=== PATIENT | female | born 1965 | race American Indian/Alaskan Native ===

== ENCOUNTER 2017-05-25 23:22 | Inpatient (IN) | payer MEDICARE ==
[2017-05-26 00:08] LABS: Basophils % (Auto) 0.6 % (0.0-1.8); Eosinophils % (Auto) 1.2 % (0.0-4.3); Hematocrit 42.8 % (30.3-42.9); Hemoglobin 14.3 gm/dl (10.1-14.3); Mean Corpuscular HGB Conc 33 % (30-34); Mean Corpuscular Hemoglobin 30 pg (28-32); Mean Corpuscular Volume 89 fl (79-97); Platelet Count 185 K/mm3 (140-440); Red Blood Count 4.78 M/mm3 (3.65-5.03); Red Cell Distribution Width 14.8 % (13.2-15.2); White Blood Count 7.7 K/mm3 (4.5-11.0)
[2017-05-26 00:20] LABS: Anion Gap 17 mmol/L; BUN/Creatinine Ratio 14; Blood Urea Nitrogen 10 mg/dL (7-17); Calcium 9.4 mg/dL (8.4-10.2); Carbon Dioxide 25 mmol/L (22-30); Chloride 103.8 mmol/L (98-107); Glucose 214 mg/dL (65-100); Potassium 3.1 mmol/L (3.6-5.0); Sodium 143 mmol/L (137-145)
[2017-05-26] MEDS ORDERED: MORPHINE IV ONE ×2 (02:24→13:30)
[2017-05-26] MEDS ORDERED: PHENERGAN PO ONE (02:25)
--- NOTE | 2017-05-26 02:30 | Emergency Department Report ---
ED Chest Pain HPI - General Chief Complaint: Chest Pain Stated Complaint: CHEST PAIN Time Seen by Provider: 05/26/17 01:58 Source: patient, EMS Mode of arrival: Stretcher Limitations: No Limitations - History of Present Illness Initial Comments: 51 yo female with a past medical history of asthma, CHF, COPD, CVA, DVT, diabetes, DE, hypertension, fibromyalgia, and AICD placement presents to the hospital complaints of chest pain that started tonight. Pain is substernal radiates to the back and jaw, constant, and feels like "an elephant sitting on her chest". Patient received 3 nitroglycerin sublingual and aspirin via EMS reports a decrease in her pain 5/10 in intensity. Patient states she has similar pain when she had a heart attack in 2016. She was seen at a hospital in [place] which I assume is [facility]. Patient states she had a cardiac cath at that time and was told that she has some minor blockages and did not require stenting or bypass. Her record here patient had a cardiac cath here on 10/03/2014 showing normal coronary arteries with an EF of 50% Her slabber is Dr. Herr PMD: Dr. Shelton [facility] affiliated Severity scale (0 -10): 5 - Related Data Home Medications Medication Instructions Recorded Confirmed Last Taken Albuterol Sulfate [Ventolin HFA] 2 puff IH Q4H PRN 10/03/14 05/26/17 10/01/14 2 puffs DULoxetine [Cymbalta] 60 mg PO BID 12/12/14 05/26/17 12/12/14 tiZANidine [Zanaflex] 4 mg PO TID 12/12/14 05/26/17 12/12/14 traZODone [Desyrel] 100 mg PO QHS 12/12/14 05/26/17 12/12/14 Furosemide [Lasix TAB] 40 mg PO QDAY 01/05/15 05/26/17 Unknown ISOSORBIDE MONOnitrate [Imdur ER] 60 mg PO QDAY 01/05/15 05/26/17 Unknown clonazePAM [KlonoPIN] 1 mg PO TID 01/05/15 05/26/17 Unknown Diclofenac Sodium [Voltaren] 100 gm TP QID PRN 05/26/17 05/26/17 Unknown Gabapentin [Neurontin] 600 mg PO Q8H 05/26/17 05/26/17 Unknown Insulin Aspart [NovoLOG Flexpen] 7 - 12 units SQ AC 05/26/17 05/26/17 Unknown Insulin Detemir [Levemir VIAL] 7 unit SQ QHS 05/26/17 05/26/17 Unknown Mometasone Furoate [Elocon] 15 gm TP DAILY 05/26/17 05/26/17 Unknown Morphine [Morphine TAB] 15 mg PO Q12H 05/26/17 05/26/17 Unknown Oxycodone HCl/Acetaminophen 1 each PO Q8HR PRN 05/26/17 05/26/17 Unknown [Percocet 7.5/325 mg] Pentosan Polysulfate Sodium 100 mg PO DAILY 05/26/17 05/26/17 Unknown [Elmiron] Previous Rx's Medication Instructions Recorded Last Taken Type Carvedilol [Coreg] 12.5 mg PO BID #60 tablet 09/08/14 12/12/14 Rx Spironolactone [Aldactone] 50 mg PO DAILY #30 tablet 09/08/14 12/12/14 Rx Allergies Allergy/AdvReac Type Severity Reaction Status Date / Time divalproex sodium Allergy Anaphylaxis Verified 01/05/15 16:07 [From Depakote] heparin Allergy Swelling Verified 01/05/15 16:07 Iodinated Contrast- Oral and Allergy Anaphylaxis Verified 01/05/15 16:07 IV Dye [Iodinated Contrast Media - IV Dye] ketorolac tromethamine Allergy Angioedema Verified 01/05/15 16:07 [From Toradol] ondansetron HCl Allergy Itching Verified 01/05/15 16:07 [From Zofran (as hydrochloride)] Penicillins Allergy Anaphylaxis Verified 01/05/15 16:07 Heart Score - HEART Score History: Moderately suspicious EKG: Non-specific Age: 45-65 Risk factors: > 3 risk factors or hx of atherosclerotic disease Troponin: < normal limit HEART Score: 5 ED Review of Systems ROS: Stated complaint: CHEST PAIN Other details as noted in HPI Comment: All other systems reviewed and negative Other: Constitutional: No fevers chills Eyes: No eye pain visual changes ENT: No ear pain or throat pain Neck: Denies pain Respiratory: Denies cough wheezing Cardiovascular: as per hpi GI: Denies abdominal pain, nausea, vomiting, diarrhea : Denies dysuria Musculoskeletal: Denies back pain Skin: Denies rash, lesions, erythema Neurologic: Denies headache, numbness, weakness Psychiatric: Denies suicidal ideation, hallucinations ED Past Medical Hx - Past Medical History Previous Medical History?: Yes Hx Hypertension: Yes Hx CVA: Yes (x3) Hx Heart Attack/AMI: Yes (x2) Hx Congestive Heart Failure: Yes Hx Diabetes: Yes Hx Deep Vein Thrombosis: Yes (at site of port in the remote past off Coumadin now) Hx Arthritis: Yes Hx Kidney Stones: Yes Hx Asthma: Yes Hx COPD: Yes Hx HIV: No Additional medical history: "kidney stone disease", fibromyalgia, crohns - Surgical History Past Surgical History?: Yes Hx Pacemaker: Yes (AICD) Hx Internal Defibrillator: Yes Hx Cholecystectomy: Yes Additional Surgical History: ureter transplant, - Social History Smoking Status: Current Every Day Smoker Substance Use Type: None - Medications Home Medications: Home Medications Medication Instructions Recorded Confirmed Last Taken Type Carvedilol [Coreg] 12.5 mg PO BID #60 tablet 09/08/14 05/26/17 12/12/14 Rx Spironolactone [Aldactone] 50 mg PO DAILY #30 tablet 09/08/14 05/26/17 12/12/14 Rx Albuterol Sulfate [Ventolin HFA] 2 puff IH Q4H PRN 10/03/14 05/26/17 10/01/14 History 2 puffs DULoxetine [Cymbalta] 60 mg PO BID 12/12/14 05/26/17 12/12/14 History tiZANidine [Zanaflex] 4 mg PO TID 12/12/14 05/26/17 12/12/14 History traZODone [Desyrel] 100 mg PO QHS 12/12/14 05/26/17 12/12/14 History Furosemide [Lasix TAB] 40 mg PO QDAY 01/05/15 05/26/17 Unknown History ISOSORBIDE MONOnitrate [Imdur ER] 60 mg PO QDAY 01/05/15 05/26/17 Unknown History clonazePAM [KlonoPIN] 1 mg PO TID 01/05/15 05/26/17 Unknown History Diclofenac Sodium [Voltaren] 100 gm TP QID PRN 05/26/17 05/26/17 Unknown History Gabapentin [Neurontin] 600 mg PO Q8H 05/26/17 05/26/17 Unknown History Insulin Aspart [NovoLOG Flexpen] 7 - 12 units SQ AC 05/26/17 05/26/17 Unknown History Insulin Detemir [Levemir VIAL] 7 unit SQ QHS 05/26/17 05/26/17 Unknown History Mometasone Furoate [Elocon] 15 gm TP DAILY 05/26/17 05/26/17 Unknown History Morphine [Morphine TAB] 15 mg PO Q12H 05/26/17 05/26/17 Unknown History Oxycodone HCl/Acetaminophen 1 each PO Q8HR PRN 05/26/17 05/26/17 Unknown History [Percocet 7.5/325 mg] Pentosan Polysulfate Sodium 100 mg PO DAILY 05/26/17 05/26/17 Unknown History [Elmiron] ED Physical Exam - General Limitations: No Limitations - Other Other exam information: General: No limitations, patient is alert in no acute distress Head exam: Atraumatic, normocephalic Eyes exam: Normal appearance ENT: Moist mucous membrane, normal oropharynx Neck exam: Normal inspection, full range of motion, no meningismus nontender Respiratory exam: Clear to auscultation bilateral, no wheezes, rales, crackles Cardiovascular: Normal rate and rhythm, normal heart sounds, chest wall nontender Abdomen: Soft, nondistended, and nontender, with normal bowel sounds, no rebound, or guarding Extremity: Full range of motion normal inspection no deformity, no calf tenderness or edema Back: Normal Inspection, full range of motion, no tenderness Neurologic: Alert, oriented x3, cranial nerves intact, no motor or sensory deficit Psychiatric: normal affect, normal mood Skin: Warm, dry, intact ED Course Vital Signs 05/25/17 05/25/17 05/25/17 23:30 23:31 23:33 Pulse Rate 84 77 Respiratory 14 Rate Blood Pressure O2 Sat by Pulse 94 94 98 Oximetry 05/25/17 05/25/17 05/25/17 23:35 23:37 23:39 Pulse Rate 72 73 74 Respiratory 16 15 21 Rate Blood Pressure O2 Sat by Pulse 99 98 97 Oximetry 05/25/17 05/25/17 05/25/17 23:41 23:43 23:45 Pulse Rate 84 83 80 Respiratory 17 10 L 12 Rate Blood Pressure 143/77 O2 Sat by Pulse 98 99 98 Oximetry 05/25/17 05/25/17 05/25/17 23:47 23:49 23:51 Pulse Rate 73 73 64 Respiratory 13 20 20 Rate Blood Pressure 143/77 143/77 143/77 O2 Sat by Pulse 99 99 98 Oximetry 05/25/17 05/25/17 05/25/17 23:53 23:55 23:57 Pulse Rate 70 66 69 Respiratory 21 19 20 Rate Blood Pressure 143/77 143/77 143/77 O2 Sat by Pulse 98 98 98 Oximetry 05/25/17 05/26/17 05/26/17 23:59 00:01 00:05 Pulse Rate 67 71 Respiratory 19 22 22 Rate Blood Pressure 143/77 131/83 O2 Sat by Pulse 98 98 99 Oximetry 05/26/17 05/26/17 05/26/17 01:07 01:09 01:11 Pulse Rate 72 68 69 Respiratory 18 22 19 Rate Blood Pressure 144/88 144/88 136/85 O2 Sat by Pulse 98 98 99 Oximetry 05/26/17 05/26/17 05/26/17 01:13 01:15 01:17 Pulse Rate 72 81 72 Respiratory 16 7 L 16 Rate Blood Pressure 136/85 136/85 136/85 O2 Sat by Pulse 98 99 99 Oximetry 05/26/17 05/26/17 05/26/17 01:19 01:21 01:23 Pulse Rate 76 61 63 Respiratory 20 18 17 Rate Blood Pressure 136/85 136/85 136/85 O2 Sat by Pulse 99 99 100 Oximetry 05/26/17 05/26/17 05/26/17 01:25 01:27 01:29 Pulse Rate 69 69 68 Respiratory 19 18 17 Rate Blood Pressure 136/85 136/85 136/85 O2 Sat by Pulse 99 99 99 Oximetry 05/26/17 05/26/17 05/26/17 01:30 01:31 01:33 Pulse Rate 67 70 60 Respiratory 17 18 17 Rate Blood Pressure 147/96 147/96 147/96 O2 Sat by Pulse 99 99 99 Oximetry 05/26/17 05/26/17 05/26/17 01:35 01:37 01:39 Pulse Rate 65 61 68 Respiratory 16 17 17 Rate Blood Pressure 147/96 147/96 147/96 O2 Sat by Pulse 99 99 100 Oximetry 05/26/17 05/26/1705/26/17 01:41 01:43 01:45 Pulse Rate 72 67 59 L Respiratory 12 18 18 Rate Blood Pressure 144/88 144/88 144/88 O2 Sat by Pulse 98 100 99 Oximetry 05/26/17 05/26/17 05/26/17 01:47 01:49 01:51 Pulse Rate 68 59 L 71 Respiratory 21 17 19 Rate Blood Pressure 144/88 144/88 144/88 O2 Sat by Pulse 98 98 99 Oximetry 05/26/17 05/26/17 05/26/17 01:53 01:55 01:57 Pulse Rate 70 76 54 L Respiratory 20 10 L 19 Rate Blood Pressure 144/88 144/88 144/88 O2 Sat by Pulse 98 100 99 Oximetry 05/26/17 05/26/17 05/26/17 01:59 02:00 02:01 Pulse Rate 53 L 54 L 60 Respiratory 17 17 20 Rate Blood Pressure 144/88 137/83 137/83 O2 Sat by Pulse 99 98 98 Oximetry 05/26/17 05/26/17 05/26/17 02:03 02:05 02:07 Pulse Rate 57 L 64 57 L Respiratory 17 15 18 Rate Blood Pressure 137/83 137/83 137/83 O2 Sat by Pulse 99 99 99 Oximetry 05/26/17 05/26/17 05/26/17 02:09 02:11 02:13 Pulse Rate 68 63 65 Respiratory 21 18 19 Rate Blood Pressure 137/83 137/83 137/83 O2 Sat by Pulse 99 99 100 Oximetry 05/26/17 05/26/17 05/26/17 02:15 02:17 02:19 Pulse Rate 66 63 76 Respiratory 18 19 11 L Rate Blood Pressure 137/83 137/83 137/83 O2 Sat by Pulse 99 100 100 Oximetry 05/26/17 05/26/17 05/26/17 02:21 02:23 02:25 Pulse Rate 74 71 74 Respiratory 14 13 17 Rate Blood Pressure 137/83 137/83 137/83 O2 Sat by Pulse 100 99 98 Oximetry 05/26/17 05/26/17 05/26/17 02:27 02:29 02:31 Pulse Rate 68 68 70 Respiratory 11 L 12 10 L Rate Blood Pressure 137/83 137/83 140/96 O2 Sat by Pulse 99 99 100 Oximetry 05/26/17 05/26/17 05/26/17 02:33 02:35 02:37 Pulse Rate 62 58 L 76 Respiratory 22 19 14 Rate Blood Pressure 140/96 140/96 140/96 O2 Sat by Pulse 98 98 99 Oximetry 05/26/17 05/26/17 05/26/17 02:39 02:41 02:43 Pulse Rate 67 57 L Respiratory 14 13 20 Rate Blood Pressure 140/96 140/96 O2 Sat by Pulse 100 99 Oximetry - Reevaluation(s) Reevaluation #1: 05/26/17 04:14 Patient treated with morphine and Phenergan. By mouth potassium order for mild hypokalemia RICKI score - Ricki Score Age > 65: (0) No Aspirin use within the Past 7 Days: (0) No 3 or more CAD Risk Factors: (0) No 2 or more Angina events in past 24 hrs: (0) No Known CAD with more than 50% Stenosis: (0) No Elevated Cardiac Markers: (0) No ST Deviation Greater than 0.5mm: (0) No RICKI Score: 0 ED Medical Decision Making - Lab Data Result diagrams: 05/25/17 23:44 05/25/17 23:44 Lab Results 05/25/17 05/25/17 05/26/17 Range/Units 23:44 23:44 02:24 WBC 7.7 (4.5-11.0) K/mm3 RBC 4.78 (3.65-5.03) M/mm3 Hgb 14.3 (10.1-14.3) gm/dl Hct 42.8 (30.3-42.9) % MCV 89 (79-97) fl MCH 30 (28-32) pg MCHC 33 (30-34) % RDW 14.8 (13.2-15.2) % Plt Count 185 (140-440) K/mm3 Lymph % (Auto) 32.4 (13.4-35.0) % Blair % (Auto) 8.6 H (0.0-7.3) % Eos % (Auto) 1.2 (0.0-4.3) % Baso % (Auto) 0.6 (0.0-1.8) % Lymph # 2.5 (1.2-5.4) K/mm3 Blair # 0.7 (0.0-0.8) K/mm3 Eos # 0.1 (0.0-0.4) K/mm3 Baso # 0.0 (0.0-0.1) K/mm3 Seg Neutrophils % 57.2 (40.0-70.0) % Seg Neutrophils # 4.4 (1.8-7.7) K/mm3 PT (12.2-14.9) Sec. INR (0.87-1.13) Sodium 143 (137-145) mmol/L Potassium 3.1 L (3.6-5.0) mmol/L Chloride 103.8 (98-107) mmol/L Carbon Dioxide 25 (22-30) mmol/L Anion Gap 17 mmol/L BUN 10 (7-17) mg/dL Creatinine 0.7 (0.7-1.2) mg/dL Estimated GFR > 60 ml/min BUN/Creatinine Ratio 14 % Glucose 214 H (65-100) mg/dL Calcium 9.4 (8.4-10.2) mg/dL Troponin T < 0.010 < 0.010 (0.00-0.029) ng/mL 05/26/17 Range/Units 02:30 WBC (4.5-11.0) K/mm3 RBC (3.65-5.03) M/mm3 Hgb (10.1-14.3) gm/dl Hct (30.3-42.9) % MCV (79-97) fl MCH (28-32) pg MCHC (30-34) % RDW (13.2-15.2) % Plt Count (140-440) K/mm3 Lymph % (Auto) (13.4-35.0) % Blair % (Auto) (0.0-7.3) % Eos % (Auto) (0.0-4.3) % Baso % (Auto) (0.0-1.8) % Lymph # (1.2-5.4) K/mm3 Blair # (0.0-0.8) K/mm3 Eos # (0.0-0.4) K/mm3 Baso # (0.0-0.1) K/mm3 Seg Neutrophils % (40.0-70.0) % Seg Neutrophils # (1.8-7.7) K/mm3 PT 13.0 (12.2-14.9) Sec. INR 0.94 (0.87-1.13) Sodium (137-145) mmol/L Potassium (3.6-5.0) mmol/L Chloride (98-107) mmol/L Carbon Dioxide (22-30) mmol/L Anion Gap mmol/L BUN (7-17) mg/dL Creatinine (0.7-1.2) mg/dL Estimated GFR ml/min BUN/Creatinine Ratio % Glucose (65-100) mg/dL Calcium (8.4-10.2) mg/dL Troponin T (0.00-0.029) ng/mL - EKG Data -: EKG Interpreted by Me (ventricular paced rhythm. ) - EKG Data When compared to previous EKG there are: no significant change (compared to ) - Radiology Data Radiology results: report reviewed Read by radiology Chest xray: Mild cardiomegaly - Medical Decision Making Plan to admit patient to hospital for further cardiac evaluation. Initial EKG cardiac enzymes unremarkable - Differential Diagnosis mi, pe, unstable angina, fibromyalgia, costochondritis, atypical chest Critical Care Time: No Critical care attestation.: If time is entered above; I have spent that time in minutes in the direct care of this critically ill patient, excluding procedure time. ED Disposition Clinical Impression: Diabetes, Chest pain, AICD (automatic cardioverter/defibrillator) present Disposition: DC-09 OP ADMIT IP TO THIS HOSP Is pt being admited?: Yes Condition: Stable Time of Disposition: 04:16 (Dr clement/hosp)
[2017-05-26 02:53] LABS: INR 0.94 (0.87-1.13)
--- NOTE | 2017-05-26 03:00 | XRay Report ---
FINAL REPORT EXAM: XR CHEST 1V AP HISTORY: cp COMPARISON: None available. FINDINGS: Frontal view(s) of the chest obtained. Mild cardiac enlargement. Right-sided cardiac defibrillator is in place. Left-sided Port-A-Cath is in place. Lungs are clear. No pneumothorax. IMPRESSION: Mild cardiac enlargement. Lungs are clear.
[2017-05-26] MEDS ORDERED: K-DUR PO ONE ×2 (04:13→18:00)
[2017-05-26] MEDS ORDERED: D50W (25GM) Syringe IV PRN (11:00)
--- NOTE | 2017-05-26 11:00 | History and Physical Report ---
<LEON CHAVEZ - Last Filed: 05/26/17 16:00> History of Present Illness Date of examination: 05/26/17 Date of admission: 05/26/17 04:31 Chief complaint: Chest Pain History of present illness: 51 yo female with a past medical history of asthma, CHF, COPD, CVA, DVT, diabetes, NM, hypertension, fibromyalgia, and AICD placement presents to the hospital complaints of chest pain that started tonight. Pain is substernal radiates to the back and jaw, constant, and feels like "an elephant sitting on her chest". Patient received 3 nitroglycerin sublingual and aspirin via EMS reports a decrease in her pain 5/10 in intensity. Patient states she has similar pain when she had a heart attack in 2016. She was seen at a hospital in [place] which I assume is [facility]. Patient states she had a cardiac cath at that time and was told that she has some minor blockages and did not require stenting or bypass. Her record here patient had a cardiac cath here on 10/03/2014 showing normal coronary arteries with an EF of 50% Past History Past Medical History: acute [place] (X2), arthritis, COPD, diabetes, DVT (at site of port in the remote past off Coumadin now), heart failure, hypertension, stroke ( X3), other (kidney stones, asthma, fibromyalgia, Crohn's) Past Surgical History: cholecystectomy, Other (AICD, internal defibrillator, ureter transplant) Social history: smoking (everyday smoker) Medications and Allergies Allergies Allergy/AdvReac Type Severity Reaction Status Date / Time divalproex sodium Allergy Anaphylaxis Verified 01/05/15 16:07 [From Depakote] heparin Allergy Swelling Verified 01/05/15 16:07 Iodinated Contrast- Oral and Allergy Anaphylaxis Verified 01/05/15 16:07 IV Dye [Iodinated Contrast Media - IV Dye] ketorolac tromethamine Allergy Angioedema Verified 01/05/15 16:07 [From Toradol] ondansetron HCl Allergy Itching Verified 01/05/15 16:07 [From Zofran (as hydrochloride)] Penicillins Allergy Anaphylaxis Verified 01/05/15 16:07 Home Medications Medication Instructions Recorded Confirmed Last Taken Type Carvedilol [Coreg] 12.5 mg PO BID #60 tablet 09/08/14 05/26/17 12/12/14 Rx Spironolactone [Aldactone] 50 mg PO DAILY #30 tablet 09/08/14 05/26/17 12/12/14 Rx Albuterol Sulfate [Ventolin HFA] 2 puff IH Q4H PRN 10/03/14 05/26/17 10/01/14 History 2 puffs DULoxetine [Cymbalta] 60 mg PO BID 12/12/14 05/26/17 12/12/14 History tiZANidine [Zanaflex] 4 mg PO TID 12/12/14 05/26/17 12/12/14 History traZODone [Desyrel] 100 mg PO QHS 12/12/14 05/26/17 12/12/14 History Furosemide [Lasix TAB] 40 mg PO QDAY 01/05/15 05/26/17 Unknown History ISOSORBIDE MONOnitrate [Imdur ER] 60 mg PO QDAY 01/05/15 05/26/17 Unknown History clonazePAM [KlonoPIN] 1 mg PO TID 01/05/15 05/26/17 Unknown History Diclofenac Sodium [Voltaren] 100 gm TP QID PRN 05/26/17 05/26/17 Unknown History Gabapentin [Neurontin] 600 mg PO Q8H 05/26/17 05/26/17 Unknown History Insulin Aspart [NovoLOG Flexpen] 7 - 12 units SQ AC 05/26/17 05/26/17 Unknown History Insulin Detemir [Levemir VIAL] 7 unit SQ QHS 05/26/17 05/26/17 Unknown History Mometasone Furoate [Elocon] 15 gm TP DAILY 05/26/17 05/26/17 Unknown History Morphine [Morphine TAB] 15 mg PO Q12H 05/26/17 05/26/17 Unknown History Oxycodone HCl/Acetaminophen 1 each PO Q8HR PRN 05/26/17 05/26/17 Unknown History [Percocet 7.5/325 mg] Pentosan Polysulfate Sodium 100 mg PO DAILY 05/26/17 05/26/17 Unknown History [Elmiron] Active Meds: Active Medications Acetaminophen (Tylenol) 500 mg PO Q4H PRN PRN Reason: Pain, Mild (1-3) Aspirin (Ecotrin) 325 mg PO QDAY ASHKAN Dextrose (D50w (25gm) Syringe) 50 ml IV PRN PRN PRN Reason: Hypoglycemia Enoxaparin Sodium (Lovenox) 40 mg SUB-Q QDAY ASHKAN Insulin Aspart (Novolog) 0 units SUB-Q ACHS ASHKAN PRN Reason: Protocol Nitroglycerin (Nitrostat) 0.4 mg SL .Q5MIN PRN PRN Reason: Chest Pain Review of Systems Constitutional: sweats, no weight loss, no anorexia Ears, nose, mouth and throat: no ear pain, no sore throat Breasts: deferred Cardiovascular: chest pain, no palpitations, no edema Respiratory: no cough, no shortness of breath Gastrointestinal: nausea, no abdominal pain, no vomiting Genitourinary Female: no pelvic pain, no dysuria Rectal: no pain Musculoskeletal: no neck pain, no low back pain Integumentary: no rash, no sores, no boils Neurological: no transient paralysis, no paralysis Psychiatric: no anxiety, no depression Endocrine: no cold intolerance, no heat intolerance Hematologic/Lymphatic: no easy bruising, no easy bleeding Allergic/Immunologic: no urticaria, no allergic rhinitis Exam - Constitutional Vitals: Temp Pulse Resp BP Pulse Ox 66 19 130/79 96 05/26/17 08:53 05/26/17 06:05 05/26/17 08:53 05/26/17 08:53 General appearance: Present: no acute distress, well-nourished - EENT Eyes: Present: PERRL ENT: hearing intact, clear oral mucosa - Neck Neck: Present: supple, normal ROM - Respiratory Respiratory effort: normal Respiratory: bilateral: CTA - Cardiovascular Heart Sounds: Present: S1 & S2. Absent: rub, click - Extremities Extremities: pulses symmetrical, No edema Peripheral Pulses: within normal limits - Abdominal General gastrointestinal: Present: soft, non-tender, non-distended, normal bowel sounds Female genitourinary: Present: deferred - Rectal Rectal Exam: deferred - Integumentary Integumentary: Present: clear, warm, dry - Musculoskeletal Musculoskeletal: gait normal, strength equal bilaterally - Psychiatric Psychiatric: appropriate mood/affect, intact judgment & insight - Neurologic Neurologic: CNII-XII intact, moves all extremities - Allied Health Allied health notes reviewed: nursing Results - Labs CBC & Chem 7: 05/25/17 23:44 05/25/17 23:44 Labs: Laboratory Last Values WBC 7.7 K/mm3 (4.5-11.0) 05/25/17 23:44 RBC 4.78 M/mm3 (3.65-5.03) 05/25/17 23:44 Hgb 14.3 gm/dl (10.1-14.3) 05/25/17 23:44 Hct 42.8 % (30.3-42.9) 05/25/17 23:44 MCV 89 fl (79-97) 05/25/17 23:44 MCH 30 pg (28-32) 05/25/17 23:44 MCHC 33 % (30-34) 05/25/17 23:44 RDW 14.8 % (13.2-15.2) 05/25/17 23:44 Plt Count 185 K/mm3 (140-440) 05/25/17 23:44 Lymph % (Auto) 32.4 % (13.4-35.0) 05/25/17 23:44 Mccone % (Auto) 8.6 % (0.0-7.3) H 05/25/17 23:44 Eos % (Auto) 1.2 % (0.0-4.3) 05/25/17 23:44 Baso % (Auto) 0.6 % (0.0-1.8) 05/25/17 23:44 Lymph # 2.5 K/mm3 (1.2-5.4) 05/25/17 23:44 Mccone # 0.7 K/mm3 (0.0-0.8) 05/25/17 23:44 Eos # 0.1 K/mm3 (0.0-0.4) 05/25/17 23:44 Baso # 0.0 K/mm3 (0.0-0.1) 05/25/17 23:44 Seg Neutrophils % 57.2 % (40.0-70.0) 05/25/17 23:44 Seg Neutrophils # 4.4 K/mm3 (1.8-7.7) 05/25/17 23:44 PT 13.0 Sec. (12.2-14.9) 05/26/17 02:30 INR 0.94 (0.87-1.13) 05/26/17 02:30 Sodium 143 mmol/L (137-145) 05/25/17 23:44 Potassium 3.1 mmol/L (3.6-5.0) L 05/25/17 23:44 Chloride 103.8 mmol/L (98-107) 05/25/17 23:44 Carbon Dioxide 25 mmol/L (22-30) 05/25/17 23:44 Anion Gap 17 mmol/L 05/25/17 23:44 BUN 10 mg/dL (7-17) 05/25/17 23:44 Creatinine 0.7 mg/dL (0.7-1.2) 05/25/17 23:44 Estimated GFR > 60 ml/min 05/25/17 23:44 BUN/Creatinine Ratio 14 % 05/25/17 23:44 Glucose 214 mg/dL (65-100) H 05/25/17 23:44 POC Glucose 160 (70-105) H 05/26/17 09:02 Calcium 9.4 mg/dL (8.4-10.2) 05/25/17 23:44 Troponin T < 0.010 ng/mL (0.00-0.029) 05/26/17 07:00 - Imaging and Cardiology Chest x-ray: report reviewed Assessment and Plan Advance Directives: Yes VTE prophylaxis?: Chemical - Patient Problems (1) Hypokalemia Current Visit: Yes Status: Acute (2) Systolic heart failure Current Visit: Yes Status: Chronic Plan to address problem: Echo completed 11/21 EF 40-45% trace TR, mod LVH, impaired relaxation Continue Lasix, Coreg Cardiology following (3) Tobacco dependence Current Visit: Yes Status: Acute Plan to address problem: Patient counselled on tobacco cessation (4) AICD (automatic cardioverter/defibrillator) present Current Visit: Yes Status: Acute (5) Chest pain Current Visit: Yes Status: Acute Plan to address problem: Nitroglycerin PRN, Plan for Stress test in am NPO after midnight (6) Diabetes Current Visit: Yes Status: Chronic Plan to address problem: Resume home regimen, SSI, ADA diet, Accu cheks (7) COPD (chronic obstructive pulmonary disease) Current Visit: No Status: Chronic Plan to address problem: Not an exacerbation, Albuterol Neb PRN (8) Hypertension Current Visit: No Status: Chronic Plan to address problem: Continue coreg, hydralazine PRN <LORI ZIMMERMAN - Last Filed: 05/26/17 17:57> History of Present Illness Date of admission: 05/26/17 04:31 Medications and Allergies Active Meds: Active Medications Acetaminophen (Tylenol) 500 mg PO Q4H PRN PRN Reason: Pain, Mild (1-3) Albuterol (Proventil) 2.5 mg IH Q4HRT PRN PRN Reason: Shortness Of Breath Aspirin (Ecotrin) 325 mg PO QDAY COUNT INCLUDES THE [facility] Last Admin: 05/26/17 17:24 Dose: 325 mg Carvedilol (Coreg) 12.5 mg PO BID ASHKAN Clonazepam (Klonopin) 1 mg PO TID COUNT INCLUDES THE [facility] Last Admin: 05/26/17 14:00 Dose: Not Given Dextrose (D50w (25gm) Syringe) 50 ml IV PRN PRN PRN Reason: Hypoglycemia Duloxetine HCl (Cymbalta) 60 mg PO BID COUNT INCLUDES THE [facility] Enoxaparin Sodium (Lovenox) 60 mg SUB-Q Q12HR COUNT INCLUDES THE [facility] Furosemide (Lasix) 40 mg PO QDAY@0600 COUNT INCLUDES THE [facility] Gabapentin (Neurontin) 600 mg PO Q8HR COUNT INCLUDES THE [facility] Last Admin: 05/26/17 17:24 Dose: 600 mg Insulin Aspart (Novolog) 0 units SUB-Q ACHS ASHKAN PRN Reason: Protocol Last Admin: 05/26/17 17:32 Dose: Not Given Insulin Aspart (Novolog) 8 units SUB-Q AC COUNT INCLUDES THE [facility] Last Admin: 05/26/17 17:32 Dose: Not Given Insulin Detemir (Levemir) 7 units SUB-Q QHS COUNT INCLUDES THE [facility] Isosorbide Mononitrate (Imdur) 60 mg PO QDAY COUNT INCLUDES THE [facility] Miscellaneous Medication (Diclofenac Sodium [Voltaren]) 100 gm TP QID PRN PRN Reason: Pain Miscellaneous Medication (Pentosan Polysulfate Sodium [Elmiron]) 100 mg PO DAILY COUNT INCLUDES THE [facility] Nitroglycerin (Nitrostat) 0.4 mg SL .Q5MIN PRN PRN Reason: Chest Pain Oxycodone HCl (Roxicodone) 2.5 mg PO Q8H PRN PRN Reason: Pain, Moderate (4-6) Last Admin: 05/26/17 17:42 Dose: 2.5 mg Oxycodone/Acetaminophen (Percocet 5/325) 1 tab PO Q8H PRN PRN Reason: Pain, Moderate (4-6) Last Admin: 05/26/17 17:43 Dose: 1 tab Potassium Chloride (K-Dur) 40 meq PO ONCE ONE Stop: 05/26/17 18:01 Last Admin: 05/26/17 17:25 Dose: 40 meq Spironolactone (Aldactone) 50 mg PO DAILY COUNT INCLUDES THE [facility] Trazodone HCl (Desyrel) 100 mg PO QHS COUNT INCLUDES THE [facility] Exam - Constitutional Vitals: Temp Pulse Resp BP Pulse Ox 66 18 130/79 96 05/26/17 10:00 05/26/17 10:00 05/26/17 08:53 05/26/17 08:53 Results - Labs CBC & Chem 7: 05/25/17 23:44 05/25/17 23:44 Labs: Laboratory Last Values WBC 7.7 K/mm3 (4.5-11.0) 05/25/17 23:44 RBC 4.78 M/mm3 (3.65-5.03) 05/25/17 23:44 Hgb 14.3 gm/dl (10.1-14.3) 05/25/17 23:44 Hct 42.8 % (30.3-42.9) 05/25/17 23:44 MCV 89 fl (79-97) 05/25/17 23:44 MCH 30 pg (28-32) 05/25/17 23:44 MCHC 33 % (30-34) 05/25/17 23:44 RDW 14.8 % (13.2-15.2) 05/25/17 23:44 Plt Count 185 K/mm3 (140-440) 05/25/17 23:44 Lymph % (Auto) 32.4 % (13.4-35.0) 05/25/17 23:44 Mccone % (Auto) 8.6 % (0.0-7.3) H 05/25/17 23:44 Eos % (Auto) 1.2 % (0.0-4.3) 05/25/17 23:44 Baso % (Auto) 0.6 % (0.0-1.8) 05/25/17 23:44 Lymph # 2.5 K/mm3 (1.2-5.4) 05/25/17 23:44 Mccone # 0.7 K/mm3 (0.0-0.8) 05/25/17 23:44 Eos # 0.1 K/mm3 (0.0-0.4) 05/25/17 23:44 Baso # 0.0 K/mm3 (0.0-0.1) 05/25/17 23:44 Seg Neutrophils % 57.2 % (40.0-70.0) 05/25/17 23:44 Seg Neutrophils # 4.4 K/mm3 (1.8-7.7) 05/25/17 23:44 PT 13.0 Sec. (12.2-14.9) 05/26/17 02:30 INR 0.94 (0.87-1.13) 05/26/17 02:30 Sodium 143 mmol/L (137-145) 05/25/17 23:44 Potassium 3.1 mmol/L (3.6-5.0) L 05/25/17 23:44 Chloride 103.8 mmol/L (98-107) 05/25/17 23:44 Carbon Dioxide 25 mmol/L (22-30) 05/25/17 23:44 Anion Gap 17 mmol/L 05/25/17 23:44 BUN 10 mg/dL (7-17) 05/25/17 23:44 Creatinine 0.7 mg/dL (0.7-1.2) 05/25/17 23:44 Estimated GFR > 60 ml/min 05/25/17 23:44 BUN/Creatinine Ratio 14 % 05/25/17 23:44 Glucose 214 mg/dL (65-100) H 05/25/17 23:44 POC Glucose 157 (70-105) H 05/26/17 12:12 Hemoglobin A1c 9.4 % (4-6) H 05/25/17 23:44 Calcium 9.4 mg/dL (8.4-10.2) 05/25/17 23:44 Troponin T < 0.010 ng/mL (0.00-0.029) 05/26/17 07:00 Assessment and Plan Assessment and plan: I saw and evaluated the patient. I agree with the findings and the plan of care as documented in the Nurse Practitioner's note.
[2017-05-26] MEDS ORDERED: PROAIR IH PRN (11:16)
[2017-05-26] MEDS ORDERED: NON-FORMULARY (Diclofenac Sodium [Voltaren] 100 GM) TP PRN (11:16)
[2017-05-26] MEDS ORDERED: NON-FORMULARY (Oxycodone Hcl/Acetaminophen [Percocet 7.5/325 Mg] 1 EACH) PO PRN (11:16)
[2017-05-26] MEDS ORDERED: NON-FORMULARY (Insulin Aspart [Novolog Flexpen] 8 UNITS) SQ SCH (11:30)
[2017-05-26] MEDS ORDERED: NITROSTAT SL PRN (11:30)
[2017-05-26] MEDS ORDERED: NON-FORMULARY (Gabapentin [Neurontin] 600 MG) PO SCH (11:30)
[2017-05-26] MEDS ORDERED: PERCOCET 5/325 PO PRN (11:51)
[2017-05-26] MEDS ORDERED: ROXICODONE PO PRN (11:52)
[2017-05-26] MEDS ORDERED: TYLENOL PO PRN (12:00)
[2017-05-26] MEDS ORDERED: PROVENTIL IH PRN (12:31)
[2017-05-26] MEDS: NOVOLOG SUB-Q SCH ×4 (12:55→21:23)
--- NOTE | 2017-05-26 14:33 | Consultation ---
History of Present Illness Consult date: 05/26/17 Requesting physician: LEON CHAVEZ Consult reason: chest pain History of present illness: The pt is a 51 YO female with a past medical history significant for NICMP, Bi- V AICD in situ (implanted in [place]), ? [place] x 2 per pt report, chronic systolic heart failure, COPD, tobacco use, CVA, TIA, HTN, DM, chronic back pain. She is followed in our office by Dr. Somers. She presented with c/o chest pain which began yesterday evening. She describes the chest pain as a midsternal pressure and "elephant sitting on the chest" sensation which is nonradiating, nonexertional and constant in nature. Patient received 3 nitroglycerin sublingual and aspirin via EMS reports a decrease in her pain 5/10 in intensity. Patient states she has similar pain when she had a heart attack in 2016. She denies any SOB, palpitations, n/v, diaphoresis, dizziness or syncope. Pt underwent LHC 09/[address] Hastings which showed normal coronaries, EF 50%. Echo done 11/2016 showed EF 40-45%, trace TR, mod LVH, impaired relaxation. Past History Past Medical History: acute [place] (X2), arthritis, COPD, diabetes, DVT (at site of port in the remote past off Coumadin now), heart failure, hypertension, stroke ( X3), other (kidney stones, asthma, fibromyalgia, Crohn's) Past Surgical History: cholecystectomy, Other (AICD, internal defibrillator, ureter transplant) Social history: smoking (everyday smoker) Medications and Allergies Allergies Allergy/AdvReac Type Severity Reaction Status Date / Time divalproex sodium Allergy Anaphylaxis Verified 01/05/15 16:07 [From Depakote] heparin Allergy Swelling Verified 01/05/15 16:07 Iodinated Contrast- Oral and Allergy Anaphylaxis Verified 01/05/15 16:07 IV Dye [Iodinated Contrast Media - IV Dye] ketorolac tromethamine Allergy Angioedema Verified 01/05/15 16:07 [From Toradol] ondansetron HCl Allergy Itching Verified 01/05/15 16:07 [From Zofran (as hydrochloride)] Penicillins Allergy Anaphylaxis Verified 01/05/15 16:07 Home Medications Medication Instructions Recorded Confirmed Last Taken Type Carvedilol [Coreg] 12.5 mg PO BID #60 tablet 09/08/14 05/26/17 12/12/14 Rx Spironolactone [Aldactone] 50 mg PO DAILY #30 tablet 09/08/14 05/26/17 12/12/14 Rx Albuterol Sulfate [Ventolin HFA] 2 puff IH Q4H PRN 10/03/14 05/26/17 10/01/14 History 2 puffs DULoxetine [Cymbalta] 60 mg PO BID 12/12/14 05/26/17 12/12/14 History tiZANidine [Zanaflex] 4 mg PO TID 12/12/14 05/26/17 12/12/14 History traZODone [Desyrel] 100 mg PO QHS 12/12/14 05/26/17 12/12/14 History Furosemide [Lasix TAB] 40 mg PO QDAY 01/05/15 05/26/17 Unknown History ISOSORBIDE MONOnitrate [Imdur ER] 60 mg PO QDAY 01/05/15 05/26/17 Unknown History clonazePAM [KlonoPIN] 1 mg PO TID 01/05/15 05/26/17 Unknown History Diclofenac Sodium [Voltaren] 100 gm TP QID PRN 05/26/17 05/26/17 Unknown History Gabapentin [Neurontin] 600 mg PO Q8H 05/26/17 05/26/17 Unknown History Insulin Aspart [NovoLOG Flexpen] 7 - 12 units SQ AC 05/26/17 05/26/17 Unknown History Insulin Detemir [Levemir VIAL] 7 unit SQ QHS 05/26/17 05/26/17 Unknown History Mometasone Furoate [Elocon] 15 gm TP DAILY 05/26/17 05/26/17 Unknown History Morphine [Morphine TAB] 15 mg PO Q12H 05/26/17 05/26/17 Unknown History Oxycodone HCl/Acetaminophen 1 each PO Q8HR PRN 05/26/17 05/26/17 Unknown History [Percocet 7.5/325 mg] Pentosan Polysulfate Sodium 100 mg PO DAILY 05/26/17 05/26/17 Unknown History [Elmiron] Active Meds: Active Medications Acetaminophen (Tylenol) 500 mg PO Q4H PRN PRN Reason: Pain, Mild (1-3) Albuterol (Proventil) 2.5 mg IH Q4HRT PRN PRN Reason: Shortness Of Breath Aspirin (Ecotrin) 325 mg PO QDAY ASHKAN Carvedilol (Coreg) 12.5 mg PO BID ASHKAN Clonazepam (Klonopin) 1 mg PO TID [facility] Dextrose (D50w (25gm) Syringe) 50 ml IV PRN PRN PRN Reason: Hypoglycemia Duloxetine HCl (Cymbalta) 60 mg PO BID ASHKAN Enoxaparin Sodium (Lovenox) 40 mg SUB-Q QDAY ASHKAN Furosemide (Lasix) 40 mg PO QDAY@0600 ASH[facility]AN Gabapentin (Neurontin) 600 mg PO Q8HR ASHKAN Insulin Aspart (Novolog) 0 units SUB-Q ACHS ASHKAN PRN Reason: Protocol Last Admin: 05/26/17 12:55 Dose: Not Given Insulin Aspart (Novolog) 8 units SUB-Q AC ASHKAN Insulin Detemir (Levemir) 7 units SUB-Q QHS [facility] Isosorbide Mononitrate (Imdur) 60 mg PO QDAY [facility] Miscellaneous Medication (Diclofenac Sodium [Voltaren]) 100 gm TP QID PRN PRN Reason: Pain Miscellaneous Medication (Pentosan Polysulfate Sodium [Elmiron]) 100 mg PO DAILY [facility] Nitroglycerin (Nitrostat) 0.4 mg SL .Q5MIN PRN PRN Reason: Chest Pain Oxycodone HCl (Roxicodone) 2.5 mg PO Q8H PRN PRN Reason: Pain, Moderate (4-6) Oxycodone/Acetaminophen (Percocet 5/325) 1 tab PO Q8H PRN PRN Reason: Pain, Moderate (4-6) Spironolactone (Aldactone) 50 mg PO DAILY [facility] Trazodone HCl (Desyrel) 100 mg PO QHS [facility] Physical Examination Vital Signs Pulse Ox 94 05/25/17 23:30 General appearance: other (anxious) HEENT: Positive: PERRL Neck: Positive: neck supple, trachea midline Cardiac: Positive: Reg Rate and Rhythm, S1/S2 Lungs: Positive: clear to auscultation Neuro: Positive: Grossly Intact Abdomen: Positive: Soft. Negative: Tender Skin: Positive: Clear. Negative: Rash Musculoskeletal: No Fluid Collection, No Pain, Normal Range of Motion Extremities: Absent: edema Results 05/25/17 23:44 05/25/17 23:44 Coagulation 05/26/17 Range/Units 02:30 PT 13.0 (12.2-14.9) Sec. INR 0.94 (0.87-1.13) CBC 05/25/17 Range/Units 23:44 WBC 7.7 (4.5-11.0) K/mm3 RBC 4.78 (3.65-5.03) M/mm3 Hgb 14.3 (10.1-14.3) gm/dl Hct 42.8 (30.3-42.9) % Plt Count 185 (140-440) K/mm3 Lymph # 2.5 (1.2-5.4) K/mm3 Granite # 0.7 (0.0-0.8) K/mm3 Eos # 0.1 (0.0-0.4) K/mm3 Baso # 0.0 (0.0-0.1) K/mm3 Comprehensive Metabolic Panel 05/25/17 Range/Units 23:44 Sodium 143 (137-145) mmol/L Potassium 3.1 L (3.6-5.0) mmol/L Chloride 103.8 (98-107) mmol/L Carbon Dioxide 25 (22-30) mmol/L BUN 10 (7-17) mg/dL Creatinine 0.7 (0.7-1.2) mg/dL Glucose 214 H (65-100) mg/dL Calcium 9.4 (8.4-10.2) mg/dL - Imaging and Cardiology Echo: report reviewed (11/2016 showed EF 40-45%, trace TR, mod LVH, impaired relaxation. ) Cardiac cath: report reviewed ( [facility] 09/[address] Hastings which showed normal coronaries, EF 50%. ) EKG: report reviewed, image reviewed EKG interpretations - Telemetry EKG Rhythm: Sinus Rhythm - EKG Sinus rhythms and dysrhythmias: sinus rhythm Assessment and Plan Assessment: Chest pain - with both typical and atypical features; EKG with NAF; Stella negative for AMI; CXR with NAF NICMP Bi-V AICD in situ (implanted in [place]) ? [place] x 2 per pt report Chronic systolic heart failure COPD Tobacco use H/o CVA, TIA HTN DM Hypokalemia H/o chronic back pain Plan: Initiate full dose lovenox BID. Agree with all other current medical management. Plan for lexiscan MPI stress test in AM pending pt remains clinically and hemodynamically stable overnight. NPO after MN. No indication for repeat echo given echo in our office 11/2016. Assessment and plan reviewed with pt at bedside. The patient has been seen in conjunction with Dr. Madan Nesbitt who agrees with the assessment and plan of care.
[2017-05-26] MEDS: NEURONTIN PO SCH ×2 (17:24→21:25)
[2017-05-26] MEDS: ECOTRIN PO SCH (17:24)
[2017-05-26] MEDS: LEVEMIR SUB-Q SCH (21:22)
[2017-05-26] MEDS: LOVENOX SUB-Q SCH (21:24)
[2017-05-26] MEDS: CYMBALTA PO SCH (21:24)
[2017-05-26] MEDS: MS CONTIN ER PO SCH (21:25)
[2017-05-26] MEDS: DESYREL PO SCH (21:25)
[2017-05-26] MEDS: COREG PO SCH (21:26)
[2017-05-26] MEDS ORDERED: LOVENOX SUB-Q SCH (22:00)
[2017-05-26] MEDS: PULMICORT IH SCH (22:27)
[2017-05-27] MEDS: NEURONTIN PO SCH ×3 (05:07→22:15)
[2017-05-27] MEDS: MS CONTIN ER PO SCH ×3 (05:08→22:16)
[2017-05-27] MEDS: LASIX PO SCH (05:12)
[2017-05-27 06:11] LABS: Basophils % (Auto) 0.7 % (0.0-1.8); Hematocrit 42.9 % (30.3-42.9); Hemoglobin 14.2 gm/dl (10.1-14.3); Mean Corpuscular HGB Conc 33 % (30-34); Mean Corpuscular Hemoglobin 30 pg (28-32); Mean Corpuscular Volume 90 fl (79-97); Platelet Count 173 K/mm3 (140-440); Red Blood Count 4.76 M/mm3 (3.65-5.03); Red Cell Distribution Width 14.9 % (13.2-15.2); White Blood Count 6.1 K/mm3 (4.5-11.0)
[2017-05-27 06:15] LABS: Anion Gap 19 mmol/L; BUN/Creatinine Ratio 20; Blood Urea Nitrogen 12 mg/dL (7-17); Carbon Dioxide 23 mmol/L (22-30); Chloride 104.6 mmol/L (98-107); Glucose 319 mg/dL (65-100); Potassium 4.1 mmol/L (3.6-5.0); Sodium 142 mmol/L (137-145)
[2017-05-27] MEDS: NOVOLOG SUB-Q SCH ×8 (07:50→22:19)
[2017-05-27] MEDS ORDERED: LEXISCAN IV ONE ×2 (08:32→08:34)
[2017-05-27] MEDS ORDERED: LOVENOX SUB-Q SCH (10:00)
[2017-05-27] MEDS ORDERED: PENTOSAN POLYSULFATE SODIUM 100 MG PO SCH (10:00)
[2017-05-27] MEDS: PULMICORT IH SCH ×3 (10:40→21:23)
[2017-05-27] MEDS: CYMBALTA PO SCH ×2 (11:05→22:15)
[2017-05-27] MEDS: ALDACTONE PO SCH (11:06)
[2017-05-27] MEDS: IMDUR PO SCH (11:06)
[2017-05-27] MEDS: ZANAFLEX PO SCH ×3 (11:06→22:16)
[2017-05-27] MEDS: LOVENOX SUB-Q SCH (11:07)
[2017-05-27] MEDS: ECOTRIN PO SCH (11:07)
[2017-05-27] MEDS: COREG PO SCH ×2 (11:10→22:18)
--- NOTE | 2017-05-27 11:52 | Progress Note ---
Assessment and Plan Assessment: Chest pain - currently resolved; with both typical and atypical features; EKG with NAF; Stella negative for AMI; CXR with NAF NICMP Bi-V AICD in situ (implanted in [place]) ? [place] x 2 per pt report Chronic systolic heart failure COPD Tobacco use H/o CVA, TIA HTN DM Hypokalemia - repleted H/o chronic back pain Plan: s/p lexiscan MPI stress test this AM which showed fixed defects, no active ischemia, EF 37%. No indication for repeat echo given echo in our office 11/2016. Currently stable cardiac status. Pt may discharge home from cardiology standpoint. Recommend follow up in our office with Dr. Somers within 1-2 weeks of hospital discharge ([phone]). Assessment and plan reviewed with pt at bedside. The patient has been seen in conjunction with Dr. Walton who agrees with the assessment and plan of care. Subjective Date of service: 05/27/17 Principal diagnosis: chest pain Interval history: pt for stress test this AM, c/o "heart fluttering" Objective Last Vital Signs Temp 97.8 F 05/27/17 04:27 Pulse 77 05/27/17 04:45 Resp 18 05/27/17 04:27 BP 149/96 05/27/17 04:27 Pulse Ox 93 05/27/17 04:27 - Physical Examination General: No Apparent Distress HEENT: Positive: PERRL Neck: Positive: neck supple, trachea midline Cardiac: Positive: Reg Rate and Rhythm, S1/S2 Lungs: Positive: clear to auscultation Neuro: Positive: Grossly Intact Abdomen: Positive: Soft. Negative: Tender Skin: Positive: Clear. Negative: Rash Musculoskeletal: No Fluid Collection, No Pain, Normal Range of Motion Extremities: Absent: edema - Labs and Meds CBC 05/27/17 Range/Units 05:03 WBC 6.1 (4.5-11.0) K/mm3 RBC 4.76 (3.65-5.03) M/mm3 Hgb 14.2 (10.1-14.3) gm/dl Hct 42.9 (30.3-42.9) % Plt Count 173 (140-440) K/mm3 Lymph # 0.7 L (1.2-5.4) K/mm3 Ward # 0.1 (0.0-0.8) K/mm3 Eos # 0.0 (0.0-0.4) K/mm3 Baso # 0.0 (0.0-0.1) K/mm3 Comprehensive Metabolic Panel 05/27/17 Range/Units 05:00 Sodium 142 (137-145) mmol/L Potassium 4.1 D (3.6-5.0) mmol/L Chloride 104.6 (98-107) mmol/L Carbon Dioxide 23 (22-30) mmol/L BUN 12 (7-17) mg/dL Creatinine 0.6 L (0.7-1.2) mg/dL Glucose 319 H (65-100) mg/dL Calcium 9.0 (8.4-10.2) mg/dL - Imaging and Cardiology EKG: report reviewed, image reviewed Echo: report reviewed (11/2016 showed EF 40-45%, trace TR, mod LVH, impaired relaxation. ) Cardiac cath: report reviewed ( [facility] 09/[address] Hastings which showed normal coronaries, EF 50%. ) - EKG Sinus rhythms and dysrhythmias: sinus rhythm
--- NOTE | 2017-05-27 14:53 | Progress Note ---
Assessment and Plan (1) Chest pain Current Visit: Yes Status: Acute Plan to address problem: Had lexiscan test. Today. to f/u wiht the result F/u with (2) Systolic heart failure Current Visit: Yes Status: Chronic Plan to address problem: Echo completed 11/21 EF 40-45% trace TR, mod LVH, impaired relaxation Continue Lasix, Coreg Cardiology following (3) Tobacco dependence Current Visit: Yes Status: Acute Plan to address problem: Patient counselled on tobacco cessation (5hypokalemia corrected (5) AICD (automatic cardioverter/defibrillator) present Current Visit: Yes Status: Acute (6) Diabetes Current Visit: Yes Status: Chronic Plan to address problem: optimize contrtoll control SSI, ADA diet, Accu cheks (7) COPD (chronic obstructive pulmonary disease) Current Visit: No Status: Chronic Plan to address problem: Not an exacerbation, Albuterol Neb PRN (8) Hypertension Current Visit: No Status: Chronic Plan to address problem: Continue coreg, hydralazine PRN Subjective Date of service: 05/27/17 Principal diagnosis: chest pain Interval history: still having shortness of breath Objective - Constitutional Vitals: Vital Signs - 12hr 05/27/17 05/27/17 05/27/17 04:27 04:45 08:39 Temperature 97.8 F Pulse Rate 77 77 73 Respiratory 18 Rate Blood Pressure 149/96 160/96 O2 Sat by Pulse 93 Oximetry 05/27/17 05/27/17 05/27/17 09:10 09:11 09:12 Temperature Pulse Rate 96 H 97 H 96 H Respiratory Rate Blood Pressure 158/98 133/81 135/88 O2 Sat by Pulse Oximetry 05/27/17 05/27/17 05/27/17 09:13 09:14 09:15 Temperature Pulse Rate 95 H 95 H 94 H Respiratory Rate Blood Pressure 149/88 136/85 138/81 O2 Sat by Pulse Oximetry 05/27/17 05/27/17 05/27/17 10:04 10:12 11:23 Temperature 98.3 F 98.3 F Pulse Rate 84 86 Respiratory 18 20 Rate Blood Pressure 137/93 137/93 167/105 O2 Sat by Pulse 89 96 Oximetry General appearance: Present: no acute distress, well-nourished - EENT Eyes: PERRL, EOM intact ENT: hearing intact, clear oral mucosa - Neck Neck: supple, normal ROM - Respiratory Respiratory effort: normal Respiratory: bilateral: CTA - Cardiovascular Rhythm: regular Heart Sounds: Present: S1 & S2. Absent: gallop, rub Extremities: pulses intact, No edema, normal color, Full ROM - Gastrointestinal General gastrointestinal: Present: soft, non-tender - Integumentary Integumentary: clear, warm, dry - Musculoskeletal Musculoskeletal: 1, strength equal bilaterally - Neurologic Neurologic: moves all extremities - Psychiatric Psychiatric: memory intact, appropriate mood/affect, intact judgment & insight - Labs CBC & Chem 7: 05/27/17 05:03 05/27/17 05:00 Labs: Abnormal lab results 05/26/17 05/26/17 05/27/17 Range/Units 16:33 20:40 05:00 Lymph % (Auto) (13.4-35.0) % Lymph # (1.2-5.4) K/mm3 Seg Neutrophils % (40.0-70.0) % Creatinine 0.6 L (0.7-1.2) mg/dL Glucose 319 H (65-100) mg/dL POC Glucose 144 H 251 H (70-105) 05/27/17 05/27/17 05/27/17 Range/Units 05:03 10:04 11:31 Lymph % (Auto) 12.1 L (13.4-35.0) % Lymph # 0.7 L (1.2-5.4) K/mm3 Seg Neutrophils % 85.9 H (40.0-70.0) % Creatinine (0.7-1.2) mg/dL Glucose (65-100) mg/dL POC Glucose 338 H 413 H (70-105)
[2017-05-27] MEDS: PERCOCET 5/325 PO PRN (18:41)
[2017-05-27] MEDS: DESYREL PO SCH (22:15)
[2017-05-27] MEDS: LEVEMIR SUB-Q SCH (22:19)
[2017-05-28] MEDS: MS CONTIN ER PO SCH (06:18)
[2017-05-28] MEDS: LASIX PO SCH (06:19)
[2017-05-28] MEDS: NEURONTIN PO SCH (06:19)
[2017-05-28] MEDS: ZANAFLEX PO SCH (08:26)
[2017-05-28] MEDS: PULMICORT IH SCH (08:44)
--- NOTE | 2017-05-28 08:56 | Discharge Summary ---
Providers - Providers Date of Admission: 05/26/17 04:31 Date of discharge: 05/28/17 Attending physician: TIM MONSALVE 05/26/17 Consult to Cardiac Rehabilitation [CONS] Routine Reason For Exam: Phase 1 05/26/17 10:29 Consult to Cardiology [CONS] Routine Consulting Provider: TREY DOMINGUEZ Reason For Exam: Chest Pain/ hx of [place], AICD Primary care physician: [employer]INE[employer] Hospitalization Condition: Fair Disposition: DC-01 TO HOME OR SELFCARE Core Measure Documentation - Palliative Care Palliative Care/ Comfort Measures: Not Applicable Exam - Constitutional Vitals: Temp Pulse Resp BP Pulse Ox 97.8 F 59 L 20 99/54 91 05/28/17 04:46 05/28/17 05:00 05/28/17 06:18 05/28/17 04:46 05/28/17 00:02 Plan Activity: advance as tolerated Diet: low fat, low cholesterol, low salt, diabetic Additional Instructions: 1.Follow up with PCP in 1 week. 2.Follow up with Dr. Somers in 1 week Follow up with: PRIMARY CARE, [Primary Care Provider] - 7 Days Prescriptions: Famotidine [Pepcid] 20 mg PO BID #30 tablet
[2017-05-28] MEDS: NOVOLOG SUB-Q SCH ×2 (09:18→09:19)
[2017-05-28] MEDS: IMDUR PO SCH (09:19)
[2017-05-28] MEDS: COREG PO SCH (09:19)
[2017-05-28 09:20] VITALS: BP 110/69
[2017-05-28] MEDS: ALDACTONE PO SCH (09:20)
[2017-05-28] MEDS ORDERED: BABY ASPIRIN PO SCH (10:00)
[2017-05-28] MEDS: PERCOCET 5/325 PO PRN (12:09)
--- NOTE | 2017-05-28 13:48 | Query- Chest Pain ---
Nicolas Mcgraw____Sheldon Date: 05/28/17 Auto Motor Mechanic/CDS: Rohit Phone#:[phone] Exercise your independent professional judgment when responding to query. Questions asked do not imply a particular answer is desired or expected. We greatly appreciate your clarification on this issue. Clinical Documentation States: 51 year old female was admitted on 05/26/17 The progress note (Dr. Cormier 05/27/17) states " Assessment and Plan: (1) Chest pain Had lexiscan test. Today. to f/u wiht the result F/u with " The Cardiology progress note ( Dr. Walton 05/27/17) states " Assessment: Chest pain - currently resolved; with both typical and atypical features; EKG with NAF; Stella negative for AMI; CXR with NAF " Please document the etiology of Chest Pain: [ ] Myocardial Infarction [ ] Pneumonia [ ] Mediastinitis [ ] Costochondritis [ ] Pulmonary Embolism [ ] Coronary Artery Disease [x ] GERD [ ] Other: [ ] Comment/Explanation: Present on Admission: [x ] Yes (Y) [ ] Clinically undeterminable (W) [ ] No(N) Please document response in your Progress Notes and/or Discharge Summary and indicate if the condition was present on admission. KEMAR
== END 2017-05-28 15:07 | disposition home or self-care (01) | DRG 392 ==
LOC: ED 23:22 → 4A 05-26 04:31
PROVIDERS: ADMIT Internal Medicine; ATTEND Internal Medicine
DX: K21.9 Gastro-esophageal reflux disease without esophagitis (principal); I50.22 Chronic systolic (congestive) heart failure; I42.9 Cardiomyopathy, unspecified; E11.9 Type 2 diabetes mellitus without complications; Z95.810 Presence of automatic (implantable) cardiac defibrillator; J44.9 Chronic obstructive pulmonary disease, unspecified; Z86.73 Personal history of transient ischemic attack (TIA), and cerebral infarction without residual deficits; Z86.718 Personal history of other venous thrombosis and embolism; M79.7 Fibromyalgia; I25.2 Old myocardial infarction; Z88.8 Allergy status to other drugs, medicaments and biological substances; Z88.0 Allergy status to penicillin; Z79.4 Long term (current) use of insulin; Z79.899 Other long term (current) drug therapy; M19.90 Unspecified osteoarthritis, unspecified site; Z90.49 Acquired absence of other specified parts of digestive tract; F17.210 Nicotine dependence, cigarettes, uncomplicated; E87.6 Hypokalemia; Z71.6 Tobacco abuse counseling; I48.91 Unspecified atrial fibrillation; I11.0 Hypertensive heart disease with heart failure; G89.29 Other chronic pain
CPT/HCPCS: 36415; 71010; 78452; 80048; 82962; 83036; 84484; 85025; 85610; 93005; 93010; 93017; 94640; 96374; 99406; A9502; J1650; J1815; J1818; J2270; J2785; J2920; Q0169

== ENCOUNTER 2020-02-13 21:23 | Observation (INO) | payer MEDICARE ==
[2020-02-13] MEDS ORDERED: ASPIRIN 325 MG TAB PO ONE (21:47)
[2020-02-13] MEDS ORDERED: HYDROmorphone 1 MG/1 ML INJ IV ONE (22:52)
[2020-02-13] MEDS ORDERED: PROMETHAZINE 25 MG TAB PO ONE (22:52)
[2020-02-13] MEDS ORDERED: NITROGLYCERIN 2% OINT 1 GM TP ONE (22:53)
--- NOTE | 2020-02-13 23:04 | Emergency Department Report ---
ED Chest Pain HPI - General Chief Complaint: Chest Pain Stated Complaint: CHEST PAIN X 2DAYS Time Seen by Provider: 02/13/20 22:43 Source: EMS, old records reviewed Mode of arrival: Wheelchair Limitations: No Limitations - History of Present Illness Initial Comments: 54-year-old female the past medical history of arthritis, CHF, COPD, CAD CVA, DVT, hypertension, mitral nephrectomy, AICD/pacemaker presents to the hospital complains of chest pain, shortness of breath, leg edema, flank pain, nausea and vomiting. Patient complains of a constant chest pressure for the past 2 days without aggravating or alleviating factors. She complains of 4 pillow orthopnea for the last 2 days and worsening lower extremity edema. Patient also thinks that she might have a kidney stone because she saw a tissue like substance in her urine and is experiencing intermittent left-sided flank pain with nausea and vomiting. No reports of fever. Patient compliant with her medications. Patient takes aspirin 81 mg daily. She denies history of stent placement. 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 Somers with [facility]. As per medical record review May 2017 patient had a stress test with fixed defects without reversible ischemia, EF 37%. Patient had a cardiac cath September 2014 showing normal coronary arteries - Related Data Home Medications Medication Instructions Recorded Confirmed Last Taken Albuterol Sulfate [Ventolin HFA] 2 puff IH Q4H PRN 10/03/14 05/26/17 10/01/14 2 puffs DULoxetine [Cymbalta] 60 mg PO BID 12/12/14 05/26/17 12/12/14 tiZANidine [Zanaflex 4mg TAB] 4 mg PO TID 12/12/14 05/26/17 12/12/14 traZODone [Desyrel] 100 mg PO QHS 12/12/14 05/26/17 12/12/14 Furosemide [Lasix TAB] 40 mg PO QDAY 01/05/15 05/26/17 Unknown ISOSORBIDE MONOnitrate [Imdur ER] 60 mg PO QDAY 01/05/15 05/26/17 Unknown clonazePAM [KlonoPIN] 1 mg PO TID 01/05/15 05/26/17 Unknown Diclofenac Sodium [Voltaren] 100 gm TP QID PRN 05/26/17 05/26/17 Unknown Gabapentin [Neurontin] 600 mg PO Q8H 05/26/17 05/26/17 Unknown Insulin Aspart (Nf) [NovoLOG 7 - 12 units SQ AC 05/26/17 05/26/17 Unknown Flexpen] Insulin Detemir [Levemir VIAL] 7 unit SQ QHS 05/26/17 05/26/17 Unknown Mometasone Furoate [Elocon] 15 gm TP DAILY 05/26/17 05/26/17 Unknown Morphine [Morphine TAB] 15 mg PO Q12H 05/26/17 05/26/17 Unknown Oxycodone HCl/Acetaminophen 1 each PO Q8HR PRN 05/26/17 05/26/17 Unknown [Percocet 7.5/325 mg] Pentosan Polysulfate Sodium 100 mg PO DAILY 05/26/17 05/26/17 Unknown [Elmiron] Pentosan Polysulfate Sodium 100 mg PO TID 05/26/17 05/26/17 05/25/17 16:00 [Elmiron] Previous Rx's Medication Instructions Recorded Last Taken Type Spironolactone [Aldactone] 50 mg PO DAILY #30 tablet 09/08/14 12/12/14 Rx 50 mg carvediloL [Coreg] 12.5 mg PO BID #60 tablet 09/08/14 12/12/14 Rx Famotidine [Pepcid] 20 mg PO BID #30 tablet 05/28/17 Unknown Rx Allergies Allergy/AdvReac Type Severity Reaction Status Date / Time divalproex sodium Allergy Anaphylaxis Verified 01/05/15 16:07 [From Depakote] heparin Allergy Swelling Verified 01/05/15 16:07 Iodinated Contrast Media Allergy Anaphylaxis Verified 01/05/15 16:07 [Iodinated Contrast Media - IV Dye] ketorolac tromethamine Allergy Angioedema Verified 01/05/15 16:07 [From Toradol] ondansetron HCl Allergy Itching Verified 01/05/15 16:07 [From Zofran (as hydrochloride)] Penicillins Allergy Anaphylaxis Verified 01/05/15 16:07 Heart Score - HEART Score History: Slightly suspicious EKG: Non-specific Age: 45-65 Risk factors: > 3 risk factors or hx of atherosclerotic disease Troponin: < normal limit HEART Score: 4 ED Review of Systems ROS: Stated complaint: CHEST PAIN X 2DAYS Other details as noted in HPI Comment: All other systems reviewed and negative ED Past Medical Hx - Past Medical History Hx Hypertension: Yes Hx CVA: Yes (x3) Hx Heart Attack/AMI: Yes (x2) Hx Congestive Heart Failure: Yes Hx Diabetes: Yes Hx Deep Vein Thrombosis: Yes (at site of port in the remote past off Coumadin now) Hx Arthritis: Yes Hx Kidney Stones: Yes Hx Asthma: Yes Hx COPD: Yes Hx HIV: No Additional medical history: "kidney stone disease", fibromyalgia, crohns - Surgical History Hx Pacemaker: Yes (AICD) Hx Internal Defibrillator: Yes Hx Cholecystectomy: Yes Additional Surgical History: ureter transplant,. Right nephrectomy - Social History Smoking Status: Current Every Day Smoker Substance Use Type: None - Medications Home Medications: Home Medications Medication Instructions Recorded Confirmed Last Taken Type Spironolactone [Aldactone] 50 mg PO DAILY #30 tablet 09/08/14 05/26/17 12/12/14 Rx 50 mg carvediloL [Coreg] 12.5 mg PO BID #60 tablet 09/08/14 05/26/17 12/12/14 Rx Albuterol Sulfate [Ventolin HFA] 2 puff IH Q4H PRN 10/03/14 05/26/17 10/01/14 History 2 puffs DULoxetine [Cymbalta] 60 mg PO BID 12/12/14 05/26/17 12/12/14 History tiZANidine [Zanaflex 4mg TAB] 4 mg PO TID 12/12/14 05/26/17 12/12/14 History traZODone [Desyrel] 100 mg PO QHS 12/12/14 05/26/17 12/12/14 History Furosemide [Lasix TAB] 40 mg PO QDAY 01/05/15 05/26/17 Unknown History ISOSORBIDE MONOnitrate [Imdur ER] 60 mg PO QDAY 01/05/15 05/26/17 Unknown History clonazePAM [KlonoPIN] 1 mg PO TID 01/05/15 05/26/17 Unknown History Diclofenac Sodium [Voltaren] 100 gm TP QID PRN 05/26/17 05/26/17 Unknown History Gabapentin [Neurontin] 600 mg PO Q8H 05/26/17 05/26/17 Unknown History Insulin Aspart (Nf) [NovoLOG 7 - 12 units SQ AC 12/20/17 12/20/17 Unknown History Flexpen] Insulin Detemir [Levemir VIAL] 7 unit SQ QHS 05/26/17 05/26/17 Unknown History Mometasone Furoate [Elocon] 15 gm TP DAILY 05/26/17 05/26/17 Unknown History Morphine [Morphine TAB] 15 mg PO Q12H 05/26/17 05/26/17 Unknown History Oxycodone HCl/Acetaminophen 1 each PO Q8HR PRN 05/26/17 05/26/17 Unknown History [Percocet 7.5/325 mg] Pentosan Polysulfate Sodium 100 mg PO DAILY 05/26/17 05/26/17 Unknown History [Elmiron] Pentosan Polysulfate Sodium 100 mg PO TID 05/26/17 05/26/17 05/25/17 16:00 History [Elmiron] Famotidine [Pepcid] 20 mg PO BID #30 tablet 05/28/17 Unknown Rx ED Physical Exam - General Limitations: No Limitations - Other Other exam information: General: Patient in mild distress secondary to pain Head: Atraumatic Eyes: normal appearance ENT: Moist mucous membranes Neck: Normal appearance, no midline tenderness Chest: Mild crackles at the base, chest wall nontender, port to chest wall, AICD CV: Regular rate and rhythm Abdomen: Soft, normal bowel sounds, nontender, nondistended, no rebound or guard ing Back: Left flank pain Extremity: Bilateral lower extremity edema without unilateral leg swelling or calf Neuro: Alert O x 3, no facial asymmetry, speech clear, no gross motor sensory deficit Psych: Appropriate behavior Skin: No rash ED Course Vital Signs 02/13/20 02/14/20 21:47 00:02 Temperature 98.1 F Pulse Rate 73 75 Respiratory 15 Rate Blood Pressure 143/87 146/89 O2 Sat by Pulse 94 Oximetry RICKI score - Ricki Score Age > 65: (0) No Aspirin use within the Past 7 Days: (1) Yes 3 or more CAD Risk Factors: (1) Yes 2 or more Angina events in past 24 hrs: (1) Yes Known CAD with more than 50% Stenosis: (0) No Elevated Cardiac Markers: (0) No ST Deviation Greater than 0.5mm: (0) No RICKI Score: 3 ED Medical Decision Making - Lab Data Result diagrams: 02/13/20 23:38 02/13/20 23:38 Lab Results 02/13/20 02/13/20 02/13/20 Range/Units 23:38 23:38 23:38 WBC 6.8 (4.5-11.0) K/mm3 RBC 3.61 L (3.65-5.03) M/mm3 Hgb 10.9 (10.1-14.3) gm/dl Hct 32.1 (30.3-42.9) % MCV 89 (79-97) fl MCH 30 (28-32) pg MCHC 34 (30-34) % RDW 15.1 (13.2-15.2) % Plt Count 162 (140-440) K/mm3 Lymph % (Auto) 34.2 (13.4-35.0) % Centre % (Auto) 7.6 H (0.0-7.3) % Eos % (Auto) 4.4 H (0.0-4.3) % Baso % (Auto) 0.6 (0.0-1.8) % Lymph # 2.3 (1.2-5.4) K/mm3 Centre # 0.5 (0.0-0.8) K/mm3 Eos # 0.3 (0.0-0.4) K/mm3 Baso # 0.0 (0.0-0.1) K/mm3 Seg Neutrophils % 53.2 (40.0-70.0) % Seg Neutrophils # 3.6 (1.8-7.7) K/mm3 PT 12.0 L (12.2-14.9) Sec. INR 0.87 (0.87-1.13) Sodium 138 (137-145) mmol/L Potassium 4.7 (3.6-5.0) mmol/L Chloride 103.9 (98-107) mmol/L Carbon Dioxide 23 (22-30) mmol/L Anion Gap 16 mmol/L BUN 21 H (7-17) mg/dL Creatinine 2.3 H (0.6-1.2) mg/dL Estimated GFR 27 ml/min BUN/Creatinine Ratio 9 % Glucose 268 H (65-100) mg/dL Calcium 8.6 (8.4-10.2) mg/dL Troponin T < 0.010 (0.00-0.029) ng/mL NT-Pro-B Natriuret Pep (0-900) pg/mL 02/13/20 Range/Units 23:38 WBC (4.5-11.0) K/mm3 RBC (3.65-5.03) M/mm3 Hgb (10.1-14.3) gm/dl Hct (30.3-42.9) % MCV (79-97) fl MCH (28-32) pg MCHC (30-34) % RDW (13.2-15.2) % Plt Count (140-440) K/mm3 Lymph % (Auto) (13.4-35.0) % Centre % (Auto) (0.0-7.3) % Eos % (Auto) (0.0-4.3) % Baso % (Auto) (0.0-1.8) % Lymph # (1.2-5.4) K/mm3 Centre # (0.0-0.8) K/mm3 Eos # (0.0-0.4) K/mm3 Baso # (0.0-0.1) K/mm3 Seg Neutrophils % (40.0-70.0) % Seg Neutrophils # (1.8-7.7) K/mm3 PT (12.2-14.9) Sec. INR (0.87-1.13) Sodium (137-145) mmol/L Potassium (3.6-5.0) mmol/L Chloride (98-107) mmol/L Carbon Dioxide (22-30) mmol/L Anion Gap mmol/L BUN (7-17) mg/dL Creatinine (0.6-1.2) mg/dL Estimated GFR ml/min BUN/Creatinine Ratio % Glucose (65-100) mg/dL Calcium (8.4-10.2) mg/dL Troponin T (0.00-0.029) ng/mL NT-Pro-B Natriuret Pep 2929 H (0-900) pg/mL - EKG Data -: EKG Interpreted by Me (Atrial sensed ventricular paced EKG without signs of ST elevation NE) - EKG Data When compared to previous EKG there are: no significant change - Radiology Data Radiology results: report reviewed CHEST 1 VIEW INDICATION: Chest Pain COMPARISON: 05/26/2017 FINDINGS: SUPPORT DEVICES: Pacing device located right hemithorax electrode tips right atrium and right ventricle. Bbanju-b-Uhlj catheter has its tip in the superior vena cava. HEART / MEDIASTINUM: No significant abnormality. LUNGS / PLEURA: No significant pulmonary or pleural abnormality. No pne umothorax. ADDITIONAL FINDINGS: IMPRESSION: 1. No acute cardiopulmonary disease CT ABDOMEN PELVIS WITHOUT CONTRAST INDICATION / CLINICAL INFORMATION: Patient complains of LEFT flank pain, hx of previous kidney stone. TECHNIQUE: Axial CT images were obtained through the abdomen and pelvis without IV contrast. All CT scans at this location are performed using CT dose reduction for ALARA by means of automated exposure control. COMPARISON: None available. FINDINGS: LOWER CHEST: No significant abnormality. LIVER: No significant abnormality. GALLBLADDER: Previous cholecystectomy BILE DUCTS: No significant abnormality. PANCREAS: No significant abnormality. SPLEEN: No significant abnormality. ADRENALS: No significant abnormality. RIGHT KIDNEY and URETER: Previous right nephrectomy LEFT KIDNEY and URETER: Several punctate calcifications left kidney. Mild prominence of the left collecting system without convincing evidence of obstructing calculus STOMACH and SMALL BOWEL: Gastric distention is present COLON: No significant abnormality. APPENDIX: Not identified PERITONEUM: No free fluid. No free air. No fluid collection. LYMPH NODES: No significant adenopathy. AORTA and ARTERIES: Atherosclerotic plaque abdominal aorta and its major branches IVC and VEINS: No significant abnormality. URINARY BLADDER: No significant abnormality. REPRODUCTIVE ORGANS: No significant abnormality. Evidence of previous hysterectomy ADDITIONAL FINDINGS: None. SKELETAL SYSTEM: No significant abnormality. IMPRESSION: 1. Left nephrolithiasis 2. Mild dilatation left collecting system without a definite obstructing calculus recommend clinical correlation. Repeat examination with intravenous contrast and delayed imaging may be of benefit for further evaluation 3. Gastric distention 4. Previous cholecystectomy, right nephrectomy and hysterectomy - Medical Decision Making Patient presents with chest pain with history of CAD and complains of CHF symptoms. No pulmonary edema noted on chest x-ray. Patient also had dialysis kidney stone symptoms of left flank pain. CT findings noted without obstructing stone. Renal insufficiency noted which is new since 2017. patient treated in the ED with Dilaudid, Phenergan, and nitroglycerin paste. She also received aspirin. Patient will be admitted to the hospitalist service for further treatment. urine collection pending at dispo Critical Care Time: No Critical care attestation.: If time is entered above; I have spent that time in minutes in the direct care of this critically ill patient, excluding procedure time. ED Disposition Clinical Impression: Biventricular automatic implantable cardioverter defibrillator in situ, CHF (congestive heart failure), Renal insufficiency, Chest pain, Left nephrolithiasis, History of right nephrectomy Disposition: OP ADMIT IP TO THIS HOSP Is pt being admited?: Yes Condition: Stable Time of Disposition: 00:23 (Dr Luis/hospitalist)
--- NOTE | 2020-02-13 23:27 | XRay Report ---
CHEST 1 VIEW INDICATION: Chest Pain COMPARISON: 05/26/2017 FINDINGS: SUPPORT DEVICES: Pacing device located right hemithorax electrode tips right atrium and right ventric le. [id number] catheter has its tip in the superior vena cava. HEART / MEDIASTINUM: No significant abnormality. LUNGS / PLEURA: No significant pulmonary or pleural abnormality. No pneumothorax. ADDITIONAL FINDINGS: IMPRESSION: 1. No acute cardiopulmonary disease Signer Name: Hollis Weber MD Signed: 02/13/2020 11:23 PM Workstation Name: [id number]
--- NOTE | 2020-02-13 23:35 | Cat Scan Report ---
CT ABDOMEN PELVIS WITHOUT CONTRAST INDICATION / CLINICAL INFORMATION: Patient complains of LEFT flank pain, hx of previous kidney stone. TECHNIQUE: Axial CT images were obtained through the abdomen and pelvis without IV contrast. All CT [facility] are performed using CT dose reduction for ALARA by means of automated exposure control. COMPARISON: None available. FINDINGS: LOWER CHEST: No significant abnormality. LIVER: No significant abnormality. GALLBLADDER: Previous cholecystectomy BILE DUCTS: No significant abnormality. PANCREAS: No significant abnormality. SPLEEN: No significant abnormality. ADRENALS: No significant abnormality. RIGHT KIDNEY and URETER: Previous right nephrectomy LEFT KIDNEY and URETER: Several punctate calcifications left kidney. Mild prominence of the left vin ecting system without convincing evidence of obstructing calculus STOMACH and SMALL BOWEL: Gastric distention is present COLON: No significant abnormality. APPENDIX: Not identified PERITONEUM: No free fluid. No free air. No fluid collection. LYMPH NODES: No significant adenopathy. AORTA and ARTERIES: Atherosclerotic plaque abdominal aorta and its major branches IVC and VEINS: No significant abnormality. URINARY BLADDER: No significant abnormality. REPRODUCTIVE ORGANS: No significant abnormality. Evidence of previous hysterectomy ADDITIONAL FINDINGS: None. SKELETAL SYSTEM: No significant abnormality. IMPRESSION: 1. Left nephrolithiasis 2. Mild dilatation left collecting system without a definite obstructing calculus recommend clinical correlation. Repeat examination with intravenous contrast and delayed imaging may be of benefit for f urther evaluation 3. Gastric distention 4. Previous cholecystectomy, right nephrectomy and hysterectomy Signer Name: Hollis Weber MD Signed: 02/13/2020 11:31 PM Workstation Name: [id number]
[2020-02-13 23:50] LABS: Basophils % (Auto) 0.6 % (0.0-1.8); Eosinophils # (Auto) 0.3 K/mm3 (0.0-0.4); Eosinophils % (Auto) 4.4 % (0.0-4.3); Hematocrit 32.1 % (30.3-42.9); Hemoglobin 10.9 gm/dl (10.1-14.3); Lymphocytes # (Auto) 2.3 K/mm3 (1.2-5.4); Lymphocytes % (Auto) 34.2 % (13.4-35.0); Mean Corpuscular HGB Conc 34 % (30-34); Mean Corpuscular Volume 89 fl (79-97); Monocytes # (Auto) 0.5 K/mm3 (0.0-0.8); Monocytes % (Auto) 7.6 % (0.0-7.3); Platelet Count 162 K/mm3 (140-440); Red Blood Count 3.61 M/mm3 (3.65-5.03); Red Cell Distribution Width 15.1 % (13.2-15.2)
[2020-02-14 00:02] LABS: INR 0.87 (0.87-1.13)
[2020-02-14 00:14] LABS: BUN/Creatinine Ratio 9; Blood Urea Nitrogen 21 mg/dL (7-17); Calcium 8.6 mg/dL (8.4-10.2); Hemolysis Index 22
[2020-02-14 00:50] LABS: Bilirubin,Urine NEG (Negative); Blood,Urine SM (Negative); Color,Urine Yellow (Yellow); Mucus,Urine FEW /HPF; Urobilinogen,Urine < 2.0 mg/dL (<2.0)
[2020-02-14] MEDS ORDERED: MORPHINE 2 MG/1 ML INJ IV PRN (01:08)
[2020-02-14] MEDS ORDERED: PROMETHAZINE 25 MG TAB PO PRN (01:16)
[2020-02-14] MEDS ORDERED: ACETAMINOPHEN 325 MG TAB PO PRN (01:17)
[2020-02-14] MEDS ORDERED: MORPHINE 2 MG/1 ML INJ ONE (01:21)
[2020-02-14] MEDS ORDERED: PROMETHAZINE 25 MG RECT SUPP PR PRN (01:22)
[2020-02-14] MEDS: HYDROmorphone 1 MG/1 ML INJ IV PRN ×3 (04:54→19:02)
--- NOTE | 2020-02-14 05:13 | History and Physical Report ---
History of Present Illness Date of examination: 02/14/20 Date of admission: 02/14/20 00:25 Chief complaint: Chest Pain History of present illness: 54 year old male presents with pressure like chest pain with numbness of left arm going on for 2 days . Pain is associated with shortness of breath ,nausea, and weakness. There is no associated diaphoresis , fever, cough, chills or vomiting, pain is relieved by pain medication. Past History Past Medical History: CAD, heart failure Past Surgical History: Other (defibrillator) Social history: no significant social history Family history: no significant family history Medications and Allergies Allergies Allergy/AdvReac Type Severity Reaction Status Date / Time divalproex sodium Allergy Anaphylaxis Verified 01/05/15 16:07 [From Depakote] heparin Allergy Swelling Verified 01/05/15 16:07 Iodinated Contrast Media Allergy Anaphylaxis Verified 01/05/15 16:07 [Iodinated Contrast Media - IV Dye] ketorolac tromethamine Allergy Angioedema Verified 01/05/15 16:07 [From Toradol] ondansetron HCl Allergy Itching Verified 01/05/15 16:07 [From Zofran (as hydrochloride)] Penicillins Allergy Anaphylaxis Verified 01/05/15 16:07 Home Medications Medication Instructions Recorded Confirmed Last Taken Type Spironolactone [Aldactone] 50 mg PO DAILY #30 tablet 09/08/14 02/14/20 12/12/14 Rx 50 mg Albuterol Sulfate [Ventolin HFA] 2 puff IH Q4H PRN 10/03/14 02/14/20 10/01/14 History 2 puffs DULoxetine [Cymbalta] 60 mg PO BID 12/12/14 02/14/20 12/12/14 History traZODone [Desyrel] 100 mg PO QHS 12/12/14 05/26/17 12/12/14 History Furosemide [Lasix TAB] 40 mg PO BID 01/05/15 02/14/20 Unknown History clonazePAM [KlonoPIN] 1 mg PO TID 01/05/15 02/14/20 Unknown History Diclofenac Sodium [Voltaren] 100 gm TP QID PRN 05/26/17 02/14/20 Unknown History Gabapentin [Neurontin] 600 mg PO Q8H 05/26/17 02/14/20 Unknown History Insulin Aspart (Nf) [NovoLOG 7 - 12 units SQ AC 05/26/17 02/14/20 Unknown History Flexpen] Insulin Detemir [Levemir VIAL] 7 unit SQ QHS 05/26/17 02/14/20 Unknown History Morphine [Morphine TAB] 15 mg PO Q12H 05/26/17 02/14/20 Unknown History Oxycodone HCl/Acetaminophen 1 each PO Q8HR PRN 05/26/17 02/14/20 Unknown History [Percocet 7.5/325 mg] Pentosan Polysulfate Sodium 100 mg PO TID 05/26/17 02/14/20 05/25/17 16:00 History [Elmiron] carvediloL [Coreg] 25 mg PO BID 02/14/20 Unknown History Active Meds: Active Medications Acetaminophen (Tylenol) 650 mg PO Q4H PRN PRN Reason: Fever >101 Aspirin (Aspirin) 325 mg PO QDAY ASHKAN Hydromorphone HCl (Dilaudid) 0.5 mg IV Q3H PRN PRN Reason: Pain , Severe (7-10) Last Admin: 02/14/20 04:54 Dose: 0.5 mg Documented by: Nitroglycerin (Nitro-Bid 2%) 0.5 inch TP QIDNTG ASHKAN; Protocol Promethazine HCl (Phenergan) 25 mg [place] Q6H PRN PRN Reason: Nausea And Vomiting Review of Systems Constitutional: weakness, no weight loss, no weight gain, no fever, no chills, no sweats, no night sweats, no fatigue Eyes: bilateral: other (NO BILATERAL EYE SYMPTOMS) Ears, nose, mouth and throat: no ear pain, no ear discharge Breasts: deferred Cardiovascular: chest pain, shortness of breath, no orthopnea, no palpitations, no rapid/irregular heart beat, no edema, no syncope, no lightheadedness Respiratory: shortness of breath, no cough, no cough with sputum, no wheezing, no pleurisy Gastrointestinal: nausea, no abdominal pain, no vomiting, no diarrhea, no constipation, no change in bowel habits, no hematemesis, no coffee ground emesi s, no melena, no hematochezia, no loss of appetite Genitourinary Female: no flank pain, no dysuria Rectal: no pain Musculoskeletal: no neck stiffness, no neck pain, no shooting arm pain, no arm numbness/tingling, no low back pain, no shooting leg pain, no arthritis Integumentary: no rash, no pruritis, no redness, no sores, no wounds, no jaundice, no boils, no bullae, no lesions, no acne, no dryness, no brittle nails, no striae, no hirsutism Neurological: weakness, no paralysis, no parathesias, no numbness, no tingling, no seizures, no syncope, no tremors, no vertigo, no headaches, no convulsions, no aphasia, no change in speech, no change in mentation Psychiatric: no anxiety, no memory loss, no change in sleep habits, no sleep disturbances, no insomnia, no hypersomnia, no change in appetite, no change in libido, no suicidal ideation, no disorientation, no depression, no hopelessness, no anhedonia Endocrine: no cold intolerance, no heat intolerance, no polyphagia, no excessive thirst, no polydipsia, no polyuria, no nocturia, no excessive sweating, no thyroid mass, no palpatations Hematologic/Lymphatic: no easy bruising, no easy bleeding, no lymphadenopathy, no lymphedema, no thrombophilia Allergic/Immunologic: no urticaria, no allergic rhinitis, no persistent infections, no anaphylaxis Exam - Constitutional Vitals: Temp Pulse Resp BP Pulse Ox 98.8 F 76 16 122/82 92 02/14/20 04:00 02/14/20 04:00 02/14/20 04:00 02/14/20 04:00 02/14/20 04:00 General appearance: Present: mild distress - EENT Eyes: Present: PERRL, EOM intact ENT: hearing intact, clear oral mucosa - Neck Neck: Present: supple, normal ROM - Respiratory Respiratory effort: normal - Cardiovascular Rhythm: regular Heart Sounds: Present: S1 & S2. Absent: systolic murmur, diastolic murmur - Extremities Extremities: no ischemia Extremity abnormal: edema Peripheral Pulses: within normal limits - Abdominal General gastrointestinal: Present: soft, non-tender, non-distended. Absent: tender, distended Female genitourinary: Present: deferred - Rectal Rectal Exam: deferred - Integumentary Integumentary: Present: clear, warm, dry - Musculoskeletal Musculoskeletal: strength equal bilaterally - Psychiatric Psychiatric: appropriate mood/affect - Neurologic Neurologic: CNII-XII intact HEART Score - HEART Score EKG: Non-specific Age: 45-65 Risk factors: > 3 risk factors or hx of atherosclerotic disease Troponin: Troponin T < 0.010 ng/mL (0.00-0.029) 02/14/20 00:46 Troponin: < normal limit - Critical Actions Critical Actions: 4-6 pts:12-16.6% risk of adverse cardiac event. Should be admitted Results - Labs CBC & Chem 7: 02/13/20 23:38 02/13/20 23:38 Labs: Laboratory Last Values WBC 6.8 K/mm3 (4.5-11.0) 02/13/20 23:38 RBC 3.61 M/mm3 (3.65-5.03) L 02/13/20 23:38 Hgb 10.9 gm/dl (10.1-14.3) 02/13/20 23:38 Hct 32.1 % (30.3-42.9) 02/13/20 23:38 MCV 89 fl (79-97) 02/13/20 23:38 MCH 30 pg (28-32) 02/13/20 23:38 MCHC 34 % (30-34) 02/13/20 23:38 RDW 15.1 % (13.2-15.2) 02/13/20 23:38 Plt Count 162 K/mm3 (140-440) 02/13/20 23:38 Lymph % (Auto) 34.2 % (13.4-35.0) 02/13/20 23:38 Cottle % (Auto) 7.6 % (0.0-7.3) H 02/13/20 23:38 Eos % (Auto) 4.4 % (0.0-4.3) H 02/13/20 23:38 Baso % (Auto) 0.6 % (0.0-1.8) 02/13/20 23:38 Lymph # 2.3 K/mm3 (1.2-5.4) 02/13/20 23:38 Cottle # 0.5 K/mm3 (0.0-0.8) 02/13/20 23:38 Eos # 0.3 K/mm3 (0.0-0.4) 09/08/20 23:38 Baso # 0.0 K/mm3 (0.0-0.1) 02/13/20 23:38 Seg Neutrophils % 53.2 % (40.0-70.0) 02/13/20 23:38 Seg Neutrophils # 3.6 K/mm3 (1.8-7.7) 02/13/20 23:38 PT 12.0 Sec. (12.2-14.9) L 02/13/20 23:38 INR 0.87 (0.87-1.13) 02/13/20 23:38 Sodium 138 mmol/L (137-145) 02/13/20 23:38 Potassium 4.7 mmol/L (3.6-5.0) 02/13/20 23:38 Chloride 103.9 mmol/L (98-107) 02/13/20 23:38 Carbon Dioxide 23 mmol/L (22-30) 02/13/20 23:38 Anion Gap 16 mmol/L 02/13/20 23:38 BUN 21 mg/dL (7-17) H 02/13/20 23:38 Creatinine 2.3 mg/dL (0.6-1.2) H 02/13/20 23:38 Estimated GFR 27 ml/min 02/13/20 23:38 BUN/Creatinine Ratio 9 % 02/13/20 23:38 Glucose 268 mg/dL (65-100) H 02/13/20 23:38 Calcium 8.6 mg/dL (8.4-10.2) 02/13/20 23:38 Troponin T < 0.010 ng/mL (0.00-0.029) 02/14/20 00:46 NT-Pro-B Natriuret Pep 2929 pg/mL (0-900) H 02/13/20 23:38 Urine Color Yellow (Yellow) 02/14/20 00:37 Urine Turbidity Slightly-cloudy (Clear) 02/14/20 00:37 Urine pH 6.0 (5.0-7.0) 02/14/20 00:37 Ur Specific [place] 1.011 (1.003-1.030) 02/14/20 00:37 Urine Protein 30 mg/dl mg/dL (Negative) 02/14/20 00:37 Urine Glucose (UA) >=500 mg/dL (Negative) 02/14/20 00:37 Urine Ketones Neg mg/dL (Negative) 02/14/20 00:37 Urine Blood Sm (Negative) 02/14/20 00:37 Urine Nitrite Neg (Negative) 02/14/20 00:37 Urine Bilirubin Neg (Negative) 02/14/20 00:37 Urine Urobilinogen < 2.0 mg/dL (<2.0) 02/14/20 00:37 Ur Leukocyte Esterase Mod (Negative) 02/14/20 00:37 Urine WBC (Auto) 79.0 /HPF (0.0-6.0) H 02/14/20 00:37 Urine RBC (Auto) 8.0 /HPF (0.0-6.0) 02/14/20 00:37 U Epithel Cells (Auto) 10.0 /HPF (0-13.0) 02/14/20 00:37 Urine Mucus Few /HPF 02/14/20 00:37 Torres/IV: Voiding Method Toilet IV Catheter Type [Left Medial IVAD / [place] Sub[place]] Assessment and Plan - Patient Problems (1) Chest pain Current Visit: Yes Status: Acute Plan to address problem: 1. NPO 2. LEXISCAN STRESS TEST 3. I.V MORPHINE FOR PAIN 4. I.V ZOFRAN FOR NAUSEA AND VOMITING 5. NITROPASTE 7. ASPIRIN PO 8.TYLENOL POFOR HEADACHE. 9.OXYGEN BY NASAL CANNULA (2) Renal insufficiency Current Visit: Yes Status: Acute Plan to address problem: 1. NEPHROLOGY CONSULT 2. BMP LEVEL (3) Left nephrolithiasis Current Visit: Yes Status: Acute Plan to address problem: 1 I.V MORPHINE FOR PAIN 2. I.V ZOFRAN FOR NAUSEA AND VOMITING
[2020-02-14] MEDS: NITROGLYCERIN 2% OINT 1 GM TP SCH ×4 (06:49→19:01)
[2020-02-14 06:55] LABS: Creatine Kinase MB 2.1 ng/mL (0.0-4.0)
[2020-02-14 07:55] LABS: Basophils % (Auto) 0.2 % (0.0-1.8); Eosinophils # (Auto) 0.3 K/mm3 (0.0-0.4); Eosinophils % (Auto) 4.8 % (0.0-4.3); Hematocrit 33.6 % (30.3-42.9); Lymphocytes # (Auto) 2.4 K/mm3 (1.2-5.4); Lymphocytes % (Auto) 36.1 % (13.4-35.0); Mean Corpuscular HGB Conc 33 % (30-34); Mean Corpuscular Volume 90 fl (79-97); Monocytes # (Auto) 0.5 K/mm3 (0.0-0.8); Monocytes % (Auto) 7.6 % (0.0-7.3); Platelet Count 181 K/mm3 (140-440); Red Blood Count 3.74 M/mm3 (3.65-5.03)
[2020-02-14 08:22] LABS: Alanine Aminotransferase 10 units/L (7-56); Albumin 3.2 g/dL (3.9-5); BUN/Creatinine Ratio 8; Blood Urea Nitrogen 20 mg/dL (7-17); Calcium 8.6 mg/dL (8.4-10.2); Hemolysis Index 5
[2020-02-14] MEDS ORDERED: REGADENOSON 0.4 MG/5 ML INJ IV ONE ×2 (08:42→08:45)
[2020-02-14] MEDS: ASPIRIN 325 MG TAB PO SCH (10:29)
--- NOTE | 2020-02-14 11:45 | Treadmill Report ---
CARDIAC NUCLEAR PERFUSION STUDY REASON FOR STUDY: Chest pain. READING PHYSICIAN: Nigel Hastings MD. IMAGING PROTOCOL: The patient received 10 mCi of Technetium 99m Tetrofosmin for resting image and 28 mCi of Technetium 99m Tetrofosmin for stress imaging. The imaging for the whole procedure was completed 30-90 minutes following the initial injection of Technetium 99m Tetrofosmin. The SPECT imaging in the 180 degree arc was performed in the right anterior oblique projection. Computerized reconstruction of the images was performed for analysis. IMAGING RESULTS: Normal distribution of radionuclide in the anterior, inferior, septal, lateral, but there is a moderate area of moderate decrease in the apical region seen at both stress and rest with apical septal region also seen on stress. Normal distribution of the apical lateral region, but fixed defect with gated SPECT, EF of 38% with moderate global hypokinesis. The patient infused Lexiscan. SUMMARY: 1. Negative Lexiscan EKG. 2. No significant stress-induced ischemia. 3. There is a moderate fixed apical, apical septal defect seen on stress and rest with normal distribution of anterior, inferior, septal, lateral regions with gated SPECT, EF 38%. JOB# [id number] ALEXSANDRA/CHRYSTAL
[2020-02-14 15:09] LABS: Creatine Kinase MB 2.4 ng/mL (0.0-4.0)
--- NOTE | 2020-02-14 15:46 | Consultation ---
History of Present Illness - Reason for Consult Consult date: 02/14/20 acute renal failure - History of Present Illness This is a 54 year old female who presents to the hospital with a chief complaint of shortness of breath, chest pain, swelling to legs, left- side flank pain and nausea and vomiting over the last 2 days. CXR showed no acute findings. Abdominal Ct/Pelvis showed Left nephrolithiasis without obstruction and mild dilatation of left collecting system and right neprectomy. Patient states she had her right kidney removed 2 years ago at [facility] due to mass and stones and has alot of lithotripsy done. She follows with Dr. Martin and Dr. Boyd of [facility] usually every 3 months prior to COVID pandemic. Serum creatinine noted to be elevated at 2.5. Serum creatinine on 2017 was 0.6. Patient has history of CHF, HTN and DM. We are being consulted for management of this patient's Acute Renal Failure. Past History Past Medical History: CAD, heart failure Past Surgical History: Other (defibrillator) Social history: no significant social history Family history: no significant family history Medications and Allergies Allergies Allergy/AdvReac Type Severity Reaction Status Date / Time divalproex sodium Allergy Anaphylaxis Verified 01/05/15 16:07 [From Depakote] heparin Allergy Swelling Verified 01/05/15 16:07 Iodinated Contrast Media Allergy Anaphylaxis Verified 01/05/15 16:07 [Iodinated Contrast Media - IV Dye] ketorolac tromethamine Allergy Angioedema Verified 01/05/15 16:07 [From Toradol] ondansetron HCl Allergy Itching Verified 01/05/15 16:07 [From Zofran (as hydrochloride)] Penicillins Allergy Anaphylaxis Verified 01/05/15 16:07 Home Medications Medication Instructions Recorded Confirmed Last Taken Type Spironolactone [Aldactone] 50 mg PO DAILY #30 tablet 09/08/14 02/14/20 12/12/14 Rx 50 mg Albuterol Sulfate [Ventolin HFA] 2 puff IH Q4H PRN 10/03/14 02/14/20 10/01/14 History 2 puffs DULoxetine [Cymbalta] 60 mg PO BID 12/12/14 02/14/20 12/12/14 History traZODone [Desyrel] 100 mg PO QHS 12/12/14 02/14/20 12/12/14 History Furosemide [Lasix TAB] 40 mg PO BID 01/05/15 02/14/20 Unknown History clonazePAM [KlonoPIN] 1 mg PO TID 01/05/15 02/14/20 Unknown History Diclofenac Sodium [Voltaren] 100 gm TP QID PRN 05/26/17 02/14/20 Unknown History Gabapentin [Neurontin] 600 mg PO Q8H 05/26/17 02/14/20 Unknown History Insulin Aspart (Nf) [NovoLOG 7 - 12 units SQ AC 05/26/17 02/14/20 Unknown History Flexpen] Insulin Detemir [Levemir VIAL] 7 unit SQ QHS 05/26/17 02/14/20 Unknown History Morphine [Morphine TAB] 15 mg PO Q12H 05/26/17 02/14/20 Unknown History Oxycodone HCl/Acetaminophen 1 each PO Q8HR PRN 05/26/17 02/14/20 Unknown History [Percocet 7.5/325 mg] Pentosan Polysulfate Sodium 100 mg PO TID 05/26/17 02/14/20 05/25/17 16:00 Hi story [Elmiron] carvediloL [Coreg] 12.5 mg PO BID 02/14/20 02/14/20 Unknown History Active Meds: Active Medications Acetaminophen (Tylenol) 650 mg PO Q4H PRN PRN Reason: Fever >101 Aspirin (Aspirin) 325 mg PO QDAY [facility] Last Admin: 02/14/20 10:29 Dose: 325 mg Documented by: Hydromorphone HCl (Dilaudid) 0.5 mg IV Q3H PRN PRN Reason: Pain , Severe (7-10) Last Admin: 02/14/20 10:25 Dose: 0.5 mg Documented by: Nitroglycerin (Nitro-Bid 2%) 0.5 inch TP QIDNTG [facility]; Protocol Last Admin: 02/14/20 15:05 Dose: 0.5 inch Documented by: Promethazine HCl (Phenergan) 25 mg [place] Q6H PRN PRN Reason: Nausea And Vomiting Last Admin: 02/14/20 10:26 Dose: 25 mg Documented by: Review of Systems Constitutional: fatigue, no weight loss, no weight gain, no fever, no chills Ears, nose, mouth and throat: no ear pain, no ear discharge, no tinnitis, no decreased hearing, no nose pain, no nasal congestion, no nasal discharge Breasts: deferred Cardiovascular: edema, shortness of breath, no chest pain, no rapid/irregular heart beat Respiratory: shortness of breath, no cough, no cough with sputum, no hemoptysis, no dyspnea on exertion Gastrointestinal: nausea, no abdominal pain, no vomiting, no diarrhea, no constipation Genitourinary Female: flank pain, no menorrhagia, no dysuria, no urinary frequency, no urgency Menstruation: no premenarcheal, no post hysterectomy Rectal: no pain, no incontinence, no bleeding, no itching Musculoskeletal: no neck stiffness, no neck pain, no shooting arm pain, no arm numbness/tingling, no low back pain, no shooting leg pain Integumentary: no rash, no pruritis, no redness, no sores, no wounds, no jaundice Neurological: no head injury, no transient paralysis, no paralysis, no parathesias, no numbness, no tingling, no seizures Psychiatric: no memory loss, no change in sleep habits, no sleep disturbances, no insomnia, no hypersomnia Endocrine: no cold intolerance, no heat intolerance, no polyphagia, no excessive thirst, no polydipsia Exam - Vital Signs Vital signs: Vital Signs Temp Pulse Resp BP Pulse Ox 98.1 F 73 15 143/87 94 02/13/20 21:47 02/13/20 21:47 02/13/20 21:47 02/13/20 21:47 02/13/20 21:47 - General Appearance General appearance: well-developed, appears stated age, fatigue EENT: ATNC, PERRL, hearing intact, vision intact Neck: Present: neck supple, trachea midline Respiratory: Decreased Breath Sounds Heart: regular, S1S2 Gastrointestinal: Present: normoactive bowel sounds Integumentary: warm and dry Neurologic: alert and oriented x3 Musculoskeletal: Present: joint swelling, other (right leg more swollen than right) Psychiatric: mood/affect appropriate Results - Lab Results 02/14/20 07:30 02/14/20 07:30 Most recent lab results Calcium 8.6 mg/dL (8.4-10.2) 02/14/20 07:30 Assessment and Plan Acute Renal Failure secondary to AIN vs ATN on CKD, has single left kidney, S/P right nephrectomy 2 years ago due to renal stones and mass: -Renal labs reviewed. Serum creatinine 2.5 today, yesterday was 2.3. Serum creatinine in 2017 was 0.6 -CT of Abdomen/Pelvis-Right nephrectomy. Left nephrolithiasis without obstruction, mild dilation of left collecting system. Patient will need to f/u with her [facility]- Dr. Martin and Dr. Silva when discharge -Diclofenac seen on patient's medication home list but patient denies this medication, advised to not take any NSAIDs -Will not place on IVF as LVEF is 38% and has swelling to lower extremities, may need Lasix as needed -Obtain urine protein/creatinine ratio, eosinophils and lytes -Avoid nephrotoxic agents -Obtain daily weights -Monitor I/O's daily -Monitor renal function closely -No acute indication for [employer]
[2020-02-15] MEDS: NITROGLYCERIN 2% OINT 1 GM TP SCH ×2 (05:12→12:55)
[2020-02-15] MEDS: HYDROmorphone 1 MG/1 ML INJ IV PRN ×3 (05:13→12:56)
[2020-02-15 06:33] LABS: Creatinine,Urine 61.4 mg/dL (0.1-20.0); Protein/Creatinine Ratio,Urine 0.31
[2020-02-15] MEDS ORDERED: HYDROcodone/ACETAMINOPHEN 5-325 MG TAB PO PRN (09:14)
[2020-02-15] MEDS ORDERED: DULoxetine 30 MG CAP PO SCH (10:00)
[2020-02-15] MEDS ORDERED: carvediloL 12.5 MG TAB PO SCH (10:00)
--- NOTE | 2020-02-15 10:52 | Progress Note ---
Assessment and Plan Acute Renal Failure secondary to AIN vs ATN on CKD, has single left kidney, S/P right nephrectomy 2 years ago due to renal stones and mass: Chest Pain left nephrolithiasis -BMP is pending thia AM Serum creatinine in 2017 was 0.6 -will start NS 75 cc/h, CXR is clear, will monitor volume status closely due to h/o CHF EF 38% -minimal proteinuria, but active UA, UTI vs. renal etiology, will check urine eos and order urine cultures -CT of Abdomen/Pelvis-Right nephrectomy. Left nephrolithiasis without obstruction, mild dilation of left collecting system. Patient will need to f/u with her [facility]ists- Dr. Martin and Dr. Silva when discharge -Diclofenac seen on patient's medication home list but patient denies this me dication, advised to not take any NSAIDs -Avoid nephrotoxic agents -Obtain daily weights -Monitor I/O's daily -Monitor renal function closely -No acute indication for [employer] Jamar douglas MD [phone] Subjective Date of service: 02/15/20 Principal diagnosis: DOUGLAS Interval history: c/o mild swelling in her legs Objective - Vital Signs Vital signs: Vital Signs - 12hr 02/14/20 02/15/20 02/15/20 22:53 00:13 01:00 Temperature Pulse Rate 94 H 81 Respiratory 20 Rate Blood Pressure O2 Sat by Pulse 98 95 Oximetry 02/15/20 02/15/20 02/15/20 05:07 05:08 05:12 Temperature 98.6 F Pulse Rate 97 H 101 H 91 H Respiratory 20 Rate Blood Pressure 135/89 135/89 O2 Sat by Pulse 92 92 Oximetry 02/15/20 02/15/20 08:19 09:15 Temperature 98.9 F Pulse Rate 83 Respiratory 17 Rate Blood Pressure 137/83 O2 Sat by Pulse 90 96 Oximetry - General Appearance General appearance: well-developed, well-nourished, appears stated age EENT: ATNC, PERRL, mucous membranes moist Neck: no JVD, no carotid bruit Respiratory: Present: Clear to Ascultation. Absent: Rales, Ronchi Cardiology: regular, S1S2 Gastrointestinal: normoactive bowel sounds, no tenderness, no distended Integumentary: no rash, warm and dry Neurologic: no focal deficit, no asterixis, alert and oriented x3 Musculoskeletal: other (trace pitting edema in BLE) Psychiatric: cooperative - Lab 02/14/20 07:30 02/14/20 07:30 Most recent lab results Calcium 8.6 mg/dL (8.4-10.2) 02/14/20 07:30 Urine Creatinine 61.4 mg/dL (0.1-20.0) H 02/15/20 Unknown Urine Sodium 112 mmol/L 02/15/20 Unknown Urine Total Protein 19 mg/dL (5-11.8) H 02/15/20 Unknown Medications & Allergies - Medications Allergies/Adverse Reactions: Allergies divalproex sodium [From Depakote] Allergy (Verified 01/05/15 16:07) Anaphylaxis heparin Allergy (Verified 01/05/15 16:07) Swelling lowers WBC's Iodinated Contrast Media [Iodinated Contrast Media - IV Dye] Allergy (Verified 01/05/15 16:07) Anaphylaxis ketorolac tromethamine [From Toradol] Allergy (Verified 01/05/15 16:07) Angioedema ondansetron HCl [From Zofran (as hydrochloride)] Allergy (Verified 01/05/15 16:07) Itching Penicillins Allergy (Verified 01/05/15 16:07) Anaphylaxis Home Medications: Home Medications Medication Instructions Recorded Confirmed Last Taken Type Spironolactone [Aldactone] 50 mg PO DAILY #30 tablet 09/08/14 02/14/20 12/12/14 Rx 50 mg Albuterol Sulfate [Ventolin HFA] 2 puff IH Q4H PRN 10/03/14 02/14/20 10/01/14 History 2 puffs DULoxetine [Cymbalta] 60 mg PO BID 12/12/14 02/14/20 12/12/14 History traZODone [Desyrel] 100 mg PO QHS 12/12/14 02/14/20 12/12/14 History Furosemide [Lasix TAB] 40 mg PO BID 01/05/15 02/14/20 Unknown History clonazePAM [KlonoPIN] 1 mg PO TID 01/05/15 02/14/20 Unknown History Diclofenac Sodium [Voltaren] 100 gm TP QID PRN 05/26/17 02/14/20 Unknown History Gabapentin [Neurontin] 600 mg PO Q8H 05/26/17 02/14/20 Unknown History Insulin Aspart (Nf) [NovoLOG 7 - 12 units SQ AC 05/26/17 02/14/20 Unknown History Flexpen] Insulin Detemir [Levemir VIAL] 7 unit SQ QHS 05/26/17 02/14/20 Unknown History Morphine [Morphine TAB] 15 mg PO Q12H 05/26/17 02/14/20 Unknown History Oxycodone HCl/Acetaminophen 1 each PO Q8HR PRN 05/26/17 02/14/20 Unknown History [Percocet 7.5/325 mg] Pentosan Polysulfate Sodium 100 mg PO TID 05/26/17 02/14/20 05/25/17 16:00 History [Elmiron] carvediloL [Coreg] 12.5 mg PO BID 02/14/20 02/14/20 Unknown History Active Medications: Generic Name Dose Route Start Last Admin Trade Name Freq PRN Reason Stop Dose Admin Acetaminophen 650 mg 02/14/20 01:17 Tylenol PO Q4H PRN Fever >101 Acetaminophen/Hydrocodone Bitart 1 each 02/15/20 09:14 [place] 5/325 PO Q8H PRN Pain, Moderate (4-6) Aspirin 325 mg 02/14/20 10:00 02/14/20 10:29 Aspirin PO 325 mg QDAY ASHKAN Administration Carvedilol 12.5 mg 02/15/20 10:00 Coreg PO BID ASHKAN Clonazepam 1 mg 02/15/20 14:00 Klonopin PO TID ASHKAN Duloxetine HCl 60 mg 02/15/20 10:00 Cymbalta PO BID ASHKAN Hydromorphone HCl 0.5 mg 02/14/20 01:20 02/15/20 09:00 Dilaudid IV 0.5 mg Q3H PRN Administration Pain , Severe (7-10) Sodium Chloride 1,000 mls @ 75 mls/hr 02/15/20 11:00 Nacl 0.9% 1000 Ml IV DIRECT ASHKAN Nitroglycerin 0.5 inch 02/14/20 06:00 02/15/20 05:12 Nitro-Bid 2% TP 0.5 inch QIDNTG ASHKAN Administration Protocol Promethazine HCl 25 mg 02/14/20 01:22 02/14/20 10:26 Phenergan [place] 25 mg Q6H PRN Administration Nausea And Vomiting Trazodone HCl 100 mg 02/15/20 22:00 Desyrel PO QHS ASKHAN
[2020-02-15] MEDS ORDERED: SODIUM CHLORIDE 0.9% 1000 ML 1,000 ML IV SCH (11:00)
--- NOTE | 2020-02-15 12:14 | Discharge Summary ---
Providers - Providers Date of Admission: 02/14/20 00:25 Date of discharge: 02/15/20 Attending physician: CECILY BISHOP 02/14/20 12:00 Consult to Physician [CONS] Routine Comment: Consulting Provider: ILDA HITCHCOCK Physician Instructions: Reason For Exam: DOUGLAS Primary care physician: SHANICE SHU Hospitalization Reason for admission: Chest pain Condition: Stable Hospital course: 54 year old female with a medical history of CKD, renal stone who presents with pressure like chest pain with numbness of left arm going on for 2 days . Pain is associated with shortness of breath ,nausea, and weakness. There is no associated diaphoresis , fever, cough, chills or vomiting, pain is relieved by pain medication. In the ER, patient was scheduled to have a stress test. Her stress test, showed no reversible ischemia. However labs on admission showed creatinine 2.3. CT abdomen and pelvis showed left renal stone with no clear obstruction. Nephrology was consulted. Creatinine bump up the next day to 2.5.renal function subsequently improved and at discharge patient's creatinine is 2.3. As per nephrology, patient will follow-up with him in the office. She was to follow-up with [facility] in the office. Patient agrees with plan Disposition: DC-01 TO HOME OR SELFCARE - Discharge Diagnoses (1) Chronic kidney disease Status: Acute (2) Chest pain Status: Acute (3) Left nephrolithiasis Status: Acute Core Measure Documentation - Palliative Care Palliative Care/ Comfort Measures: Not Applicable - Core Measures Any of the following diagnoses?: none Exam - Constitutional Vitals: Temp Pulse Resp BP Pulse Ox 98.9 F 83 17 137/83 96 02/15/20 08:19 02/15/20 08:19 02/15/20 08:19 02/15/20 08:19 02/15/20 09:15 General appearance: Present: no acute distress, well-nourished - EENT Eyes: Present: PERRL ENT: hearing intact, clear oral mucosa - Neck Neck: Present: supple, normal ROM - Respiratory Respiratory effort: normal Respiratory: bilateral: CTA - Cardiovascular Heart Sounds: Present: S1 & S2. Absent: rub, click - Extremities Extremities: pulses symmetrical Extremity abnormal: edema Peripheral Pulses: within normal limits - Abdominal General gastrointestinal: Present: soft, non-tender, non-distended, normal bowel sounds Female genitourinary: Present: normal - Integumentary Integumentary: Present: clear, warm, dry - Musculoskeletal Musculoskeletal: gait normal, strength equal bilaterally - Psychiatric Psychiatric: appropriate mood/affect, intact judgment & insight - Neurologic Neurologic: CNII-XII intact, moves all extremities Plan Diet: renal Additional Instructions: Avoid NSAIDs. Gabapentin dose has been reduced to 300mg twice daily for now due to renal function impairment. Follow-up with nephrology in the office in 1 to 2 weeks. Follow-up with [facility] -Josue Martin and Ricardo in 1-2 weeks Follow up with: SHANICE SUH MD [Primary Care Provider] - 3-5 Days ILDA HITCHCOCK MD [Staff Physician] - 7 Days Prescriptions: Gabapentin 300 mg PO BID #30 capsule
[2020-02-15] MEDS: ASPIRIN 325 MG TAB PO SCH (12:55)
[2020-02-15] MEDS ORDERED: clonazePAM 0.5 MG TAB PO SCH (14:00)
[2020-02-15 16:05] VITALS: BP 127/76
[2020-02-15] MEDS ORDERED: traZODone 50 MG TAB PO SCH (22:00)
== END 2020-02-15 18:06 | disposition home or self-care (01) ==
LOC: ED 21:23 → 4A 02-14 00:25
PROVIDERS: ADMIT Internal Medicine; ATTEND Internal Medicine
DX: I50.9 Heart failure, unspecified (principal); N28.9 Disorder of kidney and ureter, unspecified; N20.0 Calculus of kidney; R07.89 Other chest pain; I25.10 Atherosclerotic heart disease of native coronary artery without angina pectoris; E11.9 Type 2 diabetes mellitus without complications; F17.210 Nicotine dependence, cigarettes, uncomplicated; Z79.4 Long term (current) use of insulin; Z90.5 Acquired absence of kidney; Z95.820 Peripheral vascular angioplasty status with implants and grafts; Z79.82 Long term (current) use of aspirin; Z90.49 Acquired absence of other specified parts of digestive tract; Z90.710 Acquired absence of both cervix and uterus
CPT/HCPCS: 36415; 71045; 74176; 78452; 80048; 80053; 81001; 82550; 82553; 82570; 82962; 83880; 84100; 84156; 84300; 84484; 85025; 85610; 87086; 89050; 93005; 93017; 96374; 96375; 96376; 99285; 99406; A9502; G0378; J1170; J2270; J2785; Q0169

== ENCOUNTER 2021-01-21 23:04 | Inpatient (IN) | payer MEDICARE ==
--- NOTE | 2021-01-22 01:10 | Emergency Department Report ---
ED General Adult HPI - General Chief complaint: Dyspnea/Respdistress Stated complaint: AHSAN PUI?: No Time Seen by Provider: 01/22/21 00:44 Source: patient, EMS ( EMS documentation not available at time of chart dictation ), RN notes reviewed, old records reviewed Mode of arrival: Stretcher Limitations: No Limitations - History of Present Illness Initial comments: The patient was evaluated in the emergency department for symptoms described in the history of present illness. He/she was evaluated in the context of the global COVID-19 pandemic, which necessitated consideration that the patient might be at risk for infection with the virus that causes COVID-19. Institutional protocols and algorithms that pertain to the evaluation of patients at risk for COVID-19 are in a state of rapid change based on information released by regulatory bodies including the CDC and federal and state organizations. These policies and algorithms were followed during the patient's care in the emergency department. Please note that these policies, procedures and recommendations changed on a rapid basis. During the entire history and physical examination, I had a complete personal protective equipment. The patient is a 55-year-old female. Past medical history is complex, including history of nephrectomy, congestive heart failure, pacemaker in situ, renal insufficiency, COPD, not home oxygen dependent, ejection fraction approximately 35%, chronic pain, history of cholecystectomy, hernia repair, and abdominal hysterectomy. Cardiology: Dr. Lowe Primary care/pain specialist: Dr. Billings Pulmonary: Patient cannot recall Patient is up-to-date on COVID-19 vaccination status. The patient presents to the ER today with a complaint of malaise, weakness, shortness of breath. The patient states she had upper abdominal pain which is now resolved. She had nausea, which is now resolved. She had one episode of "diarrhea" earlier on today, which was brown in nature. The patient states she feels like she is having congestive heart failure. The patient states she is feeling very anxious. The patient denies dietary indiscretions. She reports compliance with medications. She reports that she also has chronic back pain. Her acute complaint at this time is shortness of breath which is reminiscent of prior episodes of congestive heart failure. Ambulates with a cane and walker at home. No urinary symptoms. -: Gradual, hour(s) Severity scale (0 -10): 0 Consistency: constant Improves with: rest Worsens with: movement - Related Data Home Medications Medication Instructions Recorded Confirmed Last Taken Albuterol Sulfate [Ventolin HFA] 2 puff IH Q4H PRN 10/03/14 02/14/20 10/01/14 2 puffs DULoxetine [Cymbalta] 60 mg PO BID 12/12/14 02/14/20 12/12/14 traZODone [Desyrel] 100 mg PO QHS 12/12/14 02/14/20 12/12/14 Furosemide [Lasix TAB] 40 mg PO BID 01/05/15 02/14/20 Unknown clonazePAM [KlonoPIN] 1 mg PO TID 01/05/15 02/14/20 Unknown Insulin Aspart (Nf) [NovoLOG 7 - 12 units SQ AC 05/26/17 02/14/20 Unknown Flexpen] Insulin Detemir [Levemir VIAL] 7 unit SQ QHS 05/26/17 02/14/20 Unknown Morphine [Morphine TAB] 15 mg PO Q12H 05/26/17 02/14/20 Unknown Oxycodone HCl/Acetaminophen 1 each PO Q8HR PRN 05/26/17 02/14/20 Unknown [Percocet 7.5/325 mg] Pentosan Polysulfate Sodium 100 mg PO TID 05/26/17 02/14/20 05/25/17 16:00 [Elmiron] carvediloL [Coreg] 12.5 mg PO BID 02/14/20 02/14/20 Unknown Previous Rx's Medication Instructions Recorded Last Taken Type Spironolactone [Aldactone] 50 mg PO DAILY #30 tablet 09/08/14 12/12/14 Rx 50 mg Gabapentin 300 mg PO BID #30 capsule 02/15/20 Unknown Rx Allergies Allergy/AdvReac Type Severity Reaction Status Date / Time divalproex sodium Allergy Anaphylaxis Verified 01/05/15 16:07 [From Depakote] heparin Allergy Swelling Verified 01/05/15 16:07 Iodinated Contrast Media Allergy Anaphylaxis Verified 01/05/15 16:07 [Iodinated Contrast Media - IV Dye] ketorolac tromethamine Allergy Angioedema Verified 01/05/15 16:07 [From Toradol] ondansetron HCl Allergy Itching Verified 01/05/15 16:07 [From Zofran (as hydrochloride)] Penicillins Allergy Anaphylaxis Verified 01/05/15 16:07 ED Review of Systems ROS: Stated complaint: AHSAN Other details as noted in HPI Constitutional: malaise, weakness. denies: fever Eyes: denies: eye discharge ENT: congestion Respiratory: orthopnea, shortness of breath, SOB with exertion, SOB at rest. denies: cough Cardiovascular: orthopnea. denies: chest pain Gastrointestinal: abdominal pain, nausea, diarrhea. 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 Right nephrectomy - Social History Smoking Status: Current Every Day Smoker - Medications Home Medications: Home Medications Medication Instructions Recorded Confirmed Last Taken Type Spironolactone [Aldactone] 50 mg PO DAILY #30 tablet 09/08/14 02/14/20 12/12/14 Rx 50 mg Albuterol Sulfate [Ventolin HFA] 2 puff IH Q4H PRN 10/03/14 02/14/20 10/01/14 History 2 puffs DULoxetine [Cymbalta] 60 mg PO BID 12/12/14 02/14/20 12/12/14 History traZODone [Desyrel] 100 mg PO QHS 12/12/14 02/14/20 12/12/14 History Furosemide [Lasix TAB] 40 mg PO BID 01/05/15 02/14/20 Unknown History clonazePAM [KlonoPIN] 1 mg PO TID 01/05/15 02/14/20 Unknown History Insulin Aspart (Nf) [NovoLOG 7 - 12 units SQ AC 05/26/17 02/14/20 Unknown History Flexpen] Insulin Detemir [Levemir VIAL] 7 unit SQ QHS 05/26/17 02/14/20 Unknown History Morphine [Morphine TAB] 15 mg PO Q12H 05/26/17 02/14/20 Unknown History Oxycodone HCl/Acetaminophen 1 each PO Q8HR PRN 05/26/17 02/14/20 Unknown History [Percocet 7.5/325 mg] Pentosan Polysulfate Sodium 100 mg PO TID 05/26/17 02/14/20 05/25/17 16:00 History [Elmiron] carvediloL [Coreg] 12.5 mg PO BID 02/14/20 02/14/20 Unknown History Gabapentin 300 mg PO BID #30 capsule 02/15/20 Unknown Rx ED Physical Exam - General Limitations: Physical Limitation General appearance: alert, anxious, in distress, obese - Head Head exam: Present: atraumatic, normocephalic - Eye Eye exam: Present: normal appearance, EOMI. Absent: nystagmus - ENT ENT exam: Present: normal exam, normal orophraynx, mucous membranes moist, normal external ear exam - Neck Neck exam: Present: normal inspection, full ROM. Absent: tenderness, meningismus - Respiratory Respiratory exam: Present: respiratory distress, rales. Absent: wheezes, rhonchi, stridor - Cardiovascular Cardiovascular Exam: Present: normal rhythm, tachycardia, normal heart sounds, JVD. Absent: bradycardia, irregular rhythm, systolic murmur, diastolic murmur, rubs, gallop - GI/Abdominal GI/Abdominal exam: Present: soft. Absent: distended, tenderness, guarding, rebound, rigid, pulsatile mass - Extremities Exam Extremities exam: Present: normal inspection, full ROM, pedal edema (1+ edema in the bilateral lower extremities), other (2+ pulses noted in the bilateral upper and lower extremities. There is no palpable cord. negative Homans sign. Muscular compartments are soft. The pelvis is stable.). Absent: calf tenderness - Back Exam Back exam: Present: normal inspection. Absent: tenderness, CVA tenderness (R), CVA tenderness (L), paraspinal tenderness, vertebral tenderness - Neurological Exam Neurological exam: Present: alert, oriented X3, other (No facial droop. Tongue midline. Extraocular movements intact bilaterally. Facial sensation intact to light touch in V1, V2, V3 distribution bilaterally. 5 and a 5 strength in 4 extremities. Sensation intact to light touch in 4 extremities.) - Psychiatric Psychiatric exam: Present: anxious - Skin Skin exam: Present: warm, dry, intact, normal color. 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 01/20/2021 1 01/20/2021 OXYCODONE HCL 10 MG TABLET 30.0 30 PA I [id number] [facility] (2302) 0 15.0 [place] 01/20/2021 1 01/20/2021 MORPHINE SULF ER 15 MG TABLET 90.0 30 PA I [id number] [facility] (2302) 0 45.0 [place] 01/08/2021 1 01/07/2021 ACETAMINOPHEN-COD #3 TABLET 15.0 3 [facility] [id number] [facility] (6360) 0 22.5 [place] 12/15/2020 1 12/10/2020 OXYCODONE HCL 10 MG TABLET 30.0 30 PA WHI [id number] [facility] (2302) 0 15.0 [place] 12/15/2020 1 12/10/2020 MORPHINE SULF ER 15 MG TABLET 90.0 30 PA I [id number] [facility] (2302) 0 45.0 [place] 11/15/2020 1 11/07/2020 OXYCODONE HCL 10 MG TABLET 30.0 30 DO SEY [id number] [facility] (2302) 0 15.0 [place] 11/15/2020 1 11/07/2020 MORPHINE SULF ER 15 MG TABLET 90.0 30 DO SEY [id number] [facility] (2302) 0 45.0 [place] 10/24/2020 1 10/21/2020 CLONAZEPAM 1 MG TABLET 90.0 30 AN [facility] [id number] [place] (6360) 0 [place] 10/17/2020 1 10/10/2020 OXYCODONE HCL 10 MG TABLET 30.0 30 DO SEY [id number] [facility] (6678) 0 15.0 [place] 10/14/2020 1 10/10/2020 MORPHINE SULF ER 15 MG TABLET 90.0 30 DO Y [id number] [facility] (2302) 0 45.0 [place] 09/02/2020 1 08/19/2020 CLONAZEPAM 1 MG TABLET 90.0 30 AN [facility] [id number] [facility] (6360) 0 [place] 08/13/2020 1 07/31/2020 OXYCODONE HCL 10 MG TABLET 30.0 30 PA [facility] [id number] [facility] (2302) 0 15.0 [place] 08/07/2020 1 07/31/2020 MORPHINE SULF ER 15 MG TABLET 90.0 30 PA I [id number] [facility] (2302) 0 45.0 [place] 07/09/2020 1 07/03/2020 MORPHINE SULF ER 15 MG TABLET 90.0 30 PA I [id number] [facility] (2302) 0 45.0 [place] 07/08/2020 1 07/08/2020 OXYCODONE HCL 10 MG TABLET 30.0 30 PA I [id number] [facility] (2302) 0 15.0 [place] 06/09/2020 1 05/22/2020 MORPHINE SULF ER 15 MG TABLET 90.0 30 PA I [id number] [facility] (2302) 0 45.0 [place]ME [place] Reevaluation #2: 01/22/21 01:14 Differential diagnosis, including but not limited to: Acute congestive heart failure, COPD, pneumonia, cardiorenal syndrome Assessment and plan: 55-year-old female with crackles, rales, JVD, known history of congestive heart failure, who subjectively feels like she is in acute congestive heart failure. She denies loss of taste and smell. She is up-to-date with Covid vaccination. She denies Covid exposure. 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 Obtain x-ray the chest, and appropriate laboratory studies. Treat patient's symptoms. Admit patient to the medical service once initial diagnostics have resulted. Patient denies travel, surgery, immobilization, DVT and pulmonary embolism risk factors. I find her to be low risk by Wells criteria for pulmonary embolism. This is most likely acute congestive heart failure, with a possible superimposed component of COPD. I discussed this plan of care with the patient. She is agreeable to this plan of care. 01/22/21 03:38 Lasix and aspirin ordered. Laboratory studies reviewed and appreciated. X-ray the chest to my interpretation suggest pulmonary vascular congestion, in conjunction with crackles, hypoxia, JVD, known cardiac history, CHF is the most likely diagnosis. Hospital physician, Dr. Shirley Ramirez to admit to [facility] ED Medical Decision Making - Lab Data Result diagrams: 01/22/21 01:53 01/22/21 01:53 Vital Signs 01/21/21 01/22/21 23:04 00:50 Temperature 98.6 F Pulse Rate 101 H Respiratory 24 24 Rate Blood Pressure 131/97 [Left] O2 Sat by Pulse 89 96 Oximetry - EKG Data -: EKG Interpreted by Vt - EKG Data 01/22/21 01:15 EKG #1 is interpreted at 01: 1 2 AM This is an atrial sensed ventricular paced rhythm. There is a left axis deviation, with good ventricular capture. The QT is 435 ms, the QTC is 545 ms. This is an abnormal EKG, the EKG is not a STEMI, his EKG today is unchanged from prior EKG from 02/13/2020 - Radiology Data Radiology results: pending, report reviewed, image reviewed [facility] [address] [place] [address] XRay Report Signed Patient: GISELLA HERRERA MR#: [id number] : 1965 Acct:[id number] Age/Sex: 55 / F ADM Date: 01/21/21 Loc: ED A ttending Dr: Ordering Physician: TIM LYNN MD Date of Service: 01/22/21 Procedure(s): XR chest 1V ap Accession Number(s): [id number] cc: TIM LYNN MD Fluoro Time In Minutes: CHEST 1 VIEW 01/22/2021 12:28 AM INDICATION / CLINICAL INFORMATION: Dyspnea. COMPARISON: 02/13/2020 FINDINGS: SUPPORT DEVICES: Left internal jugular Port-A-Cath and right subclavian pacemaker/ICD, unchanged HEART / MEDIASTINUM: Stable borderline cardiomegaly LUNGS / PLEURA: No significant pulmonary or pleural abnormality. No pneumothorax. ADDITIONAL FINDINGS: No significant additional findings. IMPRESSION: 1. No acute findings. Signer Name: Garth Phelps MD Signed: 01/22/2021 1:56 AM Workstation Name: [id number] Transcribed By: TL Dictated By: Garth Phelps MD Electronically Authenticated By: Garth Phelps MD Signed Date/Time: 01/22/21155 DD/ 4 Critical care attestation.: If time is entered above; I have spent that time in minutes in the direct care of this critically ill patient, excluding procedure time. ED Disposition Clinical Impression: AICD (automatic cardioverter/defibrillator) present, COPD (chronic obstructive pulmonary disease), Renal insufficiency, History of right nephrectomy, Acute CHF Disposition: ADMITTED INPATIENT Is pt being admited?: Yes Does the pt Need Aspirin: No Condition: Good Instructions: Chronic Obstructive Pulmonary Disease (ED)
--- NOTE | 2021-01-22 02:00 | XRay Report ---
CHEST 1 VIEW 01/22/2021 12:28 AM INDICATION / CLINICAL INFORMATION: Dyspnea. COMPARISON: 02/13/2020 FINDINGS: SUPPORT DEVICES: Left internal jugular Port-A-Cath and right subclavian pacemaker/ICD, unchanged HEART / MEDIASTINUM: Stable borderline cardiomegaly LUNGS / PLEURA: No significant pulmonary or pleural abnormality. No pneumothorax. ADDITIONAL FINDINGS: No significant additional findings. IMPRESSION: 1. No acute findings. Signer Name: Garth Phelps MD Signed: 01/22/2021 1:56 AM Workstation Name: [id number]
[2021-01-22 02:25] LABS: Basophils % (Auto) 0.4 % (0.0-1.8); Eosinophils # (Auto) 0.1 K/mm3 (0.0-0.4); Eosinophils % (Auto) 0.5 % (0.0-4.3); Hematocrit 33.9 % (30.3-42.9); Lymphocytes # (Auto) 1.1 K/mm3 (1.2-5.4); Lymphocytes % (Auto) 8.7 % (13.4-35.0); Mean Corpuscular HGB Conc 33 % (30-34); Mean Corpuscular Volume 88 fl (79-97); Monocytes # (Auto) 0.8 K/mm3 (0.0-0.8); Monocytes % (Auto) 6.4 % (0.0-7.3); Platelet Count 164 K/mm3 (140-440); Red Blood Count 3.87 M/mm3 (3.65-5.03); Red Cell Distribution Width 15.1 % (13.2-15.2)
[2021-01-22 02:44] LABS: INR 0.9 (0.87-1.13)
[2021-01-22 02:46] LABS: Albumin 3.4 g/dL (3.9-5); Calcium 8.3 mg/dL (8.4-10.2)
[2021-01-22] MEDS ORDERED: ACETAMINOPHEN 325 MG TAB PO ONE (03:17)
[2021-01-22] MEDS ORDERED: FUROSEMIDE 40 MG/4 ML INJ IV ONE (03:17)
[2021-01-22] MEDS ORDERED: ASPIRIN 81 MG TAB CHEW PO ONE (03:19)
[2021-01-22] MEDS ORDERED: METOCLOPRAMIDE 10 MG/2 ML INJ IV ONE (03:19)
[2021-01-22] MEDS ORDERED: MORPHINE 2 MG/1 ML INJ IV PRN (04:06)
[2021-01-22] MEDS ORDERED: MORPHINE 4 MG/1 ML INJ IV PRN (04:06)
[2021-01-22] MEDS ORDERED: ACETAMINOPHEN 325 MG TAB PO PRN (04:06)
--- NOTE | 2021-01-22 04:20 | History and Physical Report ---
History of Present Illness Date of examination: 01/22/21 Date of admission: 01/22/2021 Chief complaint: Shortness of Breath History of present illness: 55-year-old female with known history of COPD, CHF with ejection fraction of almost 35% presenting to the emergency room today complaining of shortness of breath, generalized malaise and weakness which has been ongoing over the past 24 hours. She denies any fever or chills, no chest pain, she had an episode of julian sea and an episode of diarrhea which has since resolved. She denies any vomiting. Work-up in the emergency room today reveals leukocytosis of 13.2 on the CBC. BUN and creatinine of 21 and 4.7 on the chemistry. BNP was 9880. Chest x-ray shows no acute findings. She had a dose of IV Lasix in the emergency room. Patient is being admitted to for CHF exacerbation. Past History Past Medical History: acute [place], arthritis, COPD, diabetes, DVT, heart failure, hypertension, stroke, other (kidney stone disease", fibromyalgia, crohns) Past Surgical History: Other (Pacemaker placement,defibrillator placement,ureter transplant,right nephrectomy) Medications and Allergies Allergies Allergy/AdvReac Type Severity Reaction Status Date / Time divalproex sodium Allergy Anaphylaxis Verified 01/05/15 16:07 [From Depakote] heparin Allergy Swelling Verified 01/05/15 16:07 Iodinated Contrast Media Allergy Anaphylaxis Verified 01/05/15 16:07 [Iodinated Contrast Media - IV Dye] ketorolac tromethamine Allergy Angioedema Verified 01/05/15 16:07 [From Toradol] ondansetron HCl Allergy Itching Verified 01/05/15 16:07 [From Zofran (as hydrochloride)] Penicillins Allergy Anaphylaxis Verified 01/05/15 16:07 Home Medications Medication Instructions Recorded Confirmed Last Taken Type Spironolactone [Aldactone] 50 mg PO DAILY #30 tablet 09/08/14 02/14/20 12/12/14 Rx 50 mg Albuterol Sulfate [Ventolin HFA] 2 puff IH Q4H PRN 10/03/14 02/14/20 10/01/14 History 2 puffs DULoxetine [Cymbalta] 60 mg PO BID 12/12/14 02/14/20 12/12/14 History traZODone [Desyrel] 100 mg PO QHS 12/12/14 02/14/20 12/12/14 History Furosemide [Lasix TAB] 40 mg PO BID 01/05/15 02/14/20 Unknown History clonazePAM [KlonoPIN] 1 mg PO TID 01/05/15 02/14/20 Unknown History Insulin Aspart (Nf) [NovoLOG 7 - 12 units SQ AC 05/26/17 02/14/20 Unknown History Flexpen] Insulin Detemir [Levemir VIAL] 7 unit SQ QHS 05/26/17 02/14/20 Unknown History Morphine [Morphine TAB] 15 mg PO Q12H 05/26/17 02/14/20 Unknown History Oxycodone HCl/Acetaminophen 1 each PO Q8HR PRN 05/26/17 02/14/20 Unknown History [Percocet 7.5/325 mg] Pentosan Polysulfate Sodium 100 mg PO TID 05/26/17 02/14/20 05/25/17 16:00 Hist ory [Elmiron] carvediloL [Coreg] 12.5 mg PO BID 02/14/20 02/14/20 Unknown History Gabapentin 300 mg PO BID #30 capsule 02/15/20 Unknown Rx Active Meds: Active Medications Acetaminophen (Acetaminophen 325 Mg Tab) 650 mg PO Q4H PRN PRN Reason: Pain MILD(1-3)/Fever >100.5/HARPER Furosemide (Furosemide 40 Mg/4 Ml Inj) 40 mg IV BID@0600,1800 ASHKAN Morphine Sulfate (Morphine 2 Mg/1 Ml Inj) 2 mg IV Q4H PRN PRN Reason: Pain, Moderate (4-6) Morphine Sulfate (Morphine 4 Mg/1 Ml Inj) 4 mg IV Q4H PRN PRN Reason: Pain , Severe (7-10) Sodium Chloride (Sodium Chloride 0.9% 10 Ml Flush Syringe) 10 ml IV BID ASHKAN Sodium Chloride (Sodium Chloride 0.9% 10 Ml Flush Syringe) 10 ml IV PRN PRN PRN Reason: LINE FLUSH Review of Systems Constitutional: no fever, no chills Ears, nose, mouth and throat: no nasal congestion, no sore throat Cardiovascular: no chest pain, no palpitations Respiratory: shortness of breath, no cough Gastrointestinal: no abdominal pain, no nausea, no vomiting, no diarrhea Genitourinary Female: no pelvic pain, no flank pain, no dysuria Musculoskeletal: no neck pain, no low back pain Integumentary: no rash, no pruritis Neurological: no headaches, no confusion Psychiatric: no anxiety, no depression Endocrine: no polyphagia, no polydipsia, no polyuria, no nocturia Exam - Constitutional Vitals: Temp Pulse Resp BP Pulse Ox 98.6 F 101 H 24 131/97 96 01/22/21 00:50 01/22/21 00:50 01/22/21 00:50 01/22/21 00:50 01/22/21 00:50 General appearance: Present: no acute distress, well-nourished - EENT Eyes: Present: PERRL, EOM intact. Absent: scleral icterus ENT: hearing intact, clear oral mucosa, dentition normal - Neck Neck: Present: supple, normal ROM - Respiratory Respiratory effort: normal Respiratory: bilateral: rales - Cardiovascular Rhythm: regular Heart Sounds: Present: S1 & S2. Absent: gallop, systolic murmur, diastolic murmur, rub, click - Extremities Extremities: no ischemia, pulses intact, pulses symmetrical, No edema, normal temperature, normal color, Full ROM Peripheral Pulses: within normal limits - Abdominal General gastrointestinal: Present: soft, non-tender, non-distended, normal bowel sounds. Absent: mass - Integumentary Integumentary: Present: clear, warm, dry. Absent: rash - Musculoskeletal Musculoskeletal: strength equal bilaterally - Psychiatric Psychiatric: appropriate mood/affect, intact judgment & insight, memory intact, cooperative - Neurologic Neurologic: CNII-XII intact, no focal deficits, moves all extremities HEART Score - HEART Score Troponin: Troponin T 0.019 ng/mL (0.00-0.029) 01/22/21 01:53 Results - Labs CBC & Chem 7: 01/22/21 01:53 01/22/21 01:53 Labs: Abnormal lab results 01/22/21 01/22/21 01/22/21 Range/Units 01:53 01:53 01:53 WBC 13.2 H (4.5-11.0) K/mm3 Lymph % (Auto) 8.7 L (13.4-35.0) % Lymph # (Auto) 1.1 L (1.2-5.4) K/mm3 Seg Neutrophils % 84.0 H (40.0-70.0) % Seg Neutrophils # 11.1 H (1.8-7.7) K/mm3 Chloride 110.4 H (98-107) mmol/L BUN 21 H (7-17) mg/dL Creatinine 1.7 H (0.6-1.2) mg/dL Glucose 121 H (65-100) mg/dL Calcium 8.3 L (8.4-10.2) mg/dL Alkaline Phosphatase 171 H (35-129) units/L NT-Pro-B Natriuret Pep 9818 H (0-900) pg/mL Total Protein 6.0 L (6.3-8.2) g/dL Albumin 3.4 L (3.9-5) g/dL Assessment and Plan - Patient Problems (1) Acute CHF Current Visit: Yes Status: Acute Plan to address problem: Patient admitted and placed on diuretics. Will monitor input and output and also monitor daily weight. Patient will be scheduled for echocardiogram. (2) Diabetes Current Visit: No Status: Chronic Qualifiers: Diabetes mellitus type: type 2 Plan to address problem: We will monitor Accu-Cheks closely. Patient placed on sliding scale insulin. (3) Hypertension Current Visit: No Status: Chronic Qualifiers: Hypertension type: essential hypertension Plan to address problem: We will resume routine home medications and monitor vital signs closely. (4) DVT prophylaxis Current Visit: Yes Status: Acute Plan to address problem: Patient placed on subcutaneous heparin. (5) Full code status Current Visit: Yes Status: Acute Plan to address problem: Patient is full code.
[2021-01-22] MEDS: FUROSEMIDE 40 MG/4 ML INJ IV SCH ×2 (06:14→18:39)
--- NOTE | 2021-01-22 10:35 | Event Note ---
Date: 01/22/21 Patient seen and examined This is a second visit after midnight Patient sleeping on her bed on supplemental O2 States that she is feeling much better today Eating her lunch On today's exam S1 and S2 positive, trace pedal edema, positive for bibasilar crackles 55-year-old female with known history of COPD, systolic CHF presented to the emergency room complaining of shortness of breath, generalized malaise and weakness which has been ongoing over the past 24 hours. Work-up in the emergency room today reveals leukocytosis of 13.2 on the CBC. BUN and creatinine of 21 and 4.7 on the chemistry. BNP was 9880. Chest x-ray shows no acute findings. Patient stated that she was admitted to [facility] about a week ago. She was tested negative for Covid at that time She is fully vaccinated for Covid Patient admitted for CHF exacerbation 2D echo today showed EF 15 to 20% -which is a decline in her EF (35% on previous echo) Continue IV diuresis, daily weight ins and outs Follow cardiology recommendation It took me about 28 minutes to reevaluate and reasses this patient, discussed with RN/CM, review medical documents, lab results, imaging, medication list and placing order.
[2021-01-22 10:40] LABS: Bilirubin,Urine NEG (Negative); Blood,Urine MOD (Negative); Color,Urine Straw (Yellow); Protein,Urine <15 mg/dL mg/dL (Negative); Urobilinogen,Urine < 2.0 mg/dL (<2.0)
[2021-01-22 13:10] LABS: WBC,Urine < 1.0 /HPF (0.0-6.0)
--- NOTE | 2021-01-22 13:22 | Electrocardiograph Report ---
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
[2021-01-22] MEDS: carvediloL 25 MG TAB PO SCH ×2 (14:42→21:34)
[2021-01-22] MEDS: ASPIRIN 81 MG TAB CHEW PO SCH (14:42)
[2021-01-22] MEDS ORDERED: ALBUTEROL 8.5 GM MDI INHALATION IH PRN (16:15)
[2021-01-22] MEDS ORDERED: NON-FORMULARY EACH (Insulin Aspart (Nf) 100 UNIT/ML Insuln.Pen) SQ SCH (16:30)
--- NOTE | 2021-01-22 17:46 | Consultation ---
History of Present Illness Consult date: 01/22/21 Requesting physician: CRYSTAL WHITTINGTON Consult reason: congestive heart failure History of present illness: Patient is a 55 y/o female with pmhx of HFrEF(35-40%) with BIV ICD, CKD, COPD, DM, h/o of CVA who presented to the ED with complaints of SOB, nausea, vomiting, chest pain, and malaise x 1 day. The patient reports that she was admitted to [facility] on 01/12/2021 for exacerbation of her heart failure where she was given diuretics for several days and discharged. She currently describes her chest pain as tightness that she rates at 10/10 which radiates to her left arm. In regards to her SOB she states she tried to breathing treatments at home but it did not help her symptoms. She reports that she is compliant with her medications, fluid restriction, and limits her salt intake. The patient is followed by Dr. Somers, [facility]. Cardiology has been consulted for CHF exacerbation. Past History Past Medical History: acute [place], arthritis, COPD, diabetes, DVT, heart failure, hypertension, stroke, other (kidney stone disease", fibromyalgia, crohns) Past Surgical History: Other (Pacemaker placement,defibrillator placement,ureter transplant,right nephrectomy) Social history: smoking Family history: CAD Medications and Allergies Allergies Allergy/AdvReac Type Severity Reaction Status Date / Time divalproex sodium Allergy Anaphylaxis Verified 01/22/21 15:29 [From Depakote] heparin Allergy Swelling Verified 01/22/21 15:29 Iodinated Contrast Media Allergy Anaphylaxis Verified 01/22/21 15:29 [Iodinated Contrast Media - IV Dye] ketorolac tromethamine Allergy Angioedema Verified 01/22/21 15:29 [From Toradol] ondansetron HCl Allergy Itching Verified 01/22/21 15:29 [From Zofran (as hydrochloride)] Penicillins Allergy Anaphylaxis Verified 01/22/21 15:29 Home Medications Medication Instructions Recorded Confirmed Last Taken Type Spironolactone [Aldactone] 50 mg PO DAILY #30 tablet 09/08/14 01/22/21 2 Days A go Rx ~01/20/21 Albuterol Sulfate [Ventolin HFA] 2 puff IH Q4H PRN 10/03/14 01/22/21 1 Day Ago History ~01/21/21 DULoxetine [Cymbalta] 60 mg PO BID 12/12/14 01/22/21 2 Days Ago History ~01/20/21 traZODone [Desyrel] 100 mg PO QHS 12/12/14 01/22/21 2 Days Ago History ~01/20/21 Furosemide [Lasix TAB] 40 mg PO BID 01/05/15 01/22/21 2 Days Ago History ~01/20/21 clonazePAM [KlonoPIN] 1 mg PO TID 01/05/15 01/22/21 2 Days Ago History ~01/20/21 Insulin Aspart (Nf) [NovoLOG 7 - 12 units SQ AC 05/26/17 01/22/21 2 Days Ago History Flexpen] ~01/20/21 Insulin Detemir [Levemir VIAL] 14 unit SQ QAM 05/26/17 01/22/21 2 Days Ago History ~01/20/21 Morphine [Morphine TAB] 15 mg PO Q12H 05/26/17 01/22/21 2 Days Ago History ~01/20/21 carvediloL [Coreg] 25 mg PO BID 02/14/20 01/22/21 2 Days Ago History ~01/20/21 Gabapentin 600 mg PO TID 01/22/21 01/22/21 2 Days Ago History ~01/20/21 Active Meds: Active Medications Acetaminophen (Acetaminophen 325 Mg Tab) 650 mg PO Q4H PRN PRN Reason: Pain MILD(1-3)/Fever >100.5/HARPER Albuterol (Albuterol 2.5 Mg/3 Ml Nebu) 2.5 mg IH Q4HRT PRN PRN Reason: Shortness Of Breath Aspirin (Aspirin 81 Mg Tab Chew) 81 mg PO QDAY [facility] Last Admin: 01/22/21 14:42 Dose: 81 mg Documented by: Atorvastatin Calcium (Atorvastatin 40 Mg Tab) 40 mg PO QHS [facility] Carvedilol (Carvedilol 25 Mg Tab) 25 mg PO BID [facility] Last Admin: 01/22/21 14:42 Dose: 25 mg Documented by: Clonazepam (Clonazepam 2 Mg Tab) 1 mg PO TID [facility] Duloxetine HCl (Duloxetine 30 Mg Cap) 60 mg PO BID [facility] Furosemide (Furosemide 40 Mg/4 Ml Inj) 40 mg IV BID@0600,1800 [facility] Last Admin: 01/22/21 06:14 Dose: 40 mg Documented by: Gabapentin (Gabapentin 300 Mg Cap) 600 mg PO TID [facility] Insulin Glargine (Insulin Glargine 100 Units/Ml) 14 units SUB-Q QAM [facility] Insulin Human Lispro (Insulin Lispro 100 Unit/Ml) 10 unit SUB-Q AC [facility] Morphine Sulfate (Morphine 15 Mg Tab) 15 mg PO Q12HR [facility] Sodium Chloride (Sodium Chloride 0.9% 10 Ml Flush Syringe) 10 ml IV BID [facility] Last Admin: 01/22/21 09:43 Dose: 10 ml Documented by: Sodium Chloride (Sodium Chloride 0.9% 10 Ml Flush Syringe) 10 ml IV PRN PRN PRN Reason: LINE FLUSH Trazodone HCl (Trazodone 50 Mg Tab) 100 mg PO QHS [facility] Review of Systems Constitutional: malaise, no weight loss, no weight gain Ears, nose, mouth and throat: no nasal congestion, no nasal discharge, no sinus pressure Cardiovascular: chest pain, orthopnea, shortness of breath, dyspnea on exertion, no palpitations Respiratory: shortness of breath, dyspnea on exertion, no cough, no cough with sputum, no excessive sputum Gastrointestinal: abdominal pain, nausea, vomiting Musculoskeletal: no neck stiffness, no neck pain, no shooting arm pain Integumentary: no rash, no pruritis, no redness Neurological: no head injury, no transient paralysis, no paralysis Psychiatric: no anxiety, no memory loss Endocrine: no cold intolerance, no heat intolerance Hematologic/Lymphatic: no easy bruising, no easy bleeding Physical Examination Last Vital Signs Temp 98.6 F 01/22/21 00:50 Pulse 81 01/22/21 17:30 Resp 18 01/22/21 17:30 BP 132/81 01/22/21 17:30 Pulse Ox 100 01/22/21 17:30 General appearance: no acute distress HEENT: Positive: PERRL Neck: Positive: trachea midline Cardiac: Positive: Reg Rate and Rhythm Lungs: Positive: Decreased Breath Sounds Neuro: Positive: Grossly Intact Abdomen: Positive: Soft, Active Bowel Sounds Skin: Negative: Rash, Suspicious Lesions, Ulceration Extremities: Present: upper extr. pulses, lower extr. pulses, edema Results 01/22/21 01:53 01/22/21 01:53 Cardiac Enzymes 01/22/21 Range/Units 01:53 AST 9 (5-40) units/L Coagulation 01/22/21 Range/Units 01:53 PT 12.8 (12.2-14.9) Sec. INR 0.90 (0.87-1.13) CBC 01/22/21 Range/Units 01:53 WBC 13.2 H (4.5-11.0) K/mm3 RBC 3.87 (3.65-5.03) M/mm3 Hgb 11.0 (10.1-14.3) gm/dl Hct 33.9 (30.3-42.9) % Plt Count 164 (140-440) K/mm3 Lymph # (Auto) 1.1 L (1.2-5.4) K/mm3 Lander # (Auto) 0.8 (0.0-0.8) K/mm3 Eos # (Auto) 0.1 (0.0-0.4) K/mm3 Baso # (Auto) 0.0 (0.0-0.1) K/mm3 Comprehensive Metabolic Panel 01/22/21 Range/Units 01:53 Sodium 143 (137-145) mmol/L Potassium 4.4 (3.6-5.0) mmol/L Chloride 110.4 H (98-107) mmol/L Carbon Dioxide 24 (22-30) mmol/L BUN 21 H (7-17) mg/dL Creatinine 1.7 H (0.6-1.2) mg/dL Glucose 121 H (65-100) mg/dL Calcium 8.3 L (8.4-10.2) mg/dL AST 9 (5-40) units/L ALT 9 (7-56) units/L Alkaline Phosphatase 171 H (35-129) units/L Total Protein 6.0 L (6.3-8.2) g/dL Albumin 3.4 L (3.9-5) g/dL - Imaging and Cardiology Echo: report reviewed EKG: report reviewed, image reviewed EKG interpretations - Telemetry EKG Rhythm: Paced Assessment and Plan HFrEF BIV ICD([facility]) Non ischemic cardiomyopathy HTN * Echo 10/28/2020- EF 35-40%, LV mildly enlarged, mild LVH, mild diastolic dysfunction, unable to asses RV function * [facility] 2014- normal coronary arteries * Lexiscan MPI Stress 02/14/2020- negative for stress induced ischemia. EF 38% * Echo 01/22/2021- EF 15-20%, LV mildly dilated, severe global hypokinesis, Transmitral doppler flow pattern suggest restrictive physiology, right ventricle is hypokinetic, left atrium mildly dilated * GDMT: ASA, Coreg 25mg PO BID, Lipitor 75mg PO QD. Hold DANNIE/Arb for elevated creatinine * EKG Paced rate 94, trops negx2. BNP 9818 * Agree with Lasix 40mg IV BID DM * Mange per primary team Continue diuretics and monitor. Patient seen in conjunction with Dr. Walton who agrees with this plan of care. Will continue to follow - Patient Problems (1) AICD (automatic cardioverter/defibrillator) present Current Visit: Yes Status: Chronic (2) COPD (chronic obstructive pulmonary disease) Current Visit: Yes Status: Chronic (3) Chronic kidney disease Current Visit: No Status: Acute (4) Biventricular automatic implantable cardioverter defibrillator in situ Current Visit: No Status: Chronic (5) Diabetes Current Visit: No Status: Chronic Qualifiers: Diabetes mellitus type: type 2 (6) Hypertension Current Visit: No Status: Chronic Qualifiers: Hypertension type: essential hypertension (7) Nonischemic cardiomyopathy Current Visit: No Status: Chronic (8) Systolic heart failure Current Visit: No Status: Chronic
[2021-01-22] MEDS: INSULIN LISPRO 100 UNIT/ML SUB-Q SCH (18:40)
[2021-01-22] MEDS: MORPHINE 15 MG TAB PO SCH (18:50)
[2021-01-22] MEDS: GABAPENTIN 300 MG CAP PO SCH (20:43)
[2021-01-22] MEDS: traZODone 50 MG TAB PO SCH (21:32)
[2021-01-22] MEDS: DULoxetine 30 MG CAP PO SCH (21:33)
[2021-01-22] MEDS ORDERED: HYDROmorphone 2 MG/1 ML INJ IV ONE (23:04)
[2021-01-23] MEDS: FUROSEMIDE 40 MG/4 ML INJ IV SCH (07:02)
[2021-01-23 07:03] LABS: Basophils % (Auto) 0.8 % (0.0-1.8); Eosinophils # (Auto) 0.3 K/mm3 (0.0-0.4); Eosinophils % (Auto) 4.9 % (0.0-4.3); Hemoglobin 12.5 gm/dl (10.1-14.3); Lymphocytes # (Auto) 2.2 K/mm3 (1.2-5.4); Lymphocytes % (Auto) 37.2 % (13.4-35.0); Mean Corpuscular HGB Conc 32 % (30-34); Mean Corpuscular Volume 89 fl (79-97); Monocytes # (Auto) 0.5 K/mm3 (0.0-0.8); Monocytes % (Auto) 8.5 % (0.0-7.3); Platelet Count 181 K/mm3 (140-440); Red Cell Distribution Width 15.3 % (13.2-15.2)
[2021-01-23 07:31] LABS: Calcium 8.8 mg/dL (8.4-10.2)
[2021-01-23] MEDS: INSULIN LISPRO 100 UNIT/ML SUB-Q SCH ×4 (08:17→17:18)
[2021-01-23] MEDS: GABAPENTIN 300 MG CAP PO SCH ×3 (08:32→20:40)
--- NOTE | 2021-01-23 08:59 | Cat Scan Report ---
CT HEAD WITHOUT CONTRAST INDICATION : slurred speech x 20 minutes. TECHNIQUE: Axial imaging performed from the skull apex through the skull base without the use of con trast. Sagittal and coronal reformatted images. All CT scans at this location are performed using C T dose reduction for ALARA by means of automated exposure control. COMPARISON: None FINDINGS: Parenchyma: Mild cortical volume loss and mild chronic microangiopathy in the white matter is noted. Large chronic infarct throughout the right [employer] AIDE distribution measures up to 5.6 x 2.5 cm in axial ellen ne. Focal chronic infarct in the right subinsular region measures 1.4 x 0.8 cm in axial plane. No acu te parenchymal abnormality is appreciated. No evidence for hemorrhage, mass, mass effect or extra-axi al fluid collection. Ventricles: Ventricles are normal in size and appear symmetric. Bones: No acute osseous abnormality. Sinuses: Sinuses and mastoid air cells are clear. Soft tissues: Soft tissues including the orbits appear normal. IMPRESSION: No acute intracranial abnormality is appreciated. Mild diffuse volume loss and nonspecifi c chronic white matter changes. Chronic infarcts as described. Signer Name: Naveed Marie Jr, MD Signed: 01/23/2021 8:55 AM Workstation Name: [id number]
[2021-01-23] MEDS ORDERED: NON-FORMULARY EACH (Insulin Detemir [Levemir Vial] 100 UNIT/ML Vial) SQ SCH (10:00)
[2021-01-23] MEDS: ASPIRIN 81 MG TAB CHEW PO SCH (10:12)
[2021-01-23] MEDS: carvediloL 25 MG TAB PO SCH ×2 (10:29→23:16)
[2021-01-23] MEDS: DULoxetine 30 MG CAP PO SCH ×2 (10:29→22:32)
--- NOTE | 2021-01-23 10:43 | Progress Note ---
Assessment and Plan Agree with decreasing IV Lasix to 20mg BID. Continue Coreg 25mg BID. No ACEI/ARB due to renal fxn. Pt seen in conjunction with Dr. Walton, who agrees with the assessment and plan of care. - Patient Problems (1) Acute on chronic HFrEF (heart failure with reduced ejection fraction) Current Visit: Yes Status: Acute (2) Acute kidney injury superimposed on CKD Current Visit: Yes Status: Acute (3) History of right nephrectomy Current Visit: Yes Status: Chronic (4) Nonischemic cardiomyopathy Current Visit: Yes Status: Chronic (5) Biventricular implantable cardioverter-defibrillator (ICD) in situ Current Visit: Yes Status: Chronic (6) COPD (chronic obstructive pulmonary disease) Current Visit: Yes Status: Chronic (7) Tobacco dependence Current Visit: Yes Status: Chronic (8) Hypertension Current Visit: Yes Status: Chronic Qualifiers: Hypertension type: primary hypertension Qualified Code(s): I10 - Essential (primary) hypertension (9) DM2 (diabetes mellitus, type 2) Current Visit: Yes Status: Chronic (10) H/O deep venous thrombosis Current Visit: Yes Status: Chronic (11) H/O: CVA (cerebrovascular accident) Current Visit: Yes Status: Chronic Subjective Date of service: 01/23/21 Principal diagnosis: HFrEF, NICMP/BiV ICD Interval history: No cardiac complaints. C/o abdominal pain. Pt reports a hx of Crohn's Disease. Objective Last Vital Signs Temp 98.6 F 01/22/21 00:50 Pulse 81 01/23/21 10:29 Resp 15 01/23/21 06:00 BP 121/80 01/23/21 10:29 Pulse Ox 94 01/23/21 16:13 - Physical Examination General: No Apparent Distress HEENT: Positive: EOMI, Normocephaly Neck: Positive: neck supple, trachea midline. Negative: JVD/HJR Cardiac: Positive: Reg Rate and Rhythm, S1/S2 Lungs: Positive: Decreased Breath Sounds Neuro: Positive: Grossly Intact Abdomen: Positive: Soft, Tender Skin: Negative: Rash Musculoskeletal: No Pain Extremities: Present: lower extr. pulses, edema (BLE (L > R)) - Labs and Meds CBC 01/23/21 Range/Units 06:13 WBC 6.0 (4.5-11.0) K/mm3 RBC 4.40 (3.65-5.03) M/mm3 Hgb 12.5 (10.1-14.3) gm/dl Hct 39.0 (30.3-42.9) % Plt Count 181 (140-440) K/mm3 Lymph # (Auto) 2.2 (1.2-5.4) K/mm3 Bailey # (Auto) 0.5 (0.0-0.8) K/mm3 Eos # (Auto) 0.3 (0.0-0.4) K/mm3 Baso # (Auto) 0.0 (0.0-0.1) K/mm3 Comprehensive Metabolic Panel 01/23/21 Range/Units 06:13 Sodium 137 (137-145) mmol/L Potassium 3.8 (3.6-5.0) mmol/L Chloride 97.1 L (98-107) mmol/L Carbon Dioxide 31 H D (22-30) mmol/L BUN 25 H (7-17) mg/dL Creatinine 1.9 H (0.6-1.2) mg/dL Glucose 397 H (65-100) mg/dL Calcium 8.8 (8.4-10.2) mg/dL - Imaging and Cardiology EKG: report reviewed, image reviewed Pharmacologic stress test: report reviewed (02/2020 - negative for ischemia) Echo: report reviewed (10/2020 - EF 35-40%, mild LVH) Cardiac cath: report reviewed (2014 - normal coronaries) - Telemetry EKG Rhythm: Paced Pacemaker: ventricular pacing w/capt, normal atrial sensing
[2021-01-23] MEDS: MORPHINE 15 MG TAB PO SCH ×2 (11:30→23:16)
[2021-01-23] MEDS: INSULIN GLARGINE 100 UNITS/ML SUB-Q SCH (11:31)
[2021-01-23] MEDS ORDERED: FUROSEMIDE 40 MG/4 ML INJ IV SCH (15:04)
--- NOTE | 2021-01-23 15:06 | Progress Note ---
Assessment and Plan -- Acute on chronic systolic CHF: Patient admitted and placed on diuretics. Will monitor input and output and also monitor daily weight. Patient will be scheduled for echocardiogram. --Acute hypoxic respiratory failure, likely due to underlying CHF exacerbation Diabetes as needed, continue supplemental O2 and wean off as tolerated -- Diabetes type II We will monitor Accu-Cheks closely. Patient placed on sliding scale insulin. -- Hypertension We will resume routine home medications and monitor vital signs closely. --DOUGLAS on possible CKD Likely due to diuresis and hepatorenal syndrome Will reduce Lasix dose to 20 mg IV twice daily Repeat BMP tomorrow --Abdominal pain has h/o kidney stone, will get CT abd/pelvis --Chronic pain syndrome, patient on 15 mg morphine p.o. twice daily -- DVT prophylaxis Patient placed on subcutaneous heparin. -- Full code status . Daily clinical course: 01/23/21: Serum creatinine 1.9 today, will reduce IV Lasix to 20 mg twice daily. Continue to follow renal function. Cardiology following -repeat BMP in the morning. c/p abdominal pain but no nausea or vomiting and tolerating diet- will get CT abd/pelvis w/o contrast Subjective Date of service: 01/23/21 Principal diagnosis: HFrEF, NICMP/BiV ICD Interval history: Patient seen and examined. Medical records and medication list reviewed. No acute event overnight noted by the RN. Patient denies any chest pain but complains of difficulty breathing on exertion. Patient is tolerating diet. Also complains of severe abdominal pain but at the same time she is eating lunch without any difficulty Discussed plan of care at bedside with patient. Objective - Exam Narrative Exam: GENERAL: Elderly white female who appears older than her stated age lying on bed appeared HEENT: Normocephalic. Atraumatic. No conjunctival congestion or icterus. Patient has moist mucous membranes. NECK: Supple. Trachea midline. CHEST/LUNGS: Crackles auscultated bilaterally, appreciate no rhonchi HEART/CARDIOVASCULAR: Regular in rate and rhythm. S1 and S2 positive. ABDOMEN: Abdomen is soft, nontender. Patient has normal bowel sounds. SKIN: There is no rash. Warm and dry. NEURO: No focal motor deficit. Follows command. MUSCULOSKELETAL: No joint effusion or tenderness. EXTRIMITY: No edema, no cyanosis or clubbing. PSYCH: Cooperative. - Constitutional Vitals: Vital Signs - 12hr 01/23/21 01/23/21 01/23/21 04:00 05:00 06:00 Pulse Rate 87 86 86 Respiratory 21 15 15 Rate Blood Pressure 129/84 127/92 117/73 O2 Sat by Pulse 97 94 Oximetry 01/23/21 10:29 Pulse Rate 81 Respiratory Rate Blood Pressure 121/80 O2 Sat by Pulse Oximetry - Labs CBC & Chem 7: 01/23/21 06:13 01/26/21 05:00 Labs: Abnormal lab results 01/22/21 01/23/21 01/23/21 Range/Units 18:00 06:13 06:13 RDW 15.3 H (13.2-15.2) % Lymph % (Auto) 37.2 H (13.4-35.0) % [place] % (Auto) 8.5 H (0.0-7.3) % Eos % (Auto) 4.9 H (0.0-4.3) % Chloride 97.1 L (98-107) mmol/L Carbon Dioxide 31 H D (22-30) mmol/L BUN 25 H (7-17) mg/dL Creatinine 1.9 H (0.6-1.2) mg/dL Glucose 397 H (65-100) mg/dL POC Glucose 453 H (70-105) mg/dL 01/23/21 01/23/21 01/23/21 Range/Units 07:28 12:50 13:31 RDW (13.2-15.2) % Lymph % (Auto) (13.4-35.0) % [place] % (Auto) (0.0-7.3) % Eos % (Auto) (0.0-4.3) % Chloride (98-107) mmol/L Carbon Dioxide (22-30) mmol/L BUN (7-17) mg/dL Creatinine (0.6-1.2) mg/dL Glucose (65-100) mg/dL POC Glucose 415 H 408 H 345 H (70-105) mg/dL HEART Score - HEART Score Troponin: Troponin T 0.019 ng/mL (0.00-0.029) 01/22/21 01:53
[2021-01-23] MEDS ORDERED: MORPHINE 2 MG/1 ML INJ IV ONE (17:24)
[2021-01-23] MEDS: FUROSEMIDE 20 MG/2 ML INJ IV SCH (18:06)
--- NOTE | 2021-01-23 18:15 | Cat Scan Report ---
CT ABDOMEN AND PELVIS WITHOUT CONTRAST INDICATION / CLINICAL INFORMATION: Unspecified severe abdominal pain. TECHNIQUE: Axial CT images were obtained through the abdomen and pelvis without IV contrast. All CT scans at [facility] location are performed using CT dose reduction for ALARA by means of automated exposure control. COMPARISON: CT abdomen and pelvis without contrast from 02/13/2020. FINDINGS: LOWER CHEST: Partially visualized cardiac pacing leads are unchanged in position. No significant abno rmality. LIVER: No significant abnormality. GALLBLADDER: Surgically absent. BILE DUCTS: No significant abnormality. PANCREAS: No significant abnormality. SPLEEN: No significant abnormality. ADRENALS: No significant abnormality. RIGHT KIDNEY / URETER: Surgically absent. No significant abnormality along the right renal bed. LEFT KIDNEY / URETER: Multiple tiny nonobstructive left renal stones measure less than 2 mm. No other significant abnormality. STOMACH / SMALL BOWEL: No significant abnormality. COLON: No significant abnormality. APPENDIX: Surgically absent. PERITONEUM: No free fluid. No free air. No fluid collection. LYMPH NODES: No significant adenopathy. AORTA / ARTERIES: The aorta is normal in caliber with mild generalized atherosclerosis. IVC / VEINS: No significant abnormality. URINARY BLADDER: Well-distended without an acute abnormality. REPRODUCTIVE ORGANS: Uterus is absent. No significant adnexal abnormality. ADDITIONAL FINDINGS: None. SKELETAL SYSTEM: No significant abnormality. IMPRESSION: 1. No acute abnormalities to explain the patient's pain. 2. Multiple tiny nonobstructive left renal stones. 3. Additional findings as above. Signer Name: Suhas Garcias MD Signed: 01/23/2021 6:11 PM Workstation Name: [id number]
[2021-01-23] MEDS: traZODone 50 MG TAB PO SCH (22:32)
[2021-01-23] MEDS ORDERED: INSULIN LISPRO 100 UNIT/ML SUB-Q ONE (23:58)
[2021-01-24] MEDS: FUROSEMIDE 20 MG/2 ML INJ IV SCH (05:38)
[2021-01-24] MEDS: INSULIN LISPRO 100 UNIT/ML SUB-Q SCH ×7 (08:54→21:28)
[2021-01-24] MEDS: INSULIN GLARGINE 100 UNITS/ML SUB-Q SCH ×2 (08:55→12:14)
[2021-01-24] MEDS: ASPIRIN 81 MG TAB CHEW PO SCH ×2 (08:55→11:37)
[2021-01-24] MEDS: DULoxetine 30 MG CAP PO SCH ×3 (08:55→21:14)
[2021-01-24] MEDS: GABAPENTIN 300 MG CAP PO SCH ×3 (08:55→19:54)
[2021-01-24 11:08] LABS: Calcium 8.7 mg/dL (8.4-10.2)
[2021-01-24] MEDS: carvediloL 25 MG TAB PO SCH ×2 (11:37→21:36)
[2021-01-24] MEDS: MORPHINE 15 MG TAB PO SCH ×2 (12:14→21:14)
[2021-01-24 13:45] LABS: Bilirubin,Urine NEG (Negative); Blood,Urine NEG (Negative); Color,Urine Yellow (Yellow); Mucus,Urine FEW /HPF; Protein,Urine <15 mg/dL mg/dL (Negative); Urobilinogen,Urine < 2.0 mg/dL (<2.0)
--- NOTE | 2021-01-24 17:21 | Progress Note ---
Assessment and Plan -- Acute on chronic systolic CHF: Patient admitted and placed on diuretics. Will monitor input and output and also monitor daily weight. 2D echo showed EF 15 to 20% which is further declined than her prior echo -- Diabetes type II monitor Accu-Cheks closely. cont on sliding scale insulin. -- Hypertension resume routine home medications and monitor vital signs closely. --DOUGLAS on possible CKD Likely due to diuresis Will reduce Lasix dose to 20 mg IV twice daily Repeat BMP tomorrow --Abdominal pain, resolved has h/o kidney stone, CT abd/pelvis w/o any acute finding --Chronic pain syndrome, continue home dose of morphine 15 mg twice daily -- DVT prophylaxis Patient placed on subcutaneous heparin. -- Full code status . Daily clinical course: 01/23/21: Serum creatinine 1.9 today, will reduce IV Lasix to 20 mg twice daily. Continue to follow renal function. Cardiology following -repeat BMP in the morning. c/p abdominal pain - will get CT abd/pelvis w/o contrast 01/24/21; Cr cont to trend up, consult renal, hold lasix . CT abdomen pelvis yesterday showed no acute finding for severe abdominal pain. Patient appears to be stable today, and denies any abdominal pain, tolerating diet, no nausea and vomiting. Subjective Date of service: 01/24/21 Principal diagnosis: HFrEF, NICMP/BiV ICD Interval history: Patient seen and examined. Medical records and medication list reviewed. No acute event overnight noted by the RN. Patient denies any chest pain but complains of difficulty breathing on exertion. Patient is tolerating diet. Creatinine trending up Discussed plan of care at bedside with patient. Objective - Exam Narrative Exam: GENERAL: Elderly white female who appears older than her stated age lying on bed appeared HEENT: Normocephalic. Atraumatic. No conjunctival congestion or icterus. Patient has moist mucous membranes. NECK: Supple. Trachea midline. CHEST/LUNGS: Crackles auscultated bilaterally, appreciate no rhonchi HEART/CARDIOVASCULAR: Regular in rate and rhythm. S1 and S2 positive. ABDOMEN: Abdomen is soft, nontender. Patient has normal bowel sounds. SKIN: There is no rash. Warm and dry. NEURO: No focal motor deficit. Follows command. MUSCULOSKELETAL: No joint effusion or tenderness. EXTRIMITY: No edema, no cyanosis or clubbing. PSYCH: Cooperative. - Constitutional Vitals: Vital Signs - 12hr 01/24/21 01/24/21 01/24/21 07:36 07:55 08:14 Temperature 98.0 F Pulse Rate 72 77 Respiratory 18 Rate Blood Pressure 98/72 O2 Sat by Pulse 92 96 Oximetry 01/24/21 01/24/21 01/24/21 10:15 11:00 11:27 Temperature 97.7 F Pulse Rate 70 Respiratory 18 Rate Blood Pressure 94/60 O2 Sat by Pulse 93 87 90 Oximetry 01/24/21 01/24/21 12:40 16:08 Temperature 97.9 F Pulse Rate 79 79 Respiratory 19 Rate Blood Pressure 104/62 O2 Sat by Pulse 97 Oximetry - Labs CBC & Chem 7: 01/23/21 06:13 01/26/21 05:00 Labs: Abnormal lab results 01/23/21 01/24/21 01/24/21 Range/Units 21:00 08:12 09:40 Potassium 3.4 L (3.6-5.0) mmol/L Chloride 96.9 L (98-107) mmol/L Carbon Dioxide 32 H (22-30) mmol/L BUN 28 H (7-17) mg/dL Creatinine 2.2 H (0.6-1.2) mg/dL Glucose 259 H (65-100) mg/dL POC Glucose 405 H 227 H (70-105) mg/dL Urine WBC (Auto) (0.0-6.0) /HPF 01/24/21 01/24/21 01/24/21 Range/Units 11:25 13:34 16:08 Potassium (3.6-5.0) mmol/L Chloride (98-107) mmol/L Carbon Dioxide (22-30) mmol/L BUN (7-17) mg/dL Creatinine (0.6-1.2) mg/dL Glucose (65-100) mg/dL POC Glucose 231 H 133 H (70-105) mg/dL Urine WBC (Auto) 96.0 H (0.0-6.0) /HPF HEART Score - HEART Score Troponin: Troponin T 0.019 ng/mL (0.00-0.029) 01/22/21 01:53
--- NOTE | 2021-01-24 17:39 | Progress Note ---
Assessment and Plan IV Lasix discontinued per Primary due to worsening renal indices. Pt appears euvolemic upon assessment. No objection to transitioning to PO diuretics when ok from a Nephro standpoint. Continue Coreg 25mg BID. No ACEI/ARB due to renal fxn. Plan of care discussed at length with pt's mother via phone. All questions answered. Pt seen in conjunction with Dr. Walton, who agrees with the assessment and plan of care. - Patient Problems (1) Acute on chronic HFrEF (heart failure with reduced ejection fraction) Current Visit: Yes Status: Acute (2) Acute kidney injury superimposed on CKD Current Visit: Yes Status: Acute (3) History of right nephrectomy Current Visit: Yes Status: Chronic (4) Nonischemic cardiomyopathy Current Visit: Yes Status: Chronic (5) Biventricular implantable cardioverter-defibrillator (ICD) in situ Current Visit: Yes Status: Chronic (6) COPD (chronic obstructive pulmonary disease) Current Visit: Yes Status: Chronic (7) Tobacco dependence Current Visit: Yes Status: Chronic (8) Hypertension Current Visit: Yes Status: Chronic Qualifiers: Hypertension type: primary hypertension Qualified Code(s): I10 - Essential (primary) hypertension (9) DM2 (diabetes mellitus, type 2) Current Visit: Yes Status: Chronic (10) H/O deep venous thrombosis Current Visit: Yes Status: Chronic (11) H/O: CVA (cerebrovascular accident) Current Visit: Yes Status: Chronic Subjective Date of service: 01/24/21 Principal diagnosis: HFrEF, NICMP/BiV ICD Interval history: Walking around room without issues. Still somewhat SOB. No additional complaints. V-paced 74 on tele. Objective Last Vital Signs Temp 97.9 F 01/24/21 16:08 Pulse 79 01/24/21 16:08 Resp 19 01/24/21 16:08 BP 104/62 01/24/21 16:08 Pulse Ox 97 01/24/21 16:08 - Physical Examination General: No Apparent Distress HEENT: Positive: EOMI, Normocephaly Neck: Positive: neck supple, trachea midline. Negative: JVD/HJR Cardiac: Positive: Reg Rate and Rhythm, S1/S2 Lungs: Positive: clear to auscultation Neuro: Positive: Grossly Intact Abdomen: Positive: Soft, Tender Skin: Negative: Rash Musculoskeletal: No Pain Extremities: Present: lower extr. pulses. Absent: edema - Labs and Meds Comprehensive Metabolic Panel 01/24/21 Range/Units 09:40 Sodium 137 (137-145) mmol/L Potassium 3.4 L (3.6-5.0) mmol/L Chloride 96.9 L (98-107) mmol/L Carbon Dioxide 32 H (22-30) mmol/L BUN 28 H (7-17) mg/dL Creatinine 2.2 H (0.6-1.2) mg/dL Glucose 259 H (65-100) mg/dL Calcium 8.7 (8.4-10.2) mg/dL - Imaging and Cardiology EKG: report reviewed, image reviewed Echo: report reviewed (10/2020 - EF 35-40%, mild LVH) Cardiac cath: report reviewed (2014 - normal coronaries) - Telemetry EKG Rhythm: Paced Pacemaker: ventricular pacing w/capt, normal atrial sensing
[2021-01-24] MEDS: traZODone 50 MG TAB PO SCH (21:14)
[2021-01-25] MEDS ORDERED: FUROSEMIDE 20 MG TAB PO SCH (06:00)
[2021-01-25] MEDS: INSULIN GLARGINE 100 UNITS/ML SUB-Q SCH ×2 (08:20→08:59)
--- NOTE | 2021-01-25 08:24 | Consultation ---
History of Present Illness - Reason for Consult Consult date: 01/25/21 acute renal failure - History of Present Illness The patient is a 55 YO female with known history of HTN, DM type 2, CVA, ID, COPD, DVT, HFrEF s/p PPM/AICD, kidney stone, Fibromyalgia, Crohns disease, R nephrectomy and ?CKD who presented to [facility] ED 01/22 complaining of shortness of breath, generalized malaise and weakness for about 24 hours. She had an episode of nausea and diarrhea which has since resolved. She denies any fever, chills, chest pain, abd pain, vomiting or syncope. Work-up in the ED revealed wbc 3.2, BUN 21, Creatinine 1.7 and BNP 9880. Chest x-ray showed no acute findings. Patient was admitted with suspected CHF exacerbation. Creatinine level has increased to 2.7 today. Nephrology was consulted for further evaluation of DOUGLAS. Past History Past Medical History: acute ID, arthritis, COPD, diabetes, DVT, heart failure, hypertension, stroke, other (kidney stone disease", fibromyalgia, crohns) Past Surgical History: Other (Pacemaker placement,defibrillator placement,ureter transplant,right nephrectomy) Social history: smoking Family history: CAD Medications and Allergies Allergies Allergy/AdvReac Type Severity Reaction Status Date / Time divalproex sodium Allergy Anaphylaxis Verified 01/22/21 15:29 [From Depakote] heparin Allergy Swelling Verified 01/22/21 15:29 Iodinated Contrast Media Allergy Anaphylaxis Verified 01/22/21 15:29 [Iodinated Contrast Media - IV Dye] ketorolac tromethamine Allergy Angioedema Verified 01/22/21 15:29 [From Toradol] ondansetron HCl Allergy Itching Verified 01/22/21 15:29 [From Zofran (as hydrochloride)] Penicillins Allergy Anaphylaxis Verified 01/22/21 15:29 Home Medications Medication Instructions Recorded Confirmed Last Taken Type Spironolactone [Aldactone] 50 mg PO DAILY #30 tablet 09/08/14 01/22/21 2 Days Ago Rx ~01/20/21 Albuterol Sulfate [Ventolin HFA] 2 puff IH Q4H PRN 10/03/14 01/22/21 1 Day Ago History ~01/21/21 DULoxetine [Cymbalta] 60 mg PO BID 12/12/14 01/22/21 2 Days Ago History ~01/20/21 traZODone [Desyrel] 100 mg PO QHS 12/12/14 01/22/21 2 Days Ago History ~01/20/21 Furosemide [Lasix TAB] 40 mg PO BID 01/05/15 01/22/21 2 Days Ago History ~01/20/21 clonazePAM [KlonoPIN] 1 mg PO TID 01/05/15 01/22/21 2 Days Ago History ~01/20/21 Insulin Aspart (Nf) [NovoLOG 7 - 12 units SQ AC 05/26/17 01/22/21 2 Days Ago History Flexpen] ~01/20/21 Insulin Detemir [Levemir VIAL] 14 unit SQ QAM 05/26/17 01/22/21 2 Days Ago History ~01/20/21 Morphine [Morphine TAB] 15 mg PO Q12H 05/26/17 01/22/21 2 Days Ago History ~01/20/21 carvediloL [Coreg] 25 mg PO BID 02/14/20 01/22/21 2 Days Ago History ~01/20/21 Gabapentin 600 mg PO TID 01/22/21 01/22/21 2 Days Ago History ~01/20/21 Active Meds: Active Medications Acetaminophen (Acetaminophen 325 Mg Tab) 650 mg PO Q4H PRN PRN Reason: Pain MILD(1-3)/Fever >100.5/HARPER Albuterol (Albuterol 2.5 Mg/3 Ml Nebu) 2.5 mg IH Q4HRT PRN PRN Reason: Shortness Of Breath Aspirin (Aspirin 81 Mg Tab Chew) 81 mg PO QDAY ON LICENSE OF [facility] Last Admin: 01/24/21 11:37 Dose: Not Given Documented by: Atorvastatin Calcium (Atorvastatin 40 Mg Tab) 40 mg PO QHS ON LICENSE OF [facility] Last Admin: 01/24/21 21:17 Dose: Not Given Documented by: Carvedilol (Carvedilol 25 Mg Tab) 25 mg PO BID ON LICENSE OF [facility] Last Admin: 01/24/21 21:36 Dose: Not Given Documented by: Clonazepam (Clonazepam 2 Mg Tab) 1 mg PO TID ON LICENSE OF [facility] Last Admin: 01/24/21 19:54 Dose: 1 mg Documented by: Duloxetine HCl (Duloxetine 30 Mg Cap) 60 mg PO BID ON LICENSE OF [facility] Last Admin: 01/24/21 21:14 Dose: 60 mg Documented by: Gabapentin (Gabapentin 300 Mg Cap) 600 mg PO TID ON LICENSE OF [facility] Last Admin: 01/24/21 19:54 Dose: 600 mg Documented by: Insulin Glargine (Insulin Glargine 100 Units/Ml) 18 units SUB-Q QAM ON LICENSE OF [facility] Last Admin: 01/24/21 12:14 Dose: 18 units Documented by: Insulin Human Lispro (Insulin Lispro 100 Unit/Ml) 10 unit SUB-Q AC ON LICENSE OF [facility] Last Admin: 01/24/21 16:18 Dose: Not Given Documented by: Insulin Human Lispro (Insulin Lispro 100 Unit/Ml) 0 unit SUB-Q ACHS ON LICENSE OF [facility]; Protocol Last Admin: 01/24/21 21:28 Dose: 4 unit Documented by: Morphine Sulfate (Morphine 15 Mg Tab) 15 mg PO Q12HR ON LICENSE OF [facility] Last Admin: 01/24/21 21:14 Dose: 15 mg Documented by: Sodium Chloride (Sodium Chloride 0.9% 10 Ml Flush Syringe) 10 ml IV BID ON LICENSE OF [facility] Last Admin: 01/24/21 21:18 Dose: 10 ml Documented by: Sodium Chloride (Sodium Chloride 0.9% 10 Ml Flush Syringe) 10 ml IV PRN PRN PRN Reason: LINE FLUSH Trazodone HCl (Trazodone 50 Mg Tab) 100 mg PO QHS ON LICENSE OF [facility] Last Admin: 01/24/21 21:14 Dose: 100 mg Documented by: Review of Systems Constitutional: no weight loss, no weight gain, no fever, no chills, no anorexia Ears, nose, mouth and throat: no epistaxis Breasts: deferred Cardiovascular: shortness of breath, dyspnea on exertion, high blood pressure, decreased exercise tolerance, no chest pain, no orthopnea, no edema, no syncope, no lightheadedness, no leg edema Respiratory: shortness of breath, dyspnea on exertion, no cough, no hemoptysis Gastrointestinal: nausea, diarrhea, no abdominal pain, no vomiting Genitourinary Female: no dysuria, no hematuria Integumentary: no rash, no wounds Neurological: no convulsions, no aphasia, no change in speech Exam - Vital Signs Vital signs: Vital Signs Resp Pulse Ox 24 89 01/21/21 23:04 01/21/21 23:04 Results - Lab Results 01/23/21 06:13 01/25/21 04:00 Most recent lab results Calcium 9.0 mg/dL (8.4-10.2) 01/25/21 04:00 Magnesium 2.20 mg/dL (1.7-2.3) 01/22/21 01:53 Assessment and Plan 1. Acute kidney injury: Vasomotor DOUGLAS in the setting of diuretics / volume depletion. CT abdomen negative for hydro. Urine lytes ordered. Monitor renal function. Creatinine level is increasing. Gentle IV fluids. Avoid nephrotoxic agents. Meds dosage based on GFR. Monitor for PATTERN DEVELOPER needs. 2. FEN: Metabolic alkalosis, IV fluids, monitor. Hyponatremia, monitor. Continue IV fluids. Monitor lytes. 3. Acute on chronic systolic CHF, POA: Patient was on diuretics. Monitor I/O and daily weight. 4. Diabetes type II: Accu-Cheks and sliding scale insulin. 5. Hypertension: BP controlled. Monitor. Subjective: Patient was examined at the chairside. Examination: General appearance: well-developed, appears stated age, sitting in the chair HEENT: ATNC Neck: Trachea midline Respiratory: ctab Cardiology: S1S2, regular, no murmur Gastrointestinal: soft, obese, bowel sounds heard, not tender Integumentary: no obvious rash Neurologic: AO, able to move extremities Ext: no edema
[2021-01-25] MEDS: INSULIN LISPRO 100 UNIT/ML SUB-Q SCH ×7 (08:55→21:33)
[2021-01-25] MEDS: GABAPENTIN 300 MG CAP PO SCH ×3 (08:56→21:18)
[2021-01-25] MEDS: MORPHINE 15 MG TAB PO SCH ×2 (08:59→21:18)
[2021-01-25] MEDS: carvediloL 25 MG TAB PO SCH ×2 (08:59→21:18)
[2021-01-25] MEDS: DULoxetine 30 MG CAP PO SCH ×2 (09:00→21:19)
[2021-01-25] MEDS: ASPIRIN 81 MG TAB CHEW PO SCH (09:10)
[2021-01-25] MEDS: ALBUTEROL 2.5 MG/3 ML NEBU IH PRN (09:57)
--- NOTE | 2021-01-25 11:23 | Progress Note ---
Assessment and Plan Will start gentle IV fluids. F/u BMP in AM. Anticipate discharge in AM if renal fxn is stable. Plan of care discussed with pt's father via video chat. All questions answered. Pt seen in conjunction with Dr. Hastings, who agrees with the assessment and plan of care. - Patient Problems (1) Acute on chronic HFrEF (heart failure with reduced ejection fraction) Current Visit: Yes Status: Acute (2) Acute kidney injury superimposed on CKD Current Visit: Yes Status: Acute (3) History of right nephrectomy Current Visit: Yes Status: Chronic (4) Nonischemic cardiomyopathy Current Visit: Yes Status: Chronic (5) Biventricular implantable cardioverter-defibrillator (ICD) in situ Current Visit: Yes Status: Chronic (6) COPD (chronic obstructive pulmonary disease) Current Visit: Yes Status: Chronic (7) Tobacco dependence Current Visit: Yes Status: Chronic (8) Hypertension Current Visit: Yes Status: Chronic Qualifiers: Hypertension type: primary hypertension Qualified Code(s): I10 - Essential (primary) hypertension (9) DM2 (diabetes mellitus, type 2) Current Visit: Yes Status: Chronic (10) H/O deep venous thrombosis Current Visit: Yes Status: Chronic (11) H/O: CVA (cerebrovascular accident) Current Visit: Yes Status: Chronic Subjective Date of service: 01/25/21 Principal diagnosis: HFrEF, NICMP/BiV ICD Interval history: States "I feel excellent." No complaints. Wants to go home. Objective Last Vital Signs Temp 98.8 F 01/25/21 08:15 Pulse 78 01/25/21 09:58 Resp 18 01/25/21 09:58 BP 118/80 01/25/21 08:59 Pulse Ox 95 01/25/21 08:13 - Physical Examination General: No Apparent Distress HEENT: Positive: EOMI, Normocephaly Neck: Positive: neck supple, trachea midline. Negative: JVD/HJR Cardiac: Positive: Reg Rate and Rhythm, S1/S2 Lungs: Positive: clear to auscultation Neuro: Positive: Grossly Intact Abdomen: Positive: Soft, Tender Skin: Negative: Rash Musculoskeletal: No Pain Extremities: Present: lower extr. pulses. Absent: edema - Labs and Meds Comprehensive Metabolic Panel 01/25/21 Range/Units 04:00 Sodium 134 L (137-145) mmol/L Potassium 3.7 (3.6-5.0) mmol/L Chloride 92.1 L (98-107) mmol/L Carbon Dioxide 32 H (22-30) mmol/L BUN 39 H (7-17) mg/dL Creatinine 2.7 H (0.6-1.2) mg/dL Glucose 257 H (65-100) mg/dL Calcium 9.0 (8.4-10.2) mg/dL - Imaging and Cardiology EKG: report reviewed, image reviewed Echo: report reviewed (10/2020 - EF 35-40%, mild LVH) Cardiac cath: report reviewed (2014 - normal coronaries) - Telemetry EKG Rhythm: Paced Pacemaker: ventricular pacing w/capt, normal atrial sensing
[2021-01-25] MEDS ORDERED: SODIUM CHLORIDE 0.9% 1000 ML 1,000 ML IV SCH (12:00)
--- NOTE | 2021-01-25 15:16 | Progress Note ---
Assessment and Plan -- Acute on chronic systolic CHF: Patient admitted and placed on diuretics. Will monitor input and output and also monitor daily weight. 2D echo showed EF 15 to 20% which is further declined than her prior echo Now off diuretics due to declining renal function Cardiology following --Acute hypoxic respiratory failure, due to underlying CHF Status post diuresis, assess for home O2 requirement on discharge --COPD with exacerbation and ongoing tobacco abuse Continue nebulizer breathing treatment, assess for home O2 requirement -- Diabetes type II monitor Accu-Cheks closely. cont on sliding scale insulin. -- Hypertension resume routine home medications and monitor vital signs closely. --DOUGLAS on possible CKD Likely due to diuresis Will reduce Lasix dose to 20 mg IV twice daily Repeat BMP tomorrow --Abdominal pain, resolved has h/o kidney stone, CT abd/pelvis w/o any acute finding --Left nephrolithiasis, CT abdomen pelvis showed multiple tiny 2 mm nonobstructing stones, continue to follow clinically. Need outpatient follow-up with urologist --Chronic pain syndrome, continue home dose of morphine 15 mg twice daily -- DVT prophylaxis Patient placed on subcutaneous heparin. -- Full code status . Daily clinical course: 01/23/21: Serum creatinine 1.9 today, will reduce IV Lasix to 20 mg twice daily. Continue to follow renal function. Cardiology following -repeat BMP in the morning. c/p abdominal pain - will get CT abd/pelvis w/o contrast 01/24/21; Cr cont to trend up, consult renal, hold lasix . CT abdomen pelvis yesterday showed no acute finding for severe abdominal pain. Patient appears to be stable today, and denies any abdominal pain, tolerating diet, no nausea and vomiting. 01/25/21: Cr further increased today, initiated iv fluid, follow BMP. Patient remains on supplemental O2, will assess for home O2 requirement when stable for discharge. Subjective Date of service: 01/25/21 Principal diagnosis: HFrEF, NICMP/BiV ICD Interval history: Patient seen and examined. Medical records and medication list reviewed. No acute event overnight noted by the RN. Patient denies any chest pain but complains of difficulty breathing on exertion. Patient is tolerating diet. Creatinine trending up Discussed plan of care at bedside with patient. Objective - Exam Narrative Exam: GENERAL: Elderly white female who appears older than her stated age lying on bed appeared HEENT: Normocephalic. Atraumatic. No conjunctival congestion or icterus. Patient has moist mucous membranes. NECK: Supple. Trachea midline. CHEST/LUNGS: Crackles auscultated bilaterally, appreciate no rhonchi HEART/CARDIOVASCULAR: Regular in rate and rhythm. S1 and S2 positive. ABDOMEN: Abdomen is soft, nontender. Patient has normal bowel sounds. SKIN: There is no rash. Warm and dry. NEURO: No focal motor deficit. Follows command. MUSCULOSKELETAL: No joint effusion or tenderness. EXTRIMITY: No edema, no cyanosis or clubbing. PSYCH: Cooperative. - Constitutional Vitals: Vital Signs - 12hr 01/25/21 01/25/21 01/25/21 04:46 07:00 07:15 Temperature 97.6 F Pulse Rate 93 H 84 Pulse Rate [ Anterior Bilateral Throughout] Pulse Rate [ 80 Right Radial] Respiratory 20 20 Rate Respiratory Rate [Anterior Bilateral Throughout] Blood Pressure 109/77 O2 Sat by Pulse 92 95 Oximetry 01/25/21 01/25/21 01/25/21 08:13 08:15 08:59 Temperature 98.8 F Pulse Rate 84 Pulse Rate [ Anterior Bilateral Throughout] Pulse Rate [ Right Radial] Respiratory 18 Rate Respiratory Rate [Anterior Bilateral Throughout] Blood Pressure 118/80 118/80 O2 Sat by Pulse 95 Oximetry 01/25/21 09:58 Temperature Pulse Rate Pulse Rate [ 78 Anterior Bilateral Throughout] Pulse Rate [ Right Radial] Respiratory Rate Respiratory 18 Rate [Anterior Bilateral Throughout] Blood Pressure O2 Sat by Pulse Oximetry - Labs CBC & Chem 7: 01/23/21 06:13 01/26/21 05:00 Labs: Abnormal lab results 01/24/21 01/24/21 01/25/21 Range/Units 16:08 21:04 04:00 Sodium 134 L (137-145) mmol/L Chloride 92.1 L (98-107) mmol/L Carbon Dioxide 32 H (22-30) mmol/L BUN 39 H (7-17) mg/dL Creatinine 2.7 H (0.6-1.2) mg/dL Glucose 257 H (65-100) mg/dL POC Glucose 133 H 270 H (70-105) mg/dL 01/25/21 Range/Units 08:12 Sodium (137-145) mmol/L Chloride (98-107) mmol/L Carbon Dioxide (22-30) mmol/L BUN (7-17) mg/dL Creatinine (0.6-1.2) mg/dL Glucose (65-100) mg/dL POC Glucose 205 H (70-105) mg/dL HEART Score - HEART Score Troponin: Troponin T 0.019 ng/mL (0.00-0.029) 01/22/21 01:53
[2021-01-25] MEDS: traZODone 50 MG TAB PO SCH (21:19)
[2021-01-26 06:21] LABS: Calcium 7.8 mg/dL (8.4-10.2)
--- NOTE | 2021-01-26 08:27 | Progress Note ---
Assessment and Plan 1. Acute kidney injury: Vasomotor DOUGLAS in the setting of diuretics / volume depletion. CT abdomen negative for hydro. Urine lytes ordered. Monitor renal function. Creatinine level is slightly better today. Received IV fluids yesterday. Encouraged PO fluids. Avoid nephrotoxic agents. Meds dosage based on GFR. Monitor for [employer] needs. 2. FEN: Metabolic alkalosis, improved, monitor. Hyponatremia, monitor. Replete K. Monitor lytes. 3. Acute on chronic systolic CHF, POA: Patient was on diuretics. Monitor I/O and daily weight. 4. Diabetes type II: Accu-Cheks and sliding scale insulin. 5. Hypertension: BP controlled. Monitor. Subjective: Patient was examined at the chairside. Examination: General appearance: well-developed, appears stated age, sitting in the chair HEENT: ATNC Neck: Trachea midline Respiratory: ctab Cardiology: S1S2, regular, no murmur Gastrointestinal: soft, obese, bowel sounds heard, not tender Integumentary: no obvious rash Neurologic: AO, able to move extremities Ext: no edema Subjective Date of service: 01/26/21 Principal diagnosis: HFrEF, NICMP/BiV ICD Objective - Vital Signs Vital signs: Vital Signs - 12hr 01/25/21 01/25/21 01/25/21 21:18 22:00 23:32 Temperature 99.4 F Pulse Rate 91 H 91 H Respiratory 20 Rate Blood Pressure 107/76 101/71 O2 Sat by Pulse 98 90 Oximetry 01/26/21 01/26/21 05:04 07:45 Temperature 97.6 F Pulse Rate 85 Respiratory 20 Rate Blood Pressure 98/70 O2 Sat by Pulse 94 99 Oximetry - Lab 01/23/21 06:13 01/26/21 05:00 Most recent lab results Calcium 7.8 mg/dL (8.4-10.2) L 01/26/21 05:00 Magnesium 2.20 mg/dL (1.7-2.3) 01/22/21 01:53 Medications & Allergies - Medications Allergies/Adverse Reactions: Allergies divalproex sodium [From Depakote] Allergy (Verified 01/22/21 15:29) Anaphylaxis heparin Allergy (Verified 01/22/21 15:29) Swelling lowers WBC's Iodinated Contrast Media [Iodinated Contrast Media - IV Dye] Allergy (Verified 08/18/21 15:29) Anaphylaxis ketorolac tromethamine [From Toradol] Allergy (Verified 01/22/21 15:29) Angioedema ondansetron HCl [From Zofran (as hydrochloride)] Allergy (Verified 01/22/21 15:29) Itching Penicillins Allergy (Verified 01/22/21 15:29) Anaphylaxis Home Medications: Home Medications Medication Instructions Recorded Confirmed Last Taken Type Spironolactone [Aldactone] 50 mg PO DAILY #30 tablet 09/08/14 01/22/21 2 Days Ago Rx ~01/20/21 Albuterol Sulfate [Ventolin HFA] 2 puff IH Q4H PRN 10/03/14 01/22/21 1 Day Ago History ~01/21/21 DULoxetine [Cymbalta] 60 mg PO BID 12/12/14 01/22/21 2 Days Ago History ~01/20/21 traZODone [Desyrel] 100 mg PO QHS 12/12/14 01/22/21 2 Days Ago History ~01/20/21 Furosemide [Lasix TAB] 40 mg PO BID 01/05/15 01/22/21 2 Days Ago History ~01/20/21 clonazePAM [KlonoPIN] 1 mg PO TID 01/05/15 01/22/21 2 Days Ago History ~01/20/21 Insulin Aspart (Nf) [NovoLOG 7 - 12 units SQ AC 05/26/17 01/22/21 2 Days Ago Hi story Flexpen] ~01/20/21 Insulin Detemir [Levemir VIAL] 14 unit SQ QAM 05/26/17 01/22/21 2 Days Ago History ~01/20/21 Morphine [Morphine TAB] 15 mg PO Q12H 05/26/17 01/22/21 2 Days Ago History ~01/20/21 carvediloL [Coreg] 25 mg PO BID 02/14/20 01/22/21 2 Days Ago History ~01/20/21 Gabapentin 600 mg PO TID 01/22/21 01/22/21 2 Days Ago History ~01/20/21 Active Medications: Generic Name Dose Route Start Last Admin Trade Name Freq PRN Reason Stop Dose Admin Acetaminophen 650 mg 01/22/21 04:06 Acetaminophen 325 Mg Tab PO Q4H PRN Pain MILD(1-3)/Fever >100.5/HARPER Albuterol 2.5 mg 01/22/21 16:50 01/25/21 09:57 Albuterol 2.5 Mg/3 Ml Nebu IH 2.5 mg Q4HRT PRN Administration Shortness Of Breath Aspirin 81 mg 01/22/21 14:00 01/25/21 09:10 Aspirin 81 Mg Tab Chew PO 81 mg QDAY ASHKAN Administration Atorvastatin Calcium 40 mg 01/22/21 22:00 01/25/21 21:19 Atorvastatin 40 Mg Tab PO 40 mg QHS ASHKAN Administration Carvedilol 25 mg 01/22/21 14:00 01/25/21 21:18 Carvedilol 25 Mg Tab PO 25 mg BID ASHKAN Administration Clonazepam 1 mg 01/22/21 20:00 01/25/21 21:18 Clonazepam 2 Mg Tab PO 1 mg TID ASHKAN Administration Duloxetine HCl 60 mg 01/22/21 22:00 01/25/21 21:19 Duloxetine 30 Mg Cap PO 60 mg BID ASHKAN Administration Gabapentin 600 mg 01/22/21 20:00 01/25/21 21:18 Gabapentin 300 Mg Cap PO 600 mg TID ASHKAN Administration Insulin Glargine 18 units 01/24/21 11:00 01/25/21 08:59 Insulin Glargine 100 Units/Ml SUB-Q 18 units QAM ASHKAN Administration Insulin Human Lispro 10 unit 01/22/21 17:30 01/25/21 18:10 Insulin Lispro 100 Unit/Ml SUB-Q Not Given AC [facility] Insulin Human Lispro 0 unit 01/24/21 07:30 01/25/21 21:33 Insulin Lispro 100 Unit/Ml SUB-Q 2 unit ACHS ASHKAN Administration Protocol Morphine Sulfate 15 mg 01/22/21 18:00 01/25/21 21:18 Morphine 15 Mg Tab PO 15 mg Q12HR ASHKAN Administration Sodium Chloride 10 ml 01/22/21 10:00 01/25/21 21:20 Sodium Chloride 0.9% 10 Ml Flush Syringe IV 10 ml BID ASHKAN Administration Sodium Chloride 10 ml 01/22/21 04:06 Sodium Chloride 0.9% 10 Ml Flush Syringe IV PRN PRN LINE FLUSH Trazodone HCl 100 mg 01/22/21 22:00 01/25/21 21:19 Trazodone 50 Mg Tab PO 100 mg QHS ASHKAN Administration
[2021-01-26] MEDS ORDERED: POTASSIUM CHLORIDE ER 20 MEQ TAB PO ONE (08:28)
[2021-01-26] MEDS: ALBUTEROL 2.5 MG/3 ML NEBU IH PRN (08:52)
[2021-01-26] MEDS: INSULIN LISPRO 100 UNIT/ML SUB-Q SCH ×7 (08:53→22:32)
[2021-01-26] MEDS: MORPHINE 15 MG TAB PO SCH ×2 (08:59→22:32)
[2021-01-26] MEDS: DULoxetine 30 MG CAP PO SCH (08:59)
[2021-01-26] MEDS: ASPIRIN 81 MG TAB CHEW PO SCH (08:59)
[2021-01-26] MEDS: GABAPENTIN 300 MG CAP PO SCH ×2 (08:59→12:59)
[2021-01-26] MEDS: INSULIN GLARGINE 100 UNITS/ML SUB-Q SCH (09:00)
[2021-01-26] MEDS: carvediloL 25 MG TAB PO SCH ×2 (09:08→22:31)
--- NOTE | 2021-01-26 10:48 | Progress Note ---
Assessment and Plan Hold home Lasix x 2 days. Increase PO fluid intake x 2 days. Will recheck BMP as an outpatient on Wednesday. Plan to resume PO Lasix 40mg daily thereafter. Plan d/w pt's mother and father via video chat at bedside. Otherwise stable cardiac status. Pt may be discharged from a Cardiology perspective. Follow-up with Dr. Somers in 1-2 weeks ([phone]). Pt seen in conjunction with Dr. Hastings, who agrees with the assessment and plan of care. - Patient Problems (1) Acute on chronic HFrEF (heart failure with reduced ejection fraction) Current Visit: Yes Status: Acute (2) Acute kidney injury superimposed on CKD Current Visit: Yes Status: Acute (3) History of right nephrectomy Current Visit: Yes Status: Chronic (4) Nonischemic cardiomyopathy Current Visit: Yes Status: Chronic (5) Biventricular implantable cardioverter-defibrillator (ICD) in situ Current Visit: Yes Status: Chronic (6) COPD (chronic obstructive pulmonary disease) Current Visit: Yes Status: Chronic (7) Tobacco dependence Current Visit: Yes Status: Chronic (8) Hypertension Current Visit: Yes Status: Chronic Qualifiers: Hypertension type: primary hypertension Qualified Code(s): I10 - Essential (primary) hypertension (9) DM2 (diabetes mellitus, type 2) Current Visit: Yes Status: Chronic (10) H/O deep venous thrombosis Current Visit: Yes Status: Chronic (11) H/O: CVA (cerebrovascular accident) Current Visit: Yes Status: Chronic Subjective Date of service: 01/26/21 Principal diagnosis: HFrEF, NICMP/BiV ICD Interval history: No complaints. Wants to go home. Objective Last Vital Signs Temp 97.6 F 01/26/21 05:04 Pulse 76 01/26/21 09:08 Resp 16 01/26/21 08:52 BP 103/76 01/26/21 09:08 Pulse Ox 95 01/26/21 08:26 - Physical Examination General: No Apparent Distress HEENT: Positive: EOMI, Normocephaly Neck: Positive: neck supple, trachea midline. Negative: JVD/HJR Cardiac: Positive: Reg Rate and Rhythm, S1/S2 Lungs: Positive: clear to auscultation Neuro: Positive: Grossly Intact Abdomen: Positive: Soft, Tender Skin: Negative: Rash Musculoskeletal: No Pain Extremities: Present: lower extr. pulses. Absent: edema - Labs and Meds Comprehensive Metabolic Panel 01/26/21 Range/Units 05:00 Sodium 136 L (137-145) mmol/L Potassium 3.5 L (3.6-5.0) mmol/L Chloride 99.0 (98-107) mmol/L Carbon Dioxide 25 D (22-30) mmol/L BUN 36 H (7-17) mg/dL Creatinine 2.5 H (0.6-1.2) mg/dL Glucose 162 H (65-100) mg/dL Calcium 7.8 L (8.4-10.2) mg/dL - Imaging and Cardiology EKG: report reviewed, image reviewed Echo: report reviewed (10/2020 - EF 35-40%, mild LVH) Cardiac cath: report reviewed (2014 - normal coronaries) - Telemetry EKG Rhythm: Paced Pacemaker: ventricular pacing w/capt, normal atrial sensing
--- NOTE | 2021-01-26 14:48 | Progress Note ---
Assessment and Plan -- Acute on chronic systolic CHF: Patient admitted and placed on diuretics. Will monitor input and output and also monitor daily weight. 2D echo showed EF 15 to 20% which is further declined than her prior echo Now off diuretics due to declining renal function Cardiology following --Acute hypoxic respiratory failure, due to underlying CHF Status post diuresis, assess for home O2 requirement on discharge Negative Covid test --COPD with exacerbation and ongoing tobacco abuse Continue nebulizer breathing treatment, assess for home O2 requirement -- Diabetes type II monitor Accu-Cheks closely. cont on long-acting and sliding scale insulin. Consistent carb diet -- Hypertension resume routine home medications and monitor vital signs closely. --DOUGLAS on possible CKD Likely due to diuresis Will reduce Lasix dose to 20 mg IV twice daily Repeat BMP tomorrow --Abdominal pain, resolved has h/o kidney stone, CT abd/pelvis w/o any acute finding --Left nephrolithiasis, CT abdomen pelvis showed multiple tiny 2 mm nonobstructing stones, continue to follow clinically. Need outpatient follow-up with urologist --Chronic pain syndrome, continue home dose of morphine 15 mg twice daily -- DVT prophylaxis Patient placed on subcutaneous heparin. -- Full code status . Daily clinical course: 01/23/21: Serum creatinine 1.9 today, will reduce IV Lasix to 20 mg twice daily. Continue to follow renal function. Cardiology following -repeat BMP in the morning. c/p abdominal pain - will get CT abd/pelvis w/o contrast 01/24/21; Cr cont to trend up, consult renal, hold lasix . CT abdomen pelvis yesterday showed no acute finding for severe abdominal pain. Patient appears to be stable today, and denies any abdominal pain, tolerating diet, no nausea and vomiting. 01/25/21: Cr further increased today, initiated iv fluid, follow BMP. Patient remains on supplemental O2, will assess for home O2 requirement when stable for discharge. 01/26/21: Creatinine slightly improved today, continue to hold Lasix. Patient oxygen saturation dropped to 79% on ambulation. 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 Subjective Date of service: 01/26/21 Principal diagnosis: HFrEF, NICMP/BiV ICD Interval history: Patient seen and examined. Medical records and medication list reviewed. No acute event overnight noted by the RN. Creatinine slightly trended down, O2 sat fall to 79% on ambulation Discussed plan of care at bedside with patient. Objective - Exam Narrative Exam: GENERAL: Elderly white female who appears older than her stated age lying on bed appeared HEENT: Normocephalic. Atraumatic. No conjunctival congestion or icterus. Pat ient has moist mucous membranes. NECK: Supple. Trachea midline. CHEST/LUNGS: Crackles auscultated bilaterally, appreciate no rhonchi HEART/CARDIOVASCULAR: Regular in rate and rhythm. S1 and S2 positive. ABDOMEN: Abdomen is soft, nontender. Patient has normal bowel sounds. SKIN: There is no rash. Warm and dry. NEURO: No focal motor deficit. Follows command. MUSCULOSKELETAL: No joint effusion or tenderness. EXTRIMITY: No edema, no cyanosis or clubbing. PSYCH: Cooperative. - Constitutional Vitals: Vital Signs - 12hr 01/26/21 01/26/21 01/26/21 05:04 07:45 08:26 Temperature 97.6 F Pulse Rate 85 Pulse Rate [ Anterior Bilateral Throughout] Pulse Rate [ 80 Right Radial] Respiratory 20 20 Rate Respiratory Rate [Anterior Bilateral Throughout] Blood Pressure 98/70 O2 Sat by Pulse 94 99 95 Oximetry 01/26/21 01/26/21 01/26/21 08:52 09:07 09:08 Temperature 98.0 F Pulse Rate 83 76 Pulse Rate [ 85 Anterior Bilateral Throughout] Pulse Rate [ Right Radial] Respiratory 18 Rate Respiratory 16 Rate [Anterior Bilateral Throughout] Blood Pressure 103/76 103/76 O2 Sat by Pulse 98 Oximetry 01/26/21 01/26/21 01/26/21 11:00 11:16 11:55 Temperature 98.4 F Pulse Rate 80 73 Pulse Rate [ Anterior Bilateral Throughout] Pulse Rate [ Right Radial] Respiratory 20 Rate Respiratory Rate [Anterior Bilateral Throughout] Blood Pressure 104/70 O2 Sat by Pulse 79 L 92 Oximetry - Labs CBC & Chem 7: 01/23/21 06:13 01/26/21 05:00 Labs: Abnormal lab results 01/25/21 01/25/21 01/26/21 Range/Units 17:37 21:17 05:00 Sodium 136 L (137-145) mmol/L Potassium 3.5 L (3.6-5.0) mmol/L BUN 36 H (7-17) mg/dL Creatinine 2.5 H (0.6-1.2) mg/dL Glucose 162 H (65-100) mg/dL POC Glucose 179 H 175 H (70-105) mg/dL Calcium 7.8 L (8.4-10.2) mg/dL 01/26/21 01/26/21 Range/Units 08:05 12:36 Sodium (137-145) mmol/L Potassium (3.6-5.0) mmol/L BUN (7-17) mg/dL Creatinine (0.6-1.2) mg/dL Glucose (65-100) mg/dL POC Glucose 185 H 264 H (70-105) mg/dL Calcium (8.4-10.2) mg/dL HEART Score - HEART Score Troponin: Troponin T 0.019 ng/mL (0.00-0.029) 01/22/21 01:53
[2021-01-26] MEDS ORDERED: MORPHINE 4 MG/1 ML INJ IV ONE (17:30)
--- NOTE | 2021-01-26 18:07 | XRay Report ---
CHEST 1 VIEW INDICATION / CLINICAL INFORMATION: chest pain. COMPARISON: 01/22/2021 FINDINGS: SUPPORT DEVICES: Unchanged. HEART / MEDIASTINUM: No significant abnormality. LUNGS / PLEURA: Right lower lung field is largely obscured by ICD generator. Left lung is clear. Visu alized right lung is clear. No pneumothorax. ADDITIONAL FINDINGS: No significant additional findings. IMPRESSION: 1. No acute findings. Signer Name: Chuy Hancock MD Signed: 01/26/2021 6:03 PM Workstation Name: [id number]
[2021-01-27] MEDS: GABAPENTIN 300 MG CAP PO SCH ×3 (03:30→14:52)
[2021-01-27] MEDS: traZODone 50 MG TAB PO SCH (03:31)
[2021-01-27] MEDS: DULoxetine 30 MG CAP PO SCH ×2 (03:31→15:02)
[2021-01-27] MEDS: INSULIN LISPRO 100 UNIT/ML SUB-Q SCH ×4 (08:29→12:56)
[2021-01-27 12:22] VITALS: BP 107/73
--- NOTE | 2021-01-27 13:29 | Discharge Summary ---
Providers - Providers Date of Admission: 01/23/21 09:09 Date of discharge: 01/27/21 Attending physician: ZAKIYA FOX 01/22/21 04:06 Consult to Physician [CONS] Routine Comment: Consulting Provider: EVER GUSTAFSON Physician Instructions: Reason For Exam: CHF Exacerbation 01/24/21 10:34 Physical Therapy Evaluation and Treat [CONS] Routine Comment: Reason For Exam: debility 01/24/21 17:20 Consult to Physician [CONS] Routine Comment: Consulting Provider: PHUC SULLIVAN Physician Instructions: Reason For Exam: douglas Primary care physician: SHANICE SUH Hospitalization Condition: Good Pertinent studies: CXRs, head CT, abdomen/pelvis CT Hospital course: 55-year-old female with known history of COPD, systolic CHF presented to the emergency room complaining of shortness of breath, generalized malaise and weakness which has been ongoing over the past 24 hours. Work-up in the emergency room reveals leukocytosis of 13.2 on the CBC. BUN and creatinine of 21 and 4.7 on the chemistry. BNP was 9880. Chest x-ray shows no acute findings. Patient stated that she was admitted to [place] about a week ago. She was tested negative for Covid at that time She is fully vaccinated for Covid. Daily clinical course: 01/22/21; Patient admitted for CHF exacerbation 2D echo today showed EF 15 to 20% -which is a decline from her prior EF (35% on previous echo) Continue IV diuresis, daily weight ins and outs Follow cardiology recommendation 01/23/21: Negative for COVID. Serum creatinine 1.9 today, will reduce IV Lasix to 20 mg twice daily. Continue to follow renal function. Cardiology following - repeat BMP in the morning. c/p abdominal pain - will get CT abd/pelvis w/o contrast 01/24/21; Cr cont to trend up, consult renal, hold lasix . CT abdomen pelvis yesterday showed no acute finding for severe abdominal pain. Patient appears to be stable today, and denies any abdominal pain, tolerating diet, no nausea and vomiting. 01/25/21: Cr further increased today, initiated iv fluid, follow BMP. Patient remains on supplemental O2, will assess for home O2 requirement when stable for discharge. 01/26/21: Creatinine slightly improved today, continue to hold Lasix. Patient oxygen saturation dropped to 79% on ambulation. manager field sales notified for home O2 arrangement. 01/27/21: home O2 arranged, Cr appears stable. patient will be discharged home with outpt f/u and HH. UA on 01/24 suggestive for UTI, patient will be discharge home with ciprofloxacin 250 mg twice daily for 5 days course. Patient was recommended to initiate lasix at home after 2 days. Discharge planning management was thoroughly discussed with the patient and she verbalized understanding. Disposition: HOME HEALTH CARE SERVICE Final Discharge Diagnosis (Prints w/discharge instructions): -- Acute on chronic systolic CHF: --Acute hypoxic respiratory failure, due to underlying CHF AND copd. --COPD with exacerbation and ongoing tobacco abuse. -- Diabetes type II. -- Hypertension. --DOUGLAS on possible CKD stage 4, Likely due to diuresis. --Abdominal pain, resolved. --Left nephrolithiasis. --Chronic pain syndrome. --Anxiety and depression. --Hypoalbuminemia likely due to volume overload from CHF evaluation. --UTI, POA Time spent for discharge: 34 minutes Core Measure Documentation - Palliative Care Palliative Care/ Comfort Measures: Not Applicable - Core Measures Any of the following diagnoses?: none Exam - Physical Exam Narrative exam: GENERAL: Elderly white female who appears older than her stated age lying on bed appeared HEENT: Normocephalic. Atraumatic. No conjunctival congestion or icterus. Patient has moist mucous membranes. NECK: Supple. Trachea midline. CHEST/LUNGS: few Crackles auscultated bilaterally, appreciate no rhonchi HEART/CARDIOVASCULAR: Regular in rate and rhythm. S1 and S2 positive. ABDOMEN: Abdomen is soft, nontender. Patient has normal bowel sounds. SKIN: There is no rash. Warm and dry. NEURO: No focal motor deficit. Follows command. MUSCULOSKELETAL: No joint effusion or tenderness. EXTRIMITY: No edema, no cyanosis or clubbing. PSYCH: Cooperative. - Constitutional Vitals: Temp Pulse Resp BP Pulse Ox 98.8 F 74 18 107/73 98 01/27/21 12:02 01/27/21 12:02 01/27/21 12:02 01/27/21 12:02 01/27/21 12:02 Plan Activity: advance as tolerated Weight Bearing Status: Non-Weight Bearing Diet: low fat, low salt, diabetic Special Instructions: home oxygen via (3L n/c), home health RN Follow up with: SHANICE SUH MD [Primary Care Provider] - 7 Days Prescriptions: AtorvaSTATin [Lipitor] 40 mg PO QHS #30 tablet Aspirin [Aspirin BABY CHEW TAB] 81 mg PO QDAY #30 tab.chew Ciprofloxacin HCl [Ciprofloxacin TAB] 250 mg PO BID #10 tablet carvediloL [Coreg] 25 mg PO BID #60 tablet predniSONE 10 mg PO .TAPER #21 tab Budesonide/Formoterol Fumarate [Symbicort 80-4.5 Mcg Inhaler] 10.2 gm IH BID #1 hfa.aer.ad
[2021-01-27] MEDS ORDERED: methylPREDNISolone Sod Succinate 40 MG/1 ML INJ IV SCH (14:00)
[2021-01-27] MEDS ORDERED: IPRATROPIUM/ALBUTEROL SULFATE 3 ML AMPUL.NEB IH SCH (14:00)
--- NOTE | 2021-01-27 14:03 | Progress Note ---
Assessment and Plan 1. Acute kidney injury: Vasomotor DOUGLAS in the setting of diuretics / volume depletion. CT abdomen negative for hydro. Urine lytes ordered. Monitor renal function. Creatinine level continue to improved. Encouraged PO fluids. Avoid nephrotoxic agents. Meds dosage based on GFR. 2. FEN: Metabolic alkalosis, monitor. Hyponatremia, improved, monitor. Monitor lytes. 3. Acute on chronic systolic CHF, POA: Patient was on diuretics. Monitor I/O and daily weight. 4. Diabetes type II: Accu-Cheks and sliding scale insulin. 5. Hypertension: BP controlled. Monitor. F/u in 1-2 weeks. Subjective: Patient was examined at the bedside. Examination: General appearance: well-developed, appears stated age, not in distress HEENT: ATNC Neck: Trachea midline Respiratory: ctab Cardiology: S1S2, regular, no murmur Gastrointestinal: soft, obese, bowel sounds heard, not tender Integumentary: no obvious rash Neurologic: AO, able to move extremities Ext: no edema Subjective Date of service: 01/27/21 Principal diagnosis: HFrEF, NICMP/BiV ICD Objective - Vital Signs Vital signs: Vital Signs - 12hr 01/27/21 01/27/21 01/27/21 05:03 07:48 10:00 Temperature 98.1 F 98.9 F Pulse Rate 77 77 Respiratory 18 18 Rate Blood Pressure 112/52 116/72 O2 Sat by Pulse 98 98 100 Oximetry 01/27/21 12:02 Temperature 98.8 F Pulse Rate 74 Respiratory 18 Rate Blood Pressure 107/73 O2 Sat by Pulse 98 Oximetry - Lab 01/23/21 06:13 01/27/21 08:13 Most recent lab results Calcium 9.0 mg/dL (8.4-10.2) D 01/27/21 08:13 Magnesium 2.20 mg/dL (1.7-2.3) 01/22/21 01:53 Medications & Allergies - Medications Allergies/Adverse Reactions: Allergies divalproex sodium [From Depakote] Allergy (Verified 01/22/21 15:29) Anaphylaxis heparin Allergy (Verified 01/22/21 15:29) Swelling lowers WBC's Iodinated Contrast Media [Iodinated Contrast Media - IV Dye] Allergy (Verified 01/22/21 15:29) Anaphylaxis ketorolac tromethamine [From Toradol] Allergy (Verified 01/22/21 15:29) Angioedema ondansetron HCl [From Zofran (as hydrochloride)] Allergy (Verified 01/22/21 15:29) Itching Penicillins Allergy (Verified 01/22/21 15:29) Anaphylaxis Home Medications: Home Medications Medication Instructions Recorded Confirmed Last Taken Type Albuterol Sulfate [Ventolin HFA] 2 puff IH Q4H PRN 10/03/14 01/22/21 1 Day Ago History ~01/21/21 DULoxetine [Cymbalta] 60 mg PO BID 12/12/14 01/22/21 2 Days Ago History ~01/20/21 traZODone [Desyrel] 100 mg PO QHS 12/12/14 01/22/21 2 Days Ago History ~01/20/21 Furosemide [Lasix TAB] 40 mg PO BID 01/05/15 01/22/21 2 Days Ago History ~01/20/21 clonazePAM [KlonoPIN] 1 mg PO TID 01/05/15 01/22/21 2 Days Ago History ~01/20/21 Insulin Aspart (Nf) [NovoLOG 7 - 12 units SQ AC 05/26/17 01/22/21 2 Days Ago History Flexpen] ~01/20/21 Morphine [Morphine TAB] 15 mg PO Q12H 05/26/17 01/22/21 2 Days Ago History ~01/20/21 Gabapentin 600 mg PO TID 01/22/21 01/22/21 2 Days Ago History ~01/20/21 Aspirin [Aspirin BABY CHEW TAB] 81 mg PO QDAY #30 tab.chew 01/27/21 Unknown Rx AtorvaSTATin [Lipitor] 40 mg PO QHS #30 tablet 01/27/21 Unknown Rx Budesonide/Formoterol Fumarate 10.2 gm IH BID #1 hfa.aer.ad 01/27/21 Unknown Rx [Symbicort 80-4.5 Mcg Inhaler] Insulin Glargine [Lantus VIAL] 18 units SUB-Q QAM units 01/27/21 Unknown Rx carvediloL [Coreg] 25 mg PO BID #60 tablet 01/27/21 Unknown Rx predniSONE 10 mg PO .TAPER #21 tab 01/27/21 Unknown Rx Active Medications: Generic Name Dose Route Start Last Admin Trade Name Freq PRN Reason Stop Dose Admin Acetaminophen 650 mg 01/22/21 04:06 Acetaminophen 325 Mg Tab PO Q4H PRN Pain MILD(1-3)/Fever >100.5/HARPER Albuterol 2.5 mg 01/22/21 16:50 01/26/21 08:52 Albuterol 2.5 Mg/3 Ml Nebu IH 2.5 mg Q4HRT PRN Administration Shortness Of Breath Albuterol/Ipratropium 1 ampul 01/27/21 14:00 Ipratropium/Albuterol Sulfate 3 Ml Ampul.Neb IH Q6HRT [facility] Aspirin 81 mg 01/22/21 14:00 01/26/21 08:59 Aspirin 81 Mg Tab Chew PO 81 mg QDAY ASHKAN Administration Atorvastatin Calcium 40 mg 01/22/21 22:00 01/27/21 03:32 Atorvastatin 40 Mg Tab PO Not Given QHS [facility] Carvedilol 25 mg 01/22/21 14:00 01/26/21 22:31 Carvedilol 25 Mg Tab PO Not Given BID [facility] Clonazepam 1 mg 01/22/21 20:00 01/27/21 08:30 Clonazepam 2 Mg Tab PO Not Given TID [facility] Duloxetine HCl 60 mg 01/22/21 22:00 01/27/21 03:31 Duloxetine 30 Mg Cap PO Not Given BID [facility] Gabapentin 600 mg 01/22/21 20:00 01/27/21 03:30 Gabapentin 300 Mg Cap PO Not Given TID [facility] Insulin Glargine 18 units 01/24/21 11:00 01/26/21 09:00 Insulin Glargine 100 Units/Ml SUB-Q 18 units QAM [facility] Administration Insulin Human Lispro 10 unit 01/22/21 17:30 01/27/21 12:56 Insulin Lispro 100 Unit/Ml SUB-Q Not Given AC [facility] Insulin Human Lispro 0 unit 01/24/21 07:30 01/27/21 12:56 Insulin Lispro 100 Unit/Ml SUB-Q Not Given ACHS [facility] Protocol Methylprednisolone Sodium Succinate 40 mg 01/27/21 14:00 Methylprednisolone Sod Succinate 40 Mg/1 Ml Inj IV Q8HR [facility] Morphine Sulfate 15 mg 01/22/21 18:00 01/26/21 22:32 Morphine 15 Mg Tab PO Not Given Q12HR [facility] Sodium Chloride 10 ml 01/22/21 10:00 01/27/21 03:33 Sodium Chloride 0.9% 10 Ml Flush Syringe IV Not Given BID [facility] Sodium Chloride 10 ml 01/22/21 04:06 Sodium Chloride 0.9% 10 Ml Flush Syringe IV PRN PRN LINE FLUSH Trazodone HCl 100 mg 01/22/21 22:00 01/27/21 03:31 Trazodone 50 Mg Tab PO Not Given QHS ASHKAN
[2021-01-27] MEDS: carvediloL 25 MG TAB PO SCH (14:50)
[2021-01-27] MEDS: ASPIRIN 81 MG TAB CHEW PO SCH (14:50)
[2021-01-27] MEDS: MORPHINE 15 MG TAB PO SCH (14:51)
[2021-01-27] MEDS: INSULIN GLARGINE 100 UNITS/ML SUB-Q SCH ×2 (15:14→15:23)
--- NOTE | 2021-01-29 10:37 | Electrocardiograph Report ---
[facility] Test Date: 2021-01-26 Test Time: 16:58:11 Pat Name: GISELLA HERRERA Department: Room: A453 1 Gender: F [place]: NURSE : 1965 Requested By: ZAKIYA FOX Order Number: [id number] Reading MD: Crispin Walton Measurements Intervals [place] Rate: 74 P: 196 OR: 126 QRS: 241 QRSD: 135 T: 215 QT: 460 QTc: 510 Interpretive Statements Ventricular-paced rhythm Compared to ECG 01/22/2021 01:12:42 No significant change noted. Electronically Signed On 01-29-2021 10:37:22 EDT by Crispin Walton
== END 2021-01-27 18:46 | disposition home health service (06) | DRG 291 ==
LOC: ED 23:04 → 4A 01-22 04:07 → OBSVTOIN 01-23 09:09 → 4A 01-23 14:13
PROVIDERS: ADMIT Internal Medicine Geriatric Medicine; ATTEND Internal Medicine
DX: I13.0 Hypertensive heart and chronic kidney disease with heart failure and stage 1 through stage 4 chronic kidney disease, or unspecified chronic kidney disease (principal); J96.01 Acute respiratory failure with hypoxia; N17.0 Acute kidney failure with tubular necrosis; I50.23 Acute on chronic systolic (congestive) heart failure; E87.1 Hypo-osmolality and hyponatremia; J44.1 Chronic obstructive pulmonary disease with (acute) exacerbation; E87.3 Alkalosis; N18.4 Chronic kidney disease, stage 4 (severe); N39.0 Urinary tract infection, site not specified; I42.8 Other cardiomyopathies; I50.82 Biventricular heart failure; Z79.4 Long term (current) use of insulin; Z79.899 Other long term (current) drug therapy; Z88.0 Allergy status to penicillin; Z88.8 Allergy status to other drugs, medicaments and biological substances; Z91.041 Radiographic dye allergy status; Z86.73 Personal history of transient ischemic attack (TIA), and cerebral infarction without residual deficits; I25.2 Old myocardial infarction; Z86.718 Personal history of other venous thrombosis and embolism; M19.90 Unspecified osteoarthritis, unspecified site; F17.200 Nicotine dependence, unspecified, uncomplicated; Z95.810 Presence of automatic (implantable) cardiac defibrillator; G89.4 Chronic pain syndrome; N20.0 Calculus of kidney; F41.9 Anxiety disorder, unspecified; F32.9 Major depressive disorder, single episode, unspecified; E11.22 Type 2 diabetes mellitus with diabetic chronic kidney disease; E88.09 Other disorders of plasma-protein metabolism, not elsewhere classified; Z20.822 Contact with and (suspected) exposure to COVID-19
CPT/HCPCS: 36415; 70450; 71045; 74176; 80048; 80053; 81001; 82550; 82962; 83735; 83880; 84484; 85025; 85610; 87086; 93005; 93306; 94640; 94760; G0378; A9270-GY; J1170; J1815; J1940; J2270; J2765; J2920; J7030; U0003

== ENCOUNTER 2021-02-02 08:45 | Inpatient (IN) | payer MEDICARE ==
[2021-02-02] MEDS ORDERED: dexAMETHasone 4 MG/ML VIAL IV ONE (11:03)
[2021-02-02] MEDS ORDERED: NITROGLYCERIN 0.4 MG TAB SUBL SL PRN (11:03)
[2021-02-02] MEDS ORDERED: ALBUTEROL 2.5 MG/3 ML NEBU IH ONE (11:05)
[2021-02-02] MEDS ORDERED: IPRATROPIUM 0.02% NEBU 2.5 ML IH ONE (11:05)
--- NOTE | 2021-02-02 11:06 | Emergency Department Report ---
ED General Adult HPI - General Chief complaint: Dyspnea/Respdistress Stated complaint: SOB/CP PUI?: Yes Time Seen by Provider: 02/02/21 10:50 Source: patient, EMS ( EMS documentation not available at time of chart dictati on ), RN notes reviewed, old records reviewed Mode of arrival: Stretcher Limitations: Physical Limitation - History of Present Illness Initial comments: The patient was evaluated in the emergency department for symptoms described in the history of present illness. He/she was evaluated in the context of the global COVID-19 pandemic, which necessitated consideration that the patient might be at risk for infection with the virus that causes COVID-19. Institutional protocols and algorithms that pertain to the evaluation of patients at risk for COVID-19 are in a state of rapid change based on informatio n released by regulatory bodies including the CDC and federal and state organizations. These policies and algorithms were followed during the patient's care in the emergency department. Please note that these policies, procedures and recommendations changed on a rapid basis. During the entire history and physical examination, I had on complete personal protective equipment. Past medical history COPD, respiratory failure, on home oxygen, systolic CHF, EF of 15 to 20%, renal insufficiency, recent urinalysis suggestive of UTI, discharged on ciprofloxacin. The patient is a 55-year-old female who presents to the ER with a complaint of sudden onset shortness of breath, chest pain, malaise and fatigue. Her chest pain is central. It is constant since last night. It does not radiate to the neck or arms, but it radiates to the back. She also endorses left lower extremity pain and swelling. She has been using her home oxygen. She endorses compliance with her medications. She denies dietary indiscretions. She denies loss of taste and smell. The patient currently denies headache, neck pain, abdominal pain, urinary symptoms, focal extremity weakness and numbness. Apparently, this patient was hypoxic in the field to 80%, and required nonrebreather. Currently, she is on 3 L, and saturating at 94%. Examination today similar to when I previously examined her a few weeks ago. Pulmonary and cardiac auscultation were not performed secondary to concern for Covid, and lack of disposable stethoscope -: Gradual Location: chest Radiation: back Consistency: constant Improves with: none Worsens with: none - Related Data Home Medications Medication Instructions Recorded Confirmed Last Taken Albuterol Sulfate [Ventolin HFA] 2 puff IH Q4H PRN 10/03/14 01/22/21 1 Day Ago ~01/21/21 DULoxetine [Cymbalta] 60 mg PO BID 12/12/14 01/22/21 2 Days Ago ~01/20/21 traZODone [Desyrel] 100 mg PO QHS 12/12/14 01/22/21 2 Days Ago ~01/20/21 Furosemide [Lasix TAB] 40 mg PO BID 01/05/15 01/22/21 2 Days Ago ~01/20/21 clonazePAM [KlonoPIN] 1 mg PO TID 01/05/15 01/22/21 2 Days Ago ~01/20/21 Insulin Aspart (Nf) [NovoLOG 7 - 12 units SQ AC 05/26/17 01/22/21 2 Days Ago Flexpen] ~01/20/21 Morphine [Morphine TAB] 15 mg PO Q12H 05/26/17 01/22/21 2 Days Ago ~01/20/21 Gabapentin 600 mg PO TID 01/22/21 01/22/21 2 Days Ago ~01/20/21 Previous Rx's Medication Instructions Recorded Last Taken Type Aspirin [Aspirin BABY CHEW TAB] 81 mg PO QDAY #30 tab.chew 01/27/21 Unknown Rx AtorvaSTATin [Lipitor] 40 mg PO QHS #30 tablet 01/27/21 Unknown Rx Budesonide/Formoterol Fumarate 10.2 gm IH BID #1 hfa.aer.ad 01/27/21 Unknown Rx [Symbicort 80-4.5 Mcg Inhaler] Insulin Glargine [Lantus VIAL] 18 units SUB-Q QAM units 01/27/21 Unknown Rx carvediloL [Coreg] 25 mg PO BID #60 tablet 01/27/21 Unknown Rx predniSONE 10 mg PO .TAPER #21 tab 01/27/21 Unknown Rx Ciprofloxacin HCl [Ciprofloxacin 250 mg PO BID #10 tablet 01/28/21 Unknown Rx TAB] Allergies Allergy/AdvReac Type Severity Reaction Status Date / Time divalproex sodium Allergy Anaphylaxis Verified 01/22/21 15:29 [From Depakote] heparin Allergy Swelling Verified 01/22/21 15:29 Iodinated Contrast Media Allergy Anaphylaxis Verified 01/22/21 15:29 [Iodinated Contrast Media - IV Dye] ketorolac tromethamine Allergy Angioedema Verified 01/22/21 15:29 [From Toradol] ondansetron HCl Allergy Itching Verified 01/22/21 15:29 [From Zofran (as hydrochloride)] Penicillins Allergy Anaphylaxis Verified 01/22/21 15:29 ED Review of Systems ROS: Stated complaint: SOB/CP Other details as noted in HPI Constitutional: malaise, weakness. 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 Right nephrectomy - Social History Smoking Status: Former Smoker Substance Use Type: None - Medications Home Medications: Home Medications Medication Instructions Recorded Confirmed Last Taken Type Albuterol Sulfate [Ventolin HFA] 2 puff IH Q4H PRN 10/03/14 01/22/21 1 Day Ago History ~01/21/21 DULoxetine [Cymbalta] 60 mg PO BID 12/12/14 01/22/21 2 Days Ago History ~01/20/21 traZODone [Desyrel] 100 mg PO QHS 12/12/14 01/22/21 2 Days Ago History ~01/20/21 Furosemide [Lasix TAB] 40 mg PO BID 01/05/15 01/22/21 2 Days Ago History ~01/20/21 clonazePAM [KlonoPIN] 1 mg PO TID 01/05/15 01/22/21 2 Days Ago History ~01/20/21 Insulin Aspart (Nf) [NovoLOG 7 - 12 units SQ AC 05/26/17 01/22/21 2 Days Ago History Flexpen] ~01/20/21 Morphine [Morphine TAB] 15 mg PO Q12H 05/26/17 01/22/21 2 Days Ago History ~01/20/21 Gabapentin 600 mg PO TID 01/22/21 01/22/21 2 Days Ago History ~01/20/21 Aspirin [Aspirin BABY CHEW TAB] 81 mg PO QDAY #30 tab.chew 01/27/21 Unknown Rx AtorvaSTATin [Lipitor] 40 mg PO QHS #30 tablet 01/27/21 Unknown Rx Budesonide/Formoterol Fumarate 10.2 gm IH BID #1 hfa.aer.ad 01/27/21 Unknown Rx [Symbicort 80-4.5 Mcg Inhaler] Insulin Glargine [Lantus VIAL] 18 units SUB-Q QAM units 01/27/21 Unknown Rx carvediloL [Coreg] 25 mg PO BID #60 tablet 01/27/21 Unknown Rx predniSONE 10 mg PO .TAPER #21 tab 01/27/21 Unknown Rx Ciprofloxacin HCl [Ciprofloxacin 250 mg PO BID #10 tablet 01/28/21 Unknown Rx TAB] ED Physical Exam - General Limitations: Physical Limitation General appearance: alert, anxious, in distress - Head Head exam: Present: atraumatic, normocephalic - Eye Eye exam: Present: normal appearance, EOMI. Absent: nystagmus - ENT ENT exam: Present: normal exam, normal orophraynx, mucous membranes moist, normal external ear exam - Neck Neck exam: Present: normal inspection, full ROM. Absent: tenderness, meningismus - Respiratory Respiratory exam: Present: respiratory distress, other (Pulmonary auscultation not performed secondary to lack of disposable stethoscope). Absent: stridor - Cardiovascular Cardiovascular Exam: Present: other (Auscultation not performed secondary to lack of disposable stethoscope. Heart rate 86 bpm on monitor). Absent: bradycardia, tachycardia - GI/Abdominal GI/Abdominal exam: Present: soft. Absent: distended, tenderness, guarding, rebound, rigid, pulsatile mass - Extremities Exam Extremities exam: Present: normal inspection, full ROM, pedal edema (1+ edema in the bilateral lower extremities), other (2+ pulses noted in the bilateral upper and lower extremities. There is no palpable cord. negative Homans sign. Muscular compartments are soft. The pelvis is stable.). Absent: calf ten derness - Back Exam Back exam: Present: normal inspection. Absent: tenderness, CVA tenderness (R), CVA tenderness (L), paraspinal tenderness, vertebral tenderness - Neurological Exam Neurological exam: Present: alert, other (No facial droop. Tongue midline. Extraocular movements intact bilaterally. Facial sensation intact to light touch in V1, V2, V3 distribution bilaterally. 5 and a 5 strength in 4 extremities. Sensation intact to light touch in 4 extremities.) - Psychiatric Psychiatric exam: Present: anxious - Skin Skin exam: Present: warm, dry, intact, normal color. Absent: rash ED Course Vital Signs 02/02/21 02/02/21 02/02/21 09:07 10:43 12:43 Temperature 98.9 F 98 F Pulse Rate 92 H 90 112 H Respiratory 20 16 16 Rate Blood Pressure 134/98 Blood Pressure 112/78 122/84 [Left] O2 Sat by Pulse 96 88 96 Oximetry 02/02/21 02/02/21 16:04 16:07 Temperature 98 F Pulse Rate 73 71 Respiratory 16 Rate Blood Pressure 119/75 Blood Pressure 125/68 [Left] O2 Sat by Pulse 97 Oximetry - Reevaluation(s) Reevaluation #1: 02/02/21 11:40 Differential diagnosis, including the not limited to: GERD, gastritis, hiatal hernia, pneumonia, pulmonary embolism, acute coronary syndrome, DVT, CHF, COVID- 19, COPD exacerbation Assessment and plan: 55-year-old female with multiple chronic issues, including COPD, CHF, chronic respiratory failure, debility, presenting with shortness of breath, chest pain, subjective leg pain and leg swelling, report of worsening hypoxia. Place patient on monitor technician, administer supplemental oxygen, and initiate isolation precautions. Obtain appropriate laboratory studies, medicate empirically with albuterol, Atrovent, steroids, Lasix, as needed chest pain medications, obtain D-dimer, reassess after initial data points, likely admit this patient to the medical service once initial diagnostics have resulted. I have discussed this plan of care with the patient. She has articulated understanding, and is in agreement with the plan of care. 02/02/21 11:47 Laboratory studies are reviewed and appreciated. D-dimer is pending. Hospital physician, Dr. Lorena Bearden to admit to IMS Patient has received aspirin in the past, and was also discharged with an aspirin prescription previously. 02/02/21 11:49 02/02/21 13:38 Left lower extremity study negative for DVT. Nuclear medicine study is pending. 02/02/21 16:52 Nuclear medicine study is low probability for pulmonary embolism. ED Medical Decision Making - Lab Data Result diagrams: 02/02/21 11:05 02/02/21 11:05 Vital Signs 02/02/21 02/02/21 09:07 10:43 Temperature 98.9 F 98 F Pulse Rate 92 H 90 Respiratory 20 16 Rate Blood Pressure 134/98 Blood Pressure 112/78 [Left] O2 Sat by Pulse 96 88 Oximetry Lab Results 02/02/21 02/02/21 02/02/21 Range/Units 11:05 11:05 11:05 WBC 11.0 (4.5-11.0) K/mm3 RBC 3.93 (3.65-5.03) M/mm3 Hgb 11.4 (10.1-14.3) gm/dl Hct 35.4 (30.3-42.9) % MCV 90 (79-97) fl MCH 29 (28-32) pg MCHC 32 (30-34) % RDW 15.2 (13.2-15.2) % Plt Count 134 L (140-440) K/mm3 Lymph % (Auto) 12.1 L (13.4-35.0) % [place] % (Auto) 7.3 (0.0-7.3) % Eos % (Auto) 2.5 (0.0-4.3) % Baso % (Auto) 0.7 (0.0-1.8) % Lymph # (Auto) 1.3 (1.2-5.4) K/mm3 [place] # (Auto) 0.8 (0.0-0.8) K/mm3 Eos # (Auto) 0.3 (0.0-0.4) K/mm3 Baso # (Auto) 0.1 (0.0-0.1) K/mm3 Seg Neutrophils % 77.4 H (40.0-70.0) % Seg Neutrophils # 8.5 H (1.8-7.7) K/mm3 Lactic Acid 1.20 (0.7-2.0) mmol/L Troponin T < 0.010 (0.00-0.029) ng/mL NT-Pro-B Natriuret Pep 6887 H (0-900) pg/mL Lab Results 02/02/21 02/02/21 02/02/21 Range/Units 11:05 11:05 11:05 WBC 11.0 (4.5-11.0) K/mm3 RBC 3.93 (3.65-5.03) M/mm3 Hgb 11.4 (10.1-14.3) gm/dl Hct 35.4 (30.3-42.9) % MCV 90 (79-97) fl MCH 29 (28-32) pg MCHC 32 (30-34) % RDW 15.2 (13.2-15.2) % Plt Count 134 L (140-440) K/mm3 Lymph % (Auto) 12.1 L (13.4-35.0) % [place] % (Auto) 7.3 (0.0-7.3) % Eos % (Auto) 2.5 (0.0-4.3) % Baso % (Auto) 0.7 (0.0-1.8) % Lymph # (Auto) 1.3 (1.2-5.4) K/mm3 [place] # (Auto) 0.8 (0.0-0.8) K/mm3 Eos # (Auto) 0.3 (0.0-0.4) K/mm3 Baso # (Auto) 0.1 (0.0-0.1) K/mm3 Seg Neutrophils % 77.4 H (40.0-70.0) % Seg Neutrophils # 8.5 H (1.8-7.7) K/mm3 Sodium 139 (137-145) mmol/L Potassium 4.5 (3.6-5.0) mmol/L Chloride 105.3 (98-107) mmol/L Carbon Dioxide 25 (22-30) mmol/L Anion Gap 13 mmol/L BUN 21 H (7-17) mg/dL Creatinine 1.8 H (0.6-1.2) mg/dL Estimated GFR 35 ml/min BUN/Creatinine Ratio 12 % Glucose 226 H (65-100) mg/dL Lactic Acid 1.20 (0.7-2.0) mmol/L Calcium 8.6 (8.4-10.2) mg/dL Magnesium 2.30 (1.7-2.3) mg/dL Ferritin (10.0-200.0) ng/mL Total Bilirubin 0.30 (0.1-1.2) mg/dL AST 8 (5-40) units/L ALT 7 (7-56) units/L Alkaline Phosphatase 155 H (35-129) units/L Lactate Dehydrogenase 228 H (91-180) units/L Troponin T < 0.010 (0.00-0.029) ng/mL C-Reactive Protein 1.00 (0.00-1.30) mg/dL NT-Pro-B Natriuret Pep 6887 H (0-900) pg/mL Total Protein 6.2 L (6.3-8.2) g/dL Albumin 3.4 L (3.9-5) g/dL Albumin/Globulin Ratio 1.2 % // Range/Units 11:05 WBC (4.5-11.0) K/mm3 RBC (3.65-5.03) M/mm3 Hgb (10.1-14.3) gm/dl Hct (30.3-42.9) % MCV (79-97) fl MCH (28-32) pg MCHC (30-34) % RDW (13.2-15.2) % Plt Count (140-440) K/mm3 Lymph % (Auto) (13.4-35.0) % [place] % (Auto) (0.0-7.3) % Eos % (Auto) (0.0-4.3) % Baso % (Auto) (0.0-1.8) % Lymph # (Auto) (1.2-5.4) K/mm3 [place] # (Auto) (0.0-0.8) K/mm3 Eos # (Auto) (0.0-0.4) K/mm3 Baso # (Auto) (0.0-0.1) K/mm3 Seg Neutrophils % (40.0-70.0) % Seg Neutrophils # (1.8-7.7) K/mm3 Sodium (137-145) mmol/L Potassium (3.6-5.0) mmol/L Chloride (98-107) mmol/L Carbon Dioxide (22-30) mmol/L Anion Gap mmol/L BUN (7-17) mg/dL Creatinine (0.6-1.2) mg/dL Estimated GFR ml/min BUN/Creatinine Ratio % Glucose (65-100) mg/dL Lactic Acid (0.7-2.0) mmol/L Calcium (8.4-10.2) mg/dL Magnesium (1.7-2.3) mg/dL Ferritin 55.7 (10.0-200.0) ng/mL Total Bilirubin (0.1-1.2) mg/dL AST (5-40) units/L ALT (7-56) units/L Alkaline Phosphatase (35-129) units/L Lactate Dehydrogenase (91-180) units/L Troponin T (0.00-0.029) ng/mL C-Reactive Protein (0.00-1.30) mg/dL NT-Pro-B Natriuret Pep (0-900) pg/mL Total Protein (6.3-8.2) g/dL Albumin (3.9-5) g/dL Albumin/Globulin Ratio % - EKG Data -: EKG Interpreted by Me - EKG Data When compared to previous EKG there are: no significant change 02/02/21 11:49 EKG today is interpreted at 11: 07 This is an atrial sensed, ventricular paced rhythm, with good capture. Ventricular rate is 86 bpm. There is a left axis deviation. The QTC is 519 ms. This is an abnormal EKG. This is not a STEMI. - Radiology Data Radiology results: pending, report reviewed, image reviewed CHEST 1 VIEW 02/02/2021 11:28 AM INDICATION / CLINICAL INFORMATION: Dyspnea. COMPARISON: 01/26/2021 FINDINGS: SUPPORT DEVICES: Right subclavian pacemaker/ICD and left internal jugular Port-A-Cath, unchanged HEART / MEDIASTINUM: No significant abnormality. LUNGS / PLEURA: No significant pulmonary or pleural abnormality. No pneumothorax. ADDITIONAL FINDINGS: No significant additional findings. IMPRESSION: 1. No acute findings. Signer Name: Garth Phelps MD Signed: 02/02/2021 10:32 AM Workstation Name: [id number] Critical Care Time: Yes Critical care time in (mins) excluding proc time.: 35 Critical care attestation.: If time is entered above; I have spent that time in minutes in the direct care of this critically ill patient, excluding procedure time. ED Disposition Clinical Impression: Acute dyspnea, Chronic respiratory failure, Acute chest pain, Suspected 2019 novel coronavirus infection, Debility, Left leg pain, AICD (automatic cardioverter/defibrillator) present Disposition: ADMITTED INPATIENT Is pt being admited?: Yes Does the pt Need Aspirin: Yes Condition: Serious Instructions: Chest Pain (ED) Referrals: SHANICE SUH MD [Primary Care Provider] - 3-5 Days Heart Score - HEART Score History: Moderately suspicious EKG: Non-specific Age: 45-65 Risk factors: 1-2 risk factors Troponin: < normal limit HEART Score: 4 - EKG Read Time Time EKG Completed: 11:07 EKG Read Time: 11:07 - Critical Actions Critical Actions: 4-6 pts:12-16.6% risk of adverse cardiac event. Should be admitted
[2021-02-02] MEDS ORDERED: ASPIRIN 81 MG TAB CHEW PO ONE (11:07)
[2021-02-02 11:36] LABS: Basophils # (Auto) 0.1 K/mm3 (0.0-0.1); Basophils % (Auto) 0.7 % (0.0-1.8); Eosinophils # (Auto) 0.3 K/mm3 (0.0-0.4); Eosinophils % (Auto) 2.5 % (0.0-4.3); Hematocrit 35.4 % (30.3-42.9); Hemoglobin 11.4 gm/dl (10.1-14.3); Lymphocytes # (Auto) 1.3 K/mm3 (1.2-5.4); Lymphocytes % (Auto) 12.1 % (13.4-35.0); Mean Corpuscular HGB Conc 32 % (30-34); Mean Corpuscular Volume 90 fl (79-97); Monocytes # (Auto) 0.8 K/mm3 (0.0-0.8); Monocytes % (Auto) 7.3 % (0.0-7.3); Platelet Count 134 K/mm3 (140-440); Red Blood Count 3.93 M/mm3 (3.65-5.03); Red Cell Distribution Width 15.2 % (13.2-15.2)
--- NOTE | 2021-02-02 11:37 | XRay Report ---
CHEST 1 VIEW 02/02/2021 11:28 AM INDICATION / CLINICAL INFORMATION: Dyspnea. COMPARISON: 01/26/2021 FINDINGS: SUPPORT DEVICES: Right subclavian pacemaker/ICD and left internal jugular Port-A-Cath, unchanged HEART / MEDIASTINUM: No significant abnormality. LUNGS / PLEURA: No significant pulmonary or pleural abnormality. No pneumothorax. ADDITIONAL FINDINGS: No significant additional findings. IMPRESSION: 1. No acute findings. Signer Name: Garth Phelps MD Signed: 02/02/2021 11:32 AM Workstation Name: [id number]
[2021-02-02 11:44] LABS: Alanine Aminotransferase 7 units/L (7-56); Albumin 3.4 g/dL (3.9-5); BUN/Creatinine Ratio 12; Blood Urea Nitrogen 21 mg/dL (7-17); Calcium 8.6 mg/dL (8.4-10.2); Hemolysis Index 6
[2021-02-02] MEDS ORDERED: FUROSEMIDE 40 MG/4 ML INJ IV ONE (11:45)
[2021-02-02 11:47] LABS: INR 0.89 (0.87-1.13); Partial Thromboplastin Time 23.1 Sec. (24.2-36.6)
[2021-02-02] MEDS ORDERED: FAMOTIDINE 20 MG/2 ML INJ IV ONE (11:49)
--- NOTE | 2021-02-02 12:34 | Vascular Lab Report ---
DUPLEX DOPPLER LOWER EXTREMITY VEINS, LEFT INDICATION / CLINICAL INFORMATION: left leg pain. Left leg swelling. TECHNIQUE: Duplex doppler imaging was performed through the veins of the left lower extremity using v enous compression and other maneuvers. COMPARISON: None available. FINDINGS: LEFT COMMON FEMORAL VEIN: Negative. LEFT FEMORAL VEIN: Negative. LEFT POPLITEAL VEIN: Negative. LEFT CALF VEINS: Negative. ADDITIONAL FINDINGS: None. IMPRESSION: 1. No sonographic evidence for DVT in the left lower extremity. Signer Name: Lei Navarro MD Signed: 02/02/2021 12:30 PM Workstation Name: [id number]
--- NOTE | 2021-02-02 15:30 | Nuclear Medicine Report ---
NUCLEAR MEDICINE PERFUSION LUNG SCAN INDICATION: cp sob. TECHNIQUE: 5.2 mCi of Tc-99m MAA were given by IV. COMPARISON: Chest radiograph dated today. FINDINGS: PERFUSION: No significant perfusion defects. ADDITIONAL FINDINGS: Right subclavian pacemaker overlies the right mid thorax on the anterior project ion. IMPRESSION: 1. Low probability for pulmonary embolism. Signer Name: Garth Phelps MD Signed: 02/02/2021 3:25 PM Workstation Name: [id number]
[2021-02-02 19:09] LABS: Bilirubin,Urine NEG (Negative); Blood,Urine NEG (Negative); Color,Urine Straw (Yellow); Protein,Urine <15 mg/dL mg/dL (Negative); Urobilinogen,Urine < 2.0 mg/dL (<2.0)
[2021-02-02] MEDS ORDERED: LORazepam 2 MG/ML VIAL IV ONE (19:32)
[2021-02-02] MEDS: HYDROmorphone 1 MG/1 ML INJ IV PRN (20:18)
--- NOTE | 2021-02-02 21:49 | History and Physical Report ---
History of Present Illness Date of examination: 02/02/21 Date of admission: 02/02/21 18:07 Chief complaint: Shortness of breath for 3 days History of present illness: 55-year-old female with multiple medical problems including COPD on room oxygen at home and congestive heart failure with ejection fraction of 15 to 20%, renal insufficiency and UTI comes in for increasing shortness of breath chest pain malaise and fatigue. Her chest pain is retrosternal. It does not radiate to her neck or arms but it radiates to her back. Also left lower extremity pain and swelling. Compliant with her medications. Also complains of left lower extremity pain and swelling. No loss of taste or smell. Patient is on 3 L nasal nasal cannula oxygen and saturating at 94%. No fever or chills. Vaccination history - Past Medical History Previous Medical History?: Yes --Hypertension: Yes --CVA: Yes (x3) --Heart Attack/AMI: Yes (X2) --Congestive Heart Failure: Yes --Diabetes: Yes --Deep Vein Thrombosis: Yes (at site of port in the remote past off Coumadin now) --Arthritis: Yes --Kidney Stones: Yes --Asthma: Yes --COPD: Yes Additional medical history: "kidney stone disease", fibromyalgia, crohns - Surgical History --Pacemaker: Yes --Internal Defibrillator: Yes --Cholecystectomy: Yes Additional Surgical History: ureter transplant,. Right nephrectomy - Social History Smoking Status: Former Smoker Substance Use Type: None Family history --Htn Review of Systems ROS: Stated complaint: SOB/CP Other details as noted in HPI Constitutional: malaise, weakness. denies: fever Eyes: denies: eye discharge Respiratory: cough, shortness of breath Cardiovascular: chest pain Gastrointestinal: denies: abdominal pain, nausea, vomiting Genitourinary: denies: dysuria Musculoskeletal: back pain, myalgia Neurological: weakness Psychiatric: anxiety Hematological/Lymphatic: denies: easy bleeding Medications and Allergies Allergies Allergy/AdvReac Type Severity Reaction Status Date / Time divalproex sodium Allergy Anaphylaxis Verified 01/22/21 15:29 [From Depakote] heparin Allergy Swelling Verified 01/22/21 15:29 Iodinated Contrast Media Allergy Anaphylaxis Verified 01/22/21 15:29 [Iodinated Contrast Media - IV Dye] ketorolac tromethamine Allergy Angioedema Verified 01/22/21 15:29 [From Toradol] ondansetron HCl Allergy Itching Verified 01/22/21 15:29 [From Zofran (as hydrochloride)] Penicillins Allergy Anaphylaxis Verified 01/22/21 15:29 Home Medications Medication Instructions Recorded Confirmed Last Taken Type Albuterol Sulfate [Ventolin HFA] 2 puff IH Q4H PRN 10/03/14 01/22/21 1 Day Ago History ~01/21/21 DULoxetine [Cymbalta] 60 mg PO BID 12/12/14 01/22/21 2 Days Ago History ~01/20/21 traZODone [Desyrel] 100 mg PO QHS 12/12/14 01/22/21 2 Days Ago History ~01/20/21 Furosemide [Lasix TAB] 40 mg PO BID 01/05/15 01/22/21 2 Days Ago History ~01/20/21 clonazePAM [KlonoPIN] 1 mg PO TID 01/05/15 01/22/21 2 Days Ago History ~01/20/21 Insulin Aspart (Nf) [NovoLOG 7 - 12 units SQ AC 05/26/17 01/22/21 2 Days Ago History Flexpen] ~01/20/21 Morphine [Morphine TAB] 15 mg PO Q12H 05/26/17 01/22/21 2 Days Ago History ~01/20/21 Gabapentin 600 mg PO TID 01/22/21 01/22/21 2 Days Ago History ~01/20/21 Aspirin [Aspirin BABY CHEW TAB] 81 mg PO QDAY #30 tab.chew 01/27/21 Unknown Rx AtorvaSTATin [Lipitor] 40 mg PO QHS #30 tablet 01/27/21 Unknown Rx Budesonide/Formoterol Fumarate 10.2 gm IH BID #1 hfa.aer.ad 01/27/21 Unknown Rx [Symbicort 80-4.5 Mcg Inhaler] Insulin Glargine [Lantus VIAL] 18 units SUB-Q QAM units 01/27/21 Unknown Rx carvediloL [Coreg] 25 mg PO BID #60 tablet 01/27/21 Unknown Rx predniSONE 10 mg PO .TAPER #21 tab 01/27/21 Unknown Rx Ciprofloxacin HCl [Ciprofloxacin 250 mg PO BID #10 tablet 01/28/21 Unknown Rx TAB] Active Meds: Active Medications Hydromorphone HCl (Hydromorphone 1 Mg/1 Ml Inj) 0.5 mg IV Q3H PRN PRN Reason: Pain , Severe (7-10) Nitroglycerin (Nitroglycerin 0.4 Mg Tab Subl) 0.4 mg SL .Q5MIN PRN PRN Reason: Chest Pain Last Admin: 02/02/21 16:04 Dose: 0.4 mg Documented by: Exam - Constitutional Vitals: Temp Pulse Resp BP Pulse Ox 98 F 71 16 125/68 94 02/02/21 16:07 02/02/21 16:07 02/02/21 16:07 02/02/21 16:07 02/02/21 21:32 General appearance: Present: mild distress, well-nourished - EENT Eyes: Present: PERRL ENT: hearing intact, clear oral mucosa - Neck Neck: Present: supple, normal ROM - Respiratory Respiratory effort: normal Respiratory: bilateral: CTA, rales, rhonchi - Cardiovascular Heart rate: 78 Rhythm: regular Heart Sounds: Present: S1 & S2. Absent: rub, click - Extremities Extremities: pulses symmetrical, No edema Peripheral Pulses: within normal limits - Abdominal General gastrointestinal: Present: soft, non-tender, non-distended, normal bowel sounds Female genitourinary: Present: normal - Integumentary Integumentary: Present: clear, warm, dry - Musculoskeletal Musculoskeletal: gait normal, strength equal bilaterally - Psychiatric Psychiatric: appropriate mood/affect, intact judgment & insight - Neurologic Neurologic: CNII-XII intact, moves all extremities HEART Score - HEART Score History: Moderately suspicious EKG: Non-specific Age: 45-65 Risk factors: 1-2 risk factors Troponin: Troponin T < 0.010 ng/mL (0.00-0.029) 02/02/21 14:02 Troponin: < normal limit HEART Score: 4 - Critical Actions Critical Actions: 4-6 pts:12-16.6% risk of adverse cardiac event. Should be admitted Results - Labs CBC & Chem 7: 02/02/21 11:05 02/02/21 11:05 Labs: Laboratory Last Values WBC 11.0 K/mm3 (4.5-11.0) 02/02/21 11:05 RBC 3.93 M/mm3 (3.65-5.03) 02/02/21 11:05 Hgb 11.4 gm/dl (10.1-14.3) 02/02/21 11:05 Hct 35.4 % (30.3-42.9) 02/02/21 11:05 MCV 90 fl (79-97) 02/02/21 11:05 MCH 29 pg (28-32) 02/02/21 11:05 MCHC 32 % (30-34) 02/02/21 11:05 RDW 15.2 % (13.2-15.2) 02/02/21 11:05 Plt Count 134 K/mm3 (140-440) L 02/02/21 11:05 Lymph % (Auto) 12.1 % (13.4-35.0) L 02/02/21 11:05 [place] % (Auto) 7.3 % (0.0-7.3) 02/02/21 11:05 Eos % (Auto) 2.5 % (0.0-4.3) 02/02/21 11:05 Baso % (Auto) 0.7 % (0.0-1.8) 02/02/21 11:05 Lymph # (Auto) 1.3 K/mm3 (1.2-5.4) 02/02/21 11:05 [place] # (Auto) 0.8 K/mm3 (0.0-0.8) 02/02/21 11:05 Eos # (Auto) 0.3 K/mm3 (0.0-0.4) 02/02/21 11:05 Baso # (Auto) 0.1 K/mm3 (0.0-0.1) 02/02/21 11:05 Seg Neutrophils % 77.4 % (40.0-70.0) H 02/02/21 11:05 Seg Neutrophils # 8.5 K/mm3 (1.8-7.7) H 02/02/21 11:05 PT 12.6 Sec. (12.2-14.9) 02/02/21 11:05 INR 0.89 (0.87-1.13) 02/02/21 11:05 APTT 23.1 Sec. (24.2-36.6) L 02/02/21 11:05 D-Dimer 1091.10 ng/mlDDU (0-234) H 02/02/21 11:05 Sodium 139 mmol/L (137-145) 02/02/21 11:05 Potassium 4.5 mmol/L (3.6-5.0) 02/02/21 11:05 Chloride 105.3 mmol/L (98-107) 02/02/21 11:05 Carbon Dioxide 25 mmol/L (22-30) 02/02/21 11:05 Anion Gap 13 mmol/L 02/02/21 11:05 BUN 21 mg/dL (7-17) H 02/02/21 11:05 Creatinine 1.8 mg/dL (0.6-1.2) H 02/02/21 11:05 Estimated GFR 35 ml/min 02/02/21 11:05 BUN/Creatinine Ratio 12 % 02/02/21 11:05 Glucose 226 mg/dL (65-100) H 02/02/21 11:05 Lactic Acid 1.20 mmol/L (0.7-2.0) 02/02/21 11:05 Calcium 8.6 mg/dL (8.4-10.2) 02/02/21 11:05 Magnesium 2.30 mg/dL (1.7-2.3) 02/02/21 11:05 Ferritin 55.7 ng/mL (10.0-200.0) 02/02/21 11:05 Total Bilirubin 0.30 mg/dL (0.1-1.2) 02/02/21 11:05 AST 8 units/L (5-40) 02/02/21 11:05 ALT 7 units/L (7-56) 02/02/21 11:05 Alkaline Phosphatase 155 units/L (35-129) H 02/02/21 11:05 Lactate Dehydrogenase 228 units/L (91-180) H 02/02/21 11:05 Troponin T < 0.010 ng/mL (0.00-0.029) 02/02/21 14:02 C-Reactive Protein 1.00 mg/dL (0.00-1.30) 02/02/21 11:05 NT-Pro-B Natriuret Pep 6887 pg/mL (0-900) H 02/02/21 11:05 Total Protein 6.2 g/dL (6.3-8.2) L 02/02/21 11:05 Albumin 3.4 g/dL (3.9-5) L 02/02/21 11:05 Albumin/Globulin Ratio 1.2 % 02/02/21 11:05 Procalcitonin < 0.05 ng/mL (<0.15) 02/02/21 11:05 Urine Color Straw (Yellow) 02/02/21 Unknown Urine Turbidity Clear (Clear) 02/02/21 Unknown Urine pH 7.0 (5.0-7.0) 02/02/21 Unknown Ur Specific [place] 1.005 (1.003-1.030) 02/02/21 Unknown Urine Protein <15 mg/dl mg/dL (Negative) 02/02/21 Unknown Urine Glucose (UA) 50 mg/dL (Negative) 02/02/21 Unknown Urine Ketones Neg mg/dL (Negative) 02/02/21 Unknown Urine Blood Neg (Negative) 02/02/21 Unknown Urine Nitrite Neg (Negative) 02/02/21 Unknown Urine Bilirubin Neg (Negative) 02/02/21 Unknown Urine Urobilinogen < 2.0 mg/dL (<2.0) 02/02/21 Unknown Ur Leukocyte Esterase Neg (Negative) 02/02/21 Unknown Urine WBC (Auto) 1.0 /HPF (0.0-6.0) 02/02/21 Unknown Urine RBC (Auto) 2.0 /HPF (0.0-6.0) 02/02/21 Unknown U Epithel Cells (Auto) 1.0 /HPF (0-13.0) 02/02/21 Unknown Short CBC 02/02/21 Range/Units 11:05 WBC 11.0 (4.5-11.0) K/mm3 Hgb 11.4 (10.1-14.3) gm/dl Hct 35.4 (30.3-42.9) % Plt Count 134 L (140-440) K/mm3 BMP 02/02/21 11:05 Sodium 139 Potassium 4.5 Chloride 105.3 Carbon Dioxide 25 BUN 21 H Creatinine 1.8 H Glucose 226 H Calcium 8.6 Cardiac Enzymes 02/02/21 02/02/21 Range/Units 11:05 14:02 Troponin T < 0.010 < 0.010 (0.00-0.029) ng/mL Liver Function 02/02/21 Range/Units 11:05 Total Bilirubin 0.30 (0.1-1.2) mg/dL AST 8 (5-40) units/L ALT 7 (7-56) units/L Alkaline Phosphatase 155 H (35-129) units/L Albumin 3.4 L (3.9-5) g/dL Urine 02/02/ Range/Units Unknown Urine Color Straw (Yellow) Urine pH 7.0 (5.0-7.0) Ur Specific [place] 1.005 (1.003-1.030) Urine Protein <15 mg/dl (Negative) mg/dL Urine Glucose (UA) 50 (Negative) mg/dL Assessment and Plan Advance Directives: Yes (Full code) VTE prophylaxis?: Chemical Plan of care discussed with patient/family: Yes - Patient Problems (1) Acute respiratory failure with hypoxia Current Visit: Yes Status: Acute Plan to address problem: Patient on increased levels of oxygen We will try weaning to 3 L nasal cannula oxygen Continue albuterol inhaler and steroids and antibiotics (2) Suspected 2019 novel coronavirus infection Current Visit: Yes Status: Acute Plan to address problem: Coronavirus PCR in a.m. (3) COPD with acute exacerbation Current Visit: Yes Status: Acute Plan to address problem: Continue IV antibiotics and IV Solu-Medrol Respiratory therapy assessment Try to use nebulizer treatments minimally till coronavirus PCR confirmed or negative If PCR is negative nebulizer treatments can be given [id number] and as needed (4) AICD (automatic cardioverter/defibrillator) present Current Visit: Yes Status: Chronic (5) DOUGLAS (acute kidney injury) Current Visit: No Status: Acute Plan to address problem: IV fluids Vasomotor nephropathy (6) Acute on chronic HFrEF (heart failure with reduced ejection fraction) Current Visit: No Status: Acute Plan to address problem: Lasix IV Echocardiogram for ejection fraction (7) Hypertension Current Visit: No Status: Chronic Qualifiers: Hypertension type: primary hypertension Qualified Code(s): I10 - Essential (primary) hypertension Plan to address problem: Continue antihypertensives and adjust medications (8) T2DM (type 2 diabetes mellitus) Current Visit: Yes Status: Chronic Qualifiers: 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
[2021-02-02] MEDS ORDERED: ALBUTEROL 8.5 GM MDI INHALATION IH PRN (21:50)
[2021-02-02] MEDS ORDERED: ONDANSETRON 4 MG/2 ML INJ IV PRN (22:09)
[2021-02-02] MEDS ORDERED: ACETAMINOPHEN 325 MG TAB PO PRN (22:09)
[2021-02-02] MEDS ORDERED: SODIUM CHLORIDE 0.9% 1000 ML 1,000 ML IV SCH (22:15)
[2021-02-02] MEDS ORDERED: METOCLOPRAMIDE 10 MG/2 ML INJ IV PRN ×2 (22:15→22:24)
[2021-02-02] MEDS ORDERED: ALBUTEROL 2.5 MG/3 ML NEBU IH PRN (22:20)
[2021-02-02] MEDS: INSULIN LISPRO 100 UNIT/ML SUB-Q SCH (22:50)
[2021-02-02] MEDS: carvediloL 25 MG TAB PO SCH (22:57)
[2021-02-02] MEDS: DULoxetine 30 MG CAP PO SCH (22:58)
[2021-02-02] MEDS: MORPHINE 15 MG ER TAB PO SCH (23:02)
[2021-02-02] MEDS ORDERED: DEXTROSE 50% IN WATER (25GM) 50 ML SYRINGE IV ONE (23:47)
[2021-02-02] MEDS ORDERED: GLUCAGON (HUMAN RECOMBINANT) 1 MG/ML INJ IV ONE (23:53)
[2021-02-03] MEDS: ASPIRIN 81 MG TAB CHEW PO SCH (00:54)
[2021-02-03] MEDS: AZITHROMYCIN/NS 500 MG/250 ML 500 MG/250 ML BAG IV SCH (00:55)
[2021-02-03] MEDS: traZODone 100 MG TAB PO SCH ×2 (01:58→23:46)
[2021-02-03] MEDS: FUROSEMIDE 40 MG TAB PO SCH (02:04)
[2021-02-03] MEDS: cefTRIAXone/NS 2 GM/100 ML 2 GM/100 ML BAG IV SCH (02:10)
[2021-02-03 06:02] LABS: Basophils % (Auto) 0.1 % (0.0-1.8); Hematocrit 35.5 % (30.3-42.9); Hemoglobin 11.5 gm/dl (10.1-14.3); Lymphocytes % (Auto) 7.8 % (13.4-35.0); Mean Corpuscular HGB Conc 32 % (30-34); Mean Corpuscular Volume 89 fl (79-97); Monocytes # (Auto) 0.6 K/mm3 (0.0-0.8); Monocytes % (Auto) 4.9 % (0.0-7.3); Platelet Count 184 K/mm3 (140-440)
[2021-02-03 06:07] LABS: Albumin 3.4 g/dL (3.9-5); Calcium 9.3 mg/dL (8.4-10.2)
[2021-02-03] MEDS: HYDROmorphone 1 MG/1 ML INJ IV PRN ×2 (06:50→09:20)
--- NOTE | 2021-02-03 07:54 | Progress Note ---
Assessment and Plan Assessment and plan: (1) Acute respiratory failure with hypoxia Etiology: likely COPD exacerbation vs COVID PNA infection. Possible A on C systolic HF, however patient appears euvolemic on exam. Patient on increased levels of oxygen Dropped to 3 L nasal cannula oxygen Continue albuterol inhaler and steroids and antibiotics Admit VQ scan low probability of PE. Left Lower ext US: neg dvt Will consider pulm consult if patient worsens (2) Suspected 2018 novel coronavirus infection Coronavirus PCR in a.m., result pending still. Consult ID if positive (3) COPD with acute exacerbation Continue IV antibiotics and IV Solu-Medrol Respiratory therapy assessment Try to use nebulizer treatments minimally until coronavirus PCR confirmed or negative If PCR is negative nebulizer treatments can be given [id number] and as needed (4) AICD (automatic cardioverter/defibrillator) present noted in hx and CXR. (5) Chronic Kidney Disease due to Likely Cardiorenal syndrome Baseline CR: 1.8-2.1 No IVF at this time Recheck renal profile Avoid nephrotoxic agents renally adjust meds Hold jessa-i/arb at this time, elevated creatinine 2 weeks ago (6) HFrEF (heart failure with reduced ejection fraction) C/o chest pain, sob, some edema in LLE on admit. now appears euvolemic. 01/22/21 admit Echocardiogram 15-20%. Will hold off on echo at this time BNP 6K , last admit 9K Trop negative x 3. CXR negative for acute findings GDMT: resume home lasix, bb. No jessa-i at this time Added spironalactone 25 mg po daily Consult Cardiology Dr. Somers for HF med optimization. (7) Hypertension Continue antihypertensives as above. (8) T2DM (type 2 diabetes mellitus) Coverage for now Check hemoglobin A1c (9) History of DVT (deep vein thrombosis) Patient is not on any anticoagulants (10) DVT prophylaxis On anticoagulation and GI prophylaxis History Interval history: On encounter, patient was not in respiratory distress. Upset about being re- admitted and concerned about the status of heart failure. 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 She states she is adherent to her HF medication regimen. She denied any fevers, chills, nausea vomiting. Hospitalist Physical - Physical exam Narrative exam: Physical Exam: Constitutional: Alert, cooperative. No acute distress Head, Ears, Nose: Normocephalic, atraumatic. External ears, nose normal Eyes: Conjunctivae/corneas clear. No icterus. No ptosis. Neck: Supple, no meningeal signs Oral: dentition fair, no thrush Cardiovascular: S1, S2 normal. Respiratory: Good air entry, clear to auscultation bilaterally GI: Soft, non-tender; bowel sounds normal. No peritoneal signs. Musculoskeletal: No pedal edema, no cyanosis. Skin: No rash or abscess, see nursing assessment for full skin exam Hem/Lymphatic: No palpable cervical or supraclavicular nodes. No lymphangitis Psych: Mood ok. Affect normal Neurological: Awake, alert, oriented. No gross abnormality - Constitutional Vitals: Temp Pulse Resp BP Pulse Ox 98 F 88 16 145/95 94 02/02/21 16:07 02/02/21 22:57 02/02/21 16:07 02/02/21 22:57 02/02/21 21:32 General appearance: Present: mild distress, well-nourished HEART Score - HEART Score EKG: Non-specific Age: 45-65 Risk factors: 1-2 risk factors Troponin: Troponin T < 0.010 ng/mL (0.00-0.029) 02/03/21 05:12 Troponin: < normal limit - Critical Actions Critical Actions: 4-6 pts:12-16.6% risk of adverse cardiac event. Should be admitted Results - Labs CBC & Chem 7: 02/03/21 05:12 02/03/21 05:12 Labs: Laboratory Last Values WBC 12.4 K/mm3 (4.5-11.0) H 02/03/21 05:12 RBC 4.00 M/mm3 (3.65-5.03) 02/03/21 05:12 Hgb 11.5 gm/dl (10.1-14.3) 02/03/21 05:12 Hct 35.5 % (30.3-42.9) 02/03/21 05:12 MCV 89 fl (79-97) 02/03/21 05:12 MCH 29 pg (28-32) 02/03/21 05:12 MCHC 32 % (30-34) 02/03/21 05:12 RDW 15.0 % (13.2-15.2) 02/03/21 05:12 Plt Count 184 K/mm3 (140-440) 02/03/21 05:12 Lymph % (Auto) 7.8 % (13.4-35.0) L 02/03/21 05:12 [place] % (Auto) 4.9 % (0.0-7.3) 02/03/21 05:12 Eos % (Auto) 0.0 % (0.0-4.3) 02/03/21 05:12 Baso % (Auto) 0.1 % (0.0-1.8) 02/03/21 05:12 Lymph # (Auto) 1.0 K/mm3 (1.2-5.4) L 02/03/21 05:12 [place] # (Auto) 0.6 K/mm3 (0.0-0.8) 02/03/21 05:12 Eos # (Auto) 0.0 K/mm3 (0.0-0.4) 02/03/21 05:12 Baso # (Auto) 0.0 K/mm3 (0.0-0.1) 02/03/21 05:12 Seg Neutrophils % 87.2 % (40.0-70.0) H 02/03/21 05:12 Seg Neutrophils # 10.8 K/mm3 (1.8-7.7) H 02/03/21 05:12 PT 12.6 Sec. (12.2-14.9) 02/02/21 11:05 INR 0.89 (0.87-1.13) 02/02/21 11:05 APTT 23.1 Sec. (24.2-36.6) L 02/02/21 11:05 D-Dimer 1091.10 ng/mlDDU (0-234) H 02/02/21 11:05 Sodium 141 mmol/L (137-145) 02/03/21 05:12 Potassium 4.2 mmol/L (3.6-5.0) 02/03/21 05:12 Chloride 102.5 mmol/L (98-107) 02/03/21 05:12 Carbon Dioxide 24 mmol/L (22-30) 02/03/21 05:12 Anion Gap 19 mmol/L 02/03/21 05:12 BUN 30 mg/dL (7-17) H 02/03/21 05:12 Creatinine 2.1 mg/dL (0.6-1.2) H 02/03/21 05:12 Estimated GFR 29 ml/min 02/03/21 05:12 BUN/Creatinine Ratio 14 % 02/03/21 05:12 Glucose 112 mg/dL (65-100) H 02/03/21 05:12 POC Glucose 374 mg/dL (70-105) H 02/03/21 01:58 Lactic Acid 1.20 mmol/L (0.7-2.0) 02/02/21 11:05 Calcium 9.3 mg/dL (8.4-10.2) 02/03/21 05:12 Magnesium 2.30 mg/dL (1.7-2.3) 02/02/21 11:05 Ferritin 55.7 ng/mL (10.0-200.0) 02/02/21 11:05 Total Bilirubin 0.20 mg/dL (0.1-1.2) 02/03/21 05:12 AST 8 units/L (5-40) 02/03/21 05:12 ALT 8 units/L (7-56) 02/03/21 05:12 Alkaline Phosphatase 160 units/L (35-129) H 02/03/21 05:12 Lactate Dehydrogenase 228 units/L (91-180) H 02/02/21 11:05 Troponin T < 0.010 ng/mL (0.00-0.029) 02/03/21 05:12 C-Reactive Protein 1.00 mg/dL (0.00-1.30) 02/02/21 11:05 NT-Pro-B Natriuret Pep 6887 pg/mL (0-900) H 02/02/21 11:05 Total Protein 6.5 g/dL (6.3-8.2) 02/03/21 05:12 Albumin 3.4 g/dL (3.9-5) L 02/03/21 05:12 Albumin/Globulin Ratio 1.1 % 02/03/21 05:12 Procalcitonin < 0.05 ng/mL (<0.15) 02/02/21 11:05 Urine Color Straw (Yellow) 02/02/21 Unknown Urine Turbidity Clear (Clear) 02/02/21 Unknown Urine pH 7.0 (5.0-7.0) 02/02/21 Unknown Ur Specific [place] 1.005 (1.003-1.030) 02/02/21 Unknown Urine Protein <15 mg/dl mg/dL (Negative) 02/02/21 Unknown Urine Glucose (UA) 50 mg/dL (Negative) 02/02/21 Unknown Urine Ketones Neg mg/dL (Negative) 02/02/21 Unknown Urine Blood Neg (Negative) 02/02/21 Unknown Urine Nitrite Neg (Negative) 02/02/21 Unknown Urine Bilirubin Neg (Negative) 02/02/21 Unknown Urine Urobilinogen < 2.0 mg/dL (<2.0) 02/02/21 Unknown Ur Leukocyte Esterase Neg (Negative) 02/02/21 Unknown Urine WBC (Auto) 1.0 /HPF (0.0-6.0) 02/02/21 Unknown Urine RBC (Auto) 2.0 /HPF (0.0-6.0) 02/02/21 Unknown U Epithel Cells (Auto) 1.0 /HPF (0-13.0) 02/02/21 Unknown Active Medications - Current Medications Current Medications: Generic Name Dose Route Start Last Admin Trade Name Freq PRN Reason Stop Dose Admin Acetaminophen 650 mg 02/02/21 22:09 02/02/21 23:00 Acetaminophen 325 Mg Tab PO 650 mg Q4H PRN Administration Pain MILD(1-3)/Fever >100.5/HARPER Albuterol 2.5 mg 02/02/21 22:20 Albuterol 2.5 Mg/3 Ml Nebu IH Q4HRT PRN Shortness Of Breath Arformoterol Tartrate 15 mcg 02/03/21 08:00 Arformoterol 15 Mcg/2 Ml Nebu IH Q12HRT ASHKAN Aspirin 81 mg 02/02/21 22:00 02/03/21 00:54 Aspirin 81 Mg Tab Chew PO 81 mg QDAY ASHKAN Administration Atorvastatin Calcium 40 mg 02/02/21 22:00 02/02/21 23:04 Atorvastatin 40 Mg Tab PO 40 mg QHS ASHKAN Administration Budesonide 0.5 mg 02/03/21 08:00 Budesonide 0.5 Mg/2 Ml Nebu IH Q12HRT ASHKAN Carvedilol 25 mg 02/02/21 22:00 02/02/21 22:57 Carvedilol 25 Mg Tab PO 25 mg BID [facility] Administration Clonazepam 1 mg 02/03/21 08:00 Clonazepam 0.5 Mg Tab PO TID [facility] Dexamethasone 8 mg 02/03/21 10:00 Dexamethasone 4 Mg/Ml Vial IV Q24HR [facility] Duloxetine HCl 60 mg 02/02/21 22:00 02/02/21 22:58 Duloxetine 30 Mg Cap PO 60 mg BID [facility] Administration Enoxaparin Sodium 40 mg 02/03/21 10:00 Enoxaparin 40 Mg/0.4 Ml Inj SUB-Q QDAY [facility] Famotidine 10 mg 02/03/21 10:00 Famotidine 10 Mg Tab PO BID [facility] Furosemide 40 mg 02/02/21 22:00 02/03/21 02:04 Furosemide 40 Mg Tab PO 40 mg BID [facility] Administration Gabapentin 600 mg 02/03/21 08:00 Gabapentin 300 Mg Cap PO TID [facility] Hydromorphone HCl 0.5 mg 02/02/21 19:32 02/02/21 20:18 Hydromorphone 1 Mg/1 Ml Inj IV 0.5 mg Q3H PRN Administration Pain , Severe (7-10) Azithromycin 500 mg in 250 mls @ 250 mls/hr 02/02/21 23:00 02/03/21 00:55 Zithromax/Ns IV 250 mls/hr Q24HR@2200 [facility] Administration Ceftriaxone Sodium 2 gm in 100 mls @ 200 mls/hr 02/02/21 23:00 02/03/21 02:10 Rocephin/Ns 2 Gm/100 Ml IV 200 mls/hr Q24HR@2200 [facility] Administration Protocol Insulin Glargine 18 units 02/03/21 10:00 Insulin Glargine 100 Units/Ml SUB-Q QAM [facility] Insulin Human Lispro 0 unit 02/02/21 22:00 02/02/21 22:50 Insulin Lispro 100 Unit/Ml SUB-Q 100 unit ACHS [facility] Administration Protocol Metoclopramide HCl 5 mg 02/02/21 22:24 Metoclopramide 10 Mg/2 Ml Inj IV Q6H PRN Nausea And Vomiting Morphine Sulfate 15 mg 02/02/21 22:00 02/02/21 23:02 Morphine 15 Mg Er Tab PO 15 mg Q12HR [facility] Administration Nitroglycerin 0.4 mg 02/02/21 11:03 02/02/21 16:04 Nitroglycerin 0.4 Mg Tab Subl SL 0.4 mg .Q5MIN PRN Administration Chest Pain Oxycodone/Acetaminophen 1 tab 02/02/21 22:15 Oxycodone /Acetaminophen 5-325mg Tab PO Q6H PRN Pain, Moderate (4-6) Sodium Chloride 10 ml 02/03/21 10:00 Sodium Chloride 0.9% 10 Ml Flush Syringe IV BID ASHKAN Sodium Chloride 10 ml 02/02/21 22:09 Sodium Chloride 0.9% 10 Ml Flush Syringe IV PRN PRN LINE FLUSH Trazodone HCl 100 mg 02/02/21 22:00 02/03/21 01:58 Trazodone 100 Mg Tab PO 100 mg QHS ASHKAN Administration
[2021-02-03] MEDS ORDERED: ENOXAPARIN 40 MG/0.4 ML INJ SUB-Q SCH (10:00)
[2021-02-03] MEDS: FAMOTIDINE 10 MG TAB PO SCH ×2 (10:00→23:45)
[2021-02-03] MEDS ORDERED: FAMOTIDINE 20 MG TAB PO SCH (10:00)
[2021-02-03] MEDS: dexAMETHasone 4 MG/ML VIAL IV SCH (11:11)
[2021-02-03] MEDS: oxyCODONE /ACETAMINOPHEN 5-325MG TAB PO PRN (13:16)
[2021-02-03] MEDS: ARFORMOTEROL 15 MCG/2 ML NEBU IH SCH (16:13)
[2021-02-03] MEDS: BUDESONIDE 0.5 MG/2 ML NEBU IH SCH (16:13)
--- NOTE | 2021-02-03 16:32 | Consultation ---
History of Present Illness Consult date: 02/03/21 Requesting physician: ABIGAIL HO Consult reason: congestive heart failure History of present illness: Patient is a 55 y/o female with pmhx of HFrEF(15-20%) with BIV ICD, CKD, COPD, DM, h/o of CVA who presented to the ED with complaints of SOB, LLE edema, and chest pain. She was recently admitted earlier this month for complaints of SOB and chest pain too. She describes her chest pain as tightness that does not radiate and is reproducible with palpation. She rates the pain as 8/10. In regards to her SOB and LLE edema she reports that on Wednesday she noticed her leg was swelling so she took an extra dose of her spironolactone which did not help. She also reports that at that time she was having headaches and her blood pressure was high and she reports 150s/100s. She states that she also started w heezing. She reports that on Wednesday she had a headache felt much more SOB. She checked her O2 sat and states her O2 was in the 70s and that she started to use her home oxygen. She denies nausea, vomiting, dizziness, diaphoresis, palpitations. She reports that she is compliant with her medications, fluid restriction, and limits her salt intake. She says she has received the COVID vaccine. The patient is followed by Dr. Somers, [facility]. Cardiology has been consulted for CHF exacerbation Past History Past Medical History: CAD, COPD, diabetes, GERD, heart failure, hypertension, hyperlipidemia, stroke Past Surgical History: Other (nephrectomy) Social history: smoking Medications and Allergies Allergies Allergy/AdvReac Type Severity Reaction Status Date / Time divalproex sodium Allergy Anaphylaxis Verified 01/22/21 15:29 [From Depakote] heparin Allergy Swelling Verified 01/22/21 15:29 Iodinated Contrast Media Allergy Anaphylaxis Verified 01/22/21 15:29 [Iodinated Contrast Media - IV Dye] ketorolac tromethamine Allergy Angioedema Verified 01/22/21 15:29 [From Toradol] ondansetron HCl Allergy Itching Verified 01/22/21 15:29 [From Zofran (as hydrochloride)] Penicillins Allergy Anaphylaxis Verified 01/22/21 15:29 Home Medications Medication Instructions Recorded Confirmed Last Taken Type Albuterol Sulfate [Ventolin HFA] 2 puff IH Q4H PRN 10/03/14 01/22/21 1 Day Ago History ~01/21/21 DULoxetine [Cymbalta] 60 mg PO BID 12/12/14 01/22/21 2 Days Ago History ~01/20/21 traZODone [Desyrel] 100 mg PO QHS 12/12/14 01/22/21 2 Days Ago History ~01/20/21 Furosemide [Lasix TAB] 40 mg PO BID 01/05/15 01/22/21 2 Days Ago History ~01/20/21 clonazePAM [KlonoPIN] 1 mg PO TID 01/05/15 01/22/21 2 Days Ago History ~01/20/21 Insulin Aspart (Nf) [NovoLOG 7 - 12 units SQ AC 05/26/17 01/22/21 2 Days Ago History Flexpen] ~01/20/21 Morphine [Morphine TAB] 15 mg PO Q12H 05/26/17 01/22/21 2 Days Ago History ~01/20/21 Gabapentin 600 mg PO TID 01/22/21 01/22/21 2 Days Ago History ~01/20/21 Aspirin [Aspirin BABY CHEW TAB] 81 mg PO QDAY #30 tab.chew 01/27/21 Unknown Rx AtorvaSTATin [Lipitor] 40 mg PO QHS #30 tablet 01/27/21 Unknown Rx Budesonide/Formoterol Fumarate 10.2 gm IH BID #1 hfa.aer.ad 01/27/21 Unknown Rx [Symbicort 80-4.5 Mcg Inhaler] Insulin Glargine [Lantus VIAL] 18 units SUB-Q QAM units 01/27/21 Unknown Rx carvediloL [Coreg] 25 mg PO BID #60 tablet 01/27/21 Unknown Rx predniSONE 10 mg PO .TAPER #21 tab 01/27/21 Unknown Rx Ciprofloxacin HCl [Ciprofloxacin 250 mg PO BID #10 tablet 01/28/21 Unknown Rx TAB] Active Meds: Active Medications Acetaminophen (Acetaminophen 325 Mg Tab) 650 mg PO Q4H PRN PRN Reason: Pain MILD(1-3)/Fever >100.5/HARPER Last Admin: 02/02/21 23:00 Dose: 650 mg Documented by: Albuterol (Albuterol 2.5 Mg/3 Ml Nebu) 2.5 mg IH Q4HRT PRN PRN Reason: Shortness Of Breath Arformoterol Tartrate (Arformoterol 15 Mcg/2 Ml Nebu) 15 mcg IH Q12HRT [facility] Last Admin: 02/03/21 16:13 Dose: Not Given Documented by: Aspirin (Aspirin 81 Mg Tab Chew) 81 mg PO QDAY [facility] Last Admin: 02/03/21 00:54 Dose: 81 mg Documented by: Atorvastatin Calcium (Atorvastatin 40 Mg Tab) 40 mg PO QHS [facility] Last Admin: 02/02/21 23:04 Dose: 40 mg Documented by: Budesonide (Budesonide 0.5 Mg/2 Ml Nebu) 0.5 mg IH Q12HRT [facility] Last Admin: 02/03/21 16:13 Dose: Not Given Documented by: Carvedilol (Carvedilol 25 Mg Tab) 25 mg PO BID [facility] Last Admin: 02/02/21 22:57 Dose: 25 mg Documented by: Clonazepam (Clonazepam 0.5 Mg Tab) 1 mg PO TID [facility] Dexamethasone (Dexamethasone 4 Mg/Ml Vial) 8 mg IV Q24HR [facility] Stop: 02/11/21 10:01 Last Admin: 02/03/21 11:11 Dose: 8 mg Documented by: Duloxetine HCl (Duloxetine 30 Mg Cap) 60 mg PO BID [facility] Last Admin: 02/02/21 22:58 Dose: 60 mg Documented by: Enoxaparin Sodium (Enoxaparin 30 Mg/0.3 Ml Inj) 30 mg SUB-Q QAM [facility] Famotidine (Famotidine 10 Mg Tab) 10 mg PO BID [facility] Last Admin: 02/03/21 10:00 Dose: 10 mg Documented by: Furosemide (Furosemide 40 Mg/4 Ml Inj) 40 mg IV QDAY [facility] Gabapentin (Gabapentin 300 Mg Cap) 600 mg PO TID [facility] Hydralazine HCl (Hydralazine 25 Mg Tab) 25 mg PO BID [facility] Hydromorphone HCl (Hydromorphone 1 Mg/1 Ml Inj) 0.5 mg IV Q3H PRN PRN Reason: Pain , Severe (7-10) Last Admin: 02/03/21 09:20 Dose: 0.5 mg Documented by: Azithromycin (Zithromax/Ns) 500 mg in 250 mls @ 250 mls/hr IV Q24HR@2200 [facility] Stop: 02/06/21 22:59 Last Admin: 02/03/21 00:55 Dose: 250 mls/hr Documented by: Ceftriaxone Sodium (Rocephin/Ns 2 Gm/100 Ml) 2 gm in 100 mls @ 200 mls/hr IV Q24HR@2200 [facility]; Protocol Stop: 02/06/21 22:29 Last Admin: 02/03/21 02:10 Dose: 200 mls/hr Documented by: Insulin Glargine (Insulin Glargine 100 Units/Ml) 18 units SUB-Q QAM [facility] Insulin Human Lispro (Insulin Lispro 100 Unit/Ml) 0 unit SUB-Q ACHS [facility]; Protocol Last Admin: 02/02/21 22:50 Dose: 100 unit Documented by: Metoclopramide HCl (Metoclopramide 10 Mg/2 Ml Inj) 5 mg IV Q6H PRN PRN Reason: Nausea And Vomiting Morphine Sulfate (Morphine 15 Mg Er Tab) 15 mg PO Q12HR [facility] Last Admin: 02/02/21 23:02 Dose: 15 mg Documented by: Nitroglycerin (Nitroglycerin 0.4 Mg Tab Subl) 0.4 mg SL .Q5MIN PRN PRN Reason: Chest Pain Last Admin: 02/02/21 16:04 Dose: 0.4 mg Documented by: Oxycodone/Acetaminophen (Oxycodone /Acetaminophen 5-325mg Tab) 1 tab PO Q6H PRN PRN Reason: Pain, Moderate (4-6) Last Admin: 02/03/21 13:16 Dose: 1 tab Documented by: Sodium Chloride (Sodium Chloride 0.9% 10 Ml Flush Syringe) 10 ml IV BID [facility] Sodium Chloride (Sodium Chloride 0.9% 10 Ml Flush Syringe) 10 ml IV PRN PRN PRN Reason: LINE FLUSH Spironolactone (Spironolactone 25 Mg Tab) 50 mg PO QDAY [facility] Trazodone HCl (Trazodone 100 Mg Tab) 100 mg PO QHS [facility] Last Admin: 02/03/21 01:58 Dose: 100 mg Documented by: Review of Systems All systems: negative Constitutional: no weight loss, no weight gain, no fever, no chills Ears, nose, mouth and throat: no nasal congestion, no nasal discharge, no sinus pressure, no sinus pain Cardiovascular: chest pain, edema, shortness of breath, dyspnea on exertion Respiratory: cough, shortness of breath, dyspnea on exertion, wheezing Gastrointestinal: abdominal pain, no nausea, no vomiting, no diarrhea Musculoskeletal: no neck stiffness, no neck pain, no shooting arm pain Neurological: no head injury, no transient paralysis Psychiatric: no anxiety Endocrine: no cold intolerance, no heat intolerance Hematologic/Lymphatic: no easy bruising, no easy bleeding Physical Examination Last Vital Signs Temp 98 F 02/02/21 16:07 Pulse 78 02/03/21 10:46 Resp 16 02/02/21 16:07 BP 122/88 02/03/21 10:46 Pulse Ox 96 02/03/21 10:46 General appearance: no acute distress HEENT: Positive: PERRL Neck: Positive: trachea midline Cardiac: Positive: Reg Rate and Rhythm Lungs: Positive: Decreased Breath Sounds Neuro: Positive: Grossly Intact Abdomen: Positive: Soft, Active Bowel Sounds Extremities: Present: upper extr. pulses, lower extr. pulses. Absent: edema Results 02/03/21 05:12 02/03/21 05:12 Cardiac Enzymes 02/03/21 Range/Units 05:12 AST 8 (5-40) units/L CBC 02/03/21 Range/Units 05:12 WBC 12.4 H (4.5-11.0) K/mm3 RBC 4.00 (3.65-5.03) M/mm3 Hgb 11.5 (10.1-14.3) gm/dl Hct 35.5 (30.3-42.9) % Plt Count 184 (140-440) K/mm3 Lymph # (Auto) 1.0 L (1.2-5.4) K/mm3 [place] # (Auto) 0.6 (0.0-0.8) K/mm3 Eos # (Auto) 0.0 (0.0-0.4) K/mm3 Baso # (Auto) 0.0 (0.0-0.1) K/mm3 Comprehensive Metabolic Panel 02/03/21 Range/Units 05:12 Sodium 141 (137-145) mmol/L Potassium 4.2 (3.6-5.0) mmol/L Chloride 102.5 (98-107) mmol/L Carbon Dioxide 24 (22-30) mmol/L BUN 30 H (7-17) mg/dL Creatinine 2.1 H (0.6-1.2) mg/dL Glucose 112 H (65-100) mg/dL Calcium 9.3 (8.4-10.2) mg/dL AST 8 (5-40) units/L ALT 8 (7-56) units/L Alkaline Phosphatase 160 H (35-129) units/L Total Protein 6.5 (6.3-8.2) g/dL Albumin 3.4 L (3.9-5) g/dL - Imaging and Cardiology Echo: report reviewed Cardiac cath: report reviewed EKG: report reviewed, image reviewed EKG interpretations - Telemetry EKG Rhythm: Paced Assessment and Plan HFrEF BIV ICD(Cerephex) Non ischemic cardiomyopathy * EKG Paced rate 99, trops negx2. BNP 6887. AMI ruled out * [facility] 2014- normal coronary arteries * Lexiscan MPI Stress 02/14/2020- negative for stress induced ischemia. EF 38% * Echo 01/22/2021- EF 15-20%, LV mildly dilated, severe global hypokinesis, Transmitral doppler flow pattern suggest restrictive physiology, right v entricle is hypokinetic, left atrium mildly dilated * GDMT: ASA, Coreg 25mg PO BID, Lipitor 75mg PO QD. Hold DANNIE/Arb for elevated creatinine * Resume home med: Spironolactone 50mg PO QD * Agree with Lasix 40mg IV QD Acute Hypoxic Respiratory failure * COVID PCR pending * Management per primary team HTN * Optimize antihypertensive regimen: Coreg 25 PO BID, Hydralizine 25mg PO BID Diueretics and continue monitor. Patient seen in conjunction with Dr. Hsatings who agrees with this plan of care. Will continue to follow - Patient Problems (1) Acute respiratory failure with hypoxia Current Visit: Yes Status: Acute (2) COPD with acute exacerbation Current Visit: Yes Status: Acute (3) Suspected 2019 novel coronavirus infection Current Visit: Yes Status: Acute (4) AICD (automatic cardioverter/defibrillator) present Current Visit: Yes Status: Chronic (5) T2DM (type 2 diabetes mellitus) Current Visit: Yes Status: Chronic Qualifiers: Diabetes mellitus correction insulin use: unspecified joint terminal attack controller insulin use status (6) Acute on chronic HFrEF (heart failure with reduced ejection fraction) Current Visit: No Status: Acute (7) Chronic kidney disease Current Visit: No Status: Acute (8) GERD (gastroesophageal reflux disease) Current Visit: No Status: Acute (9) Biventricular automatic implantable cardioverter defibrillator in situ Current Visit: No Status: Chronic (10) CAD (coronary artery disease) Current Visit: No Status: Chronic (11) H/O: CVA (cerebrovascular accident) Current Visit: No Status: Chronic (12) History of right nephrectomy Current Visit: No Status: Chronic (13) Hypertension Current Visit: No Status: Chronic Qualifiers: Hypertension type: primary hypertension Qualified Code(s): I10 - Essential (primary) hypertension
[2021-02-03] MEDS: INSULIN LISPRO 100 UNIT/ML SUB-Q SCH (23:43)
[2021-02-03] MEDS: MORPHINE 15 MG ER TAB PO SCH ×2 (23:45→23:46)
[2021-02-03] MEDS: hydrALAZINE 25 MG TAB PO SCH (23:46)
[2021-02-03] MEDS: DULoxetine 30 MG CAP PO SCH (23:46)
[2021-02-04] MEDS: GABAPENTIN 300 MG CAP PO SCH ×4 (01:10→14:00)
[2021-02-04] MEDS: INSULIN GLARGINE 100 UNITS/ML SUB-Q SCH ×2 (01:11→10:51)
[2021-02-04] MEDS: carvediloL 25 MG TAB PO SCH ×3 (01:14→09:33)
[2021-02-04] MEDS: AZITHROMYCIN/NS 500 MG/250 ML 500 MG/250 ML BAG IV SCH (01:43)
[2021-02-04] MEDS: cefTRIAXone/NS 2 GM/100 ML 2 GM/100 ML BAG IV SCH (01:44)
[2021-02-04] MEDS: BUDESONIDE 0.5 MG/2 ML NEBU IH SCH ×2 (04:56→07:57)
[2021-02-04] MEDS: ARFORMOTEROL 15 MCG/2 ML NEBU IH SCH ×2 (04:56→07:57)
[2021-02-04] MEDS: HYDROmorphone 1 MG/1 ML INJ IV PRN (05:23)
[2021-02-04] MEDS ORDERED: FUROSEMIDE 40 MG/4 ML INJ IV SCH (06:00)
[2021-02-04] MEDS ORDERED: FUROSEMIDE 40 MG TAB PO SCH (06:00)
[2021-02-04] MEDS: INSULIN LISPRO 100 UNIT/ML SUB-Q SCH ×4 (07:32→16:59)
[2021-02-04] MEDS: clonazePAM 0.5 MG TAB PO SCH ×5 (07:32→14:00)
[2021-02-04] MEDS: DULoxetine 30 MG CAP PO SCH ×2 (07:33→09:33)
[2021-02-04] MEDS: MORPHINE 15 MG ER TAB PO SCH ×2 (07:33→09:33)
[2021-02-04] MEDS: ASPIRIN 81 MG TAB CHEW PO SCH ×2 (07:33→09:32)
[2021-02-04] MEDS: FUROSEMIDE 40 MG TAB PO SCH (07:35)
--- NOTE | 2021-02-04 08:54 | Electrocardiograph Report ---
[facility] Test Date: 2021-02-02 Test Time: 11:07:05 Pat Name: GISELLA HERRERA Department: Room: A487 Gender: F [employer]: JASWANT : 1965 Requested By: TIM LYNN Order Number: [id number] Reading MD: Nigel Hastings Measurements Intervals [place] Rate: 86 P: 53 VT: 113 QRS: -69 QRSD: 139 T: 93 QT: 433 QTc: 519 Interpretive Statements Atrial-sensed ventricular-paced rhythm Compared to ECG 01/26/2021 16:58:11 No significant changes Electronically Signed On 02-04-2021 8:53:43 EDT by Nigel Hastings
[2021-02-04 09:31] VITALS: BP 125/85
[2021-02-04] MEDS: FAMOTIDINE 10 MG TAB PO SCH (09:32)
[2021-02-04] MEDS: hydrALAZINE 25 MG TAB PO SCH (09:32)
[2021-02-04] MEDS ORDERED: ENOXAPARIN 30 MG/0.3 ML INJ SUB-Q SCH (10:00)
[2021-02-04] MEDS ORDERED: SPIRONOLACTONE 25 MG TAB PO SCH ×2 (10:00)
[2021-02-04] MEDS ORDERED: SPIRONOLACTONE 50 MG TAB PO SCH (10:00)
--- NOTE | 2021-02-04 10:09 | Progress Note ---
Assessment and Plan HFrEF BIV ICD([place] Sci) Non ischemic cardiomyopathy * EKG Paced rate 99, trops negx2. BNP 6887. AMI ruled out * [facility] 2014- normal coronary arteries * Lexiscan MPI Stress 02/14/2020- negative for stress induced ischemia. EF 38% * Echo 01/22/2021- EF 15-20%, LV mildly dilated, severe global hypokinesis, Transmitral doppler flow pattern suggest restrictive physiology, right ventricle is hypokinetic, left atrium mildly dilated * GDMT: ASA, Coreg 25mg PO BID, Lipitor 75mg PO QD. Hold DANNIE/Arb for elevated creatinine * Resume home med: Spironolactone 50mg PO QD, Lasix 40mg PO QD. Acute Hypoxic Respiratory failure * COVID PCR-negative * Patient no longer on NC * Management per primary team HTN * Optimize antihypertensive regimen: Coreg 25 PO BID, Hydralizine 25mg PO BID Recommend patient resume home medications. Patient is stable and may be discharged from a cardiac perspective. Patient should follow up with Dr. Somers, [facility], on 02/25/2021 at 1pm at our [place] location. Patient seen in conjunction with Dr. Hastings who agrees with this plan of care. Will see as needed - Patient Problems (1) Acute respiratory failure with hypoxia Current Visit: Yes Status: Acute (2) COPD with acute exacerbation Current Visit: Yes Status: Acute (3) Suspected 2019 novel coronavirus infection Current Visit: Yes Status: Acute (4) AICD (automatic cardioverter/defibrillator) present Current Visit: Yes Status: Chronic (5) T2DM (type 2 diabetes mellitus) Current Visit: Yes Status: Chronic Qualifiers: Diabetes mellitus penitentiary insulin use: unspecified penitentiary insulin use status (6) Acute on chronic HFrEF (heart failure with reduced ejection fraction) Current Visit: No Status: Acute (7) Chronic kidney disease Current Visit: No Status: Acute (8) GERD (gastroesophageal reflux disease) Current Visit: No Status: Acute (9) Biventricular automatic implantable cardioverter defibrillator in situ Current Visit: No Status: Chronic (10) CAD (coronary artery disease) Current Visit: No Status: Chronic (11) H/O: CVA (cerebrovascular accident) Current Visit: No Status: Chronic (12) History of right nephrectomy Current Visit: No Status: Chronic (13) Hypertension Current Visit: No Status: Chronic Qualifiers: Hypertension type: primary hypertension Qualified Code(s): I10 - Essential (primary) hypertension Subjective Date of service: 02/04/21 Principal diagnosis: HFrEF, COPD exacerbation Interval history: Patient sitting in bed not on NC. Reports feeling much better Patient not on monitor Objective Last Vital Signs Temp 98.4 F 02/04/21 09:29 Pulse 73 02/04/21 09:29 Resp 19 02/04/21 09:29 BP 125/85 02/04/21 09:29 Pulse Ox 94 02/04/21 09:29 - Physical Examination General: No Apparent Distress HEENT: Positive: PERRL Neck: Positive: trachea midline Cardiac: Positive: Reg Rate and Rhythm Lungs: Positive: Decreased Breath Sounds Neuro: Positive: Grossly Intact Abdomen: Positive: Soft, Active Bowel Sounds Skin: Negative: Rash, Suspicious Lesions Extremities: Present: upper extr. pulses, lower extr. pulses. Absent: edema - Imaging and Cardiology EKG: report reviewed, image reviewed Echo: report reviewed Cardiac cath: report reviewed - Telemetry EKG Rhythm: Paced
[2021-02-04] MEDS: dexAMETHasone 4 MG/ML VIAL IV SCH (12:08)
--- NOTE | 2021-02-04 15:23 | Discharge Summary ---
Providers - Providers Date of Admission: 02/02/21 18:07 Date of discharge: 02/04/21 Attending physician: ZAKIYA FOX 02/03/21 14:23 Consult to Physician [CONS] Routine Comment: Consulting Provider: LICO ENGLISH Physician Instructions: Reason For Exam: chf Primary care physician: SHANICE SUH Hospitalization Condition: Serious Pertinent studies: Chest x-ray, lower extremity venous Doppler, VQ scan Hospital course: 55-year-old female with multiple medical problems including COPD on home oxygen, congestive heart failure with ejection fraction of 15 to 20%, renal insufficiency and IDDM comes in for increasing shortness of breath chest pain malaise and fatigue. Her chest pain is retrosternal. It does not radiate to her neck or arms but it radiates to her back. Also left lower extremity pain and swelling. Compliant with her medications. Also complains of left lower ex tremity pain and swelling. Patient was admitted for further evaluation management. Her COVID-19 test was negative, VQ scan showed low probability for PE and lower extremity venous Doppler was negative. Patient was initiated on CHF and COPD protocol. She was treated with frequent nebulizer breathing treatment, IV Lasix. Her renal function was monitored and was stable. Insulin dose was adjusted for better glycemic control. Cardiology and nephrology was consulted. Cardiology recommended no further cardiac intervention. Patient symptom improved and stabilized with medical management. Patient was then recommended for discharge home and outpatient follow-up. She was counseled to take Lasix as needed for ankle swelling. Patient will follow up with cardiology in 1 week post discharge. Disposition: HOME HEALTH CARE SERVICE Final Discharge Diagnosis (Prints w/discharge instructions): (1) Acute respiratory failure with hypoxia. Current Visit: Yes Status: Acute. (2) COPD with acute exacerbation. Current Visit: Yes Status: Acute. (3) Suspected 2019 novel coronavirus infection. Current Visit: Yes Status: Acute. (4) AICD (automatic cardioverter/defibrillator) present. Current Visit: Yes Status: Chronic. (5) T2DM (type 2 diabetes mellitus). Current Visit: Yes Status: Chronic. Qualifiers: Diabetes mellitus halfway insulin use: unspecified terminal carman insulin use status. (6) Acute on chronic HFrEF (heart failure with reduced ejection fraction). Current Visit: No Status: Acute. (7) Chronic kidney disease. Current Visit: No Status: Acute. (8) GERD (gastroesophageal reflux disease). Current Visit: No Status: Acute. (9) Biventricular automatic implantable cardioverter defibrillator in situ. Current Visit: No Status: Chronic. (10) CAD (coronary artery disease). Current Visit: No Status: Chronic. (11) H/O: CVA (cerebrovascular accident). Current Visit: No Status: Chronic. (12) History of right nephrectomy. Current Visit: No Status: Chronic. (13) Hypertension. Current Visit: No Status: Chronic. Qualifiers: Hypertension type: primary hypertension Qualified Code(s): I10 - Essential (primary) hypertension Time spent for discharge: 34 minutes Core Measure Documentation - Palliative Care Palliative Care/ Comfort Measures: Not Applicable - Core Measures Any of the following diagnoses?: heart failure - Heart Failure Discharge Requirements DANNIE/ARB for LVSD if EF <40%: Not Applicable Reason for no DANNIE/ARB: Renal impairment Beta nova at discharge: Yes Exam - Physical Exam Narrative exam: GENERAL: well-developed elderly white female lying on bed appeared to be in no discomfort. HEENT: Normocephalic. Atraumatic. No conjunctival congestion or icterus. Patient has moist mucous membranes. NECK: Supple. Trachea midline. CHEST/LUNGS: Clear to auscultated bilaterally, breathing nonlabored. No wheezes crackles or rhonchi. HEART/CARDIOVASCULAR: Regular in rate and rhythm. S1 and S2 positive. ABDOMEN: Abdomen is soft, nontender. Patient has normal bowel sounds. SKIN: There is no rash. Warm and dry. NEURO: No focal motor deficit. Follows command. MUSCULOSKELETAL: No joint effusion or tenderness. EXTRIMITY: No edema, no cyanosis or clubbing. PSYCH: Cooperative. - Constitutional Vitals: Temp Pulse Resp BP Pulse Ox 98.4 F 73 19 125/85 94 02/04/21 09:29 02/04/21 09:29 02/04/21 09:29 02/04/21 09:29 02/04/21 09:29 Plan Activity: advance as tolerated Weight Bearing Status: Non-Weight Bearing Diet: diabetic Special Instructions: restrict fluid intake to (1.2L per day), record daily weights, record daily BP diary, record blood sugar diary Additional Instructions: Please take Lasix as needed for ankle swelling. Follow-up with cardiology in 1 week. Repeat BMP in 1 week Follow up with: SHANICE SUH MD [Primary Care Provider] - 3-5 Days LICO ENGLISH MD [Staff Physician] - 7 Days Prescriptions: hydrALAZINE [Apresoline TAB] 25 mg PO BID #60 tablet predniSONE 10 mg PO .TAPER #21 tab
[2021-02-04] MEDS: oxyCODONE /ACETAMINOPHEN 5-325MG TAB PO PRN (16:58)
[2021-02-05] MEDS ORDERED: INSULIN GLARGINE 100 UNITS/ML SUB-Q SCH (10:00)
== END 2021-02-04 18:11 | disposition home or self-care (01) | DRG 291 ==
LOC: ED 08:45 → 3A 18:07 → 4A 02-03 19:15
PROVIDERS: ADMIT Internal Medicine; ATTEND Internal Medicine
DX: I13.0 Hypertensive heart and chronic kidney disease with heart failure and stage 1 through stage 4 chronic kidney disease, or unspecified chronic kidney disease (principal); I50.23 Acute on chronic systolic (congestive) heart failure; N17.0 Acute kidney failure with tubular necrosis; J96.21 Acute and chronic respiratory failure with hypoxia; J44.1 Chronic obstructive pulmonary disease with (acute) exacerbation; Z95.810 Presence of automatic (implantable) cardiac defibrillator; E11.8 Type 2 diabetes mellitus with unspecified complications; Z20.822 Contact with and (suspected) exposure to COVID-19; Z88.8 Allergy status to other drugs, medicaments and biological substances; Z91.041 Radiographic dye allergy status; Z86.73 Personal history of transient ischemic attack (TIA), and cerebral infarction without residual deficits; Z90.49 Acquired absence of other specified parts of digestive tract; Z94.89 Other transplanted organ and tissue status; Z90.5 Acquired absence of kidney; M79.7 Fibromyalgia; Z79.4 Long term (current) use of insulin; Z79.82 Long term (current) use of aspirin; Z87.891 Personal history of nicotine dependence; I25.2 Old myocardial infarction; I42.8 Other cardiomyopathies; I25.10 Atherosclerotic heart disease of native coronary artery without angina pectoris
CPT/HCPCS: 36415; 71045; 78580; 80053; 81001; 82140; 82728; 82962; 83615; 83735; 83880; 84145; 84484; 85025; 85379; 85610; 85730; 86140; 93005; 94640; 94760; G0378; A9270-GY; A9540; J0456; J0696; J1100; J1170; J1642; J1650; J1815; J1940; J2060; U0003

== ENCOUNTER 2021-04-11 13:24 | Inpatient (IN) | payer MEDICARE ==
--- NOTE | 2021-04-11 16:14 | Event Note ---
ED Screening Note Date of service: 04/11/21 Time: 16:12 ED Screening Note: 55-year-old -[place] female with a history of's COPD CHF presents with shortness of breath since last night. Patient states that she was last admitted to our hospital back in January 2021. She is supposed to be on 2 L of oxygen at home. This initial assessment/diagnostic orders/clinical plan/treatment(s) is/are subject to change based on patients health status, clinical progression and re- assessment by fellow clinical providers in the ED. Further treatment and workup at subsequent clinical providers discretion. Patient/guardian urged not to elope from the ED as their condition may be serious if not clinically assessed and managed. Initial orders include: CBC CMP BNP chest x-ray and EKG has been ordered
[2021-04-11 16:33] LABS: Basophils # (Auto) 0.1 K/mm3 (0.0-0.1); Basophils % (Auto) 0.7 % (0.0-1.8); Eosinophils # (Auto) 0.1 K/mm3 (0.0-0.4); Eosinophils % (Auto) 1.3 % (0.0-4.3); Hematocrit 38.1 % (30.3-42.9); Hemoglobin 12.1 gm/dl (10.1-14.3); Lymphocytes # (Auto) 1.8 K/mm3 (1.2-5.4); Lymphocytes % (Auto) 22.4 % (13.4-35.0); Mean Corpuscular HGB Conc 32 % (30-34); Mean Corpuscular Volume 87 fl (79-97); Monocytes # (Auto) 0.7 K/mm3 (0.0-0.8); Monocytes % (Auto) 9.6 % (0.0-7.3); Platelet Count 160 K/mm3 (140-440); Red Blood Count 4.37 M/mm3 (3.65-5.03); Red Cell Distribution Width 15.3 % (13.2-15.2)
--- NOTE | 2021-04-11 16:41 | XRay Report ---
CHEST 2 VIEWS INDICATION / CLINICAL INFORMATION: Shortness of breath, cough and rales. COMPARISON: 02/02/21. FINDINGS: SUPPORT DEVICES: The positions of the multilead right subclavian ICD and left jugular Port-A-Cath hav e not changed. HEART / MEDIASTINUM: Borderline heart size is stable. Pulmonary vasculature is normal. LUNGS / PLEURA: Minimal chronic appearing interstitial lung disease has not changed. No new pulmonary or pleural abnormality. No pneumothorax. ADDITIONAL FINDINGS: No significant additional findings. IMPRESSION: No acute abnormality or significant change. Signer Name: Tj Turner MD Signed: 04/11/2021 4:37 PM Workstation Name: [id number]
[2021-04-11 17:00] LABS: Albumin 4.1 g/dL (3.9-5); Calcium 9.2 mg/dL (8.4-10.2)
[2021-04-11] MEDS ORDERED: IPRATROPIUM/ALBUTEROL SULFATE 3 ML AMPUL.NEB IH ONE (17:02)
[2021-04-11] MEDS ORDERED: METOCLOPRAMIDE 10 MG/2 ML INJ IV ONE (17:03)
[2021-04-11] MEDS ORDERED: CLOPIDOGREL 300 MG TAB PO ONE (17:03)
[2021-04-11] MEDS ORDERED: NITROGLYCERIN 2% OINT 1 GM TP ONE (17:03)
--- NOTE | 2021-04-11 17:08 | Emergency Department Report ---
HPI - General Chief Complaint: Dyspnea/Respdistress Time Seen by Provider: 04/11/21 16:26 - HPI HPI: Room 40 The patient is a 55-year-old female present with a chief complaint of shortness of breath. The patient states for the past 4 days she has been "feeling bad" which includes a nonproductive cough and shortness of breath. Patient states the symptoms have been progressing throughout the week yesterday since she developed substernal chest pain feeling as though someone was sitting on her chest. Patient states the chest pressure has been constant and associated with left upper extremity paresthesia and nausea without vomiting. Patient denies diaphoresis. Patient currently gives her chest pain score of 10/10. The patient states she received the [employer] vaccine for Covid in August 2020. Patient denies history of fever. Patient states she had 4 heart attacks in the past ED Past Medical Hx - Past Medical History Hx Hypertension: Yes Hx CVA: Yes (x3) Hx Heart Attack/AMI: Yes (X4) Hx Congestive Heart Failure: Yes Hx Diabetes: Yes Hx Deep Vein Thrombosis: Yes (at site of port in the remote past off Coumadin now) Hx Arthritis: Yes Hx Kidney Stones: Yes Hx Asthma: Yes Hx COPD: Yes Additional medical history: "kidney stone disease", fibromyalgia, crohns - Surgical History Hx Pacemaker: Yes Hx Internal Defibrillator: Yes Hx Cholecystectomy: Yes Additional Surgical History: ureter transplant,. 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 - Social History Smoking Status: Current Every Day Smoker (1/2 pack/day) Substance Use Type: None (Denies illicit drug use) - Medications Home Medications: Home Medications Medication Instructions Recorded Confirmed Last Taken Type Albuterol Sulfate [Ventolin HFA] 2 puff IH Q4H PRN 10/03/14 01/22/21 1 Day Ago History ~01/21/21 DULoxetine [Cymbalta] 60 mg PO BID 12/12/14 01/22/21 2 Days Ago History ~01/20/21 traZODone [Desyrel] 100 mg PO QHS 12/12/14 01/22/21 2 Days Ago History ~01/20/21 clonazePAM [KlonoPIN] 1 mg PO TID 01/05/15 01/22/21 2 Days Ago History ~01/20/21 Insulin Aspart (Nf) [NovoLOG 7 - 12 units SQ AC 05/26/17 01/22/21 2 Days Ago History Flexpen] ~01/20/21 Morphine [Morphine TAB] 15 mg PO Q12H 05/26/17 01/22/21 2 Days Ago History ~01/20/21 Gabapentin 600 mg PO TID 01/22/21 01/22/21 2 Days Ago History ~01/20/21 Aspirin [Aspirin BABY CHEW TAB] 81 mg PO QDAY #30 tab.chew 01/27/21 Unknown Rx AtorvaSTATin [Lipitor] 40 mg PO QHS #30 tablet 01/27/21 Unknown Rx Budesonide/Formoterol Fumarate 10.2 gm IH BID #1 hfa.aer.ad 01/27/21 Unknown Rx [Symbicort 80-4.5 Mcg Inhaler] carvediloL [Coreg] 25 mg PO BID #60 tablet 01/27/21 Unknown Rx Furosemide [Lasix TAB] 40 mg PO QDAY PRN #30 02/04/21 01/22/21 2 Days Ago Rx ~01/20/21 Insulin Glargine [Lantus VIAL] 22 units SUB-Q QAM units 02/04/21 Unknown Rx hydrALAZINE [Apresoline TAB] 25 mg PO BID #60 tablet 02/04/21 Unknown Rx predniSONE 10 mg PO .TAPER #21 tab 02/04/21 Unknown Rx ED Review of Systems ROS: Stated complaint: DIFFICULTY BREATHING Other details as noted in HPI Constitutional: denies: fever Eyes: denies: eye pain ENT: denies: throat pain Respiratory: cough, shortness of breath Cardiovascular: chest pain Endocrine: no symptoms reported Gastrointestinal: nausea. denies: vomiting Genitourinary: denies: dysuria Musculoskeletal: denies: back pain Neurological: paresthesias. denies: headache Physical Exam - Physical Exam Vital Signs: Vital Signs 04/11/21 04/11/21 13:25 16:29 Temperature 98.6 F Pulse Rate 98 H Respiratory 16 Rate Blood Pressure 147/98 [Right] O2 Sat by Pulse 94 95 Oximetry Physical Exam: GENERAL: The patient is well-developed well-nourished female sitting on stretcher not appearing to be in acute distress. [] HEENT: Normocephalic. Atraumatic. Extraocular motions are intact. Patient has moist mucous membranes. NECK: Supple. Trachea midline CHEST/LUNGS: Occasional coarse breath sounds. No wheezing auscultated. HEART/CARDIOVASCULAR: Regular. There is no tachycardia. There is no gallop rub or murmur. ABDOMEN: Abdomen is soft, nontender. Patient has normal bowel sounds. There is no abdominal distention. SKIN: There is no rash. There is no edema. There is no diaphoresis. NEURO: The patient is awake, alert, and oriented. The patient is cooperative. The patient has no focal neurologic deficits. The patient has normal speech. GCS 15 MUSCULOSKELETAL: There is no evidence of acute injury. ED Course Vital Signs 04/11/21 04/11/21 13:25 16:29 Temperature 98.6 F Pulse Rate 98 H Respiratory 16 Rate Blood Pressure 147/98 [Right] O2 Sat by Pulse 94 95 Oximetry ED Medical Decision Making - Lab Data Result diagrams: 04/11/21 16:19 04/11/21 16:19 - EKG Data -: EKG Interpreted by Me Rate: normal - EKG Data When compared to previous EKG there are: previous EKG unavailable Interpretation: nonspecific ST-T wave nora (T wave inversions in leads aVL, V2), other (Paced rhythm) - Radiology Data Radiology results: report reviewed (Chest x-ray), image reviewed (Chest x-ray) interpreted by me: Chest x-ray-no definite focal infiltrates, no pneumothorax. Pacemaker in place [address] [address] X Ray Report Signed Patient: GISELLA HERRERA MR#: [id number] : 1965 Acct:[id number] Age/Sex: 55 / F ADM Date: 04/11/21 Loc: ED Attending Dr: Ordering Physician: DEEPTI MA Date of Service: 04/11/21 Procedure(s): XR chest routine 2V Accession Number(s): [id number] cc: DEEPTI MA Fluoro Time In Minutes: CHEST 2 VIEWS INDICATION / CLINICAL INFORMATION: Shortness of breath, cough and rales. COMPARISON: 02/02/21. FINDINGS: SUPPORT DEVICES: The positions of the multilead right subclavian ICD and left jugular Port-A-Cath have not changed. HEART / MEDIASTINUM: Borderline heart size is stable. Pulmonary vasculature is normal. LUNGS / PLEURA: Minimal chronic appearing interstitial lung disease has not changed. No new pulmonary or pleural abnormality. No pneumothorax. ADDITIONAL FINDINGS: No significant additional findings. IMPRESSION: No acute abnormality or significant change. Signer Name: Tj Turner MD Signed: 04/11/2021 4:37 PM Workstation Name: [id number] Transcribed By: RT Dictated By: Tj Turner MD Electronically Authenticated By: Tj Turner MD Signed Date/Time: 04/11/211636 DD/ 34 TD/TT: Print Cancel - Differential Diagnosis Pneumonia, ACS, pericarditis, GERD Critical care attestation.: If time is entered above; I have spent that time in minutes in the direct care of this critically ill patient, excluding procedure time. ED Disposition Clinical Impression: Chest pain Disposition: ADMITTED INPATIENT Is pt being admited?: Yes Does the pt Need Aspirin: No Condition: Fair Instructions: Nonspecific Chest Pain, Adult Referrals: PRIMARY CARE, [Primary Care Provider] - 3-5 Days Time of Disposition: 18:09 (Hospitalist notified (Dr. Hernandez)) Heart Score - HEART Score History: Moderately suspicious EKG: Non-specific Age: 45-65 Risk factors: > 3 risk factors or hx of atherosclerotic disease Troponin: < normal limit HEART Score: 5 - EKG Read Time Time EKG Completed: 17:57 EKG Read Time: 18:07
--- NOTE | 2021-04-11 18:10 | History and Physical Report ---
History of Present Illness Chief complaint: My chest hurts and I feel bad History of present illness: 55 YO Female with HTN, Systolic CHF(EF 15%) NYHA Class 4 noncompliant with home oxygen, CVA, [place], COPD, OA, DM, Fibromyalgia, Nicotine Dependence, Crohns Disease, Nephrolithiasis, DVT no on therapeutic anticoagulation presents to ED for evaluation. Patient reports "my chest hurts and I just feel bad". Patient states that she has experienced chest pain, and not feeling well over the past 4 days with worsening symptoms over the same timeframe. Patient states that pain is 10/10, and "feels like someone is sitting on her chest", initially intermittent but has become more constant, crushing in nature, worsened with exertion, relieved with rest. EMS was notified and upon arrival the patient was found to be in distress and subsequently transported to [facility] for further care and evaluation of the aforementioned symptoms. The patient was seen and evaluated in the emergency department. All lab and imaging studies reviewed. Patient found to have clinical symptoms as well as lab findings consistent with CHF dec ompensation, as well as angina, acute kidney injury. Patient admitted to telemetry and initiated on CHF protocol as well as ACS protocol. Patient denies fever, chills, palpitations, productive cough, skin rash, recent ill contacts, or known exposure to COVID-19. Patient is fully vaccinated against COVID-19. Prior admission in 02/02/2021 reviewed. All medication listed at time of admission has been reconciled. Advanced care planning conducted in ED. Past History Past Medical History: acute [place], arthritis, COPD, diabetes, heart failure Past Surgical History: cholecystectomy, Other (Pacemaker placement, ICD placement, nephrectomy) Social history: single, smoking Family history: diabetes, hypertension Medications and Allergies Allergies Allergy/AdvReac Type Severity Reaction Status Date / Time divalproex sodium Allergy Anaphylaxis Verified 04/11/21 13:29 [From Depakote] heparin Allergy Swelling Verified 04/11/21 13:29 Iodinated Contrast Media Allergy Anaphylaxis Verified 04/11/21 13:29 [Iodinated Contrast Media - IV Dye] ketorolac tromethamine Allergy Angioedema Verified 04/11/21 13:29 [From Toradol] ondansetron HCl Allergy Itching Verified 04/11/21 13:29 [From Zofran (as hydrochloride)] Penicillins Allergy Anaphylaxis Verified 04/11/21 13:29 Home Medications Medication Instructions Recorded Confirmed Last Taken Type Albuterol Sulfate [Ventolin HFA] 2 puff IH Q4H PRN 10/03/14 01/22/21 1 Day Ago History ~01/21/21 DULoxetine [Cymbalta] 60 mg PO BID 12/12/14 01/22/21 2 Days Ago History ~01/20/21 traZODone [Desyrel] 100 mg PO QHS 12/12/14 01/22/21 2 Days Ago History ~01/20/21 clonazePAM [KlonoPIN] 1 mg PO TID 01/05/15 01/22/21 2 Days Ago History ~01/20/21 Insulin Aspart (Nf) [NovoLOG 7 - 12 units SQ AC 05/26/17 01/22/21 2 Days Ago History Flexpen] ~01/20/21 Morphine [Morphine TAB] 15 mg PO Q12H 05/26/17 01/22/21 2 Days Ago History ~01/20/21 Gabapentin 600 mg PO TID 01/22/21 01/22/21 2 Days Ago History ~01/20/21 Aspirin [Aspirin BABY CHEW TAB] 81 mg PO QDAY #30 tab.chew 01/27/21 Unknown Rx AtorvaSTATin [Lipitor] 40 mg PO QHS #30 tablet 01/27/21 Unknown Rx Budesonide/Formoterol Fumarate 10.2 gm IH BID #1 hfa.aer.ad 01/27/21 Unknown Rx [Symbicort 80-4.5 Mcg Inhaler] carvediloL [Coreg] 25 mg PO BID #60 tablet 01/27/21 Unknown Rx Furosemide [Lasix TAB] 40 mg PO QDAY PRN #30 02/04/21 01/22/21 2 Days Ago Rx ~01/20/21 Insulin Glargine [Lantus VIAL] 22 units SUB-Q QAM units 02/04/21 Unknown Rx hydrALAZINE [Apresoline TAB] 25 mg PO BID #60 tablet 02/04/21 Unknown Rx predniSONE 10 mg PO .TAPER #21 tab 02/04/21 Unknown Rx Review of Systems Constitutional: no weight loss, no weight gain, no fever, no chills Ears, nose, mouth and throat: no ear pain, no ear discharge, no decreased hearing, no nose pain, no sinus pressure Breasts: no change in shape, no swelling, no mass Cardiovascular: chest pain Respiratory: no cough, no cough with sputum, no excessive sputum Gastrointestinal: no abdominal pain, no nausea, no diarrhea, no constipation, no change in bowel habits Genitourinary Female: no pelvic pain, no flank pain, no dysuria, no urinary frequency, no urgency Rectal: no pain, no incontinence, no bleeding Musculoskeletal: no neck stiffness, no shooting arm pain, no low back pain, no shooting leg pain, no leg numbness/tingling Integumentary: no rash, no pruritis, no sores, no wounds, no boils Neurological: no head injury, no transient paralysis, no parathesias, no syncope Psychiatric: no anxiety, no memory loss, no change in sleep habits, no insomnia, no hypersomnia, no change in libido Endocrine: no cold intolerance, no polyphagia, no excessive thirst, no polyuria, no nocturia Hematologic/Lymphatic: no easy bruising, no easy bleeding Allergic/Immunologic: no urticaria, no allergic rhinitis, no wheezing Exam - Constitutional Vitals: Temp Pulse Resp BP Pulse Ox 98.6 F 102 H 20 147/98 95 04/11/21 13:25 04/11/21 17:39 04/11/21 17:39 04/11/21 13:25 04/11/21 16:29 General appearance: Present: mild distress - EENT Eyes: Present: PERRL ENT: hearing intact, clear oral mucosa - Neck Neck: Present: supple, normal ROM - Respiratory Respiratory effort: normal Respiratory: bilateral: CTA - Cardiovascular Heart Sounds: Present: S1 & S2. Absent: rub, click - Extremities Extremities: pulses symmetrical, No edema Peripheral Pulses: within normal limits - Abdominal General gastrointestinal: Present: soft, non-tender, non-distended, normal bowel sounds Female genitourinary: Present: normal - Integumentary Integumentary: Present: clear, warm, dry - Musculoskeletal Musculoskeletal: gait normal, strength equal bilaterally - Psychiatric Psychiatric: appropriate mood/affect, intact judgment & insight - Neurologic Neurologic: CNII-XII intact, moves all extremities HEART Score - HEART Score Troponin: Troponin T < 0.010 ng/mL (0.00-0.029) 04/11/21 16:19 Results - Labs CBC & Chem 7: 04/11/21 16:19 04/11/21 16:19 Labs: Abnormal lab results 04/11/21 04/11/21 Range/Units 16:19 16:19 RDW 15.3 H (13.2-15.2) % [place] % (Auto) 9.6 H (0.0-7.3) % Chloride 107.3 H (98-107) mmol/L Carbon Dioxide 21 L (22-30) mmol/L BUN 20 H (7-17) mg/dL Creatinine 1.7 H (0.6-1.2) mg/dL Glucose 252 H (65-100) mg/dL Alkaline Phosphatase 187 H (35-129) units/L NT-Pro-B Natriuret Pep 93974 H (0-900) pg/mL Assessment and Plan - Patient Problems (1) CHF (congestive heart failure), NYHA class IV Current Visit: Yes Status: Acute Qualifiers: Congestive heart failure chronicity: acute on chronic Plan to address problem: CHF protocol: Strict I/O, monitor urine output every shift, daily weight, afterload reduction, blood pressure control, supplemental oxygen, cardiology team consulted, echocardiogram from 01/25 reviewed, diuresis with Lasix. (2) Angina at rest Current Visit: Yes Status: Acute Plan to address problem: ACS protocol: Serial cardiac enzymes, EKG, telemetry monitoring, morphine, submental oxygen, nitro, aspirin, cardiology team consulted (3) Diabetes Current Visit: Yes Status: Acute Plan to address problem: Consistent carbohydrate diet, Accu-Chek, hypoglycemia protocol, insulin protocol. (4) Nicotine dependence Current Visit: Yes Status: Acute Qualifiers: Nicotine product type: cigarettes Substance use status: in withdrawal Qualified Code(s): F17.213 - Nicotine dependence, cigarettes, with withdrawal Plan to address problem: Smoking cessation counseling, supportive care, behavior change counseling, +15 minutes. (5) Hypertension Current Visit: No Status: Chronic Qualifiers: Hypertension type: primary hypertension Qualified Code(s): I10 - Essential (primary) hypertension Plan to address problem: Monitor blood pressure every shift, continue medical management. (6) Osteoarthritis Current Visit: Yes Status: Acute Plan to address problem: Pain control, supportive care. (7) Fibromyalgia Current Visit: Yes Status: Acute Plan to address problem: Supportive care, pain control, outpatient rheumatology follow-up. (8) DVT prophylaxis Current Visit: Yes Status: Acute Plan to address problem: SCD to bilateral lower extremities while in bed, patient is ambulatory (9) Advance care planning Current Visit: Yes Status: Acute Plan to address problem: Disease education conducted, care plan discussed, diagnoses discussed, prognosis discussed, patient is full code, patient knowledges understanding and agree with care plan, +30 minutes.
[2021-04-11] MEDS ORDERED: ACETAMINOPHEN 325 MG TAB PO PRN (18:13)
[2021-04-11] MEDS ORDERED: NITROGLYCERIN 0.4 MG TAB SUBL SL PRN (18:13)
[2021-04-11] MEDS ORDERED: HYDROmorphone 1 MG/1 ML INJ IV PRN (18:13)
[2021-04-11] MEDS ORDERED: oxyCODONE /ACETAMINOPHEN 5-325MG TAB PO PRN (18:13)
[2021-04-11] MEDS ORDERED: ONDANSETRON 4 MG/2 ML INJ IV PRN (18:13)
[2021-04-11] MEDS ORDERED: ALBUTEROL 2.5 MG/3 ML NEBU IH PRN (18:13)
[2021-04-11] MEDS ORDERED: DEXTROSE 50% IN WATER (25GM) 50 ML SYRINGE IV PRN (18:18)
[2021-04-11] MEDS ORDERED: ASPIRIN 81 MG TAB CHEW PO STA (18:18)
[2021-04-11] MEDS: fentaNYL 100 MCG/2 ML INJ IV ONE ×2 (18:50→19:18)
[2021-04-11] MEDS: carvediloL 25 MG TAB PO SCH (21:59)
[2021-04-11] MEDS: hydrALAZINE 25 MG TAB PO SCH (22:00)
[2021-04-11] MEDS: traZODone 50 MG TAB PO SCH (22:00)
[2021-04-11] MEDS: MORPHINE 15 MG TAB PO SCH (22:00)
[2021-04-11] MEDS: DULoxetine 30 MG CAP PO SCH (22:00)
[2021-04-11] MEDS: GABAPENTIN 300 MG CAP PO SCH (22:01)
[2021-04-11] MEDS: ARFORMOTEROL 15 MCG/2 ML NEBU IH SCH (22:25)
[2021-04-11] MEDS: BUDESONIDE 0.5 MG/2 ML NEBU IH SCH (22:25)
[2021-04-12] MEDS: INSULIN LISPRO 100 UNIT/ML SUB-Q SCH ×5 (00:45→23:44)
[2021-04-12 01:49] LABS: Basophils # (Auto) 0.1 K/mm3 (0.0-0.1); Basophils % (Auto) 0.9 % (0.0-1.8); Eosinophils # (Auto) 0.2 K/mm3 (0.0-0.4); Eosinophils % (Auto) 2.2 % (0.0-4.3); Hematocrit 33.5 % (30.3-42.9); Hemoglobin 10.8 gm/dl (10.1-14.3); Lymphocytes # (Auto) 1.2 K/mm3 (1.2-5.4); Lymphocytes % (Auto) 16.6 % (13.4-35.0); Mean Corpuscular HGB Conc 32 % (30-34); Mean Corpuscular Volume 88 fl (79-97); Monocytes # (Auto) 0.7 K/mm3 (0.0-0.8); Monocytes % (Auto) 9.3 % (0.0-7.3); Platelet Count 150 K/mm3 (140-440); Red Cell Distribution Width 15.2 % (13.2-15.2)
[2021-04-12 02:55] LABS: BUN/Creatinine Ratio 12; Blood Urea Nitrogen 20 mg/dL (7-17)
[2021-04-12 02:56] LABS: Calcium 9.2 mg/dL (8.4-10.2)
[2021-04-12] MEDS ORDERED: FUROSEMIDE 20 MG/2 ML INJ IV SCH (06:00)
[2021-04-12] MEDS: BUDESONIDE 0.5 MG/2 ML NEBU IH SCH ×2 (09:18→21:34)
[2021-04-12] MEDS: ARFORMOTEROL 15 MCG/2 ML NEBU IH SCH ×2 (09:18→21:34)
[2021-04-12] MEDS: carvediloL 25 MG TAB PO SCH ×2 (10:30→23:47)
[2021-04-12] MEDS: GABAPENTIN 300 MG CAP PO SCH ×3 (10:30→23:45)
[2021-04-12] MEDS: hydrALAZINE 25 MG TAB PO SCH ×2 (10:30→23:47)
[2021-04-12] MEDS: MORPHINE 15 MG TAB PO SCH ×2 (10:30→23:48)
[2021-04-12] MEDS: DULoxetine 30 MG CAP PO SCH ×2 (10:30→23:47)
--- NOTE | 2021-04-12 11:30 | Consultation ---
History of Present Illness Consult date: 04/12/21 Requesting physician: REJI SALMON Consult reason: shortness of breath History of present illness: The patient is well-known to me from the office. She has a history of chronic HFrEF, NICMP, COPD, and chronic respiratory failure on home oxygen, 2 L by nasal cannula. Five days ago, she claims that she went to receive steroid injection to her right shoulder for bursitis. Upon arrival home, she developed right-sided chest pain over the area of her biventricular ICD generator. On the next day, she started experiencing shortness of breath with wheezing which became progressive. She claims that she increased her home oxygen without adequate relief prompting eventual presentation to the ER. Past History Past Medical History: arrhythmia (PAT), arthritis, COPD, diabetes, heart failure (chronic HFrEF, EF: 15-20% in 01/24.), hypertension, renal failure, stroke (CVA and TIA), other (NICMP, lumbar DJD, CKD, frequent PVCs, normal coronary arteries 09/19, renal stones.) Past Surgical History: cholecystectomy, Other (Status post right radical nephrectomy, status post biventricular ICD implantation) Social history: single, smoking Family history: diabetes, hypertension Medications and Allergies Allergies Allergy/AdvReac Type Severity Reaction Status Date / Time divalproex sodium Allergy Anaphylaxis Verified 04/11/21 13:29 [From Depakote] heparin Allergy Swelling Verified 04/11/21 13:29 Iodinated Contrast Media Allergy Anaphylaxis Verified 04/11/21 13:29 [Iodinated Contrast Media - IV Dye] ketorolac tromethamine Allergy Angioedema Verified 04/11/21 13:29 [From Toradol] ondansetron HCl Allergy Itching Verified 04/11/21 13:29 [From Zofran (as hydrochloride)] Penicillins Allergy Anaphylaxis Verified 04/11/21 13:29 Home Medications Medication Instructions Recorded Confirmed Last Taken Type Albuterol Sulfate [Ventolin HFA] 2 puff IH Q4H PRN 10/03/14 04/11/21 1 Day Ago History ~01/21/21 DULoxetine [Cymbalta] 60 mg PO BID 12/12/14 04/11/21 2 Days Ago History ~01/20/21 traZODone [Desyrel] 100 mg PO QHS 12/12/14 04/11/21 2 Days Ago History ~01/20/21 clonazePAM [KlonoPIN] 1 mg PO TID 01/05/15 04/11/21 2 Days Ago History ~01/20/21 Insulin Aspart (Nf) [NovoLOG 7 - 12 units SQ AC 05/26/17 04/11/21 2 Days Ago History Flexpen] ~01/20/21 Morphine [Morphine TAB] 15 mg PO Q12H 05/26/17 04/11/21 2 Days Ago History ~01/20/21 Gabapentin 600 mg PO TID 01/22/21 04/11/21 2 Days Ago History ~01/20/21 Aspirin [Aspirin BABY CHEW TAB] 81 mg PO QDAY #30 tab.chew 01/27/21 04/11/21 Unknown Rx AtorvaSTATin [Lipitor] 40 mg PO QHS #30 tablet 01/27/21 04/11/21 Unknown Rx Budesonide/Formoterol Fumarate 10.2 gm IH BID #1 hfa.aer.ad 01/27/21 04/11/21 Unknown Rx [Symbicort 80-4.5 Mcg Inhaler] carvediloL [Coreg] 25 mg PO BID #60 tablet 01/27/21 04/11/21 Unknown Rx Furosemide [Lasix TAB] 40 mg PO QDAY PRN #30 02/04/21 04/11/21 2 Days Ago Rx ~01/20/21 Insulin Glargine [Lantus VIAL] 22 units SUB-Q QAM units 02/04/21 04/11/21 Unknown Rx hydrALAZINE [Apresoline TAB] 25 mg PO BID #60 tablet 02/04/21 04/11/21 Unknown Rx predniSONE 10 mg PO .TAPER #21 tab 02/04/21 04/11/21 Unknown Rx Active Meds: Active Medications Acetaminophen (Acetaminophen 325 Mg Tab) 650 mg PO Q4H PRN PRN Reason: Pain MILD(1-3)/Fever >100.5/HARPER Albuterol (Albuterol 2.5 Mg/3 Ml Nebu) 2.5 mg IH Q4HRT PRN PRN Reason: Shortness Of Breath Arformoterol Tartrate (Arformoterol 15 Mcg/2 Ml Nebu) 15 mcg IH Q12HRT ASHKAN Last Admin: 04/12/21 09:18 Dose: 15 mcg Documented by: Atorvastatin Calcium (Atorvastatin 40 Mg Tab) 40 mg PO QHS [facility] Last Admin: 04/11/21 22:01 Dose: 40 mg Documented by: Budesonide (Budesonide 0.5 Mg/2 Ml Nebu) 0.5 mg IH Q12HRT [facility] Last Admin: 04/12/21 09:18 Dose: 0.5 mg Documented by: Carvedilol (Carvedilol 25 Mg Tab) 25 mg PO BID [facility] Last Admin: 04/12/21 10:30 Dose: 25 mg Documented by: Clonazepam (Clonazepam 2 Mg Tab) 1 mg PO TID [facility] Last Admin: 04/12/21 10:30 Dose: 1 mg Documented by: Dextrose (Dextrose 50% In Water (25gm) 50 Ml Syringe) 50 ml IV Q30MIN PRN; Protocol PRN Reason: Hypoglycemia Duloxetine HCl (Duloxetine 30 Mg Cap) 60 mg PO BID [facility] Last Admin: 04/12/21 10:30 Dose: 60 mg Documented by: Furosemide (Furosemide 20 Mg/2 Ml Inj) 20 mg IV 0600,1800 [facility] Last Admin: 04/12/21 05:36 Dose: 20 mg Documented by: Gabapentin (Gabapentin 300 Mg Cap) 600 mg PO TID [facility] Last Admin: 04/12/21 10:30 Dose: 600 mg Documented by: Hydralazine HCl (Hydralazine 25 Mg Tab) 25 mg PO BID [facility] Last Admin: 04/12/21 10:30 Dose: 25 mg Documented by: Hydromorphone HCl (Hydromorphone 1 Mg/1 Ml Inj) 0.5 mg IV Q23H PRN PRN Reason: Pain , Severe (7-10) Insulin Human Lispro (Insulin Lispro 100 Unit/Ml) 0 unit SUB-Q Q6HR [facility]; P rotocol Last Admin: 04/12/21 05:36 Dose: Not Given Documented by: Morphine Sulfate (Morphine 15 Mg Tab) 15 mg PO Q12HR [facility] Last Admin: 04/12/21 10:30 Dose: 15 mg Documented by: Nitroglycerin (Nitroglycerin 0.4 Mg Tab Subl) 0.4 mg SL Q5M PRN PRN Reason: Chest Pain Ondansetron HCl (Ondansetron 4 Mg/2 Ml Inj) 4 mg IV Q8H PRN PRN Reason: Nausea And Vomiting Oxycodone/Acetaminophen (Oxycodone /Acetaminophen 5-325mg Tab) 1 tab PO Q16H PRN PRN Reason: Pain, Moderate (4-6) Sodium Chloride (Sodium Chloride 0.9% 10 Ml Flush Syringe) 10 ml IV BID [facility] Last Admin: 04/12/21 10:30 Dose: 10 ml Documented by: Sodium Chloride (Sodium Chloride 0.9% 10 Ml Flush Syringe) 10 ml IV PRN PRN PRN Reason: LINE FLUSH Trazodone HCl (Trazodone 50 Mg Tab) 100 mg PO QHS [facility] Last Admin: 04/11/21 22:00 Dose: 100 mg Documented by: Review of Systems Constitutional: no weight loss, no fever, no chills Ears, nose, mouth and throat: no ear pain, no ear discharge, no hoarseness, no sore throat Cardiovascular: chest pain, shortness of breath, no palpitations Respiratory: no cough, no hemoptysis Gastrointestinal: no abdominal pain, no nausea, no vomiting, no diarrhea, no constipation Genitourinary Female: no dysuria, no urinary frequency Rectal: no pain, no incontinence Musculoskeletal: no neck stiffness, no neck pain, no myalgias Integumentary: no rash, no pruritis Neurological: no weakness, no parathesias, no headaches Endocrine: no cold intolerance, no heat intolerance Hematologic/Lymphatic: no easy bruising, no easy bleeding Allergic/Immunologic: wheezing, no urticaria Physical Examination Vital Signs Last Vital Signs Temp 98.0 F 04/12/21 08:33 Pulse 99 H 04/12/21 09:21 Resp 17 04/12/21 09:21 BP 117/82 04/12/21 08:33 Pulse Ox 96 04/12/21 09:23 General appearance: no acute distress HEENT: Positive: EOMI, Normocephaly, Mucus Membranes Moist Neck: Positive: neck supple, trachea midline, Carotid Upstroke (full) Lungs: Positive: Decreased Breath Sounds Abdomen: Positive: Soft, Active Bowel Sounds. Negative: Tender Skin: Positive: Clear. Negative: Rash Musculoskeletal: Normal Range of Motion Extremities: Present: normal. Absent: edema Results 04/12/21 01:30 04/12/21 01:30 Cardiac Enzymes 04/11/21 Range/Units 16:19 AST 7 (5-40) units/L CBC 04/11/21 04/12/21 Range/Units 16:19 01:30 WBC 7.8 7.5 (4.5-11.0) K/mm3 RBC 4.37 3.80 (3.65-5.03) M/mm3 Hgb 12.1 10.8 (10.1-14.3) gm/dl Hct 38.1 33.5 (30.3-42.9) % Plt Count 160 150 (140-440) K/mm3 Lymph # (Auto) 1.8 1.2 (1.2-5.4) K/mm3 [place] # (Auto) 0.7 0.7 (0.0-0.8) K/mm3 Eos # (Auto) 0.1 0.2 (0.0-0.4) K/mm3 Baso # (Auto) 0.1 0.1 (0.0-0.1) K/mm3 Comprehensive Metabolic Panel 04/11/21 04/12/21 Range/Units 16:19 01:30 Sodium 142 141 (137-145) mmol/L Potassium 4.8 5.0 (3.6-5.0) mmol/L Chloride 107.3 H 105.2 (98-107) mmol/L Carbon Dioxide 21 L 21 L (22-30) mmol/L BUN 20 H 20 H (7-17) mg/dL Creatinine 1.7 H 1.7 H (0.6-1.2) mg/dL Glucose 252 H 252 H (65-100) mg/dL Calcium 9.2 9.2 (8.4-10.2) mg/dL AST 7 (5-40) units/L ALT 9 (7-56) units/L Alkaline Phosphatase 187 H (35-129) units/L Total Protein 6.7 (6.3-8.2) g/dL Albumin 4.1 (3.9-5) g/dL - Imaging and Cardiology EKG: image reviewed EKG interpretations Pacemaker: ventricular pacing w/capt, normal atrial sensing Assessment and Plan Consider pulmonary consultation to help manage her COPD exacerbation. Her atypical chest pain may be treated with analgesics. - Patient Problems (1) Acute and chronic respiratory failure Current Visit: Yes Status: Acute Qualifiers: Respiratory failure complication: hypoxia Qualified Code(s): J96.21 - Acute and chronic respiratory failure with hypoxia (2) COPD exacerbation Current Visit: Yes Status: Acute (3) Atypical chest pain Current Visit: Yes Status: Acute (4) Chronic HFrEF (heart failure with reduced ejection fraction) Current Visit: Yes Status: Chronic (5) NICM (nonischemic cardiomyopathy) Current Visit: Yes Status: Chronic (6) Biventricular implantable cardioverter-defibrillator (ICD) in situ Current Visit: Yes Status: Chronic (7) Chronic kidney disease Current Visit: Yes Status: Chronic (8) Hypertension Current Visit: Yes Status: Chronic Qualifiers: Hypertension type: primary hypertension Qualified Code(s): I10 - Essential (primary) hypertension (9) Normal coronary arteries Current Visit: Yes Status: Chronic (10) T2DM (type 2 diabetes mellitus) Current Visit: Yes Status: Chronic Qualifiers: 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
[2021-04-12] MEDS ORDERED: FUROSEMIDE 20 MG/2 ML INJ IV ONE (12:00)
[2021-04-12] MEDS ORDERED: FLU VACC QUAD 2021-22(6MOS UP)/PF 60 MCG/0.5 ML SYRINGE IM ONE (12:00)
--- NOTE | 2021-04-12 12:41 | Progress Note ---
Assessment and Plan Assessment and plan: 55 YO Female with HTN, Systolic CHF(EF 15%) NYHA Class 4 noncompliant with home oxygen, CVA, OH, COPD, OA, DM, Fibromyalgia, Nicotine Dependence, Crohns Disease, Nephrolithiasis, DVT no on therapeutic anticoagulation presents with acute on chronic systolic heart failure. #Acute on chronic systolic heart failure (NYHA class IV) #Angina at rest -Chest x-ray suggestive of interstitial edema without danelle opacities/consolidation. Troponins negative x2. Status post ASA 325 mg x 1 in ED. -Continue strict I's/O, daily weights, fluid restriction 1.5 L/day, telemetry. -Continue IV Lasix 40 mg twice daily. Consider decreasing to IV 20 mg daily tomorrow. -Pending TTE. -Cardiology consulted; appreciate recs -Continue cardiac/carbohydrate diet #Acute on chronic hypoxic respiratory failure #COPD exacerbation -Baseline oxygen requirements 2 L. Currently on 3 L -Ordering DuoNebs and albuterol nebs as needed. -Starting IV azithromycin 500 mg daily and Rocephin 1 g every 24 daily and p.o. prednisone 40 mg daily for possible COPD exacerbation. -Pulmonology consulted; pending recs -Continue to monitor #Diabetes mellitus type 2 -Continue Accu-Cheks with meals and SSI -Blood glucose goal [id number] while inpatient -Continue to monitor #Hypertension -Currently normotensive -Continue antihypertensives #Osteoarthritis -Continue as needed analgesics. Continue to monitor #Fibromyalgia -Continue as needed analgesics. Patient will need rheumatology follow-up in o utpatient setting. Continue to monitor. #Tobacco dependence #Smoking cessation counseling -Counseled patient about importance of smoking cessation in the setting of significant cardiac history, diabetes, and COPD. Patient expressed understanding. -Time: +15 minutes #Advanced care planning -Disease education conducted, care plan discussed, diagnoses discussed, prognosis discussed, and patient acknowledges understanding with care plan -Time: +20 minutes Disposition Plan: Continue medical management Total Time Spent with Patient (Minutes): 40 minutes History Interval history: No acute events overnight. Hospitalist Physical - Constitutional Vitals: Temp Pulse Resp BP Pulse Ox 98.0 F 99 H 17 117/82 96 04/12/21 08:33 04/12/21 09:21 04/12/21 09:21 04/12/21 08:33 04/12/21 09:23 General appearance: Present: mild distress, well-nourished - EENT Eyes: Present: PERRL, EOM intact ENT: hearing intact, clear oral mucosa, dentition normal - Neck Neck: Present: supple, normal ROM - Respiratory Respiratory effort: normal (On 3 L nasal cannula) Respiratory: bilateral: diminished - Cardiovascular Rhythm: regular Heart Sounds: Present: S1 & S2 - Extremities Extremities: no ischemia, pulses intact, pulses symmetrical, No edema, normal temperature, normal color Peripheral Pulses: within normal limits - Abdominal General gastrointestinal: soft, non-tender, non-distended, normal bowel sounds - Integumentary Integumentary: Present: clear, warm, dry - Psychiatric Psychiatric: appropriate mood/affect, intact judgment & insight, memory intact, cooperative, depressed - Neurologic Neurologic: CNII-XII intact, moves all extremities - Allied Health Allied health notes reviewed: nursing HEART Score - HEART Score EKG: Non-specific Age: 45-65 Risk factors: > 3 risk factors or hx of atherosclerotic disease Troponin: Troponin T < 0.010 ng/mL (0.00-0.029) 04/12/21 01:30 Troponin: < normal limit Results - Labs CBC & Chem 7: 04/12/21 01:30 04/12/21 01:30 Labs: Laboratory Last Values WBC 7.5 K/mm3 (4.5-11.0) 04/12/21 01:30 RBC 3.80 M/mm3 (3.65-5.03) 04/12/21 01:30 Hgb 10.8 gm/dl (10.1-14.3) 04/12/21 01:30 Hct 33.5 % (30.3-42.9) 04/12/21 01:30 MCV 88 fl (79-97) 04/12/21 01:30 MCH 28 pg (28-32) 04/12/21 01:30 MCHC 32 % (30-34) 04/12/21 01:30 RDW 15.2 % (13.2-15.2) 04/12/21 01:30 Plt Count 150 K/mm3 (140-440) 04/12/21 01:30 Lymph % (Auto) 16.6 % (13.4-35.0) 04/12/21 01:30 [place] % (Auto) 9.3 % (0.0-7.3) H 04/12/21 01:30 Eos % (Auto) 2.2 % (0.0-4.3) 04/12/21 01:30 Baso % (Auto) 0.9 % (0.0-1.8) 04/12/21 01:30 Lymph # (Auto) 1.2 K/mm3 (1.2-5.4) 04/12/21 01:30 [place] # (Auto) 0.7 K/mm3 (0.0-0.8) 04/12/21 01:30 Eos # (Auto) 0.2 K/mm3 (0.0-0.4) 04/12/21 01:30 Baso # (Auto) 0.1 K/mm3 (0.0-0.1) 04/12/21 01:30 Seg Neutrophils % 71.0 % (40.0-70.0) H 04/12/21 01:30 Seg Neutrophils # 5.3 K/mm3 (1.8-7.7) 04/12/21 01:30 Sodium 141 mmol/L (137-145) 04/12/21 01:30 Potassium 5.0 mmol/L (3.6-5.0) 04/12/21 01:30 Chloride 105.2 mmol/L (98-107) 04/12/21 01:30 Carbon Dioxide 21 mmol/L (22-30) L 04/12/21 01:30 Anion Gap 20 mmol/L 04/12/21 01:30 BUN 20 mg/dL (7-17) H 04/12/21 01:30 Creatinine 1.7 mg/dL (0.6-1.2) H 04/12/21 01:30 Estimated GFR 38 ml/min 04/12/21 01:30 BUN/Creatinine Ratio 12 % 04/12/21 01:30 Glucose 252 mg/dL (65-100) H 04/12/21 01:30 POC Glucose 80 mg/dL (70-105) 04/12/21 05:20 Calcium 9.2 mg/dL (8.4-10.2) 04/12/21 01:30 Total Bilirubin 0.40 mg/dL (0.1-1.2) 04/11/21 16:19 AST 7 units/L (5-40) 04/11/21 16:19 ALT 9 units/L (7-56) 04/11/21 16:19 Alkaline Phosphatase 187 units/L (35-129) H 04/11/21 16:19 Troponin T < 0.010 ng/mL (0.00-0.029) 04/12/21 01:30 NT-Pro-B Natriuret Pep 28321 pg/mL (0-900) H 04/11/21 16:19 Total Protein 6.7 g/dL (6.3-8.2) 04/11/21 16:19 Albumin 4.1 g/dL (3.9-5) 04/11/21 16:19 Albumin/Globulin Ratio 1.6 % 04/11/21 16:19 Torres/IV: Voiding Method Toilet Active Medications - Current Medications Current Medications: Generic Name Dose Route Start Last Admin Trade Name Freq PRN Reason Stop Dose Admin Acetaminophen 650 mg 04/11/21 18:13 Acetaminophen 325 Mg Tab PO Q4H PRN Pain MILD(1-3)/Fever >100.5/HARPER Albuterol 2.5 mg 04/11/21 18:13 Albuterol 2.5 Mg/3 Ml Nebu IH Q4HRT PRN Shortness Of Breath Arformoterol Tartrate 15 mcg 04/11/21 20:00 04/12/21 09:18 Arformoterol 15 Mcg/2 Ml Nebu IH 15 mcg Q12HRT ASHKAN Administration Atorvastatin Calcium 40 mg 04/11/21 22:00 04/11/21 22:01 Atorvastatin 40 Mg Tab PO 40 mg QHS ASHKAN Administration Budesonide 0.5 mg 04/11/21 20:00 04/12/21 09:18 Budesonide 0.5 Mg/2 Ml Nebu IH 0.5 mg Q12HRT ASHKAN Administration Carvedilol 25 mg 04/11/21 22:00 04/12/21 10:30 Carvedilol 25 Mg Tab PO 25 mg BID ASHKAN Administration Clonazepam 1 mg 04/11/21 20:00 04/12/21 10:30 Clonazepam 2 Mg Tab PO 1 mg TID ASHKAN Administration Dextrose 50 ml 04/11/21 18:18 Dextrose 50% In Water (25gm) 50 Ml Syringe IV Q30MIN PRN Hypoglycemia Protocol Duloxetine HCl 60 mg 04/11/21 22:00 04/12/21 10:30 Duloxetine 30 Mg Cap PO 60 mg BID ASHKAN Administration Furosemide 40 mg 04/12/21 18:00 Furosemide 40 Mg/4 Ml Inj IV 0600,1800 [facility] Gabapentin 600 mg 04/11/21 20:00 04/12/21 10:30 Gabapentin 300 Mg Cap PO 600 mg TID ASHKAN Administration Hydralazine HCl 25 mg 04/11/21 22:00 04/12/21 10:30 Hydralazine 25 Mg Tab PO 25 mg BID [facility] Administration Hydromorphone HCl 0.5 mg 04/11/21 18:13 Hydromorphone 1 Mg/1 Ml Inj IV Q23H PRN Pain , Severe (7-10) Azithromycin 500 mg in 250 mls @ 250 mls/hr 04/12/21 13:00 Zithromax/Ns IV Q24H [facility] Ceftriaxone Sodium 1 gm in 50 mls @ 100 mls/hr 04/12/21 13:00 Rocephin/Ns 1 Gm/50 Ml IV Q24H [facility] Protocol Insulin Human Lispro 0 unit 04/12/21 00:00 04/12/21 05:36 Insulin Lispro 100 Unit/Ml SUB-Q Not Given Q6HR [facility] Protocol Morphine Sulfate 15 mg 04/11/21 22:00 04/12/21 10:30 Morphine 15 Mg Tab PO 15 mg Q12HR [facility] Administration Nitroglycerin 0.4 mg 04/11/21 18:13 Nitroglycerin 0.4 Mg Tab Subl SL Q5M PRN Chest Pain Ondansetron HCl 4 mg 04/11/21 18:13 Ondansetron 4 Mg/2 Ml Inj IV Q8H PRN Nausea And Vomiting Oxycodone/Acetaminophen 1 tab 04/11/21 18:13 Oxycodone /Acetaminophen 5-325mg Tab PO Q16H PRN Pain, Moderate (4-6) Sodium Chloride 10 ml 04/11/21 22:00 04/12/21 10:30 Sodium Chloride 0.9% 10 Ml Flush Syringe IV 10 ml BID ASHKAN Administration Sodium Chloride 10 ml 04/11/21 18:13 Sodium Chloride 0.9% 10 Ml Flush Syringe IV PRN PRN LINE FLUSH Trazodone HCl 100 mg 04/11/21 22:00 04/11/21 22:00 Trazodone 50 Mg Tab PO 100 mg QHS ASHKNA Administration
[2021-04-12] MEDS: FUROSEMIDE 40 MG/4 ML INJ IV SCH (17:09)
[2021-04-12] MEDS: cefTRIAXone/NS 1 GM/50 ML 1 GM/50 ML BAG IV SCH (17:24)
[2021-04-12] MEDS: AZITHROMYCIN/NS 500 MG/250 ML 500 MG/250 ML BAG IV SCH (17:49)
[2021-04-12] MEDS: traZODone 50 MG TAB PO SCH (23:47)
[2021-04-13] MEDS: FUROSEMIDE 40 MG/4 ML INJ IV SCH (06:14)
[2021-04-13] MEDS: INSULIN LISPRO 100 UNIT/ML SUB-Q SCH ×3 (06:22→18:07)
[2021-04-13 06:59] LABS: Basophils % (Auto) 0.4 % (0.0-1.8); Eosinophils # (Auto) 0.2 K/mm3 (0.0-0.4); Eosinophils % (Auto) 2.4 % (0.0-4.3); Hematocrit 34.2 % (30.3-42.9); Hemoglobin 10.9 gm/dl (10.1-14.3); Lymphocytes # (Auto) 1.7 K/mm3 (1.2-5.4); Lymphocytes % (Auto) 22.8 % (13.4-35.0); Mean Corpuscular HGB Conc 32 % (30-34); Mean Corpuscular Volume 89 fl (79-97); Monocytes # (Auto) 0.8 K/mm3 (0.0-0.8); Monocytes % (Auto) 10.5 % (0.0-7.3); Platelet Count 164 K/mm3 (140-440); Red Blood Count 3.84 M/mm3 (3.65-5.03); Red Cell Distribution Width 15.1 % (13.2-15.2)
[2021-04-13 07:02] LABS: Calcium 8.6 mg/dL (8.4-10.2)
[2021-04-13] MEDS ORDERED: LACTATED RINGERS 1,000 ML IV ONE (08:00)
[2021-04-13] MEDS: GABAPENTIN 300 MG CAP PO SCH (08:40)
[2021-04-13] MEDS: ARFORMOTEROL 15 MCG/2 ML NEBU IH SCH ×2 (09:58→20:36)
[2021-04-13] MEDS: BUDESONIDE 0.5 MG/2 ML NEBU IH SCH ×2 (09:58→20:36)
[2021-04-13] MEDS: oxyCODONE /ACETAMINOPHEN 5-325MG TAB PO SCH ×2 (10:24→16:11)
[2021-04-13] MEDS: carvediloL 25 MG TAB PO SCH ×2 (10:25→22:18)
[2021-04-13] MEDS: DULoxetine 30 MG CAP PO SCH ×2 (10:25→22:18)
[2021-04-13] MEDS: hydrALAZINE 25 MG TAB PO SCH ×2 (10:25→22:18)
--- NOTE | 2021-04-13 11:40 | Electrocardiograph Report ---
[facility] Test Date: 2021-04-11 Test Time: 17:57:55 Pat Name: GISELLA HERRERA Department: Room: A465 1 Gender: F Health Care Analyst: TYE : 1965 Requested By: REJI SALMON Order Number: [id number] Reading MD: Fabio Somers Measurements Intervals [place] Rate: 89 P: 44 [place]: 130 QRS: -76 QRSD: 135 T: 90 QT: 407 QTc: 495 Interpretive Statements Atrial-sensed ventricular-paced rhythm Compared to ECG 02/02/2021 11:07:05 No significant changes Electronically Signed On 04-13-2021 11:39:55 EST by Fabio Somers
--- NOTE | 2021-04-13 11:44 | Electrocardiograph Report ---
[facility] Test Date: 2021-04-12 Test Time: 07:21:11 Pat Name: GISELLA HERRERA Department: Room: A465 1 Gender: F Records Clerk: KRISTIAN : 1965 Requested By: MADELIN BRIGGS Order Number: [id number] Reading MD: Fabio Somers Measurements Intervals [place] Rate: 72 P: 113 [place]: 175 QRS: 231 QRSD: 126 T: 221 QT: 468 QTc: 512 Interpretive Statements Atrial-sensed ventricular-paced rhythm Compared to ECG 04/11/2021 17:57:55 No significant changes Electronically Signed On 04-13-2021 11:44:26 EST by Fabio Somers
--- NOTE | 2021-04-13 11:45 | Electrocardiograph Report ---
[facility] Test Date: 2021-04-12 Test Time: 10:18:02 Pat Name: GISELLA HERRERA Department: Room: A465 1 Gender: F Therapist Asst: KRISTIAN : 1965 Requested By: REJI SALMON Order Number: [id number] Reading MD: Fabio Somers Measurements Intervals [place] Rate: 75 P: 113 [place]: 128 QRS: 260 QRSD: 128 T: QT: 458 QTc: 512 Interpretive Statements Atrial-sensed ventricular-paced rhythm Compared to ECG 04/12/2021 07:21:11 No significant changes Electronically Signed On 04-13-2021 11:45:25 EST by Fabio Somers
[2021-04-13] MEDS: AZITHROMYCIN/NS 500 MG/250 ML 500 MG/250 ML BAG IV SCH (13:16)
--- NOTE | 2021-04-13 13:51 | Progress Note ---
Assessment and Plan Assessment and plan: 55 YO Female with HTN, Systolic CHF(EF 15%) NYHA Class 4 noncompliant with home oxygen, CVA, [place], COPD, OA, DM, Fibromyalgia, Nicotine Dependence, Crohns Disease, Nephrolithiasis, DVT no on therapeutic anticoagulation presents with acute on chronic systolic heart failure. #Acute on chronic systolic heart failure (NYHA class IV)-resolved #Angina at rest -Chest x-ray suggestive of interstitial edema without danelle opacities/consolidation. Troponins negative x2. Status post ASA 325 mg x 1 in ED. -Continue strict I's/O, daily weights, fluid restriction 1.5 L/day, telemetry. -Discontinued IV Lasix in the setting of DOUGLAS. We will continue to monitor daily. -Cardiology consulted; appreciate recs -Continue cardiac/carbohydrate diet #Acute on chronic hypoxic respiratory failure #COPD exacerbation -Baseline oxygen requirements 2 L. Currently on 3 L -Ordering DuoNebs and albuterol nebs as needed. -Continue IV azithromycin 500 mg daily and Rocephin 1 g every 24 daily and p.o. prednisone 40 mg daily for possible COPD exacerbation. -Pulmonology consulted; pending recs -Continue to monitor #Prerenal DOUGLAS -Creatinine 2.5 (previously 1.7) -Likely secondary to IV diuresis. Stopping diuresis. Gentle hydration with IV fluid (1 L given at 200 cc/hour). -We will continue to monitor #Diabetes mellitus type 2 -Continue Accu-Cheks with meals and SSI -Blood glucose goal [id number] while inpatient -Continue to monitor #Hypertension -Currently normotensive -Continue antihypertensives #Osteoarthritis -Continue as needed analgesics. Continue to monitor #Fibromyalgia -Continue as needed analgesics. Patient will need rheumatology follow-up in outpatient setting. Continue to monitor. #Tobacco dependence #Smoking cessation counseling -Counseled patient about importance of smoking cessation in the setting of significant cardiac history, diabetes, and COPD. Patient expressed understanding. -Time: +15 minutes #Pain management -Patient endorses taking p.o. morphine sulfate 15 mg every 12 hours, oxycodone as needed, and Flexeril 10 mg daily -Discontinuing morphine sulfate 15 mg every 12 hours in the setting of respiratory depression last night requiring sternal rub -Scheduling oxycodone (1 tab) every 6 hours and Flexeril 10 mg. For breakthrough pain IV morphine 2 mg every 6 hours as needed. -Continue to monitor #Advanced care planning -Disease education conducted, care plan discussed, diagnoses discussed, prognosis discussed, and patient acknowledges understanding with care plan -Time: +20 minutes Disposition Plan: Continue medical management Total Time Spent with Patient (Minutes): 40 minutes History Interval history: There were 2 episodes where the patient was found to be difficult to arouse and required sternal rub. It is presumed that the patient's outpatient analgesic management is the etiology, and opiates were held. Hospitalist Physical - Constitutional Vitals: Temp Pulse Resp BP Pulse Ox 99.2 F 85 18 134/81 97 04/13/21 03:24 04/13/21 10:00 04/13/21 10:00 04/13/21 03:24 04/13/21 10:00 General appearance: Present: mild distress, well-nourished - EENT Eyes: Present: PERRL, EOM intact ENT: hearing intact, clear oral mucosa, edentulous - Neck Neck: Present: supple, normal ROM - Respiratory Respiratory effort: normal - Cardiovascular Rhythm: regular Heart Sounds: Present: S1 & S2 - Extremities Extremities: no ischemia, pulses intact, pulses symmetrical, No edema, normal temperature, normal color Extremity abnormal: tenderness (Tenderness of right shoulder and left lower extremity (chronic pain)) Peripheral Pulses: within normal limits - Abdominal General gastrointestinal: soft, non-tender, non-distended, normal bowel sounds - Integumentary Integumentary: Present: clear, warm, dry - Psychiatric Psychiatric: appropriate mood/affect, memory intact, cooperative - Neurologic Neurologic: CNII-XII intact, moves all extremities - Allied Health Allied health notes reviewed: nursing HEART Score - HEART Score EKG: Non-specific Age: 45-65 Risk factors: > 3 risk factors or hx of atherosclerotic disease Troponin: Troponin T < 0.010 ng/mL (0.00-0.029) 04/12/21 01:30 Troponin: < normal limit Results - Labs CBC & Chem 7: 04/13/21 06:15 04/13/21 06:15 Labs: Laboratory Last Values WBC 7.4 K/mm3 (4.5-11.0) 04/13/21 06:15 RBC 3.84 M/mm3 (3.65-5.03) 04/13/21 06:15 Hgb 10.9 gm/dl (10.1-14.3) 04/13/21 06:15 Hct 34.2 % (30.3-42.9) 04/13/21 06:15 MCV 89 fl (79-97) 04/13/21 06:15 MCH 28 pg (28-32) 04/13/21 06:15 MCHC 32 % (30-34) 04/13/21 06:15 RDW 15.1 % (13.2-15.2) 04/13/21 06:15 Plt Count 164 K/mm3 (140-440) 04/13/21 06:15 Lymph % (Auto) 22.8 % (13.4-35.0) 04/13/21 06:15 [place] % (Auto) 10.5 % (0.0-7.3) H 04/13/21 06:15 Eos % (Auto) 2.4 % (0.0-4.3) 04/13/21 06:15 Baso % (Auto) 0.4 % (0.0-1.8) 04/13/21 06:15 Lymph # (Auto) 1.7 K/mm3 (1.2-5.4) 04/13/21 06:15 [place] # (Auto) 0.8 K/mm3 (0.0-0.8) 04/13/21 06:15 Eos # (Auto) 0.2 K/mm3 (0.0-0.4) 04/13/21 06:15 Baso # (Auto) 0.0 K/mm3 (0.0-0.1) 04/13/21 06:15 Seg Neutrophils % 63.9 % (40.0-70.0) 04/13/21 06:15 Seg Neutrophils # 4.7 K/mm3 (1.8-7.7) 04/13/21 06:15 Sodium 142 mmol/L (137-145) 04/13/21 06:15 Potassium 4.8 mmol/L (3.6-5.0) 04/13/21 06:15 Chloride 106.5 mmol/L (98-107) 04/13/21 06:15 Carbon Dioxide 24 mmol/L (22-30) 04/13/21 06:15 Anion Gap 16 mmol/L 04/13/21 06:15 BUN 34 mg/dL (7-17) H 04/13/21 06:15 Creatinine 2.5 mg/dL (0.6-1.2) H 04/13/21 06:15 Estimated GFR 24 ml/min 04/13/21 06:15 BUN/Creatinine Ratio 14 % 04/13/21 06:15 Glucose 175 mg/dL (65-100) H 04/13/21 06:15 POC Glucose 263 mg/dL (70-105) H 04/13/21 11:49 Calcium 8.6 mg/dL (8.4-10.2) 04/13/21 06:15 Phosphorus 4.00 mg/dL (2.5-4.5) 04/13/21 06:15 Magnesium 2.10 mg/dL (1.7-2.3) 04/13/21 06:15 Total Bilirubin 0.40 mg/dL (0.1-1.2) 04/11/21 16:19 AST 7 units/L (5-40) 04/11/21 16:19 ALT 9 units/L (7-56) 04/11/21 16:19 Alkaline Phosphatase 187 units/L (35-129) H 04/11/21 16:19 Troponin T < 0.010 ng/mL (0.00-0.029) 04/12/21 01:30 NT-Pro-B Natriuret Pep 19127 pg/mL (0-900) H 04/11/21 16:19 Total Protein 6.7 g/dL (6.3-8.2) 04/11/21 16:19 Albumin 4.1 g/dL (3.9-5) 04/11/21 16:19 Albumin/Globulin Ratio 1.6 % 04/11/21 16:19 Torres/IV: Voiding Method Toilet Active Medications - Current Medications Current Medications: Generic Name Dose Route Start Last Admin Trade Name Freq PRN Reason Stop Dose Admin Acetaminophen 650 mg 04/11/21 18:13 Acetaminophen 325 Mg Tab PO Q4H PRN Pain MILD(1-3)/Fever >100.5/HARPER Albuterol 2.5 mg 04/11/21 18:13 Albuterol 2.5 Mg/3 Ml Nebu IH Q4HRT PRN Shortness Of Breath Arformoterol Tartrate 15 mcg 04/11/21 20:00 04/13/21 09:58 Arformoterol 15 Mcg/2 Ml Nebu IH 15 mcg Q12HRT ASHKAN Administration Atorvastatin Calcium 40 mg 04/11/21 22:00 04/12/21 23:48 Atorvastatin 40 Mg Tab PO Not Given QHS ASHKAN Budesonide 0.5 mg 04/11/21 20:00 04/13/21 09:58 Budesonide 0.5 Mg/2 Ml Nebu IH 0.5 mg Q12HRT ASHKAN Administration Carvedilol 25 mg 04/11/21 22:00 04/13/21 10:25 Carvedilol 25 Mg Tab PO 25 mg BID ASHKAN Administration Clonazepam 1 mg 04/13/21 09:54 Clonazepam 2 Mg Tab PO TID PRN Delerium Cyclobenzaprine HCl 5 mg 04/13/21 14:00 Cyclobenzaprine 10 Mg Tab PO TID ASHKAN Dextrose 50 ml 04/11/21 18:18 Dextrose 50% In Water (25gm) 50 Ml Syringe IV Q30MIN PRN Hypoglycemia Protocol Duloxetine HCl 60 mg 04/11/21 22:00 04/13/21 10:25 Duloxetine 30 Mg Cap PO 60 mg BID ASHKAN Administration Hydralazine HCl 25 mg 04/11/21 22:00 04/13/21 10:25 Hydralazine 25 Mg Tab PO 25 mg BID ASHKAN Administration Azithromycin 500 mg in 250 mls @ 250 mls/hr 04/12/21 13:00 04/12/21 17:49 Zithromax/Ns IV 250 mls/hr Q24H ASHKAN Administration Ceftriaxone Sodium 1 gm in 50 mls @ 100 mls/hr 04/12/21 13:00 04/12/21 17:24 Rocephin/Ns 1 Gm/50 Ml IV 100 mls/hr Q24H ASHKAN Administration Protocol Insulin Human Lispro 0 unit 04/12/21 00:00 04/13/21 06:22 Insulin Lispro 100 Unit/Ml SUB-Q Not Given Q6HR [facility] Protocol Nitroglycerin 0.4 mg 04/11/21 18:13 Nitroglycerin 0.4 Mg Tab Subl SL Q5M PRN Chest Pain Ondansetron HCl 4 mg 04/11/21 18:13 Ondansetron 4 Mg/2 Ml Inj IV Q8H PRN Nausea And Vomiting Oxycodone/Acetaminophen 1 tab 04/13/21 10:00 04/13/21 10:24 Oxycodone /Acetaminophen 5-325mg Tab PO 1 tab Q6H ASHKAN Administration Sodium Chloride 10 ml 04/11/21 22:00 04/13/21 10:24 Sodium Chloride 0.9% 10 Ml Flush Syringe IV 10 ml BID ASHKAN Administration Sodium Chloride 10 ml 04/11/21 18:13 Sodium Chloride 0.9% 10 Ml Flush Syringe IV PRN PRN LINE FLUSH Trazodone HCl 100 mg 04/11/21 22:00 04/12/21 23:47 Trazodone 50 Mg Tab PO Not Given QHS ASHKAN
[2021-04-13] MEDS ORDERED: MORPHINE 2 MG/1 ML INJ IV PRN (13:53)
[2021-04-13] MEDS: cefTRIAXone/NS 1 GM/50 ML 1 GM/50 ML BAG IV SCH (14:15)
[2021-04-13] MEDS: CYCLOBENZAPRINE 10 MG TAB PO SCH ×2 (14:16→22:20)
--- NOTE | 2021-04-13 14:24 | Progress Note ---
Assessment and Plan I agree with holding diuretics. Her major problem on this admission is COPD exacerbation. Obtain BMP in AM. - Patient Problems (1) Acute and chronic respiratory failure Current Visit: Yes Status: Acute Qualifiers: Respiratory failure complication: hypoxia Qualified Code(s): J96.21 - Acute and chronic respiratory failure with hypoxia (2) COPD exacerbation Current Visit: Yes Status: Acute (3) Atypical chest pain Current Visit: Yes Status: Acute (4) Chronic HFrEF (heart failure with reduced ejection fraction) Current Visit: Yes Status: Chronic (5) NICM (nonischemic cardiomyopathy) Current Visit: Yes Status: Chronic (6) Biventricular implantable cardioverter-defibrillator (ICD) in situ Current Visit: Yes Status: Chronic (7) Chronic kidney disease Current Visit: Yes Status: Chronic (8) Hypertension Current Visit: Yes Status: Chronic Qualifiers: Hypertension type: primary hypertension Qualified Code(s): I10 - Essential (primary) hypertension (9) Normal coronary arteries Current Visit: Yes Status: Chronic (10) T2DM (type 2 diabetes mellitus) Current Visit: Yes Status: Chronic Qualifiers: Diabetes mellitus halfway insulin use: unspecified halfway insulin use status (11) H/O right radical nephrectomy Current Visit: Yes Status: Chronic (12) H/O paroxysmal atrial tachycardia Current Visit: No Status: Chronic (13) H/O: CVA (cerebrovascular accident) Current Visit: No Status: Chronic Subjective Date of service: 04/13/21 Principal diagnosis: COPD exacerbation Interval history: She feels much better today. She's less short of breath the breath. Creatinine has increased. Objective Vital Signs Temp Pulse Pulse Resp Resp BP Pulse Ox 04/13/21 10:00 85 18 97 04/13/21 08:16 87 95 04/13/21 03:24 99.2 F 87 18 134/81 92 04/13/21 00:00 78 04/12/21 23:12 98.6 F 78 18 112/82 93 04/12/21 21:37 77 16 04/12/21 21:36 96 04/12/21 19:53 98 04/12/21 19:08 98.1 F 79 19 115/95 97 04/12/21 16:29 98.2 F 72 18 120/66 95 04/12/21 16:10 70 - Physical Examination General: No Apparent Distress HEENT: Positive: EOMI, Normocephaly, Mucus Membranes Moist Neck: Positive: neck supple, trachea midline, Carotid Upstroke (full) Cardiac: Positive: Reg Rate and Rhythm, S1/S2 Lungs: Positive: clear to auscultation Neuro: Positive: Grossly Intact Abdomen: Positive: Soft, Active Bowel Sounds. Negative: Tender Skin: Positive: Clear. Negative: Rash Musculoskeletal: Normal Range of Motion Extremities: Present: normal. Absent: edema - Labs and Meds CBC 04/13/21 Range/Units 06:15 WBC 7.4 (4.5-11.0) K/mm3 RBC 3.84 (3.65-5.03) M/mm3 Hgb 10.9 (10.1-14.3) gm/dl Hct 34.2 (30.3-42.9) % Plt Count 164 (140-440) K/mm3 Lymph # (Auto) 1.7 (1.2-5.4) K/mm3 [place] # (Auto) 0.8 (0.0-0.8) K/mm3 Eos # (Auto) 0.2 (0.0-0.4) K/mm3 Baso # (Auto) 0.0 (0.0-0.1) K/mm3 Comprehensive Metabolic Panel 04/13/21 Range/Units 06:15 Sodium 142 (137-145) mmol/L Potassium 4.8 (3.6-5.0) mmol/L Chloride 106.5 (98-107) mmol/L Carbon Dioxide 24 (22-30) mmol/L BUN 34 H (7-17) mg/dL Creatinine 2.5 H (0.6-1.2) mg/dL Glucose 175 H (65-100) mg/dL Calcium 8.6 (8.4-10.2) mg/dL - Imaging and Cardiology EKG: image reviewed Pacemaker: ventricular pacing w/capt, normal atrial sensing
[2021-04-13] MEDS: traZODone 50 MG TAB PO SCH (22:17)
[2021-04-14] MEDS: INSULIN LISPRO 100 UNIT/ML SUB-Q SCH ×3 (00:13→17:28)
[2021-04-14] MEDS: oxyCODONE /ACETAMINOPHEN 5-325MG TAB PO SCH ×4 (00:14→17:28)
[2021-04-14 06:42] LABS: Basophils % (Auto) 0.6 % (0.0-1.8); Eosinophils # (Auto) 0.3 K/mm3 (0.0-0.4); Eosinophils % (Auto) 4.6 % (0.0-4.3); Hematocrit 33.6 % (30.3-42.9); Hemoglobin 10.7 gm/dl (10.1-14.3); Lymphocytes # (Auto) 1.8 K/mm3 (1.2-5.4); Lymphocytes % (Auto) 28.4 % (13.4-35.0); Mean Corpuscular HGB Conc 32 % (30-34); Mean Corpuscular Volume 88 fl (79-97); Monocytes # (Auto) 0.8 K/mm3 (0.0-0.8); Platelet Count 161 K/mm3 (140-440); Red Blood Count 3.83 M/mm3 (3.65-5.03); Red Cell Distribution Width 15.1 % (13.2-15.2)
[2021-04-14 06:59] LABS: Calcium 8.4 mg/dL (8.4-10.2)
[2021-04-14] MEDS: BUDESONIDE 0.5 MG/2 ML NEBU IH SCH ×2 (09:15→21:19)
[2021-04-14] MEDS: ARFORMOTEROL 15 MCG/2 ML NEBU IH SCH ×2 (09:15→21:19)
[2021-04-14] MEDS: DULoxetine 30 MG CAP PO SCH ×2 (09:30→22:08)
[2021-04-14] MEDS: hydrALAZINE 25 MG TAB PO SCH (09:31)
[2021-04-14] MEDS: CYCLOBENZAPRINE 10 MG TAB PO SCH ×3 (09:31→22:07)
[2021-04-14] MEDS: carvediloL 25 MG TAB PO SCH (09:31)
[2021-04-14] MEDS: cefTRIAXone/NS 1 GM/50 ML 1 GM/50 ML BAG IV SCH (12:00)
[2021-04-14] MEDS: AZITHROMYCIN/NS 500 MG/250 ML 500 MG/250 ML BAG IV SCH (12:34)
--- NOTE | 2021-04-14 13:03 | Progress Note ---
Assessment and Plan Assessment and plan: 55 YO Female with HTN, Systolic CHF(EF 15%) NYHA Class 4 noncompliant with home oxygen, CVA, [place], COPD, OA, DM, Fibromyalgia, Nicotine Dependence, Crohns Disease, Nephrolithiasis, DVT no on therapeutic anticoagulation presents with acute on chronic systolic heart failure. #Acute on chronic systolic heart failure (NYHA class IV)-resolved #Angina at rest -Chest x-ray suggestive of interstitial edema without danelle opacities/consolidation. Troponins negative x2. Status post ASA 325 mg x 1 in ED. -Continue strict I's/O, daily weights, fluid restriction 1.5 L/day, telemetry. -Discontinued IV Lasix in the setting of DOUGLAS. We will continue to monitor daily. -Cardiology consulted; appreciate recs -Continue cardiac/carbohydrate diet #Acute on chronic hypoxic respiratory failure-resolved #COPD exacerbation-resolved -Baseline oxygen requirements 2 L. Currently on 3 L -Ordering DuoNebs and albuterol nebs as needed. -Continue IV azithromycin 500 mg daily and Rocephin 1 g every 24 daily and p.o. prednisone 40 mg daily for possible COPD exacerbation. -Pulmonology consulted; pending recs -Continue to monitor #Prerenal DOUGLAS-improving -Creatinine 1.9 (previously 2.5): Baseline 1.5-1.7 -Continue to hold p.o. Lasix and spironolactone for 1 additional day. Can restart tomorrow as creatinine will likely improve. -We will continue to monitor #Diabetes mellitus type 2 -Continue Accu-Cheks with meals and SSI -Blood glucose goal [id number] while inpatient -Continue to monitor #Hypertension -Currently normotensive -Continue antihypertensives #Osteoarthritis -Continue as needed analgesics. Continue to monitor #Fibromyalgia -Continue as needed analgesics. Patient will need rheumatology follow-up in outpatient setting. Continue to monitor. #Tobacco dependence #Smoking cessation counseling -Counseled patient about importance of smoking cessation in the setting of significant cardiac history, diabetes, and COPD. Patient expressed understanding. -Time: +15 minutes #Pain management #Chronic pain -Patient endorses taking p.o. morphine sulfate 15 mg every 12 hours, oxycodone as needed, and Flexeril 10 mg daily -Discontinuing morphine sulfate 15 mg every 12 hours in the setting of respir atory depression last night requiring sternal rub -Continue oxycodone (1 tab) every 6 hours and Flexeril 10 mg. For breakthrough pain IV morphine 2 mg every 6 hours as needed. -Continue to monitor #Discharge planning -Patient discharging home tomorrow. 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 #Advanced care planning -Disease education conducted, care plan discussed, diagnoses discussed, prognosis discussed, and patient acknowledges understanding with care plan -Time: +20 minutes Disposition Plan: Continue medical management. Discharging home tomorrow. Total Time Spent with Patient (Minutes): 40 minutes History Interval history: No acute events over night. The patient denies fevers, chills, nausea, vomiting, abdominal pain, chest pain/pressure, shortness of breath, urinary symptoms, weakness, or confusion. Hospitalist Physical - Constitutional Vitals: Temp Pulse Resp BP Pulse Ox 98.2 F 87 16 110/86 96 04/14/21 08:00 04/14/21 09:31 04/14/21 10:34 04/14/21 09:31 04/14/21 09:15 General appearance: Present: no acute distress, well-nourished - EENT Eyes: Present: PERRL, EOM intact ENT: hearing intact, clear oral mucosa, edentulous - Neck Neck: Present: supple, normal ROM - Respiratory Respiratory effort: normal Respiratory: bilateral: CTA - Cardiovascular Rhythm: regular Heart Sounds: Present: S1 & S2 - Extremities Extremities: no ischemia, pulses intact, pulses symmetrical, No edema, normal temperature, normal color Peripheral Pulses: within normal limits - Abdominal General gastrointestinal: soft, non-tender, non-distended, normal bowel sounds - Integumentary Integumentary: Present: clear, warm, dry - Psychiatric Psychiatric: appropriate mood/affect, intact judgment & insight, memory intact, cooperative - Neurologic Neurologic: CNII-XII intact, moves all extremities - Allied Health Allied health notes reviewed: nursing HEART Score - HEART Score EKG: Non-specific Age: 45-65 Risk factors: > 3 risk factors or hx of atherosclerotic disease Troponin: Troponin T < 0.010 ng/mL (0.00-0.029) 04/12/21 01:30 Troponin: < normal limit Results - Labs CBC & Chem 7: 04/14/21 06:00 04/14/21 06:00 Labs: Laboratory Last Values WBC 6.5 K/mm3 (4.5-11.0) 04/14/21 06:00 RBC 3.83 M/mm3 (3.65-5.03) 04/14/21 06:00 Hgb 10.7 gm/dl (10.1-14.3) 04/14/21 06:00 Hct 33.6 % (30.3-42.9) 04/14/21 06:00 MCV 88 fl (79-97) 04/14/21 06:00 MCH 28 pg (28-32) 04/14/21 06:00 MCHC 32 % (30-34) 04/14/21 06:00 RDW 15.1 % (13.2-15.2) 04/14/21 06:00 Plt Count 161 K/mm3 (140-440) 04/14/21 06:00 Lymph % (Auto) 28.4 % (13.4-35.0) 04/14/21 06:00 [place] % (Auto) 12.0 % (0.0-7.3) H 04/14/21 06:00 Eos % (Auto) 4.6 % (0.0-4.3) H 04/14/21 06:00 Baso % (Auto) 0.6 % (0.0-1.8) 04/14/21 06:00 Lymph # (Auto) 1.8 K/mm3 (1.2-5.4) 04/14/21 06:00 [place] # (Auto) 0.8 K/mm3 (0.0-0.8) 04/14/21 06:00 Eos # (Auto) 0.3 K/mm3 (0.0-0.4) 04/14/21 06:00 Baso # (Auto) 0.0 K/mm3 (0.0-0.1) 04/14/21 06:00 Seg Neutrophils % 54.4 % (40.0-70.0) 04/14/21 06:00 Seg Neutrophils # 3.5 K/mm3 (1.8-7.7) 04/14/21 06:00 Sodium 142 mmol/L (137-145) 04/14/21 06:00 Potassium 4.3 mmol/L (3.6-5.0) 04/14/21 06:00 Chloride 105.8 mmol/L (98-107) 04/14/21 06:00 Carbon Dioxide 26 mmol/L (22-30) 04/14/21 06:00 Anion Gap 15 mmol/L 04/14/21 06:00 BUN 33 mg/dL (7-17) H 04/14/21 06:00 Creatinine 1.9 mg/dL (0.6-1.2) H 04/14/21 06:00 Estimated GFR 33 ml/min 04/14/21 06:00 BUN/Creatinine Ratio 17 % 04/14/21 06:00 Glucose 127 mg/dL (65-100) H 04/14/21 06:00 POC Glucose 249 mg/dL (70-105) H 04/14/21 11:54 Calcium 8.4 mg/dL (8.4-10.2) 04/14/21 06:00 Phosphorus 4.30 mg/dL (2.5-4.5) 04/14/21 06:00 Magnesium 2.20 mg/dL (1.7-2.3) 04/14/21 06:00 Total Bilirubin 0.40 mg/dL (0.1-1.2) 04/11/21 16:19 AST 7 units/L (5-40) 04/11/21 16:19 ALT 9 units/L (7-56) 04/11/21 16:19 Alkaline Phosphatase 187 units/L (35-129) H 04/11/21 16:19 Troponin T < 0.010 ng/mL (0.00-0.029) 04/12/21 01:30 NT-Pro-B Natriuret Pep 31957 pg/mL (0-900) H 04/11/21 16:19 Total Protein 6.7 g/dL (6.3-8.2) 04/11/21 16:19 Albumin 4.1 g/dL (3.9-5) 04/11/21 16:19 Albumin/Globulin Ratio 1.6 % 04/11/21 16:19 Torres/IV: Voiding Method Toilet Active Medications - Current Medications Current Medications: Generic Name Dose Route Start Last Admin Trade Name Freq PRN Reason Stop Dose Admin Acetaminophen 650 mg 04/11/21 18:13 Acetaminophen 325 Mg Tab PO Q4H PRN Pain MILD(1-3)/Fever >100.5/HARPER Albuterol 2.5 mg 04/11/21 18:13 Albuterol 2.5 Mg/3 Ml Nebu IH Q4HRT PRN Shortness Of Breath Arformoterol Tartrate 15 mcg 04/11/21 20:00 04/14/21 09:15 Arformoterol 15 Mcg/2 Ml Nebu IH 15 mcg Q12HRT ASHKAN Administration Atorvastatin Calcium 40 mg 04/11/21 22:00 04/13/21 22:18 Atorvastatin 40 Mg Tab PO 40 mg QHS ASHKAN Administration Budesonide 0.5 mg 04/11/21 20:00 04/14/21 09:15 Budesonide 0.5 Mg/2 Ml Nebu IH 0.5 mg Q12HRT ASHKAN Administration Carvedilol 25 mg 04/11/21 22:00 04/14/21 09:31 Carvedilol 25 Mg Tab PO 25 mg BID ASHKAN Administration Clonazepam 1 mg 04/13/21 09:54 04/13/21 21:09 Clonazepam 2 Mg Tab PO 1 mg TID PRN Administration Delerium Cyclobenzaprine HCl 5 mg 04/13/21 14:00 04/14/21 09:31 Cyclobenzaprine 10 Mg Tab PO 5 mg TID ASHKAN Administration Dextrose 50 ml 04/11/21 18:18 Dextrose 50% In Water (25gm) 50 Ml Syringe IV Q30MIN PRN Hypoglycemia Protocol Duloxetine HCl 60 mg 04/11/21 22:00 04/14/21 09:30 Duloxetine 30 Mg Cap PO 60 mg BID ASHKAN Administration Hydralazine HCl 25 mg 04/11/21 22:00 04/14/21 09:31 Hydralazine 25 Mg Tab PO 25 mg BID ASHKAN Administration Azithromycin 500 mg in 250 mls @ 250 mls/hr 04/12/21 13:00 04/14/21 12:34 Zithromax/Ns IV 250 mls/hr Q24H ASHKAN Administration Ceftriaxone Sodium 1 gm in 50 mls @ 100 mls/hr 04/12/21 13:00 04/14/21 12:00 Rocephin/Ns 1 Gm/50 Ml IV 100 mls/hr Q24H ASHKAN Administration Protocol Insulin Human Lispro 0 unit 04/12/21 00:00 04/14/21 11:58 Insulin Lispro 100 Unit/Ml SUB-Q 4 unit Q6HR ASHKAN Administration Protocol Morphine Sulfate 2 mg 04/13/21 13:53 Morphine 2 Mg/1 Ml Inj IV Q4H PRN Pain, Moderate (4-6) Nitroglycerin 0.4 mg 04/11/21 18:13 Nitroglycerin 0.4 Mg Tab Subl SL Q5M PRN Chest Pain Ondansetron HCl 4 mg 04/11/21 18:13 Ondansetron 4 Mg/2 Ml Inj IV Q8H PRN Nausea And Vomiting Oxycodone/Acetaminophen 1 tab 04/13/21 10:00 04/14/21 09:34 Oxycodone /Acetaminophen 5-325mg Tab PO 1 tab Q6H ASHKAN Administration Sodium Chloride 10 ml 04/11/21 22:00 04/14/21 09:32 Sodium Chloride 0.9% 10 Ml Flush Syringe IV 10 ml BID ASHKAN Administration Sodium Chloride 10 ml 04/11/21 18:13 Sodium Chloride 0.9% 10 Ml Flush Syringe IV PRN PRN LINE FLUSH Trazodone HCl 100 mg 04/11/21 22:00 04/13/21 22:17 Trazodone 50 Mg Tab PO 100 mg QHS ASHKAN Administration
--- NOTE | 2021-04-14 13:11 | Discharge Summary ---
Providers - Providers Date of Admission: 04/11/21 18:13 Date of discharge: 04/15/21 Attending physician: LINDSEY MELÉNDEZ MD 04/11/21 Consult to Cardiac Rehabilitation [CONS] Routine Reason For Exam: Phase I 04/11/21 18:13 Consult to Cardiology [CONS] Routine Consulting Provider: LICO ENGLISH Reason For Exam: angina/chf Primary care physician: PRINCIPAL [employer]OUD ARCHITECT Hospitalization Reason for admission: Acute on chronic systolic heart failure Condition: Fair Pertinent studies: Reviewed. Procedures: None. Hospital course: 55 YO Female with HTN, Systolic CHF(EF 15%) NYHA Class 4 noncompliant with home oxygen, CVA, CO, COPD, OA, DM, Fibromyalgia, Nicotine Dependence, Crohns Disease, Nephrolithiasis, DVT no on therapeutic anticoagulation presents with presumed acute on chronic systolic heart failure. Patient was placed on strict I's/O's, IV diuresis, and telemetry. Cardiology was consulted, and they recommended COPD management. They did not believe that the patient was undergoing acute on chronic systolic heart failure exacerbation. Management was adjusted and antibiotics were started. The patient's hospitalization was complicated by the development of an DOUGLAS (prerenal) secondary to initial IV diuresis administration that was later discontinued. Home p.o. Lasix and spironolactone were held in the setting of acute renal injury. Renal function improved, and patient endorsed significant improvement in symptoms. The patient will be restarted on home p.o. Lasix and spironolactone prior to discharge. Patient expressed understanding and so did her mother. Disposition: 01 HOME / SELF CARE / HOMELESS Final Discharge Diagnosis (Prints w/discharge instructions): Angina at rest, acute on chronic hypoxic respiratory failure, COPD exacerbation, prerenal DOUGLAS (iatrogenic), diabetes mellitus type 2, hypertension, osteoarthritis, fibromyalgia, tobacco dependence, chronic pain Time spent for discharge: 45 minutes Core Measure Documentation - Palliative Care Palliative Care/ Comfort Measures: Not Applicable - Core Measures Any of the following diagnoses?: heart failure - VTE Discharge Requirements Deep Vein Thrombosis/Pulmonary Embolism Present on Admission: No Has pt received <5 days of overlap therapy or INR<2.0: No (Not indicated) Anticoagulant overlap therapy prescribed at discharge: No Contraindication No Overlap Therapy order at DC: Not Indicated - Acute CO Discharge Requirements Aspirin at discharge: No Reason for no aspirin on DC: Medical contraindication (Not indicated) DANNIE/ARB for LVSD if EF <40%: No Reason for no DANNIE/ARB: Renal impairment Beta nova at discharge: Yes Statin for LDL = or >100 mg/dl on DC: Yes - Heart Failure Discharge Requirements DANNIE/ARB for LVSD if EF <40%: Not Applicable Reason for no DANNIE/ARB: Renal impairment Beta nova at discharge: Yes - Stroke Discharge Requirements Statin for LDL = or >70 mg/dl on DC: Yes Anticoag for atrial fib/atrial flutter: Not Applicable Reason for no anticoag for AF/F on DC: Not Indicated Antithrombotic for ischemic stroke: No Reason for no antithrombotic on DC: Not Indicated Exam - Constitutional Vitals: Temp Pulse Resp BP Pulse Ox 98.2 F 87 16 110/86 96 04/14/21 08:00 04/14/21 09:31 04/14/21 10:34 04/14/21 09:31 04/14/21 09:15 General appearance: Present: no acute distress, well-nourished - EENT Eyes: Present: PERRL, EOM intact ENT: hearing intact, clear oral mucosa, edentulous - Neck Neck: Present: supple, normal ROM - Respiratory Respiratory effort: normal Respiratory: bilateral: CTA - Cardiovascular Rhythm: regular Heart Sounds: Present: S1 & S2 - Extremities Extremities: no ischemia, pulses intact, pulses symmetrical, No edema, normal temperature, normal color Peripheral Pulses: within normal limits - Abdominal General gastrointestinal: Present: soft, non-tender, non-distended, normal bowel sounds Female genitourinary: Present: deferred - Rectal Rectal Exam: deferred - Integumentary Integumentary: Present: clear, warm, dry - Musculoskeletal Musculoskeletal: strength equal bilaterally - Psychiatric Psychiatric: appropriate mood/affect, intact judgment & insight, memory intact, cooperative - Neurologic Neurologic: CNII-XII intact, moves all extremities - Allied Health Allied health notes reviewed: nursing Plan Care Plan Goals: Discharging home with family. Assessment: The patient was admitted for presumed acute on chronic systolic heart failure bu t was found to actually have acute on chronic COPD exacerbation complicated by acute on chronic hypoxic respiratory failure. Patient was medically managed with antibiotics and steroids. Patient inadvertently developed acute renal injury due to IV diuresis that has since improved. Patient discharging home safely with family. Follow up with: PRIMARY CAREMD [Primary Care Provider] - 3-5 Days
--- NOTE | 2021-04-14 14:32 | Progress Note ---
Assessment and Plan Continue present management. Patient cardiac status is stable for discharge Patient has a follow-up appointment with Dr. Somers, [facility] mortgage servicing specialist, on 05/05/2021 at 1:45 PM in our [place] location. Phone [phone] Patient seen in conjunction with Dr. Walton who agrees with this plan of care. Will sign off - Patient Problems (1) Acute and chronic respiratory failure Current Visit: Yes Status: Acute Qualifiers: Respiratory failure complication: hypoxia Qualified Code(s): J96.21 - Acute and chronic respiratory failure with hypoxia (2) COPD exacerbation Current Visit: Yes Status: Acute (3) Diabetes Current Visit: Yes Status: Acute (4) Biventricular implantable cardioverter-defibrillator (ICD) in situ Current Visit: Yes Status: Chronic (5) Chronic HFrEF (heart failure with reduced ejection fraction) Current Visit: Yes Status: Chronic (6) H/O right radical nephrectomy Current Visit: Yes Status: Chronic (7) Hypertension Current Visit: Yes Status: Chronic Qualifiers: Hypertension type: primary hypertension Qualified Code(s): I10 - Essential (primary) hypertension (8) NICM (nonischemic cardiomyopathy) Current Visit: Yes Status: Chronic Subjective Date of service: 04/14/21 Principal diagnosis: COPD exacerbation Interval history: Patient resting in bed. In no acute distress Paced 73 on monitor Objective Vital Signs Temp Pulse Pulse Resp Resp BP Pulse Ox 04/14/21 10:34 16 04/14/21 09:34 17 04/14/21 09:31 87 110/86 04/14/21 09:15 88 18 96 04/14/21 08:00 98.2 F 71 17 102/61 98 04/14/21 03:39 98.1 F 75 19 114/74 97 04/14/21 00:00 78 04/13/21 23:28 98.7 F 79 18 111/72 97 04/13/21 21:01 98.0 F 84 19 132/91 98 04/13/21 20:38 96 04/13/21 20:37 83 20 04/13/21 19:26 98 04/13/21 19:09 97.1 F L 82 18 114/70 92 04/13/21 16:36 98.0 F 88 18 114/70 84 04/13/21 16:14 87 - Physical Examination General: No Apparent Distress HEENT: Positive: EOMI, Normocephaly, Mucus Membranes Moist Neck: Positive: neck supple, trachea midline, Carotid Upstroke (full) Cardiac: Positive: Reg Rate and Rhythm Neuro: Positive: Grossly Intact Abdomen: Positive: Soft, Active Bowel Sounds. Negative: Tender Skin: Positive: Clear. Negative: Rash Musculoskeletal: Normal Range of Motion Extremities: Present: normal. Absent: edema - Labs and Meds CBC 04/14/21 Range/Units 06:00 WBC 6.5 (4.5-11.0) K/mm3 RBC 3.83 (3.65-5.03) M/mm3 Hgb 10.7 (10.1-14.3) gm/dl Hct 33.6 (30.3-42.9) % Plt Count 161 (140-440) K/mm3 Lymph # (Auto) 1.8 (1.2-5.4) K/mm3 [place] # (Auto) 0.8 (0.0-0.8) K/mm3 Eos # (Auto) 0.3 (0.0-0.4) K/mm3 Baso # (Auto) 0.0 (0.0-0.1) K/mm3 Comprehensive Metabolic Panel 04/14/21 Range/Units 06:00 Sodium 142 (137-145) mmol/L Potassium 4.3 (3.6-5.0) mmol/L Chloride 105.8 (98-107) mmol/L Carbon Dioxide 26 (22-30) mmol/L BUN 33 H (7-17) mg/dL Creatinine 1.9 H (0.6-1.2) mg/dL Glucose 127 H (65-100) mg/dL Calcium 8.4 (8.4-10.2) mg/dL - Imaging and Cardiology EKG: image reviewed - Telemetry EKG Rhythm: Paced Pacemaker: ventricular pacing w/capt, normal atrial sensing
[2021-04-14] MEDS: traZODone 50 MG TAB PO SCH (22:08)
[2021-04-15] MEDS: INSULIN LISPRO 100 UNIT/ML SUB-Q SCH ×3 (00:37→12:14)
[2021-04-15] MEDS: carvediloL 25 MG TAB PO SCH ×2 (00:38→09:07)
[2021-04-15] MEDS: hydrALAZINE 25 MG TAB PO SCH ×2 (00:38→09:06)
[2021-04-15] MEDS: oxyCODONE /ACETAMINOPHEN 5-325MG TAB PO SCH ×2 (00:40→05:52)
[2021-04-15] MEDS ORDERED: oxyCODONE /ACETAMINOPHEN 5-325MG TAB PO PRN (05:04)
[2021-04-15 07:24] LABS: Basophils % (Auto) 0.7 % (0.0-1.8); Eosinophils # (Auto) 0.3 K/mm3 (0.0-0.4); Eosinophils % (Auto) 4.9 % (0.0-4.3); Hematocrit 33.5 % (30.3-42.9); Hemoglobin 10.7 gm/dl (10.1-14.3); Lymphocytes # (Auto) 1.5 K/mm3 (1.2-5.4); Lymphocytes % (Auto) 26.1 % (13.4-35.0); Mean Corpuscular HGB Conc 32 % (30-34); Mean Corpuscular Volume 88 fl (79-97); Monocytes # (Auto) 0.5 K/mm3 (0.0-0.8); Monocytes % (Auto) 9.1 % (0.0-7.3); Platelet Count 156 K/mm3 (140-440); Red Blood Count 3.82 M/mm3 (3.65-5.03); Red Cell Distribution Width 15.2 % (13.2-15.2)
[2021-04-15 07:45] LABS: Calcium 8.6 mg/dL (8.4-10.2)
[2021-04-15] MEDS: ARFORMOTEROL 15 MCG/2 ML NEBU IH SCH (08:26)
[2021-04-15] MEDS: BUDESONIDE 0.5 MG/2 ML NEBU IH SCH (08:26)
[2021-04-15] MEDS: CYCLOBENZAPRINE 10 MG TAB PO SCH (08:54)
[2021-04-15] MEDS: DULoxetine 30 MG CAP PO SCH (09:05)
[2021-04-15] MEDS ORDERED: FUROSEMIDE 40 MG TAB PO SCH (10:00)
[2021-04-15] MEDS: cefTRIAXone/NS 1 GM/50 ML 1 GM/50 ML BAG IV SCH (12:13)
--- NOTE | 2021-04-15 12:55 | Event Note ---
Date: 04/15/21
[2021-04-15 13:05] VITALS: BP 142/86
[2021-04-15] MEDS: AZITHROMYCIN/NS 500 MG/250 ML 500 MG/250 ML BAG IV SCH (13:08)
== END 2021-04-15 15:22 | disposition home or self-care (01) | DRG 291 ==
LOC: ED 13:24 → 4A 18:13
PROVIDERS: ADMIT Internal Medicine; ATTEND Student in an Organized Health Care Education/Training Program
DX: I13.0 Hypertensive heart and chronic kidney disease with heart failure and stage 1 through stage 4 chronic kidney disease, or unspecified chronic kidney disease (principal); I50.23 Acute on chronic systolic (congestive) heart failure; J96.21 Acute and chronic respiratory failure with hypoxia; J44.1 Chronic obstructive pulmonary disease with (acute) exacerbation; N17.8 Other acute kidney failure; K50.90 Crohn's disease, unspecified, without complications; I42.8 Other cardiomyopathies; E11.22 Type 2 diabetes mellitus with diabetic chronic kidney disease; N18.9 Chronic kidney disease, unspecified; F17.200 Nicotine dependence, unspecified, uncomplicated; Z86.73 Personal history of transient ischemic attack (TIA), and cerebral infarction without residual deficits; M79.7 Fibromyalgia; I25.2 Old myocardial infarction; Z90.49 Acquired absence of other specified parts of digestive tract; Z79.4 Long term (current) use of insulin; Z79.82 Long term (current) use of aspirin; Z83.3 Family history of diabetes mellitus; Z82.49 Family history of ischemic heart disease and other diseases of the circulatory system; I20.9 Angina pectoris, unspecified; M19.90 Unspecified osteoarthritis, unspecified site; Z95.810 Presence of automatic (implantable) cardiac defibrillator; Z71.6 Tobacco abuse counseling; Z91.041 Radiographic dye allergy status; Z88.8 Allergy status to other drugs, medicaments and biological substances
CPT/HCPCS: 36415; 71046; 80048; 80053; 82962; 83735; 83880; 84100; 84484; 85025; 93005; 94640; 94644; 94760; 99406; G0378; J0456; J0696; J1815; J1940; J2765; J7120

== ENCOUNTER 2021-06-26 17:17 | Inpatient (IN) | payer MEDICARE ==
[2021-06-26] MEDS ORDERED: IPRATROPIUM/ALBUTEROL SULFATE 3 ML AMPUL.NEB IH ONE (20:35)
--- NOTE | 2021-06-26 20:41 | Emergency Department Report ---
ED Shortness of Breath HPI - General Chief Complaint: Dyspnea/Respdistress Stated Complaint: usha Time Seen by Provider: 06/26/21 19:47 Source: patient, EMS Mode of arrival: Stretcher Limitations: No Limitations - History of Present Illness Initial Comments: 55-year-old female with a past medical history of hypertension, CHF with a EF of 15%, COPD currently on 3 L of home oxygen, CVA, [place], diabetes, fibromyalgia, previous DVT not currently on anticoagulation presents to the hospital complaining shortness of breath since this a.m. Patient endorses worsening orthopnea and shortness of breath with speaking. She is also having intermittent chest tightness with radiation down right arm patient using her rescue inhaler and home nebs without improvement. Patient was recently discharged from [facility] after the 3-day admission in which she required BiPAP for respiratory failure and was subsequently discharged on steroids. She was not treated for pneumonia or infection. She reports a negative COVID test during that admission. She also states she is vaccinated for COVID. Patient took her last prednisone dose this a.m. EMS reports that saturation 95% on 2 L upon their arrival and blood glucose of 456. Patient reports a history of 2 in tubations. She is compliant with her medications. natural resource economist, Dr. Leiva - Related Data Home Medications Medication Instructions Recorded Confirmed Last Taken Albuterol Sulfate [Ventolin HFA] 2 puff IH Q4H PRN 10/03/14 04/11/21 1 Day Ago ~01/21/21 DULoxetine [Cymbalta] 60 mg PO BID 12/12/14 04/11/21 2 Days Ago ~01/20/21 traZODone [Desyrel] 100 mg PO QHS 12/12/14 04/11/21 2 Days Ago ~01/20/21 clonazePAM [KlonoPIN] 1 mg PO TID 01/05/15 04/11/21 2 Days Ago ~01/20/21 Insulin Aspart (Nf) [NovoLOG 7 - 12 units SQ AC 05/26/17 04/11/21 2 Days Ago Flexpen] ~01/20/21 Morphine [Morphine TAB] 15 mg PO Q12H 05/26/17 04/11/21 2 Days Ago ~01/20/21 Gabapentin 600 mg PO TID 01/22/21 04/11/21 2 Days Ago ~01/20/21 Previous Rx's Medication Instructions Recorded Last Taken Type Aspirin [Aspirin BABY CHEW TAB] 81 mg PO QDAY #30 tab.chew 01/27/21 Unknown Rx AtorvaSTATin [Lipitor] 40 mg PO QHS #30 tablet 01/27/21 Unknown Rx Budesonide/Formoterol Fumarate 10.2 gm IH BID #1 hfa.aer.ad 01/27/21 Unknown Rx [Symbicort 80-4.5 Mcg Inhaler] carvediloL [Coreg] 25 mg PO BID #60 tablet 01/27/21 Unknown Rx Furosemide [Lasix TAB] 40 mg PO QDAY PRN #30 02/04/21 2 Days Ago Rx ~01/20/21 Insulin Glargine [Lantus VIAL] 22 units SUB-Q QAM units 02/04/21 Unknown Rx hydrALAZINE [Apresoline TAB] 25 mg PO BID #60 tablet 02/04/21 Unknown Rx Allergies Allergy/AdvReac Type Severity Reaction Status Date / Time divalproex sodium Allergy Anaphylaxis Verified 04/11/21 13:29 [From Depakote] heparin Allergy Swelling Verified 04/11/21 13:29 Iodinated Contrast Media Allergy Anaphylaxis Verified 04/11/21 13:29 [Iodinated Contrast Media - IV Dye] ketorolac tromethamine Allergy Angioedema Verified 04/11/21 13:29 [From Toradol] ondansetron HCl Allergy Itching Verified 04/11/21 13:29 [From Zofran (as hydrochloride)] Penicillins Allergy Anaphylaxis Verified 04/11/21 13:29 sulfamethoxazole Allergy Unknown Verified 06/26/21 17:22 [From Bactrim] trimethoprim [From Bactrim] Allergy Unknown Verified 06/26/21 17:22 ED Review of Systems ROS: Stated complaint: usha Other details as noted in HPI Comment: All other systems reviewed and negative ED Past Medical Hx - Past Medical History Previous Medical History?: Yes Hx Hypertension: Yes Hx CVA: Yes (x3) Hx Heart Attack/AMI: Yes (X4) Hx Congestive Heart Failure: Yes Hx Diabetes: Yes Hx Deep Vein Thrombosis: Yes (at site of port in the remote past off Coumadin now) Hx Arthritis: Yes Hx Kidney Stones: Yes Hx Asthma: Yes Hx COPD: Yes Additional medical history: "kidney stone disease", fibromyalgia, crohns - Surgical History Hx Pacemaker: Yes Hx Internal Defibrillator: Yes Hx Cholecystectomy: Yes Additional Surgical History: ureter transplant,. 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 - Social History Smoking Status: Current Every Day Smoker - Medications Home Medications: Home Medications Medication Instructions Recorded Confirmed Last Taken Type Albuterol Sulfate [Ventolin HFA] 2 puff IH Q4H PRN 10/03/14 04/11/21 1 Day Ago History ~01/21/21 DULoxetine [Cymbalta] 60 mg PO BID 12/12/14 04/11/21 2 Days Ago History ~01/20/21 traZODone [Desyrel] 100 mg PO QHS 12/12/14 04/11/21 2 Days Ago History ~01/20/21 clonazePAM [KlonoPIN] 1 mg PO TID 01/05/15 04/11/21 2 Days Ago History ~01/20/21 Insulin Aspart (Nf) [NovoLOG 7 - 12 units SQ AC 05/26/17 04/11/21 2 Days Ago History Flexpen] ~01/20/21 Morphine [Morphine TAB] 15 mg PO Q12H 05/26/17 04/11/21 2 Days Ago History ~01/20/21 Gabapentin 600 mg PO TID 01/22/21 04/11/21 2 Days Ago History ~01/20/21 Aspirin [Aspirin BABY CHEW TAB] 81 mg PO QDAY #30 tab.chew 01/27/21 04/11/21 Unknown Rx AtorvaSTATin [Lipitor] 40 mg PO QHS #30 tablet 01/27/21 04/11/21 Unknown Rx Budesonide/Formoterol Fumarate 10.2 gm IH BID #1 hfa.aer.ad 01/27/21 04/11/21 Unknown Rx [Symbicort 80-4.5 Mcg Inhaler] carvediloL [Coreg] 25 mg PO BID #60 tablet 01/27/21 04/11/21 Unknown Rx Furosemide [Lasix TAB] 40 mg PO QDAY PRN #30 02/04/21 04/11/21 2 Days Ago Rx ~01/20/21 Insulin Glargine [Lantus VIAL] 22 units SUB-Q QAM units 02/04/21 04/11/21 Unknown Rx hydrALAZINE [Apresoline TAB] 25 mg PO BID #60 tablet 02/04/21 04/11/21 Unknown Rx ED Physical Exam - General Limitations: No Limitations - Other Other exam information: General: No acute distress Head: Atraumatic Eyes: normal appearance ENT: Moist mucous membranes Neck: Normal appearance, no midline tenderness Chest: Tachypnea, bilateral crackles CV: Regular rate and rhythm Abdomen: Soft, normal bowel sounds, nontender, nondistended, no rebound or guarding Back: Normal inspection Extremity: Normal inspection, full range of motion, no edema, no calf tenderness Neuro: Alert O x 3, no facial asymmetry, speech clear, no gross motor sensory deficit Psych: Appropriate behavior Skin: No rash ED Course Vital Signs 06/26/21 17:18 Temperature 98.3 F Pulse Rate 95 H Respiratory 20 Rate Blood Pressure 160/100 [Left] O2 Sat by Pulse 98 Oximetry ED Medical Decision Making - Lab Data Result diagrams: 06/26/21 22:43 06/26/21 22:43 - Radiology Data Radiology results: report reviewed CHEST 1 VIEW 06/26/2021 8:07 PM INDICATION / CLINICAL INFORMATION: Dyspnea. COMPARISON: Chest 2 views from 04/11/2021. FINDINGS: SUPPORT DEVICES: Unchanged. HEART / MEDIASTINUM: Mild enlargement of the cardiac silhouette with mild aortic atherosclerosis. LUNGS / PLEURA: No significant pulmonary abnormality. No significant pleural effusion. No pneumothorax. ADDITIONAL FINDINGS: No significant additional findings. IMPRESSION: Mild cardiomegaly without other acute findings. - Medical Decision Making 55-year-old female presents to the hospital complaining of shortness of breath since this a.m. Symptoms not improved with nebs prior to arrival. Patient is O2 dependence with recent increase in O2 requirement from 2 to 3 L upon discharge from [facility]. Patient took her last dose of prednisone this morning. Positive history of intubations. Patient does endorses symptoms of COPD as well as CHF however, chest x-ray shows cardiomegaly without pulmonary edema. Although chest x-ray is unremarkable and still highly suspicious for CHF exacerbation given elevated BNP and patient's significant complaint of orthopnea and inability to lie flat for the last 3 days 1 dose of IV Lasix provided. I am unclear if pt has a hx of pulm htn. D-dimer is elevated with a history of previous DVT. Not currently on anticoagulation. Unable to obtain CT angiogram at this time due to iodine allergy. VQ scan ordered for the a.m. Patient treated in the ED with bronchodilators, supplemental oxygen, and ster oids. Insulin provided for my hyperglycemia without signs of DKA. COVID test ordered. Hospitalist to admit. Critical Care Time: No Critical care attestation.: If time is entered above; I have spent that time in minutes in the direct care of this critically ill patient, excluding procedure time. ED Disposition Clinical Impression: Chest pain, AICD (automatic cardioverter/defibrillator) present, COPD exacerbation, Elevated d-dimer, Acute exacerbation of CHF (congestive heart failure) Disposition: 09 ADMITTED INPATIENT Is pt being admited?: Yes Condition: Stable Instructions: Chronic Obstructive Pulmonary Disease (ED) Referrals: SHANICE SUH MD [Primary Care Provider] - 3-5 Days Time of Disposition: 23:33 (Dr Ramirez/hospitalist)
--- NOTE | 2021-06-26 21:01 | XRay Report ---
CHEST 1 VIEW 06/26/2021 8:07 PM INDICATION / CLINICAL INFORMATION: Dyspnea. COMPARISON: Chest 2 views from 04/11/2021. FINDINGS: SUPPORT DEVICES: Unchanged. HEART / MEDIASTINUM: Mild enlargement of the cardiac silhouette with mild aortic atherosclerosis. LUNGS / PLEURA: No significant pulmonary abnormality. No significant pleural effusion. No pneumothora x. ADDITIONAL FINDINGS: No significant additional findings. IMPRESSION: Mild cardiomegaly without other acute findings. Signer Name: Suhas Garcias MD Signed: 06/26/2021 8:57 PM Workstation Name: [id number]
[2021-06-26 23:01] LABS: Basophils % (Auto) 0.6 % (0.0-1.8); Eosinophils % (Auto) 0.1 % (0.0-4.3); Hematocrit 34.4 % (30.3-42.9); Lymphocytes # (Auto) 1.1 K/mm3 (1.2-5.4); Lymphocytes % (Auto) 15.7 % (13.4-35.0); Mean Corpuscular HGB Conc 32 % (30-34); Mean Corpuscular Volume 87 fl (79-97); Monocytes # (Auto) 0.3 K/mm3 (0.0-0.8); Monocytes % (Auto) 4.4 % (0.0-7.3); Platelet Count 144 K/mm3 (140-440); Red Blood Count 3.95 M/mm3 (3.65-5.03); Red Cell Distribution Width 14.9 % (13.2-15.2)
[2021-06-26 23:16] LABS: INR 0.9 (0.87-1.13)
[2021-06-26 23:17] LABS: Partial Thromboplastin Time 24.6 Sec. (24.2-36.6)
[2021-06-26 23:24] LABS: Alanine Aminotransferase 11 units/L (7-56); Albumin 3.6 g/dL (3.9-5); BUN/Creatinine Ratio 13; Blood Urea Nitrogen 20 mg/dL (7-17); Calcium 8.2 mg/dL (8.4-10.2); Hemolysis Index 0
[2021-06-26] MEDS ORDERED: methylPREDNISolone Sod Succinate 40 MG/1 ML INJ IV ONE (23:29)
[2021-06-26] MEDS ORDERED: INSULIN REGULAR, HUMAN 100 UNITS/1 ML IV ONE (23:29)
[2021-06-26] MEDS ORDERED: methylPREDNISolone Sod Succinate 125 MG/2 ML INJ IV ONE (23:32)
[2021-06-26] MEDS ORDERED: FUROSEMIDE 40 MG/4 ML INJ IV ONE (23:50)
[2021-06-26] MEDS ORDERED: MORPHINE 4 MG/1 ML INJ IV ONE (23:51)
[2021-06-27] MEDS ORDERED: MORPHINE 2 MG/1 ML INJ IV PRN (03:08)
[2021-06-27] MEDS ORDERED: MORPHINE 4 MG/1 ML INJ IV PRN (03:08)
[2021-06-27] MEDS ORDERED: ALBUTEROL 2.5 MG/3 ML NEBU IH PRN (03:08)
[2021-06-27] MEDS ORDERED: ACETAMINOPHEN 325 MG TAB PO PRN (03:08)
--- NOTE | 2021-06-27 03:24 | History and Physical Report ---
History of Present Illness Date of examination: 06/27/21 Date of admission: 06/27/2021 Chief complaint: Shortness of Breath History of present illness: 55-year-old female with known history of hypertension, CHF with ejection fraction of 15 to 20%, COPD currently on 3 L of home oxygen, CVA, diabetes mellitus, SC, history of DVT, and fibromyalgia presents to the emergency room today complaining of shortness of breath. Symptoms started earlier this morning. She has also been having orthopnea. She denies any fever or chills, no nausea vomiting and no abdominal pain. She however indicates that she has been having intermittent chest tightness radiating towards her right upper extremity. She has been using her nebulizing treatments and inhaler at home without any significant improvement. Patient indicates that she was just recently discharged from [facility] few days ago where she required BiPAP for her respiratory failure. She was subsequently discharged home on steroids. Patient denies any sick contacts and no recent travel. Denies any contact with anyone with COVID-19. She indicates she has been fully vaccinated against COVID-19. Upon arrival in the emergency room blood glucose was elevated in the 400s. Oxygen saturation on 2 L of oxygen was about 95%. Work-up in the emergency room today, significant findings on labs were elevated D-dimer 501, BUN of 20 and creatinine 1.5, BNP of 10,305. Chest x-ray shows mild cardiomegaly without acute findings. Past History Past Medical History: acute SC, arthritis, COPD, diabetes, DVT, heart failure, hypertension, stroke, other ("kidney stone disease", fibromyalgia, crohns) Past Surgical History: cholecystectomy, Other (Pacemaker/Defibrillator placement,Ureter transplant,Right Nephrectomy.) Social history: smoking (Current daily smoker) Family history: no significant family history Medications and Allergies Allergies Allergy/AdvReac Type Severity Reaction Status Date / Time divalproex sodium Allergy Anaphylaxis Verified 06/27/21 03:23 [From Depakote] heparin Allergy Swelling Verified 06/27/21 03:23 Iodinated Contrast Media Allergy Anaphylaxis Verified 06/27/21 03:23 [Iodinated Contrast Media - IV Dye] ketorolac tromethamine Allergy Angioedema Verified 06/27/21 03:23 [From Toradol] ondansetron HCl Allergy Itching Verified 06/27/21 03:23 [From Zofran (as hydrochloride)] Penicillins Allergy Anaphylaxis Verified 06/27/21 03:23 sulfamethoxazole Allergy Unknown Verified 06/27/21 03:23 [From Bactrim] trimethoprim [From Bactrim] Allergy Unknown Verified 06/27/21 03:23 Home Medications Medication Instructions Recorded Confirmed Last Taken Type Albuterol Sulfate [Ventolin HFA] 2 puff IH Q4H PRN 10/03/14 04/11/21 1 Day Ago History ~01/21/21 DULoxetine [Cymbalta] 60 mg PO BID 12/12/14 04/11/21 2 Days Ago History ~01/20/21 traZODone [Desyrel] 100 mg PO QHS 12/12/14 04/11/21 2 Days Ago History ~01/20/21 clonazePAM [KlonoPIN] 1 mg PO TID 01/05/15 04/11/21 2 Days Ago History ~01/20/21 Insulin Aspart (Nf) [NovoLOG 7 - 12 units SQ AC 05/26/17 04/11/21 2 Days Ago History Flexpen] ~01/20/21 Morphine [Morphine TAB] 15 mg PO Q12H 05/26/17 04/11/21 2 Days Ago History ~01/20/21 Gabapentin 600 mg PO TID 01/22/21 04/11/21 2 Days Ago History ~01/20/21 Aspirin [Aspirin BABY CHEW TAB] 81 mg PO QDAY #30 tab.chew 01/27/21 04/11/21 Unknown Rx AtorvaSTATin [Lipitor] 40 mg PO QHS #30 tablet 01/27/21 04/11/21 Unknown Rx Budesonide/Formoterol Fumarate 10.2 gm IH BID #1 hfa.aer.ad 01/27/21 04/11/21 Unknown Rx [Symbicort 80-4.5 Mcg Inhaler] carvediloL [Coreg] 25 mg PO BID #60 tablet 01/27/21 04/11/21 Unknown Rx Furosemide [Lasix TAB] 40 mg PO QDAY PRN #30 02/04/21 04/11/21 2 Days Ago Rx ~01/20/21 Insulin Glargine [Lantus VIAL] 22 units SUB-Q QAM units 02/04/21 04/11/21 Unknown Rx hydrALAZINE [Apresoline TAB] 25 mg PO BID #60 tablet 02/04/21 04/11/21 Unknown Rx Active Meds: Active Medications Acetaminophen (Acetaminophen 325 Mg Tab) 650 mg PO Q4H PRN PRN Reason: Pain MILD(1-3)/Fever >100.5/HARPER Albuterol (Albuterol 2.5 Mg/3 Ml Nebu) 2.5 mg IH Q3HRT PRN PRN Reason: Shortness Of Breath Albuterol/Ipratropium (Ipratropium/Albuterol Sulfate 3 Ml Ampul.Neb) 1 ampul IH Q4HRT ASHKAN Furosemide (Furosemide 20 Mg/2 Ml Inj) 20 mg IV BID@0600,1800 A[facility] Methylprednisolone Sodium Succinate (Methylprednisolone Sod Succinate 40 Mg/1 Ml Inj) 40 mg IV Q8HR ASHKAN Morphine Sulfate (Morphine 2 Mg/1 Ml Inj) 2 mg IV Q4H PRN PRN Reason: Pain, Moderate (4-6) Morphine Sulfate (Morphine 4 Mg/1 Ml Inj) 4 mg IV Q4H PRN PRN Reason: Pain , Severe (7-10) Morphine Sulfate (Morphine 2 Mg/1 Ml Inj) 2 mg IV Q5MIN PRN PRN Reason: Chest Pain unrelieved by NTG Sodium Chloride (Sodium Chloride 0.9% 10 Ml Flush Syringe) 10 ml IV BID ASHKAN Sodium Chloride (Sodium Chloride 0.9% 10 Ml Flush Syringe) 10 ml IV PRN PRN PRN Reason: LINE FLUSH Review of Systems Constitutional: no fever, no chills Ears, nose, mouth and throat: no nasal congestion, no sore throat Cardiovascular: no chest pain, no palpitations Respiratory: no cough, no shortness of breath Gastrointestinal: no abdominal pain, no nausea, no vomiting, no diarrhea Genitourinary Female: no pelvic pain, no flank pain, no dysuria, no hematuria Musculoskeletal: no neck pain, no low back pain Integumentary: no rash, no pruritis Neurological: no headaches, no confusion Psychiatric: no anxiety, no depression Endocrine: no polyphagia, no polydipsia, no polyuria, no nocturia Exam - Constitutional Vitals: Temp Pulse Resp BP Pulse Ox 98.3 F 95 H 20 130/78 100 06/26/21 17:18 06/26/21 17:18 06/26/21 17:18 06/27/21 00:15 06/27/21 00:15 General appearance: Present: no acute distress, well-nourished - EENT Eyes: Present: PERRL, EOM intact. Absent: scleral icterus ENT: hearing intact, clear oral mucosa, dentition normal - Neck Neck: Present: supple, normal ROM - Respiratory Respiratory effort: normal Respiratory: bilateral: rales (In Bases) - Cardiovascular Rhythm: regular Heart Sounds: Present: S1 & S2. Absent: systolic murmur, diastolic murmur, rub, click - Extremities Extremities: no ischemia, pulses intact, pulses symmetrical, No edema, normal temperature, normal color, Full ROM Peripheral Pulses: within normal limits - Abdominal General gastrointestinal: Present: soft, non-tender, non-distended, normal bowel sounds. Absent: mass - Integumentary Integumentary: Present: clear, warm, dry, normal turgor. Absent: rash - Musculoskeletal Musculoskeletal: strength equal bilaterally - Psychiatric Psychiatric: appropriate mood/affect, intact judgment & insight, memory intact, cooperative - Neurologic Neurologic: CNII-XII intact, no focal deficits, moves all extremities HEART Score - HEART Score Troponin: Troponin T < 0.010 ng/mL (0.00-0.029) 06/27/21 02:15 Results - Labs CBC & Chem 7: 06/26/21 22:43 06/26/21 22:43 Labs: Abnormal lab results 06/26/21 06/26/21 06/26/21 Range/Units 22:43 22:43 22:43 Lymph # (Auto) 1.1 L (1.2-5.4) K/mm3 Seg Neutrophils % 79.2 H (40.0-70.0) % D-Dimer 501.65 H (0-234) ng/mlDDU VBG pH (7.320-7.420) BUN 20 H (7-17) mg/dL Creatinine 1.5 H (0.6-1.2) mg/dL Glucose 340 H (65-100) mg/dL Calcium 8.2 L (8.4-10.2) mg/dL Alkaline Phosphatase 143 H (35-129) units/L NT-Pro-B Natriuret Pep (0-900) pg/mL Total Protein 5.9 L (6.3-8.2) g/dL Albumin 3.6 L (3.9-5) g/dL 06/26/21 06/26/21 Range/Units 22:43 22:43 Lymph # (Auto) (1.2-5.4) K/mm3 Seg Neutrophils % (40.0-70.0) % D-Dimer (0-234) ng/mlDDU VBG pH 7.315 L (7.320-7.420) BUN (7-17) mg/dL Creatinine (0.6-1.2) mg/dL Glucose (65-100) mg/dL Calcium (8.4-10.2) mg/dL Alkaline Phosphatase (35-129) units/L NT-Pro-B Natriuret Pep 97263 H (0-900) pg/mL Total Protein (6.3-8.2) g/dL Albumin (3.9-5) g/dL Assessment and Plan - Patient Problems (1) CHF (congestive heart failure) Current Visit: Yes Status: Acute Plan to address problem: Patient admitted and placed on gentle diuretics. Will monitor inputs and output and also monitor daily weight. Patient has ejection fraction of 15 to 20% in January 2021. Will await cardiology evaluation. (2) COPD exacerbation Current Visit: Yes Status: Acute Plan to address problem: Patient placed on nebulizing treatments and steroid. Will keep O2 saturation greater or equal to 92%. (3) Elevated d-dimer Current Visit: Yes Status: Acute Plan to address problem: We will schedule patient for VQ scan to rule out pulmonary embolism. (4) DOUGLAS (acute kidney injury) Current Visit: No Status: Acute Plan to address problem: Patient has chronic kidney disease. We will monitor BUN and creatinine. Consult placed to nephrology for further recommendations. (5) DVT prophylaxis Current Visit: No Status: Acute Plan to address problem: And placed on sequential compression device. (6) Full code status Current Visit: No Status: Acute Plan to address problem: Patient is full code.
[2021-06-27] MEDS ORDERED: INSULIN REGULAR, HUMAN 100 UNITS/1 ML IV NR (04:00)
[2021-06-27] MEDS: IPRATROPIUM/ALBUTEROL SULFATE 3 ML AMPUL.NEB IH SCH ×5 (04:04→20:30)
[2021-06-27] MEDS ORDERED: methylPREDNISolone Sod Succinate 40 MG/1 ML INJ IV SCH (06:00)
[2021-06-27] MEDS ORDERED: FUROSEMIDE 20 MG/2 ML INJ IV SCH (06:00)
[2021-06-27 09:42] LABS: Bilirubin,Urine NEG (Negative); Blood,Urine NEG (Negative); Color,Urine Colorless (Yellow); Protein,Urine <15 mg/dL mg/dL (Negative); RBC,Urine < 1.0 /HPF (0.0-6.0); Urobilinogen,Urine < 2.0 mg/dL (<2.0)
[2021-06-27 09:43] LABS: WBC,Urine < 1.0 /HPF (0.0-6.0)
--- NOTE | 2021-06-27 09:59 | Nuclear Medicine Report ---
PERFUSION SCINTIGRAPHY INDICATION: Dyspnea, rule out PE COMPARISON: Portable chest x-ray 06/26/2021, perfusion scintigraphy 02/02/2021 RADIOPHARMACEUTICAL: 5.1 mCi of 99m technetium MAA IV. FINDINGS: Only small peripheral defects are seen. No significant changes are noted. IMPRESSION: Low probability for pulmonary thromboembolism. Signer Name: Matty Espino MD Signed: 06/27/2021 9:55 AM Workstation Name: [id number]
--- NOTE | 2021-06-27 11:01 | Consultation ---
History of Present Illness - Reason for Consult Consult date: 06/27/21 chronic renal failure - History of Present Illness Mrs. Orlando is a 55yo w/ HFrEF EF 15%, chronic hypoxic respiratory failure on 3L NC oxygen, COPD who presented to the ED w/ shortness of breath. She reports worsening orthopnea and coversational dyspnea. In addition, she reports intermittent chest tightness with radiation down right arm. She reports use of rescue inhaler and home nebs without improvement in symptoms. EMS reports that saturation 95% on 2 L upon their arrival and blood glucose of 456. Patient w/ hx chronic kidney disease - baseline SCr 1.7-1.9mg/dL. Past History Past Medical History: acute DC, arthritis, COPD, diabetes, DVT, heart failure, hypertension, stroke, other ("kidney stone disease", fibromyalgia, crohns) Past Surgical History: cholecystectomy, Other (Pacemaker/Defibrillator placement,Ureter transplant,Right Nephrectomy.) Social history: smoking (Current daily smoker) Family history: no significant family history Medications and Allergies Allergies Allergy/AdvReac Type Severity Reaction Status Date / Time divalproex sodium Allergy Anaphylaxis Verified 06/27/21 03:23 [From Depakote] heparin Allergy Swelling Verified 06/27/21 03:23 Iodinated Contrast Media Allergy Anaphylaxis Verified 06/27/21 03:23 [Iodinated Contrast Media - IV Dye] ketorolac tromethamine Allergy Angioedema Verified 06/27/21 03:23 [From Toradol] ondansetron HCl Allergy Itching Verified 06/27/21 03:23 [From Zofran (as hydrochloride)] Penicillins Allergy Anaphylaxis Verified 06/27/21 03:23 sulfamethoxazole Allergy Unknown Verified 06/27/21 03:23 [From Bactrim] trimethoprim [From Bactrim] Allergy Unknown Verified 06/27/21 03:23 Home Medications Medication Instructions Recorded Confirmed Last Taken Type Albuterol Sulfate [Ventolin HFA] 2 puff IH Q4H PRN 10/03/14 04/11/21 1 Day Ago History ~01/21/21 DULoxetine [Cymbalta] 60 mg PO BID 12/12/14 04/11/21 2 Days Ago History ~01/20/21 traZODone [Desyrel] 100 mg PO QHS 12/12/14 04/11/21 2 Days Ago History ~01/20/21 clonazePAM [KlonoPIN] 1 mg PO TID 01/05/15 04/11/21 2 Days Ago History ~01/20/21 Insulin Aspart (Nf) [NovoLOG 7 - 12 units SQ AC 05/26/17 04/11/21 2 Days Ago History Flexpen] ~01/20/21 Morphine [Morphine TAB] 15 mg PO Q12H 05/26/17 04/11/21 2 Days Ago History ~01/20/21 Gabapentin 600 mg PO TID 01/22/21 04/11/21 2 Days Ago History ~01/20/21 Aspirin [Aspirin BABY CHEW TAB] 81 mg PO QDAY #30 tab.chew 01/27/21 04/11/21 Unknown Rx AtorvaSTATin [Lipitor] 40 mg PO QHS #30 tablet 01/27/21 04/11/21 Unknown Rx Budesonide/Formoterol Fumarate 10.2 gm IH BID #1 hfa.aer.ad 01/27/21 04/11/21 Unknown Rx [Symbicort 80-4.5 Mcg Inhaler] Furosemide [Lasix TAB] 40 mg PO QDAY PRN #30 02/04/21 04/11/21 2 Days Ago Rx ~01/20/21 Insulin Glargine [Lantus VIAL] 22 units SUB-Q QAM units 02/04/21 04/11/21 Unknown Rx hydrALAZINE [Apresoline TAB] 25 mg PO BID #60 tablet 02/04/21 04/11/21 Unknown Rx carvediloL [Coreg] 3.125 mg PO BID #60 tablet 06/27/21 Unknown Rx Active Meds: Active Medications Acetaminophen (Acetaminophen 325 Mg Tab) 650 mg PO Q4H PRN PRN Reason: Pain MILD(1-3)/Fever >100.5/HARPER Albuterol (Albuterol 2.5 Mg/3 Ml Nebu) 2.5 mg IH Q3HRT PRN PRN Reason: Shortness Of Breath Albuterol/Ipratropium (Ipratropium/Albuterol Sulfate 3 Ml Ampul.Neb) 1 ampul IH Q4HRT [facility] Last Admin: 06/27/21 04:04 Dose: 1 ampul Furosemide (Furosemide 20 Mg/2 Ml Inj) 20 mg IV BID@0600,1800 [facility] Last Admin: 06/27/21 08:33 Dose: 20 mg Insulin Human NPH (Insulin Nph, Human 100 Unit/1 Ml) 20 unit SUB-Q BIDDIAB [facility] Methylprednisolone Sodium Succinate (Methylprednisolone Sod Succinate 40 Mg/1 Ml Inj) 40 mg IV Q8HR [facility] Last Admin: 06/27/21 08:33 Dose: 40 mg Morphine Sulfate (Morphine 2 Mg/1 Ml Inj) 2 mg IV Q4H PRN PRN Reason: Pain, Moderate (4-6) Morphine Sulfate (Morphine 4 Mg/1 Ml Inj) 4 mg IV Q4H PRN PRN Reason: Pain , Severe (7-10) Last Admin: 06/27/21 09:23 Dose: 4 mg Morphine Sulfate (Morphine 2 Mg/1 Ml Inj) 2 mg IV Q5MIN PRN PRN Reason: Chest Pain unrelieved by NTG Sodium Chloride (Sodium Chloride 0.9% 10 Ml Flush Syringe) 10 ml IV BID ASHAKN Sodium Chloride (Sodium Chloride 0.9% 10 Ml Flush Syringe) 10 ml IV PRN PRN PRN Reason: LINE FLUSH Review of Systems All systems: negative Exam - Vital Signs Vital signs: Vital Signs Temp Pulse Resp BP Pulse Ox 98.3 F 95 H 20 160/100 98 06/26/21 17:18 06/26/21 17:18 06/26/21 17:18 06/26/21 17:18 06/26/21 17:18 - General Appearance General appearance: well-developed, well-nourished EENT: ATNC Respiratory: Decreased Breath Sounds, Other (no wheezes, rhochi, crackles; she is breathing comfotably on room air) Heart: regular, S1S2 Gastrointestinal: Present: normal. Absent: tenderness, distended Integumentary: no rash, cool/clammy Neurologic: no focal deficit, alert and oriented x3 Results - Lab Results 06/26/21 22:43 06/27/21 13:22 Most recent lab results Calcium 8.2 mg/dL (8.4-10.2) L 06/26/21 22:43 Assessment and Plan Impression: * Stage III chronic kidney disease --Baseline SCr 1.7-1.9mg/dL; SCr 1.72mg/dL on Jun 21 at [facility] * Chronic hypoxic respiratory failure - 3L NC oxygen at baseline * COPD exacerbation * HFrEF * Type II DM * Hypertension Plan: * Patient's renal function is stable and at baseline * Continue conservative management * Monitor lytes and volume status closely * CXR reviewed - no significant findings c/w pulmonary edema; V/Q scan no PE * Note order for Lasix 20mg IV BID. Will change to Lasix 40mg po daily * Cardiology consultation pending * Recommend pulmonary consult * Avoid potential nephrotoxiins * Dose medications for renal function * Strict I/O
--- NOTE | 2021-06-27 12:15 | Discharge Summary ---
Providers - Providers Date of Admission: 06/27/21 03:08 Date of discharge: 06/28/21 Attending physician: ZAKIYA FOX 06/27/21 00:08 Consult to Physician [CONS] Urgent Comment: Consulting Provider: LICO ENGLISH Physician Instructions: Reason For Exam: chf hx, worsening orthopnea 06/27/21 08:39 Consult to Physician [CONS] Routine Comment: Consulting Provider: MITCHEL HOFFMAN Physician Instructions: Reason For Exam: DOUGLAS 06/27/21 12:12 Physical Therapy Evaluation and Treat [CONS] Routine Comment: Reason For Exam: Debility Primary care physician: SHANICE SUH Hospitalization Condition: Stable Exam - Constitutional Vitals: Temp Pulse Resp BP Pulse Ox 98.3 F 89 18 130/78 95 06/26/21 17:18 06/27/21 11:01 06/27/21 10:08 06/27/21 10:08 06/27/21 10:08 Plan Activity: advance as tolerated Weight Bearing Status: Non-Weight Bearing Diet: low fat, low salt, diabetic Special Instructions: restrict fluid intake to (1.2 L daily), record daily weights, record blood sugar diary Follow up with: SHANICE SUH MD [Primary Care Provider] - 3-5 Days Prescriptions: carvediloL [Coreg] 3.125 mg PO BID #60 tablet
[2021-06-27] MEDS ORDERED: FUROSEMIDE 40 MG/4 ML INJ IV ONE (13:42)
--- NOTE | 2021-06-27 13:47 | Consultation ---
History of Present Illness Consult date: 06/27/21 Requesting physician: LUCILA CORDON Consult reason: congestive heart failure History of present illness: Patient is a 55 y/o female with pmhx of HFrEF(15-20%) with BIV ICD, CKD, COPD on home oxygen, DM, h/o of CVA, presents to the ED with a complaint shortness of breath x2 days. Patient reports that she was recently just discharged from [facility] on 06/22/2021 for for respiratory failure. Patient reports on Wed she suddenly developed shortness of breath dyspnea on exertion, and orthopnea which progressively worsened. Furthermore patient reports that she is not able to walk more than a few feet without becoming short of breath normally she is able to walk around her house without difficulty. Patient reports chest pressure that radiates to her right side worse with palpation and lying flat. She reports that her inhaler and nebulizer treatments did not improve her shortness of breath. Furthermore patient reports that she has not been taking her Lasix at home Patient is followed by Dr. Garcia of our practice. Cardiology is consulted for CHF and orthopnea. Past History Past Medical History: acute [place], arthritis, COPD, diabetes, DVT, heart failure, hypertension, stroke, other ("kidney stone disease", fibromyalgia, crohns) Past Surgical History: cholecystectomy, Other (Pacemaker/Defibrillator placement,Ureter transplant,Right Nephrectomy.) Social history: smoking (Current daily smoker) Family history: no significant family history Medications and Allergies Allergies Allergy/AdvReac Type Severity Reaction Status Date / Time divalproex sodium Allergy Anaphylaxis Verified 06/27/21 03:23 [From Depakote] heparin Allergy Swelling Verified 06/27/21 03:23 Iodinated Contrast Media Allergy Anaphylaxis Verified 06/27/21 03:23 [Iodinated Contrast Media - IV Dye] ketorolac tromethamine Allergy Angioedema Verified 06/27/21 03:23 [From Toradol] ondansetron HCl Allergy Itching Verified 06/27/21 03:23 [From Zofran (as hydrochloride)] Penicillins Allergy Anaphylaxis Verified 06/27/21 03:23 sulfamethoxazole Allergy Unknown Verified 06/27/21 03:23 [From Bactrim] trimethoprim [From Bactrim] Allergy Unknown Verified 06/27/21 03:23 Home Medications Medication Instructions Recorded Confirmed Last Taken Type Albuterol Sulfate [Ventolin HFA] 2 puff IH Q4H PRN 10/03/14 04/11/21 1 Day Ago History ~01/21/21 DULoxetine [Cymbalta] 60 mg PO BID 12/12/14 04/11/21 2 Days Ago History ~01/20/21 traZODone [Desyrel] 100 mg PO QHS 12/12/14 04/11/21 2 Days Ago History ~01/20/21 clonazePAM [KlonoPIN] 1 mg PO TID 01/05/15 04/11/21 2 Days Ago History ~01/20/21 Insulin Aspart (Nf) [NovoLOG 7 - 12 units SQ AC 05/26/17 04/11/21 2 Days Ago History Flexpen] ~01/20/21 Morphine [Morphine TAB] 15 mg PO Q12H 05/26/17 04/11/21 2 Days Ago History ~01/20/21 Gabapentin 600 mg PO TID 01/22/21 04/11/21 2 Days Ago History ~01/20/21 Aspirin [Aspirin BABY CHEW TAB] 81 mg PO QDAY #30 tab.chew 01/27/21 04/11/21 Unknown Rx AtorvaSTATin [Lipitor] 40 mg PO QHS #30 tablet 01/27/21 04/11/21 Unknown Rx Budesonide/Formoterol Fumarate 10.2 gm IH BID #1 hfa.aer.ad 01/27/21 04/11/21 Unknown Rx [Symbicort 80-4.5 Mcg Inhaler] Furosemide [Lasix TAB] 40 mg PO QDAY PRN #30 02/04/21 04/11/21 2 Days Ago Rx ~01/20/21 Insulin Glargine [Lantus VIAL] 22 units SUB-Q QAM units 02/04/21 04/11/21 Unknown Rx hydrALAZINE [Apresoline TAB] 25 mg PO BID #60 tablet 02/04/21 04/11/21 Unknown Rx carvediloL [Coreg] 3.125 mg PO BID #60 tablet 06/27/21 Unknown Rx Active Meds: Active Medications Acetaminophen (Acetaminophen 325 Mg Tab) 650 mg PO Q4H PRN PRN Reason: Pain MILD(1-3)/Fever >100.5/HARPER Albuterol (Albuterol 2.5 Mg/3 Ml Nebu) 2.5 mg IH Q3HRT PRN PRN Reason: Shortness Of Breath Albuterol/Ipratropium (Ipratropium/Albuterol Sulfate 3 Ml Ampul.Neb) 1 ampul IH Q4HRT [facility] Last Admin: 06/27/21 13:37 Dose: 1 ampul Aspirin (Aspirin 81 Mg Tab Chew) 81 mg PO QDAY [facility] Atorvastatin Calcium (Atorvastatin 40 Mg Tab) 40 mg PO QHS [facility] Furosemide (Furosemide 40 Mg Tab) 40 mg PO QDAY [facility] Furosemide (Furosemide 40 Mg/4 Ml Inj) 40 mg IV ONCE ONE Stop: 06/27/21 13:43 Hydralazine HCl (Hydralazine 25 Mg Tab) 25 mg PO BID [facility] Insulin Human NPH (Insulin Nph, Human 100 Unit/1 Ml) 20 unit SUB-Q BIDDIAB [facility] Methylprednisolone Sodium Succinate (Methylprednisolone Sod Succinate 40 Mg/1 Ml Inj) 40 mg IV Q8HR [facility] Last Admin: 06/27/21 08:33 Dose: 40 mg Metoprolol Tartrate (Metoprolol Tartrate 50 Mg Tab) 50 mg PO BID [facility] Morphine Sulfate (Morphine 2 Mg/1 Ml Inj) 2 mg IV Q4H PRN PRN Reason: Pain, Moderate (4-6) Morphine Sulfate (Morphine 4 Mg/1 Ml Inj) 4 mg IV Q4H PRN PRN Reason: Pain , Severe (7-10) Last Admin: 06/27/21 09:23 Dose: 4 mg Morphine Sulfate (Morphine 2 Mg/1 Ml Inj) 2 mg IV Q5MIN PRN PRN Reason: Chest Pain unrelieved by NTG Sodium Chloride (Sodium Chloride 0.9% 10 Ml Flush Syringe) 10 ml IV BID [facility] Sodium Chloride (Sodium Chloride 0.9% 10 Ml Flush Syringe) 10 ml IV PRN PRN PRN Reason: LINE FLUSH Spironolactone (Spironolactone 50 Mg Tab) 50 mg PO QDAY [facility] Review of Systems Constitutional: no weight loss, no weight gain, no fever, no chills Ears, nose, mouth and throat: no nasal congestion, no nasal discharge, no sinus pressure Cardiovascular: chest pain, orthopnea, edema, shortness of breath, dyspnea on exertion Respiratory: cough, shortness of breath, dyspnea on exertion Gastrointestinal: no abdominal pain, no nausea, no vomiting Musculoskeletal: no neck stiffness, no neck pain, no shooting arm pain Integumentary: no rash, no pruritis, no redness Neurological: no head injury, no transient paralysis Psychiatric: no anxiety, no memory loss Endocrine: no cold intolerance, no heat intolerance Hematologic/Lymphatic: no easy bruising, no easy bleeding Physical Examination Vital Signs Temp Pulse Resp BP Pulse Ox 98.3 F 95 H 20 160/100 98 06/26/21 17:18 06/26/21 17:18 06/26/21 17:18 06/26/21 17:18 06/26/21 17:18 General appearance: no acute distress HEENT: Positive: PERRL Neck: Positive: trachea midline Cardiac: Positive: Reg Rate and Rhythm Lungs: Positive: Decreased Breath Sounds Neuro: Positive: Grossly Intact Abdomen: Positive: Soft Extremities: Present: upper extr. pulses. Absent: edema Results 06/26/21 22:43 06/26/21 22:43 Cardiac Enzymes 06/26/21 Range/Units 22:43 AST 5 (5-40) units/L Coagulation 06/26/21 Range/Units 22:43 PT 13.2 (12.2-14.9) Sec. INR 0.90 (0.87-1.13) APTT 24.6 (24.2-36.6) Sec. CBC 06/26/21 Range/Units 22:43 WBC 7.2 (4.5-11.0) K/mm3 RBC 3.95 (3.65-5.03) M/mm3 Hgb 11.0 (10.1-14.3) gm/dl Hct 34.4 (30.3-42.9) % Plt Count 144 (140-440) K/mm3 Lymph # (Auto) 1.1 L (1.2-5.4) K/mm3 [place] # (Auto) 0.3 (0.0-0.8) K/mm3 Eos # (Auto) 0.0 (0.0-0.4) K/mm3 Baso # (Auto) 0.0 (0.0-0.1) K/mm3 Comprehensive Metabolic Panel 06/26/21 Range/Units 22:43 Sodium 138 (137-145) mmol/L Potassium 4.4 (3.6-5.0) mmol/L Chloride 104.1 (98-107) mmol/L Carbon Dioxide 24 (22-30) mmol/L BUN 20 H (7-17) mg/dL Creatinine 1.5 H (0.6-1.2) mg/dL Glucose 340 H (65-100) mg/dL Calcium 8.2 L (8.4-10.2) mg/dL AST 5 (5-40) units/L ALT 11 (7-56) units/L Alkaline Phosphatase 143 H (35-129) units/L Total Protein 5.9 L (6.3-8.2) g/dL Albumin 3.6 L (3.9-5) g/dL - Imaging and Cardiology Echo: report reviewed Cardiac cath: report reviewed EKG interpretations - Telemetry EKG Rhythm: Paced Pacemaker: ventricular pacing w/capt, normal atrial sensing Assessment and Plan Patient is a 55 y/o female with pmhx of HFrEF(15-20%) with BIV ICD, CKD, COPD on home oxygen, DM, h/o of CVA, presents to the ED with a complaint shortness of breath x2 days. Acute on chronic HFrEF Nonischemic cardiomyopathy S/P BiV ICD Acute on chronic respiratory failure CKD-nephrology following Hypertension History of CVA Diabetes [facility] 2014- normal coronary arteries Lexiscan MPI Stress 02/14/2020- negative for stress induced ischemia. EF 38% Echo 01/22/2021- EF 15-20%, LV mildly dilated, severe global hypokinesis, Transmitral doppler flow pattern suggest restrictive physiology, right ventricle is hypokinetic, left atrium mildly dilated Outpatient medications: Aspirin, Aldactone 50 mg p.o. daily, hydralazine 25 mg p.o. twice daily, Lipitor 40 mg p.o. nightly, Coreg 25 mg p.o. twice daily Plan: EKG shows paced rhythm rate 78 no acute ischemic changes. Troponins negative x2 BNP noted to be elevated, patient has orthopnea, shortness of breath, decreased breath sounds. We will do Lasix 40 mg IV once. With close monitoring of volume status. BMP in the a.m. Resume aspirin, Aldactone, hydralazine, Lipitor Due to respiratory status will hold Coreg and initiate metoprolol 50 mg p.o. twice daily Patient seen in conjunction with Dr. Nesbitt who agrees with this plan of care - Patient Problems (1) Acute and chronic respiratory failure Current Visit: No Status: Acute Qualifiers: Respiratory failure complication: hypoxia Qualified Code(s): J96.21 - Acute and chronic respiratory failure with hypoxia (2) Acute on chronic HFrEF (heart failure with reduced ejection fraction) Current Visit: No Status: Acute (3) Atypical chest pain Current Visit: No Status: Acute (4) Renal insufficiency Current Visit: No Status: Acute (5) Biventricular automatic implantable cardioverter defibrillator in situ Current Visit: No Status: Chronic (6) Chronic kidney disease Current Visit: No Status: Chronic (7) DM2 (diabetes mellitus, type 2) Current Visit: No Status: Chronic (8) H/O right radical nephrectomy Current Visit: No Status: Chronic (9) H/O: CVA (cerebrovascular accident) Current Visit: No Status: Chronic (10) NICM (nonischemic cardiomyopathy) Current Visit: No Status: Chronic (11) Normal coronary arteries Current Visit: No Status: Chronic
--- NOTE | 2021-06-27 13:53 | Event Note ---
Date: 06/27/21 Patient seen and examined Patient is a 55 y/o female with pmhx of HFrEF(15-20%) with BIV ICD, CKD, COPD on home oxygen, DM, h/o of CVA, presents to the ED with a complaint shortness of breath x2 days. Patient reports that she was recently just discharged from [facility] on 06/22/2021 for for respiratory failure. Cardiology and nephrology consulted Continue diuretics, ordered for PT eval Continue to follow clinically
[2021-06-27 14:45] LABS: Calcium 9.3 mg/dL (8.4-10.2)
[2021-06-27] MEDS ORDERED: FUROSEMIDE 40 MG/4 ML INJ ONE (15:50)
[2021-06-27] MEDS: hydrALAZINE 25 MG TAB PO SCH ×2 (16:13→21:58)
[2021-06-27] MEDS: METOPROLOL TARTRATE 50 MG TAB PO SCH ×2 (16:14→21:59)
[2021-06-27] MEDS: ASPIRIN 81 MG TAB CHEW PO SCH (16:14)
[2021-06-27] MEDS: INSULIN REGULAR, HUMAN 100 UNITS/1 ML SUB-Q SCH ×2 (16:14→22:19)
[2021-06-27] MEDS ORDERED: INSULIN NPH, HUMAN 100 UNIT/1 ML SUB-Q SCH (17:00)
[2021-06-27] MEDS: INSULIN NPH, HUMAN 100 UNIT/1 ML SUB-Q SCH (17:20)
[2021-06-27] MEDS: MORPHINE 2 MG/1 ML INJ IV PRN (20:07)
[2021-06-27] MEDS ORDERED: clonazePAM 0.5 MG TAB PO ONE (21:57)
[2021-06-28] MEDS: MORPHINE 2 MG/1 ML INJ IV PRN ×2 (00:27→10:21)
[2021-06-28] MEDS: IPRATROPIUM/ALBUTEROL SULFATE 3 ML AMPUL.NEB IH SCH ×4 (01:39→13:40)
[2021-06-28 07:05] LABS: Basophils % (Auto) 0.1 % (0.0-1.8); Eosinophils # (Auto) 0.1 K/mm3 (0.0-0.4); Eosinophils % (Auto) 0.5 % (0.0-4.3); Hematocrit 40.1 % (30.3-42.9); Hemoglobin 12.8 gm/dl (10.1-14.3); Lymphocytes # (Auto) 3.2 K/mm3 (1.2-5.4); Lymphocytes % (Auto) 22.1 % (13.4-35.0); Mean Corpuscular HGB Conc 32 % (30-34); Mean Corpuscular Volume 85 fl (79-97); Monocytes # (Auto) 1.2 K/mm3 (0.0-0.8); Platelet Count 207 K/mm3 (140-440); Red Blood Count 4.72 M/mm3 (3.65-5.03); Red Cell Distribution Width 14.5 % (13.2-15.2)
[2021-06-28 07:20] LABS: Calcium 8.8 mg/dL (8.4-10.2)
[2021-06-28] MEDS: INSULIN REGULAR, HUMAN 100 UNITS/1 ML SUB-Q SCH ×2 (08:28→12:28)
[2021-06-28] MEDS ORDERED: SPIRONOLACTONE 50 MG TAB PO SCH (10:00)
[2021-06-28] MEDS ORDERED: FUROSEMIDE 40 MG TAB PO SCH (10:00)
[2021-06-28] MEDS: METOPROLOL TARTRATE 50 MG TAB PO SCH (10:21)
[2021-06-28] MEDS: hydrALAZINE 25 MG TAB PO SCH (10:21)
[2021-06-28] MEDS: INSULIN NPH, HUMAN 100 UNIT/1 ML SUB-Q SCH (10:21)
[2021-06-28] MEDS: ASPIRIN 81 MG TAB CHEW PO SCH (10:21)
[2021-06-28 12:50] VITALS: BP 121/88
[2021-06-28] MEDS ORDERED: POTASSIUM CHLORIDE ER 20 MEQ TAB PO ONE (13:00)
== END 2021-06-28 16:00 | disposition home health service (06) | DRG 291 ==
LOC: ED 17:17 → 4A 06-27 03:08 → OBSVTOIN 06-27 15:00
PROVIDERS: ADMIT Internal Medicine Geriatric Medicine; ATTEND Internal Medicine
DX: I13.0 Hypertensive heart and chronic kidney disease with heart failure and stage 1 through stage 4 chronic kidney disease, or unspecified chronic kidney disease (principal); J96.21 Acute and chronic respiratory failure with hypoxia; I50.23 Acute on chronic systolic (congestive) heart failure; J44.1 Chronic obstructive pulmonary disease with (acute) exacerbation; N17.9 Acute kidney failure, unspecified; I42.8 Other cardiomyopathies; F17.200 Nicotine dependence, unspecified, uncomplicated; N18.30 Chronic kidney disease, stage 3 unspecified; I11.0 Hypertensive heart disease with heart failure; E11.22 Type 2 diabetes mellitus with diabetic chronic kidney disease; I25.2 Old myocardial infarction; M79.7 Fibromyalgia; Z94.89 Other transplanted organ and tissue status; Z90.5 Acquired absence of kidney; Z79.4 Long term (current) use of insulin; Z79.82 Long term (current) use of aspirin; Z95.810 Presence of automatic (implantable) cardiac defibrillator; Z88.3 Allergy status to other anti-infective agents; Z88.0 Allergy status to penicillin; Z88.8 Allergy status to other drugs, medicaments and biological substances; Z86.73 Personal history of transient ischemic attack (TIA), and cerebral infarction without residual deficits; Z90.49 Acquired absence of other specified parts of digestive tract
CPT/HCPCS: 36415; 71045; 78580; 80048; 80053; 81001; 82805; 82962; 83880; 84484; 85025; 85379; 85610; 85730; 93005; 93010; 94640; G0378; J2354; Q9967; A9540; J1815; J1940; J2270; J2920; J2930

== ENCOUNTER 2021-07-24 22:00 | Inpatient (IN) | payer MEDICARE ==
[2021-07-24] MEDS ORDERED: SODIUM CHLORIDE 0.9% 500 ML 500 ML IV ONE (22:37)
[2021-07-24 23:28] LABS: Hematocrit 36.6 % (30.3-42.9); Hemoglobin 11.9 gm/dl (10.1-14.3); Mean Corpuscular HGB Conc 33 % (30-34); Mean Corpuscular Volume 87 fl (79-97); Platelet Count 208 K/mm3 (140-440); Red Blood Count 4.22 M/mm3 (3.65-5.03)
[2021-07-24 23:28] LABS: Bilirubin,Urine NEG (Negative); Blood,Urine SM (Negative); Color,Urine Straw (Yellow); Mucus,Urine FEW /HPF; Protein,Urine <15 mg/dL mg/dL (Negative); Urobilinogen,Urine < 2.0 mg/dL (<2.0)
[2021-07-24 23:36] LABS: Amphetamine Screen,Urine Negative; Benzodiazepines Screen,Urine Negative; Cannabinoid Screen,Urine Negative; Cocaine Screen,Urine Negative; Methadone Screen,Urine Negative; Opiate Screen,Urine Negative
[2021-07-24 23:39] LABS: INR 0.92 (0.87-1.13)
--- NOTE | 2021-07-24 23:41 | XRay Report ---
CHEST 1 VIEW INDICATION / CLINICAL INFORMATION: ams. COMPARISON: Chest x-ray 07/18/2021 FINDINGS: SUPPORT DEVICES: A central venous access device and AICD appears stable. HEART / MEDIASTINUM: Stable cardiomediastinal silhouette, borderline to mild cardiomegaly. LUNGS / PLEURA: No significant pulmonary or pleural abnormality. No pneumothorax. ADDITIONAL FINDINGS: No significant additional findings. IMPRESSION: 1. No active cardiopulmonary disease. Signer Name: Yared Hermosillo II, MD Signed: 07/24/2021 11:37 PM Workstation Name: [id number]
[2021-07-24 23:42] LABS: RBC,Urine < 1.0 /HPF (0.0-6.0); WBC,Urine < 1.0 /HPF (0.0-6.0)
[2021-07-24 23:48] LABS: Alanine Aminotransferase 28 units/L (7-56); Albumin 3.8 g/dL (3.9-5); BUN/Creatinine Ratio 18; Blood Urea Nitrogen 46 mg/dL (7-17); Calcium 8.8 mg/dL (8.4-10.2); Hemolysis Index 4
[2021-07-25] MEDS ORDERED: ACETAMINOPHEN 325 MG TAB PO PRN ×2 (01:15)
[2021-07-25] MEDS ORDERED: SODIUM CHLORIDE 0.9% 1000 ML 1,000 ML IV SCH (01:15)
[2021-07-25] MEDS ORDERED: ONDANSETRON 4 MG/2 ML INJ IV PRN (01:15)
[2021-07-25] MEDS ORDERED: DEXTROSE 50% IN WATER (25GM) 50 ML SYRINGE IV PRN (01:15)
[2021-07-25] MEDS ORDERED: MORPHINE 4 MG/1 ML INJ IV PRN (01:15)
[2021-07-25] MEDS ORDERED: traMADol 50 MG TAB PO PRN (01:15)
[2021-07-25] MEDS ORDERED: MAGNESIUM HYDROXIDE (MOM) ORAL LIQD UDC PO PRN (01:15)
--- NOTE | 2021-07-25 01:19 | Emergency Department Report ---
ED Chest Pain HPI - General Chief Complaint: Chest Pain Stated Complaint: CHEST PAIN Time Seen by Provider: 07/24/21 22:28 Source: patient, EMS Mode of arrival: Ambulatory Limitations: No Limitations - History of Present Illness Initial Comments: family called them d/t pt being more lethargic and less mobile than normal. Pt reported CP with deep breath. EMS reports on demand pacemaker firing en route to ED. Per family, there is a problem with the battery that they are aware of. Per EMS, pt is presenting close to baseling. Pt is awake and aaox2, NAD noted. Complaint: chest pain -: Gradual, hour(s) Onset: during rest Pain Radiation: none Severity scale (0 -10): 4 Quality: heaviness Consistency: intermittent Improves With: nothing re: dyspnea - Related Data Home Medications Medication Instructions Recorded Confirmed Last Taken Albuterol Sulfate [Ventolin HFA] 2 puff IH Q4H PRN 10/03/14 07/19/21 1 Day Ago ~07/18/21 DULoxetine [Cymbalta] 60 mg PO BID 12/12/14 07/19/21 1 Day Ago ~07/18/21 traZODone [Desyrel] 100 mg PO QHS 12/12/14 07/19/21 2 Days Ago ~01/20/21 clonazePAM [KlonoPIN] 1 mg PO TID 01/05/15 07/19/21 1 Day Ago ~07/18/21 Insulin Aspart (Nf) [NovoLOG 7 - 12 units SQ AC 05/26/17 07/19/21 1 Day Ago Flexpen] ~07/18/21 Morphine [Morphine TAB] 15 mg PO Q12H 05/26/17 07/19/21 1 Day Ago ~07/18/21 Gabapentin 600 mg PO TID 01/22/21 07/19/21 1 Day Ago ~07/18/21 Budesonide/Formoterol Fumarate 10.2 gm IH DAILY PRN 07/19/21 07/19/21 Unknown [Symbicort 80-4.5 Mcg Inhaler] Fluticasone/Salmeterol [Advair 1 puff IH BID 07/19/21 07/19/21 1 Day Ago Diskus 250-50 mcg] ~07/18/21 Insulin Detemir (Nf) [Levemir 14 units SUB-Q QAM 07/19/21 07/19/21 1 Day Ago Flextouch (Nf)] ~07/18/21 Oxycodone HCl [oxyCODONE] 10 mg PO DAILY 07/19/21 07/19/21 1 Day Ago ~07/18/21 Tiotropium Lucas [Spiriva] 18 mcg IH DAILY 07/19/21 07/19/21 1 Day Ago ~07/18/21 Previous Rx's Medication Instructions Recorded Last Taken Type Aspirin [Aspirin BABY CHEW TAB] 81 mg PO QDAY #30 tab.chew 01/27/21 1 Day Ago Rx ~07/18/21 AtorvaSTATin [Lipitor] 40 mg PO QHS #30 tablet 01/27/21 1 Day Ago Rx ~07/18/21 Furosemide [Lasix TAB] 40 mg PO QDAY PRN #30 02/04/21 2 Days Ago Rx ~07/17/21 Insulin Glargine [Lantus VIAL] 22 units SUB-Q QAM units 02/04/21 1 Day Ago Rx ~07/18/21 hydrALAZINE [Apresoline TAB] 25 mg PO BID #60 tablet 02/04/21 1 Day Ago Rx ~07/18/21 carvediloL [Coreg] 3.125 mg PO BID #60 tablet 06/27/21 1 Day Ago Rx ~07/18/21 Prednisone [predniSONE 10 mg 10 mg PO .TAPER #1 07/21/21 Unknown Rx (6-Day Pack, 21 Tabs)] Allergies Allergy/AdvReac Type Severity Reaction Status Date / Time divalproex sodium Allergy Anaphylaxis Verified 07/18/21 12:58 [From Depakote] heparin Allergy Swelling Verified 07/18/21 12:58 Iodinated Contrast Media Allergy Anaphylaxis Verified 07/18/21 12:58 [Iodinated Contrast Media - IV Dye] ketorolac tromethamine Allergy Angioedema Verified 07/18/21 12:58 [From Toradol] ondansetron HCl Allergy Itching Verified 07/18/21 12:58 [From Zofran (as hydrochloride)] Penicillins Allergy Anaphylaxis Verified 07/18/21 12:58 sulfamethoxazole Allergy Unknown Verified 07/18/21 12:58 [From Bactrim] trimethoprim [From Bactrim] Allergy Unknown Verified 07/18/21 12:58 Heart Score - HEART Score History: Moderately suspicious EKG: Non-specific Age: 45-65 Risk factors: > 3 risk factors or hx of atherosclerotic disease Troponin: < normal limit HEART Score: 5 - EKG Read Time Time EKG Completed: 23:30 EKG Read Time: 23:20 ED Review of Systems ROS: Stated complaint: CHEST PAIN Other details as noted in HPI Constitutional: denies: chills, fever Eyes: denies: eye pain, eye discharge, vision change ENT: denies: ear pain, throat pain Respiratory: denies: cough, shortness of breath, wheezing Cardiovascular: denies: chest pain, palpitations Endocrine: no symptoms reported Gastrointestinal: denies: abdominal pain, nausea, diarrhea Genitourinary: denies: urgency, dysuria, discharge Musculoskeletal: denies: back pain, joint swelling, arthralgia Skin: denies: rash, lesions Neurological: denies: headache, weakness, paresthesias Psychiatric: denies: anxiety, depression Hematological/Lymphatic: denies: easy bleeding, easy bruising ED Past Medical Hx - Past Medical History Previous Medical History?: Yes Hx Hypertension: Yes Hx CVA: Yes (x3) Hx Heart Attack/AMI: Yes (X4) Hx Congestive Heart Failure: Yes Hx Diabetes: Yes Hx Deep Vein Thrombosis: Yes (at site of port in the remote past off Coumadin now) Hx Arthritis: Yes Hx Kidney Stones: Yes Hx Asthma: Yes Hx COPD: Yes Additional medical history: "kidney stone disease", fibromyalgia, crohns - Surgical History Past Surgical History?: Yes Hx Pacemaker: Yes Hx Internal Defibrillator: Yes Hx Cholecystectomy: Yes Additional Surgical History: ureter transplant,. 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 - Social History Smoking Status: Current Every Day Smoker - Medications Home Medications: Home Medications Medication Instructions Recorded Confirmed Last Taken Type Albuterol Sulfate [Ventolin HFA] 2 puff IH Q4H PRN 10/03/14 07/19/21 1 Day Ago History ~07/18/21 DULoxetine [Cymbalta] 60 mg PO BID 12/12/14 07/19/21 1 Day Ago History ~07/18/21 traZODone [Desyrel] 100 mg PO QHS 12/12/14 07/19/21 2 Days Ago History ~01/20/21 clonazePAM [KlonoPIN] 1 mg PO TID 01/05/15 07/19/21 1 Day Ago History ~07/18/21 Insulin Aspart (Nf) [NovoLOG 7 - 12 units SQ AC 05/26/17 07/19/21 1 Day Ago History Flexpen] ~07/18/21 Morphine [Morphine TAB] 15 mg PO Q12H 05/26/17 07/19/21 1 Day Ago History ~07/18/21 Gabapentin 600 mg PO TID 01/22/21 07/19/21 1 Day Ago History ~07/18/21 Aspirin [Aspirin BABY CHEW TAB] 81 mg PO QDAY #30 tab.chew 01/27/21 07/19/21 1 Day Ago Rx ~07/18/21 AtorvaSTATin [Lipitor] 40 mg PO QHS #30 tablet 01/27/21 07/19/21 1 Day Ago Rx ~07/18/21 Furosemide [Lasix TAB] 40 mg PO QDAY PRN #30 02/04/21 07/19/21 2 Days Ago Rx ~07/17/21 Insulin Glargine [Lantus VIAL] 22 units SUB-Q QAM units 02/04/21 07/19/21 1 Day Ago Rx ~07/18/21 hydrALAZINE [Apresoline TAB] 25 mg PO BID #60 tablet 02/04/21 07/19/21 1 Day Ago Rx ~07/18/21 carvediloL [Coreg] 3.125 mg PO BID #60 tablet 06/27/21 07/19/21 1 Day Ago Rx ~07/18/21 Budesonide/Formoterol Fumarate 10.2 gm IH DAILY PRN 07/19/21 07/19/21 Unknown History [Symbicort 80-4.5 Mcg Inhaler] Fluticasone/Salmeterol [Advair 1 puff IH BID 07/19/21 07/19/21 1 Day Ago History Diskus 250-50 mcg] ~07/18/21 Insulin Detemir (Nf) [Levemir 14 units SUB-Q QAM 07/19/21 07/19/21 1 Day Ago History Flextouch (Nf)] ~07/18/21 Oxycodone HCl [oxyCODONE] 10 mg PO DAILY 07/19/21 07/19/21 1 Day Ago History ~07/18/21 Tiotropium Lucas [Spiriva] 18 mcg IH DAILY 07/19/21 07/19/21 1 Day Ago History ~07/18/21 Prednisone [predniSONE 10 mg 10 mg PO .TAPER #1 07/21/21 Unknown Rx (6-Day Pack, 21 Tabs)] ED Physical Exam - General Limitations: No Limitations General appearance: alert, other (weak ) - Head Head exam: Present: atraumatic, normocephalic - Eye Eye exam: Present: normal appearance - ENT ENT exam: Present: mucous membranes moist - Neck Neck exam: Present: normal inspection - Respiratory Respiratory exam: Present: normal lung sounds bilaterally. Absent: respiratory distress - Cardiovascular Cardiovascular Exam: Present: regular rate, normal rhythm. Absent: systolic murmur, diastolic murmur, rubs, gallop - GI/Abdominal GI/Abdominal exam: Present: soft, normal bowel sounds - Extremities Exam Extremities exam: Present: normal inspection - Back Exam Back exam: Present: normal inspection - Neurological Exam Neurological exam: Present: alert, oriented X3 - Psychiatric Psychiatric exam: Present: normal affect, normal mood - Skin Skin exam: Present: warm, dry, intact, normal color. Absent: rash ED Course Vital Signs 07/24/21 07/24/21 07/24/21 22:38 23:00 23:28 Temperature 98 F Pulse Rate 69 78 Respiratory 12 10 L Rate Blood Pressure 118/92 Blood Pressure [Left] O2 Sat by Pulse 99 99 98 Oximetry 07/24/21 07/24/21 23:30 23:46 Temperature Pulse Rate 78 73 Respiratory 9 L 10 L Rate Blood Pressure Blood Pressure 109/78 [Left] O2 Sat by Pulse 98 98 Oximetry - Reevaluation(s) Reevaluation #1: 07/25/21 01:16 work up showed Elevated BNP : history fo chf on AICD and has renal impairment elevated CK with normal trop , renal impairment : chronic with slight worsening RICKI score - Ricki Score Age > 65: (0) No Aspirin use within the Past 7 Days: (1) Yes 3 or more CAD Risk Factors: (1) Yes 2 or more Angina events in past 24 hrs: (1) Yes Known CAD with more than 50% Stenosis: (0) No Elevated Cardiac Markers: (0) No ST Deviation Greater than 0.5mm: (0) No RICKI Score: 3 ED Medical Decision Making - Lab Data Result diagrams: 07/24/21 23:07/24/21 23:04 - EKG Data -: EKG Interpreted by Me - EKG Data Interpretation: other (ventricualr paced rythm ) Critical care attestation.: If time is entered above; I have spent that time in minutes in the direct care of this critically ill patient, excluding procedure time. ED Disposition Clinical Impression: Chest pain, CAD (coronary artery disease), AICD (automatic cardioverter/defibrillator) present, CHF (congestive heart failure), Renal insufficiency, Shortness of breath, Rhabdomyolysis Disposition: 09 ADMITTED INPATIENT Is pt being admited?: Yes Does the pt Need Aspirin: No Condition: Stable Instructions: Nonspecific Chest Pain, Adult Referrals: PRIMARY CARE, [Primary Care Provider] - 3-5 Days
--- NOTE | 2021-07-25 01:30 | History and Physical Report ---
History of Present Illness Date of examination: 07/25/21 Date of admission: Chest Pain Difficulty Breathing Chief complaint: Generalized weakness Chest pain History of present illness: 55-year-old female presents in the emergency room today via EMS for evaluation of generalized lethargy and chest pain. Family had called the EMS because patient had become quite lethargic. Upon arrival of EMS she had complained of chest pain and difficulty breathing. Chest pain is said to be substernal. No radiation, no known relieving or exacerbating factor. EMS indicates that pacemaker seem to have fired in route to the hospital. According to family, pacemaker is said to have some battery issues lately. Patient became more responsive upon arrival in the emergency room. She however indicates that she had a fall about 24 hours ago. She was on the ground for an unspecified period of time. She denies any head injury, no loss of consciousness, no headache or dizziness and no diaphoresis. Patient denies any fever or chills, no nausea vomiting and no abdominal pain. Review of patient's record: [facility] 2014normal coronaries Stress test 02/14/2020negative for stress- induced ischemia. EF 38% Echocardiogram 1EF 15 to 20% Work-up in the emergency room today, labs were significant for BUN of 46 and creatinine of 2.5. Total creatinine kinase 1470. Troponin less than 0.01. BNP 4096. Chest x-ray shows no acute cardiopulmonary disease. EKG showed no acute findings. Patient being admitted for chest pain, acute on chronic kidney disease, elevated creatinine kinase, AICD malfunction. Past History Past Medical History: acute [place] (X4), arthritis, COPD, diabetes, DVT, heart failure, hypertension, renal failure, stroke (X3), other (Kidney stones) Past Surgical History: cholecystectomy, Other (Pacemaker/defibrillator P lacement,Right nephrectomy,Ureter transplant) Social history: no significant social history Family history: no significant family history Medications and Allergies Allergies Allergy/AdvReac Type Severity Reaction Status Date / Time divalproex sodium Allergy Anaphylaxis Verified 07/18/21 12:58 [From Depakote] heparin Allergy Swelling Verified 07/18/21 12:58 Iodinated Contrast Media Allergy Anaphylaxis Verified 07/18/21 12:58 [Iodinated Contrast Media - IV Dye] ketorolac tromethamine Allergy Angioedema Verified 07/18/21 12:58 [From Toradol] ondansetron HCl Allergy Itching Verified 07/18/21 12:58 [From Zofran (as hydrochloride)] Penicillins Allergy Anaphylaxis Verified 07/18/21 12:58 sulfamethoxazole Allergy Unknown Verified 07/18/21 12:58 [From Bactrim] trimethoprim [From Bactrim] Allergy Unknown Verified 07/18/21 12:58 Home Medications Medication Instructions Recorded Confirmed Last Taken Type Albuterol Sulfate [Ventolin HFA] 2 puff IH Q4H PRN 10/03/14 07/19/21 1 Day Ago History ~07/18/21 DULoxetine [Cymbalta] 60 mg PO BID 12/12/14 07/19/21 1 Day Ago History ~07/18/21 traZODone [Desyrel] 100 mg PO QHS 12/12/14 07/19/21 2 Days Ago History ~01/20/21 clonazePAM [KlonoPIN] 1 mg PO TID 01/05/15 07/19/21 1 Day Ago History ~07/18/21 Insulin Aspart (Nf) [NovoLOG 7 - 12 units SQ AC 05/26/17 07/19/21 1 Day Ago History Flexpen] ~07/18/21 Morphine [Morphine TAB] 15 mg PO Q12H 05/26/17 07/19/21 1 Day Ago History ~07/18/21 Gabapentin 600 mg PO TID 01/22/21 07/19/21 1 Day Ago History ~07/18/21 Aspirin [Aspirin BABY CHEW TAB] 81 mg PO QDAY #30 tab.chew 01/27/21 07/19/21 1 Day Ago Rx ~07/18/21 AtorvaSTATin [Lipitor] 40 mg PO QHS #30 tablet 01/27/21 07/19/21 1 Day Ago Rx ~07/18/21 Furosemide [Lasix TAB] 40 mg PO QDAY PRN #30 02/04/21 07/19/21 2 Days Ago Rx ~07/17/21 Insulin Glargine [Lantus VIAL] 22 units SUB-Q QAM units 02/04/21 07/19/21 1 Day Ago Rx ~07/18/21 hydrALAZINE [Apresoline TAB] 25 mg PO BID #60 tablet 02/04/21 07/19/21 1 Day Ago Rx ~07/18/21 carvediloL [Coreg] 3.125 mg PO BID #60 tablet 06/27/21 07/19/21 1 Day Ago Rx ~07/18/21 Budesonide/Formoterol Fumarate 10.2 gm IH DAILY PRN 07/19/21 07/19/21 Unknown History [Symbicort 80-4.5 Mcg Inhaler] Fluticasone/Salmeterol [Advair 1 puff IH BID 07/19/21 07/19/21 1 Day Ago History Diskus 250-50 mcg] ~07/18/21 Insulin Detemir (Nf) [Levemir 14 units SUB-Q QAM 07/19/21 07/19/21 1 Day Ago History Flextouch (Nf)] ~07/18/21 Oxycodone HCl [oxyCODONE] 10 mg PO DAILY 07/19/21 07/19/21 1 Day Ago History ~07/18/21 Tiotropium [place] [Spiriva] 18 mcg IH DAILY 07/19/21 07/19/21 1 Day Ago History ~07/18/21 Prednisone [predniSONE 10 mg 10 mg PO .TAPER #1 07/21/21 Unknown Rx (6-Day Pack, 21 Tabs)] Active Meds: Active Medications Acetaminophen (Acetaminophen 325 Mg Tab) 650 mg PO Q4H PRN PRN Reason: Pain MILD(1-3)/Fever >100.5/HARPER Acetaminophen (Acetaminophen 325 Mg Tab) 650 mg PO Q6H PRN PRN Reason: Pain, Mild (1-3) Aspirin (Aspirin Ec 325 Mg Tab) 325 mg PO QDAY ASHKAN Dextrose (Dextrose 50% In Water (25gm) 50 Ml Syringe) 50 ml IV Q30MIN PRN; Prot ocol PRN Reason: Hypoglycemia Dextrose (Dextrose 50% In Water (25gm) 50 Ml Syringe) 50 ml IV Q30MIN PRN; Protocol PRN Reason: Hypoglycemia Sodium Chloride (Nacl 0.9% 1000 Ml) 1,000 mls @ 150 mls/hr IV DIRECT ASHKAN Insulin Human Lispro (Insulin Lispro 100 Unit/Ml) 0 unit SUB-Q ACHS ASHKAN; Protocol Magnesium Hydroxide (Magnesium Hydroxide (Mom) Oral Liqd Udc) 30 ml PO Q4H PRN PRN Reason: Constipation Morphine Sulfate (Morphine 2 Mg/1 Ml Inj) 2 mg IV Q4H PRN PRN Reason: Pain, Moderate (4-6) Morphine Sulfate (Morphine 4 Mg/1 Ml Inj) 4 mg IV Q4H PRN PRN Reason: Pain , Severe (7-10) Morphine Sulfate (Morphine 4 Mg/1 Ml Inj) 2 mg IV Q5MIN PRN PRN Reason: Chest Pain unrelieved by NTG Ondansetron HCl (Ondansetron 4 Mg/2 Ml Inj) 4 mg IV Q8H PRN PRN Reason: Nausea And Vomiting Sodium Chloride (Sodium Chloride 0.9% 10 Ml Flush Syringe) 10 ml IV BID ASHKAN Sodium Chloride (Sodium Chloride 0.9% 10 Ml Flush Syringe) 10 ml IV PRN PRN PRN Reason: LINE FLUSH Sodium Chloride (Sodium Chloride 0.9% 10 Ml Flush Syringe) 10 ml IV PRN PRN PRN Reason: LINE FLUSH Tramadol HCl (Tramadol 50 Mg Tab) 50 mg PO Q6H PRN PRN Reason: Pain, Moderate (4-6) Review of Systems Constitutional: lethargy, no fever, no chills Cardiovascular: chest pain, dyspnea on exertion, no palpitations Respiratory: shortness of breath, no cough Gastrointestinal: no abdominal pain, no nausea, no vomiting, no diarrhea Genitourinary Female: no pelvic pain, no flank pain, no dysuria, no hematuria Musculoskeletal: no neck pain, no low back pain Integumentary: no rash, no pruritis Neurological: no headaches, no confusion Psychiatric: no anxiety, no depression Exam - Constitutional Vitals: Temp Pulse Resp BP Pulse Ox 98 F 73 10 L 109/78 98 07/24/21 22:38 07/24/21 23:46 07/24/21 23:46 07/24/21 23:30 07/24/21 23:46 General appearance: Present: no acute distress, well-nourished - EENT Eyes: Present: PERRL, EOM intact. Absent: scleral icterus ENT: hearing intact, clear oral mucosa, dentition normal - Neck Neck: Present: supple, normal ROM - Respiratory Respiratory effort: normal Respiratory: bilateral: CTA - Cardiovascular Rhythm: regular Heart Sounds: Present: S1 & S2. Absent: systolic murmur, diastolic murmur, rub, click Details: AICD on right anterior chest wall IV port left anterior chest wall - Extremities Extremities: no ischemia, pulses intact, pulses symmetrical, No edema, normal temperature, normal color, Full ROM Peripheral Pulses: within normal limits - Abdominal General gastrointestinal: Present: soft, non-tender, non-distended, normal bowel sounds. Absent: mass - Integumentary Integumentary: Present: clear, warm, dry, normal turgor. Absent: rash - Musculoskeletal Musculoskeletal: strength equal bilaterally - Psychiatric Psychiatric: appropriate mood/affect, intact judgment & insight, memory intact, cooperative - Neurologic Neurologic: CNII-XII intact, no focal deficits, moves all extremities HEART Score - HEART Score History: Moderately suspicious EKG: Non-specific Age: 45-65 Risk factors: > 3 risk factors or hx of atherosclerotic disease Troponin: Troponin T < 0.010 ng/mL (0.00-0.029) 07/24/21 23:04 Troponin: < normal limit HEART Score: 5 Results - Labs CBC & Chem 7: 07/24/21 23:04 07/24/21 23:04 Labs: Abnormal lab results 07/24/21 07/24/21 07/24/21 Range/Units 23:04 23:04 23:04 BUN 46 H (7-17) mg/dL Creatinine 2.5 H (0.6-1.2) mg/dL Lactic Acid 0.60 L (0.7-2.0) mmol/L Alkaline Phosphatase 144 H (35-129) units/L Total Creatine Kinase 1470 H (30-135) units/L NT-Pro-B Natriuret Pep 4096 H (0-900) pg/mL Albumin 3.8 L (3.9-5) g/dL Salicylates 0.4 L (2.8-20.0) mg/dL Acetaminophen (10.0-30.0) ug/mL 07/24/21 Range/Units 23:04 BUN (7-17) mg/dL Creatinine (0.6-1.2) mg/dL Lactic Acid (0.7-2.0) mmol/L Alkaline Phosphatase (35-129) units/L Total Creatine Kinase (30-135) units/L NT-Pro-B Natriuret Pep (0-900) pg/mL Albumin (3.9-5) g/dL Salicylates (2.8-20.0) mg/dL Acetaminophen 5.0 L (10.0-30.0) ug/mL Assessment and Plan - Patient Problems (1) Chest pain Current Visit: Yes Status: Acute Plan to address problem: Patient has known history of coronary artery disease. Patient admitted and placed on telemetry. We will check serial cardiac enzymes. Patient placed on aspirin, sublingual nitroglycerin and IV morphine as needed for chest pain. Will await further evaluation and recommendations from cardiology. (2) Rhabdomyolysis Current Visit: Yes Status: Acute Plan to address problem: Patient placed on IV fluid. We monitor creatinine kinase. (3) AICD (automatic cardioverter/defibrillator) present Current Visit: Yes Status: Chronic Plan to address problem: Will await further evaluation by cardiology. (4) Acute kidney injury superimposed on CKD Current Visit: No Status: Acute Plan to address problem: We will continue patient on IV fluid and await further evaluation from nephrology. (5) DM2 (diabetes mellitus, type 2) Current Visit: No Status: Chronic Plan to address problem: Patient on sliding scale insulin. We will monitor Accu-Cheks closely. (6) Hypertension Current Visit: No Status: Chronic Qualifiers: Hypertension type: primary hypertension Qualified Code(s): I10 - Essential (primary) hypertension Plan to address problem: We will resume routine home medications and monitor vital signs closely. (7) DVT prophylaxis Current Visit: No Status: Acute Plan to address problem: Patient placed on subcutaneous heparin. (8) Full code status Current Visit: No Status: Acute Plan to address problem: Patient is full code
[2021-07-25] MEDS ORDERED: METOCLOPRAMIDE 10 MG TAB PO PRN (01:44)
[2021-07-25] MEDS ORDERED: METOCLOPRAMIDE 10 MG/2 ML INJ IV PRN (02:00)
[2021-07-25 03:06] LABS: Anisocytosis 1+; Basophils % (Manual) 0 % (0.0-1.8); Poikilocytosis 1+; Total Cells Counted 100
[2021-07-25 03:07] LABS: Ovalocytes Few; Platelet Estimate Consistent w Auto; Tear Drop Cells Few
[2021-07-25 07:09] LABS: Basophils % (Auto) 0.2 % (0.0-1.8); Eosinophils # (Auto) 0.3 K/mm3 (0.0-0.4); Eosinophils % (Auto) 3.5 % (0.0-4.3); Hematocrit 35.6 % (30.3-42.9); Hemoglobin 11.3 gm/dl (10.1-14.3); Lymphocytes # (Auto) 2.4 K/mm3 (1.2-5.4); Lymphocytes % (Auto) 31.4 % (13.4-35.0); Mean Corpuscular HGB Conc 32 % (30-34); Mean Corpuscular Volume 88 fl (79-97); Monocytes # (Auto) 0.8 K/mm3 (0.0-0.8); Monocytes % (Auto) 10.2 % (0.0-7.3); Platelet Count 192 K/mm3 (140-440); Red Blood Count 4.05 M/mm3 (3.65-5.03); Red Cell Distribution Width 14.7 % (13.2-15.2)
[2021-07-25 07:29] LABS: Calcium 8.1 mg/dL (8.4-10.2)
[2021-07-25] MEDS: INSULIN LISPRO 100 UNIT/ML SUB-Q SCH ×4 (07:30→21:49)
[2021-07-25] MEDS ORDERED: REGADENOSON 0.4 MG/5 ML INJ IV ONE (07:35)
[2021-07-25] MEDS: DEXTROSE 10% *Hypoglycemia IV PRN ×2 (07:54→10:24)
--- NOTE | 2021-07-25 10:14 | Electrocardiograph Report ---
[facility] Test Date: 2021-07-24 Test Time: 23:20:25 Pat Name: GISELLA HERRERA Department: Room: A452 1 Gender: F Med Admin: ABELINO Mandujano : 1965 Requested By: MICHELE LIVE Order Number: [id number] Reading MD: Grayson Whelan Measurements Intervals [place] Rate: 80 P: 62 MO: 64 QRS: -78 QRSD: 124 T: 145 QT: 400 QTc: 461 Interpretive Statements Ventricular-paced rhythm Compared to ECG 07/18/2021 17:15:42 No significant change Electronically Signed On 07-25-2021 10:14:06 EST by Gryason Whelan
--- NOTE | 2021-07-25 10:29 | Consultation ---
History of Present Illness - Reason for Consult Consult date: 07/25/21 acute renal failure - History of Present Illness Mrs. Orlando is a 55yo with hypertension, DM, HFrEF who presented to the ED via EMS for evaluation chest pain. Family called EMS because patient had become quite lethargic. Upon arrival of EMS she had complained of chest pain and difficulty breathing. Chest pain is said to be substernal. No radiation, no known relieving or exacerbating factor. EMS indicated that pacemaker may have discharged en route to the hospital. According to family, pacemaker is said to have some battery issues lately. In the ED, patient became more responsive and indicated that she had a fall about 24 hours ago prior to presentation. She was on the ground for an unspecified period of time. She denies any head injury, no loss of consciousness, no headache or dizziness and no diaphoresis. Past History Past Medical History: acute [place] (X4), arthritis, COPD, diabetes, DVT, heart failure, hypertension, renal failure, stroke (X3), other (Kidney stones) Past Surgical History: cholecystectomy, Other (Pacemaker/defibrillator Placement,Right nephrectomy,Ureter transplant) Social history: no significant social history Family history: no significant family history Medications and Allergies Allergies Allergy/AdvReac Type Severity Reaction Status Date / Time divalproex sodium Allergy Anaphylaxis Verified 07/18/21 12:58 [From Depakote] heparin Allergy Swelling Verified 07/18/21 12:58 Iodinated Contrast Media Allergy Anaphylaxis Verified 07/18/21 12:58 [Iodinated Contrast Media - IV Dye] ketorolac tromethamine Allergy Angioedema Verified 07/18/21 12:58 [From Toradol] ondansetron HCl Allergy Itching Verified 07/18/21 12:58 [From Zofran (as hydrochloride)] Penicillins Allergy Anaphylaxis Verified 07/18/21 12:58 sulfamethoxazole Allergy Unknown Verified 07/18/21 12:58 [From Bactrim] trimethoprim [From Bactrim] Allergy Unknown Verified 07/18/21 12:58 Home Medications Medication Instructions Recorded Confirmed Last Taken Type Albuterol Sulfate [Ventolin HFA] 2 puff IH Q4H PRN 10/03/14 07/19/21 1 Day Ago History ~07/18/21 DULoxetine [Cymbalta] 60 mg PO BID 12/12/14 07/19/21 1 Day Ago History ~07/18/21 traZODone [Desyrel] 100 mg PO QHS 12/12/14 07/19/21 2 Days Ago History ~01/20/21 clonazePAM [KlonoPIN] 1 mg PO TID 01/05/15 07/19/21 1 Day Ago History ~07/18/21 Insulin Aspart (Nf) [NovoLOG 7 - 12 units SQ AC 05/26/17 07/19/21 1 Day Ago History Flexpen] ~07/18/21 Morphine [Morphine TAB] 15 mg PO Q12H 05/26/17 07/19/21 1 Day Ago History ~07/18/21 Gabapentin 600 mg PO TID 01/22/21 07/19/21 1 Day Ago History ~07/18/21 Aspirin [Aspirin BABY CHEW TAB] 81 mg PO QDAY #30 tab.chew 01/27/21 07/19/21 1 Day Ago Rx ~07/18/21 AtorvaSTATin [Lipitor] 40 mg PO QHS #30 tablet 01/27/21 07/19/21 1 Day Ago Rx ~07/18/21 Furosemide [Lasix TAB] 40 mg PO QDAY PRN #30 02/04/21 07/19/21 2 Days Ago Rx ~07/17/21 Insulin Glargine [Lantus VIAL] 22 units SUB-Q QAM units 02/04/21 07/19/21 1 Day Ago Rx ~07/18/21 hydrALAZINE [Apresoline TAB] 25 mg PO BID #60 tablet 02/04/21 07/19/21 1 Day Ago Rx ~07/18/21 carvediloL [Coreg] 3.125 mg PO BID #60 tablet 06/27/21 07/19/21 1 Day Ago Rx ~07/18/21 Budesonide/Formoterol Fumarate 10.2 gm IH DAILY PRN 07/19/21 07/19/21 Unknown History [Symbicort 80-4.5 Mcg Inhaler] Fluticasone/Salmeterol [Advair 1 puff IH BID 07/19/21 07/19/21 1 Day Ago History Diskus 250-50 mcg] ~07/18/21 Insulin Detemir (Nf) [Levemir 14 units SUB-Q QAM 07/19/21 07/19/21 1 Day Ago History Flextouch (Nf)] ~07/18/21 Oxycodone HCl [oxyCODONE] 10 mg PO DAILY 07/19/21 07/19/21 1 Day Ago History ~07/18/21 Tiotropium [place] [Spiriva] 18 mcg IH DAILY 07/19/21 07/19/21 1 Day Ago History ~07/18/21 Prednisone [predniSONE 10 mg 10 mg PO .TAPER #1 07/21/21 Unknown Rx (6-Day Pack, 21 Tabs)] Active Meds: Active Medications Acetaminophen (Acetaminophen 325 Mg Tab) 650 mg PO Q4H PRN PRN Reason: Pain MILD(1-3)/Fever >100.5/HARPER Aspirin (Aspirin Ec 325 Mg Tab) 325 mg PO QDAY ASHKAN Dextrose (Dextrose 10% *Hypoglycemia) 0 ml IV DIRECT PRN; Protocol PRN Reason: Hypoglycemia Last Admin: 07/25/21 10:24 Dose: 15 ml Sodium Chloride (Nacl 0.9% 1000 Ml) 1,000 mls @ 150 mls/hr IV DIRECT ASHKAN Last Admin: 07/25/21 05:16 Dose: 150 mls/hr Insulin Human Lispro (Insulin Lispro 100 Unit/Ml) 0 unit SUB-Q ACHS ASHKAN; Protocol Magnesium Hydroxide (Magnesium Hydroxide (Mom) Oral Liqd Udc) 30 ml PO Q4H PRN PRN Reason: Constipation Metoclopramide HCl (Metoclopramide 10 Mg/2 Ml Inj) 5 mg IV Q8H PRN PRN Reason: Nausea And Vomiting Morphine Sulfate (Morphine 2 Mg/1 Ml Inj) 2 mg IV Q4H PRN PRN Reason: Pain, Moderate (4-6) Morphine Sulfate (Morphine 4 Mg/1 Ml Inj) 4 mg IV Q4H PRN PRN Reason: Pain , Severe (7-10) Morphine Sulfate (Morphine 4 Mg/1 Ml Inj) 2 mg IV Q5MIN PRN PRN Reason: Chest Pain unrelieved by NTG Sodium Chloride (Sodium Chloride 0.9% 10 Ml Flush Syringe) 10 ml IV BID ASHKAN Sodium Chloride (Sodium Chloride 0.9% 10 Ml Flush Syringe) 10 ml IV PRN PRN PRN Reason: LINE FLUSH Tramadol HCl (Tramadol 50 Mg Tab) 50 mg PO Q6H PRN PRN Reason: Pain, Moderate (4-6) Review of Systems All systems: negative Exam - Vital Signs Vital signs: Vital Signs Temp Pulse Resp BP Pulse Ox 98 F 69 12 118/92 99 07/24/21 22:38 07/24/21 22:38 07/24/21 22:38 07/24/21 22:38 07/24/21 22:38 Results - Lab Results 07/25/21 06:30 07/25/21 06:30 Most recent lab results Calcium 8.1 mg/dL (8.4-10.2) L 07/25/21 06:30 Assessment and Plan Impression: * Acute kidney disease on Stage III chronic kidney disease --Baseline SCr 1.7-1.9mg/dL * Acute encephalopathy * Chest pain * Possible ICD discharge * Rhabdomyolysis * Recent fall * Hypoglycemia * HFrEF * Chronic hypoxic respiratory failure - 3L NC oxygen at baseline * COPD * Type II DM * Hypertension Plan: * Renal function improving - continue conservative management * Continue gentle IVF for hydration - change to D5NS as patient with hypoglycemia this AM (glucose 50-60), maintain current rate * Monitor volume status closely * Trend CK - urine with sm blood but no RBC c/w myoglobin * Cardiology consultation pending * Avoid potential nephrotoxiins * Dose medications for renal function * Strict I/O
[2021-07-25] MEDS ORDERED: D5W/0.9% NACL 1,000 ML IV SCH (11:00)
--- NOTE | 2021-07-25 15:02 | Consultation ---
History of Present Illness Consult date: 07/25/21 Requesting physician: CRYSTAL WHITTINGTON Consult reason: chest pain History of present illness: Patient is a 55 y/o female with pmhx of HFrEF(15-20%) with BIV ICD, CKD, COPD on home oxygen, DM, h/o of CVA, presented to the ED with a complaint AMS, lethargy, and decrease in mobility. Per documentation on arrival of EMS patient complained of chest pain and shortness of breath. However at time of interview patient did not report any chest pain. She reported shortness of breath, lethargy decreased mobility, and her confusion. Even at time of interview patient reports some confusion and weakness. Of note patient was recently discharged on 07/21/2021 for acute exacerbation of COPD. Of note patient is foun d to have elevated BUN, elevated creatinine, negative troponin and chest x-ray shows no acute cardiopulmonary disease. Patient follows with Dr. Somers of our practice. Cardiology was consulted for chest pain. Past History Past Medical History: acute IL (X4), arthritis, COPD, diabetes, DVT, heart failure, hypertension, renal failure, stroke (X3), other (Kidney stones) Past Surgical History: cholecystectomy, Other (Pacemaker/defibrillator Placement,Right nephrectomy,Ureter transplant) Social history: no significant social history Family history: no significant family history Medications and Allergies Allergies Allergy/AdvReac Type Severity Reaction Status Date / Time divalproex sodium Allergy Anaphylaxis Verified 07/18/21 12:58 [From Depakote] heparin Allergy Swelling Verified 07/18/21 12:58 Iodinated Contrast Media Allergy Anaphylaxis Verified 07/18/21 12:58 [Iodinated Contrast Media - IV Dye] ketorolac tromethamine Allergy Angioedema Verified 07/18/21 12:58 [From Toradol] ondansetron HCl Allergy Itching Verified 07/18/21 12:58 [From Zofran (as hydrochloride)] Penicillins Allergy Anaphylaxis Verified 07/18/21 12:58 sulfamethoxazole Allergy Unknown Verified 07/18/21 12:58 [From Bactrim] trimethoprim [From Bactrim] Allergy Unknown Verified 07/18/21 12:58 Home Medications Medication Instructions Recorded Confirmed Last Taken Type Albuterol Sulfate [Ventolin HFA] 2 puff IH Q4H PRN 10/03/14 07/19/21 1 Day Ago History ~07/18/21 DULoxetine [Cymbalta] 60 mg PO BID 12/12/14 07/19/21 1 Day Ago History ~07/18/21 traZODone [Desyrel] 100 mg PO QHS 12/12/14 07/19/21 2 Days Ago History ~01/20/21 clonazePAM [KlonoPIN] 1 mg PO TID 01/05/15 07/19/21 1 Day Ago History ~07/18/21 Insulin Aspart (Nf) [NovoLOG 7 - 12 units SQ AC 05/26/17 07/19/21 1 Day Ago History Flexpen] ~07/18/21 Morphine [Morphine TAB] 15 mg PO Q12H 05/26/17 07/19/21 1 Day Ago History ~07/18/21 Gabapentin 600 mg PO TID 01/22/21 07/19/21 1 Day Ago History ~07/18/21 Aspirin [Aspirin BABY CHEW TAB] 81 mg PO QDAY #30 tab.chew 01/27/21 07/19/21 1 Day Ago Rx ~07/18/21 AtorvaSTATin [Lipitor] 40 mg PO QHS #30 tablet 01/27/21 07/19/21 1 Day Ago Rx ~07/18/21 Furosemide [Lasix TAB] 40 mg PO QDAY PRN #30 02/04/21 07/19/21 2 Days Ago Rx ~07/17/21 Insulin Glargine [Lantus VIAL] 22 units SUB-Q QAM units 02/04/21 07/19/21 1 Day Ago Rx ~07/18/21 hydrALAZINE [Apresoline TAB] 25 mg PO BID #60 tablet 02/04/21 07/19/21 1 Day Ago Rx ~07/18/21 carvediloL [Coreg] 3.125 mg PO BID #60 tablet 06/27/21 07/19/21 1 Day Ago Rx ~07/18/21 Budesonide/Formoterol Fumarate 10.2 gm IH DAILY PRN 07/19/21 07/19/21 Unknown History [Symbicort 80-4.5 Mcg Inhaler] Fluticasone/Salmeterol [Advair 1 puff IH BID 07/19/21 07/19/21 1 Day Ago History Diskus 250-50 mcg] ~07/18/21 Insulin Detemir (Nf) [Levemir 14 units SUB-Q QAM 07/19/21 07/19/21 1 Day Ago History Flextouch (Nf)] ~07/18/21 Oxycodone HCl [oxyCODONE] 10 mg PO DAILY 07/19/21 07/19/21 1 Day Ago History ~07/18/21 Tiotropium [place] [Spiriva] 18 mcg IH DAILY 07/19/21 07/19/21 1 Day Ago History ~07/18/21 Prednisone [predniSONE 10 mg 10 mg PO .TAPER #1 07/21/21 Unknown Rx (6-Day Pack, 21 Tabs)] Active Meds: Active Medications Acetaminophen (Acetaminophen 325 Mg Tab) 650 mg PO Q4H PRN PRN Reason: Pain MILD(1-3)/Fever >100.5/HARPER Aspirin (Aspirin 81 Mg Tab Chew) 81 mg PO QDAY ASHKAN Atorvastatin Calcium (Atorvastatin 40 Mg Tab) 40 mg PO QHS ASHKAN Dextrose (Dextrose 10% *Hypoglycemia) 0 ml IV DIRECT PRN; Protocol PRN Reason: Hypoglycemia Last Admin: 07/25/21 10:24 Dose: 15 ml Dextrose/Sodium Chloride (D5ns) 1,000 mls @ 75 mls/hr IV DIRECT ASHKAN Last Admin: 07/25/21 11:32 Dose: 75 mls/hr Insulin Human Lispro (Insulin Lispro 100 Unit/Ml) 0 unit SUB-Q ACHS ASHKAN; Protocol Last Admin: 07/25/21 11:34 Dose: Not Given Magnesium Hydroxide (Magnesium Hydroxide (Mom) Oral Liqd Udc) 30 ml PO Q4H PRN PRN Reason: Constipation Metoclopramide HCl (Metoclopramide 10 Mg/2 Ml Inj) 5 mg IV Q8H PRN PRN Reason: Nausea And Vomiting Morphine Sulfate (Morphine 2 Mg/1 Ml Inj) 2 mg IV Q4H PRN PRN Reason: Pain, Moderate (4-6) Morphine Sulfate (Morphine 4 Mg/1 Ml Inj) 4 mg IV Q4H PRN PRN Reason: Pain , Severe (7-10) Morphine Sulfate (Morphine 4 Mg/1 Ml Inj) 2 mg IV Q5MIN PRN PRN Reason: Chest Pain unrelieved by NTG Sodium Chloride (Sodium Chloride 0.9% 10 Ml Flush Syringe) 10 ml IV BID ASHKAN Last Admin: 07/25/21 11:37 Dose: 10 ml Sodium Chloride (Sodium Chloride 0.9% 10 Ml Flush Syringe) 10 ml IV PRN PRN PRN Reason: LINE FLUSH Tramadol HCl (Tramadol 50 Mg Tab) 50 mg PO Q6H PRN PRN Reason: Pain, Moderate (4-6) Review of Systems Constitutional: weakness, lethargy, no weight loss, no weight gain, no fever, no chills Ears, nose, mouth and throat: no sinus pressure, no sinus pain Cardiovascular: shortness of breath, no chest pain Respiratory: shortness of breath Gastrointestinal: no abdominal pain, no nausea, no vomiting Musculoskeletal: no neck stiffness, no neck pain, no shooting arm pain Integumentary: no rash, no pruritis, no redness Neurological: weakness, no head injury, no transient paralysis Psychiatric: no anxiety, no memory loss Endocrine: no cold intolerance, no heat intolerance Hematologic/Lymphatic: no easy bruising, no easy bleeding Physical Examination Vital Signs Temp Pulse Resp BP Pulse Ox 98 F 69 12 118/92 99 07/24/21 22:38 07/24/21 22:38 07/24/21 22:38 07/24/21 22:38 07/24/21 22:38 General appearance: no acute distress HEENT: Positive: PERRL Neck: Positive: trachea midline Cardiac: Positive: Reg Rate and Rhythm Lungs: Positive: Normal Breath Sounds Neuro: Positive: Grossly Intact Abdomen: Positive: Soft Skin: Negative: Rash, Suspicious Lesions, Ulceration Extremities: Present: upper extr. pulses. Absent: edema Results 07/25/21 06:30 07/25/21 06:30 Cardiac Enzymes 07/24/21 Range/Units 23:04 AST 26 (5-40) units/L Coagulation 07/24/21 Range/Units 23:04 PT 13.4 (12.2-14.9) Sec. INR 0.92 (0.87-1.13) CBC 07/24/21 07/25/21 Range/Units 23:04 06:30 WBC 8.6 7.5 (4.5-11.0) K/mm3 RBC 4.22 4.05 (3.65-5.03) M/mm3 Hgb 11.9 11.3 (10.1-14.3) gm/dl Hct 36.6 35.6 (30.3-42.9) % Plt Count 208 192 (140-440) K/mm3 Lymph # (Auto) 2.4 (1.2-5.4) K/mm3 [place] # (Auto) 0.8 (0.0-0.8) K/mm3 Eos # (Auto) 0.3 (0.0-0.4) K/mm3 Baso # (Auto) 0.0 (0.0-0.1) K/mm3 Comprehensive Metabolic Panel 07/24/21 07/25/21 Range/Units 23:04 06:30 Sodium 139 143 (137-145) mmol/L Potassium 4.0 4.1 (3.6-5.0) mmol/L Chloride 100.7 103.9 (98-107) mmol/L Carbon Dioxide 28 29 (22-30) mmol/L BUN 46 H 42 H (7-17) mg/dL Creatinine 2.5 H 2.2 H (0.6-1.2) mg/dL Glucose 72 62 L (65-100) mg/dL Calcium 8.8 8.1 L (8.4-10.2) mg/dL AST 26 (5-40) units/L ALT 28 (7-56) units/L Alkaline Phosphatase 144 H (35-129) units/L Total Protein 6.3 (6.3-8.2) g/dL Albumin 3.8 L (3.9-5) g/dL - Imaging and Cardiology Echo: report reviewed Cardiac cath: report reviewed EKG interpretations - Telemetry EKG Rhythm: Paced Pacemaker: ventricular pacing w/capt Assessment and Plan Patient is a 55 y/o female with pmhx of HFrEF(15-20%) with BIV ICD, CKD, COPD on home oxygen, DM, h/o of CVA, presented to the ED with a complaint AMS, lethargy, and decrease in mobility AMS Acute on chronic HFrEF Nonischemic cardiomyopathy S/P BiV ICD Acute on chronic respiratory failure DOUGLAS on CKD-nephrology following Hypoglycemia Hypertension History of CVA Diabetes [facility] 2014- normal coronary arteries Lexiscan MPI Stress 02/14/2020- negative for stress induced ischemia. EF 38% Echo 01/22/2021- EF 15-20%, LV mildly dilated, severe global hypokinesis, Transmitral doppler flow pattern suggest restrictive physiology, right ventricle is hypokinetic, left atrium mildly dilated Outpatient medications: Aspirin, Aldactone 50 mg p.o. daily, hydralazine 25 mg p.o. twice daily, Lipitor 40 mg p.o. nightly, Coreg 25 mg p.o. twice daily Plan: EKG shows V paced rate 73 no acute ischemic changes. Troponins negative x1. Repeat cardiac enzymes pending. Patient currently denying chest pain BNP noted to be elevated however patient appears euvolemic on exam with lying flat in bed and no bilateral lower extremity edema. BNP is also noted to be lower than prior admissions Patient currently receiving fluids due to DOUGLAS Due to elevated creatinine we will hold nephrotoxic agents Due to soft BP will hold outpatient antihypertensive regimen Patient in conjunction with Dr. Hastings who agrees with this plan of care - Patient Problems (1) Biventricular automatic implantable cardioverter defibrillator in situ Current Visit: No Status: Chronic (2) COPD (chronic obstructive pulmonary disease) Current Visit: No Status: Chronic (3) Nonischemic cardiomyopathy Current Visit: No Status: Chronic (4) AICD (automatic cardioverter/defibrillator) present Current Visit: Yes Status: Chronic (5) GERD (gastroesophageal reflux disease) Current Visit: No Status: Acute (6) Biventricular implantable cardioverter-defibrillator (ICD) in situ Current Visit: No Status: Chronic (7) Acute on chronic HFrEF (heart failure with reduced ejection fraction) Current Visit: No Status: Acute (8) H/O: CVA (cerebrovascular accident) Current Visit: No Status: Chronic (9) DM2 (diabetes mellitus, type 2) Current Visit: No Status: Chronic (10) Acute kidney injury superimposed on CKD Current Visit: No Status: Acute (11) Chronic respiratory failure Current Visit: No Status: Acute (12) Debility Current Visit: No Status: Acute (13) Atypical chest pain Current Visit: No Status: Acute (14) NICM (nonischemic cardiomyopathy) Current Visit: No Status: Chronic
--- NOTE | 2021-07-25 15:20 | Event Note ---
Date: 07/25/21 Patient is a 55 y/o female with pmhx of HFrEF(15-20%) with BIV ICD, CKD, COPD on home oxygen, DM, h/o of CVA, presented to the ED with a complaint AMS, lethargy, and decrease in mobility. Of note patient was recently discharged on 07/21/2021 for acute exacerbation of COPD. She is found to have elevated BUN, elevated creatinine, negative troponin and chest x-ray shows no acute cardiopulmonary disease. Troponins negative x1. Patient currently receiving fluids due to DOUGLAS Due to elevated creatinine we will hold nephrotoxic agents Due to soft BP will hold outpatient antihypertensive regimen follow BMP, if clinically stable possible d/c soon
[2021-07-25] MEDS: MORPHINE 2 MG/1 ML INJ IV PRN ×2 (17:14→21:51)
[2021-07-26] MEDS: MORPHINE 2 MG/1 ML INJ IV PRN ×3 (04:51→21:58)
[2021-07-26] MEDS: INSULIN LISPRO 100 UNIT/ML SUB-Q SCH ×4 (09:12→21:59)
[2021-07-26] MEDS: ASPIRIN 81 MG TAB CHEW PO SCH (09:12)
[2021-07-26] MEDS ORDERED: ASPIRIN EC 325 MG TAB PO SCH (10:00)
--- NOTE | 2021-07-26 14:45 | Progress Note ---
Assessment and Plan Assessment: Acute Encephalopathy DOUGLAS on CKD HFrEF // NICMP (EF 15-20%) // S/p BiV ICD Normal Coronary Arteries (2014) Chronic Respiratory Failure // COPD (on 3L home O2) HTN DM2 H/o CVA H/o DVT Tobacco Dependence Plan: Closely monitor volume status while receiving IV fluids. Pt appears euvolemic upon assessment. No BMP has resulted today for review. Antihypertensives remain on hold in light of borderline low BP. Recent ICD interrogation revealed low battery / [employer]. Pt was scheduled for outpatient evaluation on 07/30/2021 and will subsequently be set up for generator exchange as an outpatient. Pt seen in conjunction with Dr. Shirley Nesbitt, who agrees with the assessment and plan of care. - Patient Problems (1) Acute kidney injury superimposed on CKD Current Visit: Yes Status: Acute (2) HFrEF (heart failure with reduced ejection fraction) Current Visit: Yes Status: Chronic Subjective Date of service: 07/26/21 Principal diagnosis: HFrEF Interval history: Resting comfortably in bed with no cardiac complaints. V-P 80 on tele, no events. Objective Last Vital Signs Temp 98.4 F 07/26/21 11:16 Pulse 90 07/26/21 10:00 Resp 18 07/26/21 11:16 BP 106/68 07/26/21 11:16 Pulse Ox 96 07/26/21 10:00 - Physical Examination General: No Apparent Distress HEENT: Positive: EOMI, Normocephaly Neck: Positive: neck supple, trachea midline. Negative: JVD/HJR Cardiac: Positive: Reg Rate and Rhythm, S1/S2 Lungs: Positive: clear to auscultation Neuro: Positive: Grossly Intact Abdomen: Positive: Soft Skin: Negative: Rash Musculoskeletal: No Pain Extremities: Present: warm. Absent: edema - Imaging and Cardiology EKG: report reviewed, image reviewed Pharmacologic stress test: report reviewed (02/2020 - negative for ischemia, EF 38%) Echo: report reviewed (01/2021) Cardiac cath: report reviewed (2014 - normal coronaries) - Telemetry EKG Rhythm: Paced Pacemaker: ventricular pacing w/capt
--- NOTE | 2021-07-26 15:24 | Progress Note ---
Assessment and Plan Impression: * Acute kidney disease on Stage III chronic kidney disease --Baseline SCr 1.7-1.9mg/dL * Acute encephalopathy * Chest pain * Possible ICD discharge * Rhabdomyolysis * Recent fall * Hypoglycemia * HFrEF * Chronic hypoxic respiratory failure - 3L NC oxygen at baseline * COPD * Type II DM * Hypertension Plan: * BMP pending * Monitor volume status closely * Trend CK - urine with sm blood but no RBC c/w myoglobin * Cardiology recommendations noted * Avoid potential nephrotoxiins * Dose medications for renal function * Strict I/O Subjective Date of service: 07/26/21 Principal diagnosis: HFrEF Interval history: Patient has no complaints today Objective - Vital Signs Vital signs: Vital Signs - 12hr 07/26/21 07/26/21 07/26/21 05:04 07:58 07:59 Temperature 98.4 F 99.5 F Pulse Rate 82 90 90 Pulse Rate [ From Monitor] Respiratory 20 16 Rate Blood Pressure 119/85 130/87 O2 Sat by Pulse 94 93 93 Oximetry 07/26/21 07/26/21 07/26/21 08:16 10:00 11:16 Temperature 98.4 F Pulse Rate Pulse Rate [ 90 From Monitor] Respiratory 18 Rate Blood Pressure 106/68 O2 Sat by Pulse 94 96 Oximetry - General Appearance General appearance: well-developed, well-nourished EENT: ATNC Respiratory: Present: Clear to Ascultation Cardiology: regular, S1S2, other (no edema) Neurologic: alert and oriented x3 Psychiatric: cooperative - Lab 07/25/21 06:30 07/25/21 06:30 Most recent lab results Calcium 8.1 mg/dL (8.4-10.2) L 07/25/21 06:30 Medications & Allergies - Medications Allergies/Adverse Reactions: Allergies divalproex sodium [From Depakote] Allergy (Verified 07/18/21 12:58) Anaphylaxis heparin Allergy (Verified 07/18/21 12:58) Swelling lowers WBC's Iodinated Contrast Media [Iodinated Contrast Media - IV Dye] Allergy (Verified 07/18/21 12:58) Anaphylaxis ketorolac tromethamine [From Toradol] Allergy (Verified 07/18/21 12:58) Angioedema ondansetron HCl [From Zofran (as hydrochloride)] Allergy (Verified 07/18/21 12:58) Itching Penicillins Allergy (Verified 07/18/21 12:58) Anaphylaxis sulfamethoxazole [From Bactrim] Allergy (Verified 07/18/21 12:58) Unknown trimethoprim [From Bactrim] Allergy (Verified 07/18/21 12:58) Unknown Home Medications: Home Medications Medication Instructions Recorded Confirmed Last Taken Type Albuterol Sulfate [Ventolin HFA] 2 puff IH Q4H PRN 10/03/14 07/25/21 1 Day Ago History ~07/18/21 DULoxetine [Cymbalta] 60 mg PO BID 12/12/14 07/25/21 1 Day Ago History ~07/18/21 traZODone [Desyrel] 100 mg PO QHS 12/12/14 07/25/21 2 Days Ago History ~01/20/21 clonazePAM [KlonoPIN] 1 mg PO TID 01/05/15 07/25/21 1 Day Ago History ~07/18/21 Insulin Aspart (Nf) [NovoLOG 7 - 12 units SQ AC 05/26/17 07/25/21 1 Day Ago History Flexpen] ~07/18/21 Morphine [Morphine TAB] 15 mg PO Q12H 05/26/17 07/25/21 1 Day Ago History ~07/18/21 Gabapentin 600 mg PO TID 01/22/21 07/25/21 1 Day Ago History ~07/18/21 Aspirin [Aspirin BABY CHEW TAB] 81 mg PO QDAY #30 tab.chew 01/27/21 07/25/21 1 Day Ago Rx ~07/18/21 AtorvaSTATin [Lipitor] 40 mg PO QHS #30 tablet 01/27/21 07/25/21 1 Day Ago Rx ~07/18/21 Furosemide [Lasix TAB] 40 mg PO QDAY PRN #30 02/04/21 07/25/21 2 Days Ago Rx ~07/17/21 Insulin Glargine [Lantus VIAL] 22 units SUB-Q QAM units 02/04/21 07/19/21 1 Day Ago Rx ~07/18/21 hydrALAZINE [Apresoline TAB] 25 mg PO BID #60 tablet 02/04/21 07/25/21 1 Day Ago Rx ~07/18/21 carvediloL [Coreg] 3.125 mg PO BID #60 tablet 06/27/21 07/25/21 1 Day Ago Rx ~07/18/21 Budesonide/Formoterol Fumarate 10.2 gm IH DAILY PRN 07/19/21 07/25/21 Unknown History [Symbicort 80-4.5 Mcg Inhaler] Fluticasone/Salmeterol [Advair 1 puff IH BID 07/19/21 07/25/21 1 Day Ago History Diskus 250-50 mcg] ~07/18/21 Insulin Detemir (Nf) [Levemir 14 units SUB-Q QAM 07/19/21 07/19/21 1 Day Ago History Flextouch (Nf)] ~07/18/21 Oxycodone HCl [oxyCODONE] 10 mg PO DAILY 07/19/21 07/25/21 1 Day Ago History ~07/18/21 Tiotropium [place] [Spiriva] 18 mcg IH DAILY 07/19/21 07/25/21 1 Day Ago History ~07/18/21 Prednisone [predniSONE 10 mg 10 mg PO .TAPER #1 07/21/21 07/25/21 Unknown Rx (6-Day Pack, 21 Tabs)] Active Medications: Generic Name Dose Route Start Last Admin Trade Name Freq PRN Reason Stop Dose Admin Acetaminophen 650 mg 07/25/21 01:15 Acetaminophen 325 Mg Tab PO Q4H PRN Pain MILD(1-3)/Fever >100.5/HARPER Aspirin 81 mg 07/26/21 10:00 07/26/21 09:12 Aspirin 81 Mg Tab Chew PO 81 mg QDAY ASHKAN Administration Atorvastatin Calcium 40 mg 07/25/21 22:00 07/25/21 21:49 Atorvastatin 40 Mg Tab PO 40 mg QHS ASHKAN Administration Dextrose 0 ml 07/25/21 01:40 07/25/21 10:24 Dextrose 10% *Hypoglycemia IV 15 ml DIRECT PRN Administration Hypoglycemia Protocol Dextrose/Sodium Chloride 1,000 mls @ 75 mls/hr 07/25/21 11:00 07/25/21 11:32 D5ns IV 75 mls/hr DIRECT ASHKAN Administration Insulin Human Lispro 0 unit 07/25/21 07:30 07/26/21 11:29 Insulin Lispro 100 Unit/Ml SUB-Q 4 unit ACHS ASHKAN Administration Protocol Magnesium Hydroxide 30 ml 07/25/21 01:15 Magnesium Hydroxide (Mom) Oral Liqd Udc PO Q4H PRN Constipation Metoclopramide HCl 5 mg 07/25/21 02:00 Metoclopramide 10 Mg/2 Ml Inj IV Q8H PRN Nausea And Vomiting Morphine Sulfate 2 mg 07/25/21 01:15 07/26/21 11:23 Morphine 2 Mg/1 Ml Inj IV 2 mg Q4H PRN Administration Pain, Moderate (4-6) Morphine Sulfate 4 mg 07/25/21 01:15 Morphine 4 Mg/1 Ml Inj IV Q4H PRN Pain , Severe (7-10) Morphine Sulfate 2 mg 07/25/21 01:15 Morphine 4 Mg/1 Ml Inj IV Q5MIN PRN Chest Pain unrelieved by NTG Sodium Chloride 10 ml 07/25/21 10:00 07/26/21 09:13 Sodium Chloride 0.9% 10 Ml Flush Syringe IV 10 ml BID ASHKAN Administration Sodium Chloride 10 ml 07/25/21 01:15 07/26/21 11:24 Sodium Chloride 0.9% 10 Ml Flush Syringe IV 10 ml PRN PRN Administration LINE FLUSH Tramadol HCl 50 mg 07/25/21 01:15 Tramadol 50 Mg Tab PO Q6H PRN Pain, Moderate (4-6)
[2021-07-26 17:15] LABS: Calcium 8.3 mg/dL (8.4-10.2)
--- NOTE | 2021-07-26 19:56 | Progress Note ---
Assessment and Plan 55 y/o female with pmhx of HFrEF(15-20%) with BIV ICD, CKD, COPD on home oxygen, DM, h/o of CVA, presented to the ED with a complaint AMS, lethargy, and decrease in mobility. Of note patient was recently discharged on 07/21/2021 for acute e xacerbation of COPD. She is found to have elevated BUN, elevated creatinine, negative troponin and chest x-ray shows no acute cardiopulmonary disease. Troponins negative x1. Patient currently receiving fluids due to DOUGLAS. Assessment and plan: --Acute Chest pain Patient has known history of coronary artery disease. Patient admitted and placed on telemetry. follow serial cardiac enzymes. Patient placed on aspirin, sublingual nitroglycerin and IV morphine as needed for chest pain. Medical management by cardiology [facility] 2014normal coronaries Stress test 02/14/2020negative for stress-induced ischemia. EF 38% Echocardiogram 1EF 15 to 20% -- Chronic systolic CHF: Will monitor input and output and also monitor daily weight. 2D echo showed EF 15 to 20% which is further declined than her prior echo Now off diuretics due to declining renal function Cardiology following --COPD with ongoing tobacco abuse Continue nebulizer breathing treatment, assess for home O2 requirement -- Rhabdomyolysis Patient placed on IV fluid. We monitor creatinine kinase. -- AICD (automatic cardioverter/defibrillator) present further evaluation by cardiology. -- Acute kidney injury superimposed on CKD We will continue patient on IV fluid and follow BMP, nephrology consulted. -- DM2 (diabetes mellitus, type 2) Patient on sliding scale insulin. We will monitor Accu-Cheks closely. --Hypertensionresume routine home medications and monitor vital signs closely. --DVT prophylaxis Patient placed on subcutaneous heparin. -- Full code status Disposition: Continue to monitor renal function, creatinine improving, nephrology following, medical management per cardiology. Possible discharge tomorrow with home health if clinically stable. Subjective Date of service: 07/26/21 Principal diagnosis: HFrEF Interval history: Patient seen and examined. Medical records and medication list reviewed. No acute event overnight noted by the RN. Patient denies any chest pain. Patient is tolerating diet. Complains of generalized weakness Discussed plan of care at bedside with patient. Objective - Exam Narrative Exam: General: No Apparent Distress HEENT: Positive: EOMI, Normocephaly Neck: Positive: neck supple, trachea midline. Negative: JVD/HJR Cardiac: Positive: Reg Rate and Rhythm, S1/S2 Lungs: Positive: clear to auscultation Neuro: Positive: Grossly Intact Abdomen: Positive: Soft Skin: Negative: Rash Musculoskeletal: No Pain Extremities: Present: warm. Absent: edema - Constitutional Vitals: Vital Signs - 12hr 07/26/21 07/26/21 07/26/21 07:58 07:59 08:00 Temperature 99.5 F Pulse Rate 90 90 90 Pulse Rate [ From Monitor] Respiratory 16 Rate Blood Pressure 130/87 O2 Sat by Pulse 93 93 Oximetry 07/26/21 07/26/21 07/26/21 08:16 10:00 11:16 Temperature 98.4 F Pulse Rate Pulse Rate [ 90 From Monitor] Respiratory 18 Rate Blood Pressure 106/68 O2 Sat by Pulse 94 96 Oximetry 07/26/21 15:57 Temperature 98.7 F Pulse Rate Pulse Rate [ From Monitor] Respiratory 18 Rate Blood Pressure 120/84 O2 Sat by Pulse Oximetry - Labs CBC & Chem 7: 07/25/21 06:30 07/26/21 15:25 Labs: Abnormal lab results 07/25/21 07/26/21 07/26/21 Range/Units 21:01 07:55 11:13 BUN (7-17) mg/dL Creatinine (0.6-1.2) mg/dL Glucose (65-100) mg/dL POC Glucose 370 H 203 H 278 H (70-105) mg/dL Calcium (8.4-10.2) mg/dL Total Creatine Kinase (30-135) units/L 07/26/21 07/26/21 07/26/21 Range/Units 15:25 15:55 19:43 BUN 24 H (7-17) mg/dL Creatinine 1.6 H (0.6-1.2) mg/dL Glucose 207 H (65-100) mg/dL POC Glucose 241 H 274 H (70-105) mg/dL Calcium 8.3 L (8.4-10.2) mg/dL Total Creatine Kinase 364 H (30-135) units/L HEART Score - HEART Score EKG: Non-specific Age: 45-65 Risk factors: > 3 risk factors or hx of atherosclerotic disease Troponin: Troponin T < 0.010 ng/mL (0.00-0.029) 07/24/21 23:04 Troponin: < normal limit
[2021-07-27] MEDS: INSULIN LISPRO 100 UNIT/ML SUB-Q SCH ×4 (07:43→21:10)
[2021-07-27] MEDS: MORPHINE 2 MG/1 ML INJ IV PRN (09:43)
[2021-07-27] MEDS: ASPIRIN 81 MG TAB CHEW PO SCH (09:44)
[2021-07-27] MEDS ORDERED: ALBUTEROL 2.5 MG/3 ML NEBU IH PRN (10:07)
--- NOTE | 2021-07-27 10:38 | Discharge Summary ---
Providers - Providers Date of Admission: 07/25/21 01:15 Date of discharge: 07/28/21 Attending physician: ZAKIYA FOX 07/25/21 Consult to Cardiac Rehabilitation [CONS] Routine Reason For Exam: Phase I 07/25/21 01:15 Consult to Cardiology [CONS] Routine Consulting Provider: EJ DOMINGUEZ Reason For Exam: CHEST PAIN Consult to Dietitian/Nutrition [CONS] Routine Physician Instructions: Reason For Exam: Reason for Consult: Diet education Consult to Physician [CONS] Routine Comment: Consulting Provider: MITCHEL HOFFMAN Physician Instructions: Reason For Exam: ACUTE ON CHRONIC RENAL FAILURE 07/25/21 08:46 Physical Therapy Evaluation and Treat [CONS] Urgent Comment: Reason For Exam: PT to eval and treat 07/25/21 08:47 Occupational Therapy Evaluate and Treat [CONS] Urgent Comment: Reason For Exam: OT to eval and treat Primary care physician: [employer]ORER [employer]E Hospitalization Condition: Stable Hospital course: 55 y/o female with pmhx of HFrEF(15-20%) with BIV ICD, CKD, COPD on home oxygen, DM, h/o of CVA, presented to the ED with a complaint AMS, lethargy, and decrease in mobility. Of note patient was recently discharged on 07/21/2021 for acute exacerbation of COPD. She is found to have elevated BUN, elevated creatinine, negative troponin and chest x-ray shows no acute cardiopulmonary disease. Troponins negative x1. Patient currently receiving fluids due to DOUGLAS. Assessment and plan: --Acute Chest pain Patient has known history of coronary artery disease. Patient admitted and placed on telemetry. follow serial cardiac enzymes. Patient placed on aspirin, sublingual nitroglycerin and IV morphine as needed for chest pain. Medical management by cardiology [facility] 2014normal coronaries Stress test 02/14/2020negative for stress-induced ischemia. EF 38% Echocardiogram 1EF 15 to 20% -- Chronic systolic CHF: Will monitor input and output and also monitor daily weight. 2D echo showed EF 15 to 20% which is further declined than her prior echo Now off diuretics due to declining renal function Cardiology following --COPD with ongoing tobacco abuse Continue nebulizer breathing treatment, assess for home O2 requirement -- Rhabdomyolysis Patient placed on IV fluid. We monitor creatinine kinase. 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 Pt was scheduled for outpatient evaluation on 07/30/2021 and will subsequently be set up for generator exchange as an outpatient. -- Acute kidney injury superimposed on CKD We will continue patient on IV fluid and follow BMP, nephrology consulted. -- DM2 (diabetes mellitus, type 2) Patient on sliding scale insulin. We will monitor Accu-Cheks closely. --Hypertensionresume routine home medications and monitor vital signs closely. --DVT prophylaxis Patient placed on subcutaneous heparin. -- Full code status Disposition: HOME HEALTH CARE SERVICE Time spent for discharge: 34 minutes Core Measure Documentation - Palliative Care Palliative Care/ Comfort Measures: Not Applicable - Core Measures Any of the following diagnoses?: heart failure - Heart Failure Discharge Requirements DANNIE/ARB for LVSD if EF <40%: Not Applicable Reason for no DANNIE/ARB: Renal impairment Beta nova at discharge: Yes Exam - Physical Exam Narrative exam: General: No Apparent Distress HEENT: Positive: EOMI, Normocephaly Neck: Positive: neck supple, trachea midline. Negative: JVD/HJR Cardiac: Positive: Reg Rate and Rhythm, S1/S2 Lungs: Positive: clear to auscultation Neuro: Positive: Grossly Intact Abdomen: Positive: Soft Skin: Negative: Rash Musculoskeletal: No Pain Extremities: Present: warm. Absent: edema - Constitutional Vitals: Temp Pulse Resp BP Pulse Ox 98.3 F 89 18 128/88 95 07/27/21 07:30 07/27/21 03:24 07/27/21 07:30 07/27/21 07:30 07/27/21 09:18 Plan Activity: advance as tolerated Weight Bearing Status: Non-Weight Bearing Diet: low salt, diabetic Special Instructions: restrict fluid intake to (1.2L per day ) Follow up with: BRANNON GALLEGOS MD [Primary Care Provider] - 3-5 Days TREY DOMINGUEZ MD [Staff Physician] - 7 Days
[2021-07-27] MEDS ORDERED: NON-FORMULARY EACH (Insulin Aspart (Nf) 100 UNIT/ML Insuln.Pen) SQ SCH (11:30)
[2021-07-27 12:27] LABS: Calcium 8.5 mg/dL (8.4-10.2)
[2021-07-27] MEDS: MORPHINE 4 MG/1 ML INJ IV PRN ×2 (13:38→21:07)
--- NOTE | 2021-07-27 13:55 | Progress Note ---
Assessment and Plan Assessment: Acute Encephalopathy DOUGLAS on CKD HFrEF // NICMP (EF 15-20%) // S/p BiV ICD Normal Coronary Arteries (2014) Chronic Respiratory Failure // COPD (on 3L home O2) HTN DM2 H/o CVA H/o DVT Tobacco Dependence Plan: Resume Aldactone 50mg daily. Pt takes Lasix 40mg PRN at home. Continue Coreg 3.125mg BID. No ACEI/ARB/ARNI due to renal fxn. Cardiac status is currently stable. 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 Pt was scheduled for outpatient evaluation on 07/30/2021 and will subsequently be set up for generator exchange as an outpatient. Pt seen in conjunction with Dr. Shirley Nesbitt, who agrees with the assessment and plan of care. - Patient Problems (1) Acute kidney injury superimposed on CKD Current Visit: Yes Status: Acute (2) HFrEF (heart failure with reduced ejection fraction) Current Visit: Yes Status: Chronic Subjective Date of service: 07/27/21 Principal diagnosis: HFrEF Interval history: Resting comfortably in bed with no cardiac complaints. Euvolemic. Objective Vital Signs Temp Pulse Pulse Resp BP BP Pulse Ox 07/27/21 12:01 97.8 F 18 134/99 07/27/21 10:00 83 97 07/27/21 09:18 95 07/27/21 07:30 98.3 F 18 128/88 07/27/21 03:24 98.3 F 89 16 125/86 96 07/27/21 00:00 94 H 07/26/21 23:43 98.6 F 93 H 17 142/94 96 07/26/21 22:00 85 97 07/26/21 20:07 98.8 F 94 H 18 126/85 97 07/26/21 15:57 98.7 F 18 120/84 - Physical Examination General: No Apparent Distress HEENT: Positive: EOMI, Normocephaly Neck: Positive: neck supple, trachea midline. Negative: JVD/HJR Cardiac: Positive: Reg Rate and Rhythm, S1/S2 Lungs: Positive: clear to auscultation Neuro: Positive: Grossly Intact Abdomen: Positive: Soft Skin: Negative: Rash Musculoskeletal: No Pain Extremities: Present: warm. Absent: edema - Labs and Meds Comprehensive Metabolic Panel 02/19/22 02/20/22 Range/Units 15:25 Unknown Sodium 140 138 (137-145) mmol/L Potassium 4.6 4.4 (3.6-5.0) mmol/L Chloride 104.1 102.3 (98-107) mmol/L Carbon Dioxide 27 24 (22-30) mmol/L BUN 24 H 18 H (7-17) mg/dL Creatinine 1.6 H 1.5 H (0.6-1.2) mg/dL Glucose 207 H 208 H (65-100) mg/dL Calcium 8.3 L 8.5 (8.4-10.2) mg/dL - Imaging and Cardiology EKG: report reviewed, image reviewed Echo: report reviewed (01/2021) Cardiac cath: report reviewed (2014 - normal coronaries) - Telemetry EKG Rhythm: Paced Pacemaker: ventricular pacing w/capt
--- NOTE | 2021-07-27 14:30 | Progress Note ---
Assessment and Plan Impression: * Acute kidney disease on Stage III chronic kidney disease --Baseline SCr 1.7-1.9mg/dL * Acute encephalopathy * Chest pain * Possible ICD discharge * Rhabdomyolysis * Recent fall * Hypoglycemia * HFrEF * Chronic hypoxic respiratory failure - 3L NC oxygen at baseline * COPD * Type II DM * Hypertension Plan: * No availalble labs at time of visit * Monitor volume status closely * CK trending down; UA at admission w/ sm blood but no RBC c/w myoglobin * Cardiology recommendations noted * Avoid potential nephrotoxiins * Dose medications for renal function * Strict I/O * Note plans discharge planning in progress. Stable from a renal standpoint. Will arrange outpatient nephrology follow up Subjective Date of service: 07/27/21 Principal diagnosis: HFrEF Interval history: Patient complains of back pain Objective - Vital Signs Vital signs: Vital Signs - 12hr 07/27/21 07/27/21 07/27/21 03:24 07:30 09:18 Temperature 98.3 F 98.3 F Pulse Rate 89 Pulse Rate [ From Monitor] Respiratory 16 18 Rate Blood Pressure 125/86 128/88 O2 Sat by Pulse 96 95 Oximetry 07/27/21 07/27/21 10:00 12:01 Temperature 97.8 F Pulse Rate Pulse Rate [ 83 From Monitor] Respiratory 18 Rate Blood Pressure 134/99 O2 Sat by Pulse 97 Oximetry - General Appearance General appearance: well-developed, well-nourished EENT: ATNC Respiratory: Present: Clear to Ascultation Cardiology: regular, S1S2 Gastrointestinal: normal, no tenderness, no distended Integumentary: no rash, warm and dry Neurologic: alert and oriented x3 Psychiatric: cooperative - Lab 07/25/21 06:30 07/27/21 Unknown Most recent lab results Calcium 8.5 mg/dL (8.4-10.2) 07/27/21 Unknown Medications & Allergies - Medications Allergies/Adverse Reactions: Allergies divalproex sodium [From Depakote] Allergy (Verified 07/18/21 12:58) Anaphylaxis heparin Allergy (Verified 07/18/21 12:58) Swelling lowers WBC's Iodinated Contrast Media [Iodinated Contrast Media - IV Dye] Allergy (Verified 07/18/21 12:58) Anaphylaxis ketorolac tromethamine [From Toradol] Allergy (Verified 07/18/21 12:58) Angioedema ondansetron HCl [From Zofran (as hydrochloride)] Allergy (Verified 07/18/21 12:58) Itching Penicillins Allergy (Verified 07/18/21 12:58) Anaphylaxis sulfamethoxazole [From Bactrim] Allergy (Verified 07/18/21 12:58) Unknown trimethoprim [From Bactrim] Allergy (Verified 07/18/21 12:58) Unknown Home Medications: Home Medications Medication Instructions Recorded Confirmed Last Taken Type Albuterol Sulfate [Ventolin HFA] 2 puff IH Q4H PRN 10/03/14 07/25/21 1 Day Ago History ~07/18/21 DULoxetine [Cymbalta] 60 mg PO BID 12/12/14 07/25/21 1 Day Ago History ~07/18/21 traZODone [Desyrel] 100 mg PO QHS 12/12/14 07/25/21 2 Days Ago History ~01/20/21 clonazePAM [KlonoPIN] 1 mg PO TID 01/05/15 07/25/21 1 Day Ago History ~07/18/21 Insulin Aspart (Nf) [NovoLOG 7 - 12 units SQ AC 05/26/17 07/25/21 1 Day Ago History Flexpen] ~07/18/21 Gabapentin 600 mg PO TID 01/22/21 07/25/21 1 Day Ago History ~07/18/21 Aspirin [Aspirin BABY CHEW TAB] 81 mg PO QDAY #30 tab.chew 01/27/21 07/25/21 1 Day Ago Rx ~07/18/21 AtorvaSTATin [Lipitor] 40 mg PO QHS #30 tablet 01/27/21 07/25/21 1 Day Ago Rx ~07/18/21 Furosemide [Lasix TAB] 40 mg PO QDAY PRN #30 02/04/21 07/25/21 2 Days Ago Rx ~07/17/21 carvediloL [Coreg] 3.125 mg PO BID #60 tablet 06/27/21 07/25/21 1 Day Ago Rx ~07/18/21 Budesonide/Formoterol Fumarate 10.2 gm IH DAILY PRN 07/19/21 07/25/21 Unknown History [Symbicort 80-4.5 Mcg Inhaler] Fluticasone/Salmeterol [Advair 1 puff IH BID 07/19/21 07/25/21 1 Day Ago History Diskus 250-50 mcg] ~07/18/21 Insulin Detemir (Nf) [Levemir 14 units SUB-Q QAM 07/19/21 07/19/21 1 Day Ago History Flextouch (Nf)] ~07/18/21 Tiotropium [place] [Spiriva] 18 mcg IH DAILY 07/19/21 07/25/21 1 Day Ago History ~07/18/21 Insulin Glargine [Lantus VIAL] 10 units SUB-Q QAM units 07/27/21 Unknown Rx Active Medications: Generic Name Dose Route Start Last Admin Trade Name Freq PRN Reason Stop Dose Admin Acetaminophen 650 mg 07/25/21 01:15 Acetaminophen 325 Mg Tab PO Q4H PRN Pain MILD(1-3)/Fever >100.5/HARPER Albuterol 2 mg 07/27/21 10:07 Albuterol 2.5 Mg/3 Ml Nebu IH Q4H PRN Shortness Of Breath Arformoterol Tartrate 15 mcg 07/27/21 20:00 Arformoterol 15 Mcg/2 Ml Nebu IH Q12HRT [facility] Aspirin 81 mg 07/26/21 10:00 07/27/21 09:44 Aspirin 81 Mg Tab Chew PO 81 mg QDAY ASHKAN Administration Atorvastatin Calcium 40 mg 07/25/21 22:00 07/26/21 21:59 Atorvastatin 40 Mg Tab PO 40 mg QHS ASHKAN Administration Budesonide 1 mg 07/27/21 20:00 Budesonide 0.5 Mg/2 Ml Nebu IH Q12HRT [facility] Carvedilol 3.125 mg 07/27/21 22:00 Carvedilol 3.125 Mg Tab PO BID ASHKAN Dextrose 0 ml 07/25/21 01:40 07/25/21 10:24 Dextrose 10% *Hypoglycemia IV 15 ml DIRECT PRN Administration Hypoglycemia Protocol Gabapentin 600 mg 07/27/21 14:00 Gabapentin 300 Mg Cap PO TID ASHKAN Insulin Glargine 10 units 07/28/21 10:00 Insulin Glargine 100 Units/Ml SUB-Q QAM ASHKAN Insulin Human Lispro 0 unit 07/25/21 07:30 07/27/21 11:50 Insulin Lispro 100 Unit/Ml SUB-Q 2 unit ACHS ASHKAN Administration Protocol Magnesium Hydroxide 30 ml 07/25/21 01:15 Magnesium Hydroxide (Mom) Oral Liqd Udc PO Q4H PRN Constipation Metoclopramide HCl 5 mg 07/25/21 02:00 Metoclopramide 10 Mg/2 Ml Inj IV Q8H PRN Nausea And Vomiting Morphine Sulfate 2 mg 07/25/21 01:15 07/27/21 09:43 Morphine 2 Mg/1 Ml Inj IV 2 mg Q4H PRN Administration Pain, Moderate (4-6) Morphine Sulfate 4 mg 07/25/21 01:15 07/27/21 13:38 Morphine 4 Mg/1 Ml Inj IV 4 mg Q4H PRN Administration Pain , Severe (7-10) Morphine Sulfate 2 mg 07/25/21 01:15 Morphine 4 Mg/1 Ml Inj IV Q5MIN PRN Chest Pain unrelieved by NTG Sodium Chloride 10 ml 07/25/21 10:00 07/27/21 09:44 Sodium Chloride 0.9% 10 Ml Flush Syringe IV 10 ml BID ASHKAN Administration Sodium Chloride 10 ml 07/25/21 01:15 07/26/21 11:24 Sodium Chloride 0.9% 10 Ml Flush Syringe IV 10 ml PRN PRN Administration LINE FLUSH Tiotropium [place] 1 puff 07/28/21 10:00 Tiotropium 18 Mcg Cap Inhalation IH DAILY [facility] Tramadol HCl 50 mg 07/25/21 01:15 07/26/21 17:44 Tramadol 50 Mg Tab PO 50 mg Q6H PRN Administration Pain, Moderate (4-6)
--- NOTE | 2021-07-27 18:26 | Progress Note ---
Assessment and Plan 55 y/o female with pmhx of HFrEF(15-20%) with BIV ICD, CKD, COPD on home oxygen, DM, h/o of CVA, presented to the ED with a complaint AMS, lethargy, and decrease in mobility. Of note patient was recently discharged on 07/21/2021 for acute e xacerbation of COPD. She is found to have elevated BUN, elevated creatinine, negative troponin and chest x-ray shows no acute cardiopulmonary disease. Troponins negative x1. Patient currently receiving fluids due to DOUGLAS. Assessment and plan: --Acute Chest pain Patient has known history of coronary artery disease. Patient admitted and placed on telemetry. follow serial cardiac enzymes. Patient placed on aspirin, sublingual nitroglycerin and IV morphine as needed for chest pain. Medical management by cardiology [facility] 2014normal coronaries Stress test 02/14/2020negative for stress-induced ischemia. EF 38% Echocardiogram 1EF 15 to 20% -- Chronic systolic CHF: Will monitor input and output and also monitor daily weight. 2D echo showed EF 15 to 20% which is further declined than her prior echo Now off diuretics due to declining renal function Cardiology following --COPD with ongoing tobacco abuse Continue nebulizer breathing treatment, assess for home O2 requirement -- Rhabdomyolysis Patient placed on IV fluid. We monitor creatinine kinase. -- AICD (automatic cardioverter/defibrillator) present further evaluation by cardiology. -- Acute kidney injury superimposed on CKD We will continue patient on IV fluid and follow BMP, nephrology consulted. -- DM2 (diabetes mellitus, type 2) Patient on sliding scale insulin. We will monitor Accu-Cheks closely. --Hypertensionresume routine home medications and monitor vital signs closely. --DVT prophylaxis Patient placed on subcutaneous heparin. -- Full code status Disposition: Continue to monitor renal function, creatinine improving, nephrology following, medical management per cardiology. Possible discharge tomorrow to SNF. Subjective Date of service: 07/27/21 Principal diagnosis: HFrEF Interval history: Patient seen and examined. Medical records and medication list reviewed. No acute event overnight noted by the RN. Patient denies any chest pain. Patient is tolerating diet. Complains of generalized weakness, pending SNF placement Discussed plan of care at bedside with patient. Objective - Exam Narrative Exam: General: No Apparent Distress HEENT: Positive: EOMI, Normocephaly Neck: Positive: neck supple, trachea midline. Negative: JVD/HJR Cardiac: Positive: Reg Rate and Rhythm, S1/S2 Lungs: Positive: clear to auscultation Neuro: Positive: Grossly Intact Abdomen: Positive: Soft Skin: Negative: Rash Musculoskeletal: No Pain Extremities: Present: warm. Absent: edema - Constitutional Vitals: Vital Signs - 12hr 07/27/21 07/27/21 07/27/21 07:30 09:18 10:00 Temperature 98.3 F Pulse Rate Pulse Rate [ 83 From Monitor] Respiratory 18 Rate Blood Pressure 128/88 Blood Pressure [Left] O2 Sat by Pulse 95 97 Oximetry 07/27/21 07/27/21 12:01 15:52 Temperature 97.8 F 98.7 F Pulse Rate 85 Pulse Rate [ From Monitor] Respiratory 18 18 Rate Blood Pressure 134/99 Blood Pressure 128/88 [Left] O2 Sat by Pulse 94 Oximetry - Labs CBC & Chem 7: 07/25/21 06:30 07/27/21 Unknown Labs: Abnormal lab results 07/26/21 07/27/21 07/27/21 Range/Units 19:43 07:21 11:51 BUN (7-17) mg/dL Creatinine (0.6-1.2) mg/dL Glucose (65-100) mg/dL POC Glucose 274 H 183 H 190 H (70-105) mg/dL 07/27/21 07/27/21 Range/Units 15:56 Unknown BUN 18 H (7-17) mg/dL Creatinine 1.5 H (0.6-1.2) mg/dL Glucose 208 H (65-100) mg/dL POC Glucose 203 H (70-105) mg/dL HEART Score - HEART Score EKG: Non-specific Age: 45-65 Risk factors: > 3 risk factors or hx of atherosclerotic disease Troponin: Troponin T < 0.010 ng/mL (0.00-0.029) 07/24/21 23:04 Troponin: < normal limit
[2021-07-27] MEDS: carvediloL 3.125 MG TAB PO SCH (21:10)
[2021-07-27] MEDS: BUDESONIDE 0.5 MG/2 ML NEBU IH SCH (21:20)
[2021-07-27] MEDS: ARFORMOTEROL 15 MCG/2 ML NEBU IH SCH (21:21)
[2021-07-27] MEDS ORDERED: NON-FORMULARY EACH (Fluticasone/Salmeterol [Advair Diskus 250-50 Mcg] 1 EACH Blst.W.Dev) IH SCH (22:00)
[2021-07-28] MEDS: MORPHINE 4 MG/1 ML INJ IV PRN ×5 (05:12→22:56)
[2021-07-28] MEDS: INSULIN LISPRO 100 UNIT/ML SUB-Q SCH ×4 (08:30→22:57)
[2021-07-28] MEDS: ARFORMOTEROL 15 MCG/2 ML NEBU IH SCH ×2 (08:58→20:47)
[2021-07-28] MEDS: BUDESONIDE 0.5 MG/2 ML NEBU IH SCH ×2 (08:58→20:46)
[2021-07-28] MEDS: ASPIRIN 81 MG TAB CHEW PO SCH (09:29)
[2021-07-28] MEDS: INSULIN GLARGINE 100 UNITS/ML SUB-Q SCH (09:30)
[2021-07-28] MEDS: carvediloL 3.125 MG TAB PO SCH ×2 (09:30→22:57)
--- NOTE | 2021-07-28 10:22 | Progress Note ---
Assessment and Plan Impression: * Acute kidney disease on Stage III chronic kidney disease --Baseline SCr 1.7-1.9mg/dL * Acute encephalopathy * Chest pain * Possible ICD discharge * Rhabdomyolysis * Recent fall * Hypoglycemia * HFrEF * Chronic hypoxic respiratory failure - 3L NC oxygen at baseline * COPD * Type II DM * Hypertension Plan: * Creatinine improved to 1.5, 2.5 at peak * Monitor volume status closely, maintain euvolemia as able * Note home medications to include spironolactone 50mg and Lasix 40mg. Both currently held, can restart MRA if needed, advised to take Lasix prn only for now as outpatient * CK trending down; UA at admission w/ sm blood but no RBC c/w myoglobin * Cardiology recommendations noted * Avoid potential nephrotoxins * Dose medications for renal function * Strict I/O * Note plans discharge planning in progress. Stable from a renal standpoint. Will arrange outpatient nephrology follow up Subjective Date of service: 07/28/21 Principal diagnosis: HFrEF Interval history: Patient resting in bed this AM, no clinical issues, denies edema, dyspnea. Has several questions about her medications including use of spironolactone, Lasix. Objective - Exam Narrative Exam: General appearance: well-developed, well-nourished EENT: ATNC Respiratory: Present: Clear to Auscultation Cardiology: regular, S1S2 Gastrointestinal: normal, no tenderness, no distended Integumentary: no rash, warm and dry Neurologic: alert and oriented x3 Psychiatric: cooperative - Vital Signs Vital signs: Vital Signs - 12hr 07/27/21 07/28/21 07/28/21 23:42 00:00 03:55 Temperature 98.3 F 98.1 F Pulse Rate 85 81 83 Pulse Rate [ Anterior Bilateral Throughout] Respiratory 14 18 Rate Respiratory Rate [Anterior Bilateral Throughout] Blood Pressure 124/90 133/91 Blood Pressure [Left] O2 Sat by Pulse 96 94 Oximetry 07/28/21 07/28/21 07/28/21 08:00 08:59 09:01 Temperature 98.1 F Pulse Rate 77 Pulse Rate [ 85 Anterior Bilateral Throughout] Respiratory 18 Rate Respiratory 20 Rate [Anterior Bilateral Throughout] Blood Pressure Blood Pressure 120/67 [Left] O2 Sat by Pulse 94 94 Oximetry - Lab 07/25/21 06:30 07/27/21 Unknown Most recent lab results Calcium 8.5 mg/dL (8.4-10.2) 07/27/21 Unknown Medications & Allergies - Medications Allergies/Adverse Reactions: Allergies divalproex sodium [From Depakote] Allergy (Verified 07/18/21 12:58) Anaphylaxis heparin Allergy (Verified 07/18/21 12:58) Swelling lowers WBC's Iodinated Contrast Media [Iodinated Contrast Media - IV Dye] Allergy (Verified 07/18/21 12:58) Anaphylaxis ketorolac tromethamine [From Toradol] Allergy (Verified 07/18/21 12:58) Angioedema ondansetron HCl [From Zofran (as hydrochloride)] Allergy (Verified 07/18/21 12:58) Itching Penicillins Allergy (Verified 07/18/21 12:58) Anaphylaxis sulfamethoxazole [From Bactrim] Allergy (Verified 07/18/21 12:58) Unknown trimethoprim [From Bactrim] Allergy (Verified 07/18/21 12:58) Unknown Home Medications: Home Medications Medication Instructions Recorded Confirmed Last Taken Type Albuterol Sulfate [Ventolin HFA] 2 puff IH Q4H PRN 10/03/14 07/25/21 1 Day Ago History ~07/18/21 DULoxetine [Cymbalta] 60 mg PO BID 12/12/14 07/25/21 1 Day Ago History ~07/18/21 traZODone [Desyrel] 100 mg PO QHS 12/12/14 07/25/21 2 Days Ago History ~01/20/21 clonazePAM [KlonoPIN] 1 mg PO TID 01/05/15 07/25/21 1 Day Ago History ~07/18/21 Insulin Aspart (Nf) [NovoLOG 7 - 12 units SQ AC 05/26/17 07/25/21 1 Day Ago History Flexpen] ~07/18/21 Gabapentin 600 mg PO TID 01/22/21 07/25/21 1 Day Ago History ~07/18/21 Aspirin [Aspirin BABY CHEW TAB] 81 mg PO QDAY #30 tab.chew 01/27/21 07/25/21 1 Day Ago Rx ~07/18/21 AtorvaSTATin [Lipitor] 40 mg PO QHS #30 tablet 01/27/21 07/25/21 1 Day Ago Rx ~07/18/21 Furosemide [Lasix TAB] 40 mg PO QDAY PRN #30 02/04/21 07/25/21 2 Days Ago Rx ~07/17/21 carvediloL [Coreg] 3.125 mg PO BID #60 tablet 06/27/21 07/25/21 1 Day Ago Rx ~07/18/21 Budesonide/Formoterol Fumarate 10.2 gm IH DAILY PRN 07/19/21 07/25/21 Unknown History [Symbicort 80-4.5 Mcg Inhaler] Fluticasone/Salmeterol [Advair 1 puff IH BID 07/19/21 07/25/21 1 Day Ago History Diskus 250-50 mcg] ~07/18/21 Insulin Detemir (Nf) [Levemir 14 units SUB-Q QAM 07/19/21 07/19/21 1 Day Ago History Flextouch (Nf)] ~07/18/21 Tiotropium [place] [Spiriva] 18 mcg IH DAILY 07/19/21 07/25/21 1 Day Ago History ~07/18/21 Insulin Glargine [Lantus VIAL] 10 units SUB-Q QAM units 07/27/21 Unknown Rx Active Medications: Generic Name Dose Route Start Last Admin Trade Name Freq PRN Reason Stop Dose Admin Acetaminophen 650 mg 07/25/21 01:15 Acetaminophen 325 Mg Tab PO Q4H PRN Pain MILD(1-3)/Fever >100.5/HARPER Albuterol 2 mg 07/27/21 10:07 Albuterol 2.5 Mg/3 Ml Nebu IH Q4H PRN Shortness Of Breath Arformoterol Tartrate 15 mcg 07/27/21 20:00 07/28/21 08:58 Arformoterol 15 Mcg/2 Ml Nebu IH 15 mcg Q12HRT ASHKAN Administration Aspirin 81 mg 07/26/21 10:00 07/28/21 09:29 Aspirin 81 Mg Tab Chew PO 81 mg QDAY ASHKAN Administration Atorvastatin Calcium 40 mg 07/25/21 22:00 07/27/21 21:10 Atorvastatin 40 Mg Tab PO 40 mg QHS ASHKAN Administration Budesonide 1 mg 07/27/21 20:00 07/28/21 08:58 Budesonide 0.5 Mg/2 Ml Nebu IH 0.5 mg Q12HRT ASHKAN Administration Carvedilol 3.125 mg 07/27/21 22:00 07/28/21 09:30 Carvedilol 3.125 Mg Tab PO 3.125 mg BID ASHKAN Administration Dextrose 0 ml 07/25/21 01:40 07/25/21 10:24 Dextrose 10% *Hypoglycemia IV 15 ml DIRECT PRN Administration Hypoglycemia Protocol Gabapentin 600 mg 07/27/21 14:00 Gabapentin 300 Mg Cap PO TID ASHKAN Insulin Glargine 10 units 07/28/21 10:00 07/28/21 09:30 Insulin Glargine 100 Units/Ml SUB-Q 10 units QAM ASHKAN Administration Insulin Human Lispro 0 unit 07/25/21 07:30 07/28/21 08:30 Insulin Lispro 100 Unit/Ml SUB-Q 3 unit ACHS ASHKAN Administration Protocol Magnesium Hydroxide 30 ml 07/25/21 01:15 Magnesium Hydroxide (Mom) Oral Liqd Udc PO Q4H PRN Constipation Metoclopramide HCl 5 mg 07/25/21 02:00 Metoclopramide 10 Mg/2 Ml Inj IV Q8H PRN Nausea And Vomiting Morphine Sulfate 2 mg 07/25/21 01:15 07/27/21 09:43 Morphine 2 Mg/1 Ml Inj IV 2 mg Q4H PRN Administration Pain, Moderate (4-6) Morphine Sulfate 4 mg 07/25/21 01:15 07/28/21 09:31 Morphine 4 Mg/1 Ml Inj IV 4 mg Q4H PRN Administration Pain , Severe (7-10) Morphine Sulfate 2 mg 07/25/21 01:15 Morphine 4 Mg/1 Ml Inj IV Q5MIN PRN Chest Pain unrelieved by NTG Sodium Chloride 10 ml 07/25/21 10:00 07/28/21 09:31 Sodium Chloride 0.9% 10 Ml Flush Syringe IV 10 ml BID ASHKAN Administration Sodium Chloride 10 ml 07/25/21 01:15 07/26/21 11:24 Sodium Chloride 0.9% 10 Ml Flush Syringe IV 10 ml PRN PRN Administration LINE FLUSH Tiotropium [place] 1 puff 07/28/21 10:00 Tiotropium 18 Mcg Cap Inhalation IH DAILY ASHKAN Tramadol HCl 50 mg 07/25/21 01:15 07/26/21 17:44 Tramadol 50 Mg Tab PO 50 mg Q6H PRN Administration Pain, Moderate (4-6)
--- NOTE | 2021-07-28 11:10 | Progress Note ---
Assessment and Plan Patient is a 55 y/o female with pmhx of HFrEF(15-20%) with BIV ICD, CKD, COPD on home oxygen, DM, h/o of CVA, presented to the ED with a complaint AMS, lethargy, and decrease in mobility AMS Acute on chronic HFrEF Nonischemic cardiomyopathy S/P BiV ICD Acute on chronic respiratory failure DOUGLAS on CKD-nephrology following Hypoglycemia Hypertension History of CVA Diabetes [facility] 2014- normal coronary arteries Lexiscan MPI Stress 02/14/2020- negative for stress induced ischemia. EF 38% Echo 01/22/2021- EF 15-20%, LV mildly dilated, severe global hypokinesis, Transmitral doppler flow pattern suggest restrictive physiology, right ventricle is hypokinetic, left atrium mildly dilated Outpatient medications: Aspirin, Aldactone 50 mg p.o. daily, hydralazine 25 mg p.o. twice daily, Lipitor 40 mg p.o. nightly, Coreg 25 mg p.o. twice daily Plan: Pt takes Lasix 40mg PRN at home. Continue Coreg 3.125mg BID. No ACEI/ARB/ARNI due to renal fxn. Cardiac status is currently stable. Recent ICD interrogation revealed low battery / ADJUSTER ARBITRATOR. Pt was scheduled for outpatient evaluation on 07/30/2021 and will subsequently be set up for generator exchange as an outpatient. Due to soft BP will hold outpatient antihypertensive regimen Patient in conjunction with Dr. Walton who agrees with this plan of care - Patient Problems (1) Biventricular automatic implantable cardioverter defibrillator in situ Current Visit: No Status: Chronic (2) COPD (chronic obstructive pulmonary disease) Current Visit: No Status: Chronic (3) Nonischemic cardiomyopathy Current Visit: No Status: Chronic (4) AICD (automatic cardioverter/defibrillator) present Current Visit: Yes Status: Chronic (5) GERD (gastroesophageal reflux disease) Current Visit: No Status: Acute (6) Biventricular implantable cardioverter-defibrillator (ICD) in situ Current Visit: No Status: Chronic (7) Acute on chronic HFrEF (heart failure with reduced ejection fraction) Current Visit: No Status: Acute (8) H/O: CVA (cerebrovascular accident) Current Visit: No Status: Chronic (9) DM2 (diabetes mellitus, type 2) Current Visit: No Status: Chronic (10) Acute kidney injury superimposed on CKD Current Visit: Yes Status: Acute (11) Chronic respiratory failure Current Visit: No Status: Acute (12) Debility Current Visit: No Status: Acute (13) Atypical chest pain Current Visit: No Status: Acute (14) NICM (nonischemic cardiomyopathy) Current Visit: No Status: Chronic Subjective Date of service: 07/28/21 Principal diagnosis: HFrEF, AMS Interval history: Patient lying in bed in no acute distress Patient paced rhythm 85 on monitor with no events Objective Vital Signs Temp Pulse Pulse Pulse Resp Resp BP 07/28/21 09:01 07/28/21 08:59 85 20 07/28/21 08:00 98.1 F 77 18 07/28/21 03:55 98.1 F 83 18 133/91 07/28/21 00:00 81 07/27/21 23:42 98.3 F 85 14 124/90 07/27/21 22:00 83 07/27/21 21:28 07/27/21 21:27 86 20 07/27/21 21:10 75 141/96 07/27/21 20:14 98.2 F 75 18 141/96 07/27/21 15:52 98.7 F 85 18 07/27/21 12:01 97.8 F 18 134/99 BP Pulse Ox 07/28/21 09:01 94 07/28/21 08:59 07/28/21 08:00 120/67 94 07/28/21 03:55 94 07/28/21 00:00 07/27/21 23:42 96 07/27/21 22:00 97 07/27/21 21:28 96 07/27/21 21:27 07/27/21 21:10 07/27/21 20:14 96 07/27/21 15:52 128/88 94 07/27/21 12:01 - Physical Examination General: No Apparent Distress HEENT: Positive: EOMI, Normocephaly Neck: Positive: neck supple, trachea midline. Negative: JVD/HJR Cardiac: Positive: Reg Rate and Rhythm Lungs: Positive: Normal Breath Sounds Neuro: Positive: Grossly Intact Abdomen: Positive: Soft Skin: Negative: Rash Musculoskeletal: No Pain Extremities: Present: warm. Absent: edema - Labs and Meds Comprehensive Metabolic Panel 07/27/21 Range/Units Unknown Sodium 138 (137-145) mmol/L Potassium 4.4 (3.6-5.0) mmol/L Chloride 102.3 (98-107) mmol/L Carbon Dioxide 24 (22-30) mmol/L BUN 18 H (7-17) mg/dL Creatinine 1.5 H (0.6-1.2) mg/dL Glucose 208 H (65-100) mg/dL Calcium 8.5 (8.4-10.2) mg/dL - Imaging and Cardiology EKG: report reviewed, image reviewed Echo: report reviewed (01/2021) Cardiac cath: report reviewed (2014 - normal coronaries) - Telemetry EKG Rhythm: Paced Pacemaker: ventricular pacing w/capt
--- NOTE | 2021-07-28 17:14 | Progress Note ---
Assessment and Plan 55 y/o female with pmhx of HFrEF(15-20%) with BIV ICD, CKD, COPD on home oxygen, DM, h/o of CVA, presented to the ED with a complaint AMS, lethargy, and decrease in mobility. Of note patient was recently discharged on 07/21/2021 for acute e xacerbation of COPD. She is found to have elevated BUN, elevated creatinine, negative troponin and chest x-ray shows no acute cardiopulmonary disease. Troponins negative x1. Patient currently receiving fluids due to DOUGLAS. Assessment and plan: --Acute Chest pain Patient has known history of coronary artery disease. Patient admitted and placed on telemetry. follow serial cardiac enzymes. Patient placed on aspirin, sublingual nitroglycerin and IV morphine as needed for chest pain. Medical management by cardiology [facility] 2014normal coronaries Stress test 02/14/2020negative for stress-induced ischemia. EF 38% Echocardiogram 1EF 15 to 20% -- Chronic systolic CHF: Will monitor input and output and also monitor daily weight. 2D echo showed EF 15 to 20% which is further declined than her prior echo Now off diuretics due to declining renal function Cardiology following --COPD with ongoing tobacco abuse Continue nebulizer breathing treatment, assess for home O2 requirement -- Rhabdomyolysis, CPK trended down Patient placed on IV fluid. We monitor creatinine kinase. -- AICD (automatic cardioverter/defibrillator) present further evaluation by cardiology. -- Acute kidney injury superimposed on CKD We will continue patient on IV fluid and follow BMP, nephrology consulted. replete electrolytes as needed -- DM2 (diabetes mellitus, type 2) Patient on sliding scale insulin. We will monitor Accu-Cheks closely. --Hypertension, resume routine home medications and monitor vital signs closely. --DVT prophylaxis Patient placed on subcutaneous heparin. -- Full code status Disposition: Continue to monitor renal function, creatinine improving, nephrology following, medical management per cardiology. pending authorization to SNF. Subjective Date of service: 07/28/21 Principal diagnosis: HFrEF, AMS Interval history: Patient seen and examined. Medical records and medication list reviewed. No acute event overnight noted by the RN. Patient denies any chest pain. Patient is tolerating diet. Complains of generalized weakness, pending SNF placement Discussed plan of care at bedside with patient. Objective - Constitutional Vitals: Vital Signs - 12hr 02/21/22 02/21/22 02/21/22 08:00 08:59 09:01 Temperature 98.1 F Pulse Rate 77 Pulse Rate [ 87 Anterior Bilateral Throughout] Pulse Rate [ From Monitor] Respiratory 18 Rate Respiratory 20 Rate [Anterior Bilateral Throughout] Blood Pressure 120/67 [Left] O2 Sat by Pulse 94 94 Oximetry 07/28/21 10:00 Temperature Pulse Rate Pulse Rate [ Anterior Bilateral Throughout] Pulse Rate [ 85 From Monitor] Respiratory Rate Respiratory Rate [Anterior Bilateral Throughout] Blood Pressure [Left] O2 Sat by Pulse 97 Oximetry General appearance: Present: no acute distress, well-nourished - EENT Eyes: PERRL, EOM intact ENT: hearing intact, clear oral mucosa Ears: bilateral: normal - Neck Neck: supple, normal ROM - Respiratory Respiratory effort: normal Respiratory: bilateral: CTA - Cardiovascular Rhythm: regular Heart Sounds: Present: S1 & S2. Absent: gallop, rub Extremities: pulses intact, No edema, normal color, Full ROM - Gastrointestinal General gastrointestinal: Present: soft, non-tender, non-distended, normal bowel sounds - Integumentary Integumentary: clear, warm, dry - Musculoskeletal Musculoskeletal: 1, strength equal bilaterally - Neurologic Neurologic: moves all extremities - Psychiatric Psychiatric: appropriate mood/affect, memory intact - Labs CBC & Chem 7: 07/25/21 06:30 07/29/21 04:46 Labs: Abnormal lab results 07/27/21 07/28/21 07/28/21 Range/Units 20:12 07:42 11:09 POC Glucose 323 H 214 H 247 H (70-105) mg/dL 07/28/21 Range/Units 16:50 POC Glucose 147 H (70-105) mg/dL HEART Score - HEART Score EKG: Non-specific Age: 45-65 Risk factors: > 3 risk factors or hx of atherosclerotic disease Troponin: Troponin T < 0.010 ng/mL (0.00-0.029) 07/24/21 23:04 Troponin: < normal limit
[2021-07-28] MEDS: GABAPENTIN 100 MG CAP PO SCH (22:57)
[2021-07-28] MEDS: DULoxetine 30 MG CAP PO SCH (22:57)
[2021-07-28] MEDS: clonazePAM 0.5 MG TAB PO SCH (22:57)
[2021-07-29] MEDS: TIOTROPIUM 18 MCG CAP INHALATION IH SCH ×2 (01:54→13:52)
[2021-07-29] MEDS: GABAPENTIN 300 MG CAP PO SCH ×2 (01:55→01:56)
[2021-07-29] MEDS: MORPHINE 4 MG/1 ML INJ IV PRN (03:02)
[2021-07-29 05:13] LABS: BUN/Creatinine Ratio 13
[2021-07-29 05:29] LABS: Blood Urea Nitrogen 13 mg/dL (7-17); Hemolysis Index 10
[2021-07-29 05:36] LABS: Calcium 5.6 mg/dL (8.4-10.2)
[2021-07-29] MEDS: GABAPENTIN 100 MG CAP PO SCH ×3 (06:03→21:26)
--- NOTE | 2021-07-29 07:52 | Progress Note ---
Assessment and Plan Assessment and plan: --Severe hypokalemia; potassium 2.6 Replenished with oral KCl Check magnesium Monitor electrolytes --Severe hypocalcemia; calcium 5.6 Replenished with calcium gluconate IV x1 and oral calcium carbonate Nephrology following --Chest pain; Symptoms improved Cardiology evaluated, Continue medical management per cardiology [facility] 2015normal coronaries Stress test 02/14/2020negative for stress-induced ischemia. EF 38% Echocardiogram 1EF 15 to 20% -- Chronic systolic CHF: Will monitor input and output and also monitor daily weight. 2D echo showed EF 15 to 20% which is further declined than her prior echo Now off diuretics due to declining renal function Cardiology following --COPD with ongoing tobacco abuse Continue nebulizer breathing treatment, assess for home O2 requirement -- Rhabdomyolysis, CPK trended down Patient placed on IV fluid. We monitor creatinine kinase. -- AICD (automatic cardioverter/defibrillator) present Cardiology evaluated, recently interrogated in office low battery Cardiology planning replacement of battery during the next visit 07/30/2021 -- Acute kidney injury superimposed on CKD/resolved Avoid nephrotoxins, plenty of oral fluids, nephrology following -- DM2 (diabetes mellitus, type 2) Patient on sliding scale insulin. We will monitor Accu-Cheks closely. --Hypertension; well controlled Continue current antihypertensives --DVT prophylaxis subcutaneous heparin. -- Full code status --Discharge planning; per case management CM processing SNF placement We will closely monitor patient and adjust management as needed Brief history and hospital course: 55 y/o female with pmhx of HFrEF(15-20%) with BIV ICD, CKD, COPD on home oxygen, DM, h/o of CVA, presented to the ED with a complaint AMS, lethargy, and decrease in mobility. Of note patient was recently discharged on 07/21/2021 for acute exacerbation of COPD. She is found to have elevated BUN, elevated creatinine, negative troponin and chest x-ray shows no acute cardiopulmonary disease. Troponins negative x1. Renal function back to baseline normal level, will replenish potassium and calcium, follow electrolytes DC planning, SNF placement Disposition: Continue to monitor electrolytes potassium and calcium nephrology following, medical management per cardiology. pending authorization to SNF. History Interval history: I have seen and examined the patient at the bedside Patient's chart and medications reviewed Patient's morning labs findings consistent with severe hypokalemia and hyp ocalcemia PT evaluation pending Hospitalist Physical - Constitutional Vitals: Temp Pulse Resp BP Pulse Ox 98.3 F 74 18 138/94 96 07/29/21 04:08 07/29/21 04:08 07/29/21 04:08 07/29/21 04:08 07/29/21 04:08 General appearance: Present: no acute distress, well-nourished - EENT Eyes: Present: PERRL, EOM intact - Neck Neck: Present: supple, normal ROM - Respiratory Respiratory effort: normal Respiratory: bilateral: diminished, negative: rales, rhonchi, wheezing - Cardiovascular Rhythm: regular Heart Sounds: Present: S1 & S2 - Extremities Extremities: no ischemia, No edema - Abdominal General gastrointestinal: soft, non-tender, non-distended, normal bowel sounds - Integumentary Integumentary: Present: clear, warm - Psychiatric Psychiatric: appropriate mood/affect, cooperative - Neurologic Neurologic: CNII-XII intact, moves all extremities HEART Score - HEART Score EKG: Non-specific Age: 45-65 Risk factors: > 3 risk factors or hx of atherosclerotic disease Troponin: Troponin T < 0.010 ng/mL (0.00-0.029) 07/24/21 23:04 Troponin: < normal limit Results - Labs CBC & Chem 7: 07/25/21 06:30 07/29/21 18:36 Labs: Laboratory Last Values WBC 7.5 K/mm3 (4.5-11.0) 07/25/21 06:30 RBC 4.05 M/mm3 (3.65-5.03) 07/25/21 06:30 Hgb 11.3 gm/dl (10.1-14.3) 07/25/21 06:30 Hct 35.6 % (30.3-42.9) 07/25/21 06:30 MCV 88 fl (79-97) 07/25/21 06:30 MCH 28 pg (28-32) 07/25/21 06:30 MCHC 32 % (30-34) 07/25/21 06:30 RDW 14.7 % (13.2-15.2) 07/25/21 06:30 Plt Count 192 K/mm3 (140-440) 07/25/21 06:30 Lymph % (Auto) 31.4 % (13.4-35.0) 07/25/21 06:30 [place] % (Auto) 10.2 % (0.0-7.3) H 07/25/21 06:30 Eos % (Auto) 3.5 % (0.0-4.3) 07/25/21 06:30 Baso % (Auto) 0.2 % (0.0-1.8) 07/25/21 06:30 Lymph # (Auto) 2.4 K/mm3 (1.2-5.4) 07/25/21 06:30 [place] # (Auto) 0.8 K/mm3 (0.0-0.8) 07/25/21 06:30 Eos # (Auto) 0.3 K/mm3 (0.0-0.4) 07/25/21 06:30 Baso # (Auto) 0.0 K/mm3 (0.0-0.1) 07/25/21 06:30 Add Manual Diff Complete 07/24/21 23:04 Total Counted 100 07/24/21 23:04 Seg Neutrophils % 54.7 % (40.0-70.0) 07/25/21 06:30 Seg Neuts % (Manual) 59.0 % (40.0-70.0) 07/24/21 23:04 Band Neutrophils % 0 % 07/24/21 23:04 Lymphocytes % (Manual) 28.0 % (13.4-35.0) 07/24/21 23:04 Reactive Lymphs % (Man) 0 % 07/24/21 23:04 Monocytes % (Manual) 7.0 % (0.0-7.3) 07/24/21 23:04 Eosinophils % (Manual) 6.0 % (0.0-4.3) H 07/24/21 23:04 Basophils % (Manual) 0 % (0.0-1.8) 07/24/21 23:04 Metamyelocytes % 0 % 07/24/21 23:04 Myelocytes % 0 % 07/24/21 23:04 Promyelocytes % 0 % 07/24/21 23:04 Blast Cells % 0 % 07/24/21 23:04 Nucleated RBC % Not Reportable 07/24/21 23:04 Seg Neutrophils # 4.1 K/mm3 (1.8-7.7) 07/25/21 06:30 Seg Neutrophils # Man 5.1 K/mm3 (1.8-7.7) 07/24/21 23:04 Band Neutrophils # 0.0 K/mm3 07/24/21 23:04 Lymphocytes # (Manual) 2.4 K/mm3 (1.2-5.4) 07/24/21 23:04 Abs React Lymphs (Man) 0.0 K/mm3 07/24/21 23:04 Monocytes # (Manual) 0.6 K/mm3 (0.0-0.8) 07/24/21 23:04 Eosinophils # (Manual) 0.5 K/mm3 (0.0-0.4) H 07/24/21 23:04 Basophils # (Manual) 0.0 K/mm3 (0.0-0.1) 07/24/21 23:04 Metamyelocytes # 0.0 K/mm3 07/24/21 23:04 Myelocytes # 0.0 K/mm3 07/24/21 23:04 Promyelocytes # 0.0 K/mm3 07/24/21 23:04 Blast Cells # 0.0 K/mm3 07/24/21 23:04 WBC Morphology Not Reportable 07/24/21 23:04 Hypersegmented Neuts Not Reportable 07/24/21 23:04 Hyposegmented Neuts Not Reportable 07/24/21 23:04 Hypogranular Neuts Not Reportable 07/24/21 23:04 Smudge Cells Not Reportable 07/24/21 23:04 Toxic Granulation Not Reportable 07/24/21 23:04 Toxic Vacuolation Not Reportable 07/24/21 23:04 Dohle Bodies Not Reportable 07/24/21 23:04 Pelger-Huet Anomaly Not Reportable 07/24/21 23:04 Marianna Rods Not Reportable 07/24/21 23:04 Platelet Estimate Consistent w auto 07/24/21 23:04 Clumped Platelets Not Reportable 07/24/21 23:04 Plt Clumps, EDTA Not Reportable 07/24/21 23:04 Large Platelets Not Reportable 07/24/21 23:04 Giant Platelets Not Reportable 07/24/21 23:04 Platelet Satelliting Not Reportable 07/24/21 23:04 Plt Morphology Comment Not Reportable 07/24/21 23:04 RBC Morphology Not Reportable 07/24/21 23:04 Dimorphic RBCs Not Reportable 07/24/21 23:04 Polychromasia Not Reportable 07/24/21 23:04 Hypochromasia Not Reportable 07/24/21 23:04 Poikilocytosis 1+ 07/24/21 23:04 Anisocytosis 1+ 07/24/21 23:04 Microcytosis Not Reportable 07/24/21 23:04 Macrocytosis Not Reportable 07/24/21 23:04 Spherocytes Not Reportable 07/24/21 23:04 Pappenheimer Bodies Not Reportable 07/24/21 23:04 Sickle Cells Not Reportable 07/24/21 23:04 Target Cells Not Reportable 07/24/21 23:04 Tear Drop Cells Few 07/24/21 23:04 Ovalocytes Few 07/24/21 23:04 Helmet Cells Not Reportable 07/24/21 23:04 [place] Bodies Not Reportable 07/24/21 23:04 [place] Rings Not Reportable 07/24/21 23:04 [place] Cells Not Reportable 07/24/21 23:04 Bite Cells Not Reportable 07/24/21 23:04 Crenated Cell Not Reportable 07/24/21 23:04 Elliptocytes Few 07/24/21 23:04 Acanthocytes (Spur) Not Reportable 07/24/21 23:04 Rouleaux Not Reportable 07/24/21 23:04 Hemoglobin C Crystals Not Reportable 07/24/21 23:04 Schistocytes Not Reportable 07/24/21 23:04 Malaria parasites Not Reportable 07/24/21 23:04 Dilip Bodies Not Reportable 07/24/21 23:04 Hem Pathologist Commnt No 07/24/21 23:04 PT 13.4 Sec. (12.2-14.9) 07/24/21 23:04 INR 0.92 (0.87-1.13) 07/24/21 23:04 Sodium 144 mmol/L (137-145) 07/29/21 04:46 Potassium 2.6 mmol/L (3.6-5.0) L* D 07/29/21 04:46 Chloride 119.4 mmol/L (98-107) H 07/29/21 04:46 Carbon Dioxide 18 mmol/L (22-30) L 07/29/21 04:46 Anion Gap 9 mmol/L 07/29/21 04:46 BUN 13 mg/dL (7-17) 07/29/21 04:46 Creatinine 0.9 mg/dL (0.6-1.2) 07/29/21 04:46 Estimated GFR > 60 ml/min 07/29/21 04:46 BUN/Creatinine Ratio 13 % 07/29/21 04:46 Glucose 141 mg/dL (65-100) H 07/29/21 04:46 POC Glucose 164 mg/dL (70-105) H 07/29/21 07:30 Lactic Acid 0.60 mmol/L (0.7-2.0) L 07/24/21 23:04 Calcium 5.6 mg/dL (8.4-10.2) L* D 07/29/21 04:46 Total Bilirubin 0.30 mg/dL (0.1-1.2) 07/24/21 23:04 AST 26 units/L (5-40) 07/24/21 23:04 ALT 28 units/L (7-56) 07/24/21 23:04 Alkaline Phosphatase 144 units/L (35-129) H 07/24/21 23:04 Total Creatine Kinase 364 units/L (30-135) H 07/26/21 15:25 Troponin T < 0.010 ng/mL (0.00-0.029) 07/24/21 23:04 NT-Pro-B Natriuret Pep 4096 pg/mL (0-900) H 07/24/21 23:04 Total Protein 6.3 g/dL (6.3-8.2) 07/24/21 23:04 Albumin 3.8 g/dL (3.9-5) L 07/24/21 23:04 Albumin/Globulin Ratio 1.5 % 07/24/21 23:04 Urine Color Straw (Yellow) 07/24/21 23:15 Urine Turbidity Clear (Clear) 07/24/21 23:15 Urine pH 5.0 (5.0-7.0) 07/24/21 23:15 Ur Specific [place] 1.008 (1.003-1.030) 07/24/21 23:15 Urine Protein <15 mg/dl mg/dL (Negative) 07/24/21 23:15 Urine Glucose (UA) 50 mg/dL (Negative) 07/24/21 23:15 Urine Ketones Neg mg/dL (Negative) 07/24/21 23:15 Urine Blood Sm (Negative) 07/24/21 23:15 Urine Nitrite Neg (Negative) 07/24/21 23:15 Urine Bilirubin Neg (Negative) 07/24/21 23:15 Urine Urobilinogen < 2.0 mg/dL (<2.0) 07/24/21 23:15 Ur Leukocyte Esterase Neg (Negative) 07/24/21 23:15 Urine WBC (Auto) < 1.0 /HPF (0.0-6.0) 07/24/21 23:15 Urine RBC (Auto) < 1.0 /HPF (0.0-6.0) 07/24/21 23:15 U Epithel Cells (Auto) < 1.0 /HPF (0-13.0) 07/24/21 23:15 Urine Mucus Few /HPF 07/24/21 23:15 Salicylates 0.4 mg/dL (2.8-20.0) L 07/24/21 23:04 Urine Opiates Screen Negative 07/24/21 23:15 Urine Methadone Screen Negative 07/24/21 23:15 Acetaminophen 5.0 ug/mL (10.0-30.0) L 07/24/21 23:04 Ur Barbiturates Screen Negative 07/24/21 23:15 Ur Phencyclidine Scrn Negative 07/24/21 23:15 Ur Amphetamines Screen Negative 07/24/21 23:15 U Benzodiazepines Scrn Negative 07/24/21 23:15 Urine Cocaine Screen Negative 07/24/21 23:15 U Marijuana (THC) Screen Negative 07/24/21 23:15 Drugs of Abuse Note Disclamer 07/24/21 23:15 Plasma/Serum Alcohol < 0.01 % (0-0.07) 07/24/21 23:04 Torres/IV: Voiding Method Toilet Active Medications - Current Medications Current Medications: Generic Name Dose Route Start Last Admin Trade Name Freq PRN Reason Stop Dose Admin Acetaminophen 650 mg 07/25/21 01:15 Acetaminophen 325 Mg Tab PO Q4H PRN Pain MILD(1-3)/Fever >100.5/HARPER Albuterol 2 mg 07/27/21 10:07 Albuterol 2.5 Mg/3 Ml Nebu IH Q4H PRN Shortness Of Breath Arformoterol Tartrate 15 mcg 07/27/21 20:00 07/28/21 20:47 Arformoterol 15 Mcg/2 Ml Nebu IH 15 mcg Q12HRT ASHKAN Administration Aspirin 81 mg 07/26/21 10:00 07/28/21 09:29 Aspirin 81 Mg Tab Chew PO 81 mg QDAY ASHKAN Administration Atorvastatin Calcium 40 mg 07/25/21 22:00 07/28/21 22:57 Atorvastatin 40 Mg Tab PO 40 mg QHS ASHKAN Administration Budesonide 1 mg 07/27/21 20:00 07/28/21 20:46 Budesonide 0.5 Mg/2 Ml Nebu IH 0.5 mg Q12HRT ASHKAN Administration Calcium Carbonate/Glycine 1,000 mg 07/29/21 10:00 Calcium Carbonate 500 Mg Tab Chew PO BID ASHKAN Carvedilol 3.125 mg 07/27/21 22:00 07/28/21 22:57 Carvedilol 3.125 Mg Tab PO 3.125 mg BID ASHKAN Administration Clonazepam 1 mg 07/28/21 20:00 07/28/21 22:57 Clonazepam 0.5 Mg Tab PO 1 mg TID ASHKAN Administration Dextrose 0 ml 07/25/21 01:40 07/25/21 10:24 Dextrose 10% *Hypoglycemia IV 15 ml DIRECT PRN Administration Hypoglycemia Protocol Duloxetine HCl 60 mg 07/28/21 22:00 07/28/21 22:57 Duloxetine 30 Mg Cap PO 60 mg BID ASHKAN Administration Gabapentin 100 mg 07/28/21 22:00 07/29/21 06:03 Gabapentin 100 Mg Cap PO 100 mg Q8HR ASHKAN Administration Insulin Glargine 10 units 07/28/21 10:00 07/28/21 09:30 Insulin Glargine 100 Units/Ml SUB-Q 10 units QAM ASHKAN Administration Insulin Human Lispro 0 unit 07/25/21 07:30 07/28/21 22:57 Insulin Lispro 100 Unit/Ml SUB-Q 3 unit ACHS ASHKAN Administration Protocol Magnesium Hydroxide 30 ml 07/25/21 01:15 Magnesium Hydroxide (Mom) Oral Liqd Udc PO Q4H PRN Constipation Metoclopramide HCl 5 mg 07/25/21 02:00 Metoclopramide 10 Mg/2 Ml Inj IV Q8H PRN Nausea And Vomiting Morphine Sulfate 2 mg 07/25/21 01:15 07/27/21 09:43 Morphine 2 Mg/1 Ml Inj IV 2 mg Q4H PRN Administration Pain, Moderate (4-6) Morphine Sulfate 4 mg 07/25/21 01:15 07/29/21 03:02 Morphine 4 Mg/1 Ml Inj IV 4 mg Q4H PRN Administration Pain , Severe (7-10) Morphine Sulfate 2 mg 07/25/21 01:15 Morphine 4 Mg/1 Ml Inj IV Q5MIN PRN Chest Pain unrelieved by NTG Potassium Chloride 40 meq 07/29/21 09:00 Potassium Chloride Er 20 Meq Tab PO 07/29/21 13:01 Q4H ASHKAN Sodium Chloride 10 ml 07/25/21 10:00 07/28/21 22:58 Sodium Chloride 0.9% 10 Ml Flush Syringe IV 10 ml BID ASHKAN Administration Sodium Chloride 10 ml 07/25/21 01:15 07/26/21 11:24 Sodium Chloride 0.9% 10 Ml Flush Syringe IV 10 ml PRN PRN Administration LINE FLUSH Tiotropium [place] 1 puff 07/28/21 10:00 07/29/21 01:54 Tiotropium 18 Mcg Cap Inhalation IH Not Given DAILY ASHKAN Tramadol HCl 50 mg 07/25/21 01:15 07/26/21 17:44 Tramadol 50 Mg Tab PO 50 mg Q6H PRN Administration Pain, Moderate (4-6) Nutrition/Malnutrition Assess - Dietary Evaluation Nutrition/Malnutrition Findings: Nutrition Notes Start: 07/25/21 09:54 Freq: Status: Active Protocol: Document 07/26/21 16:34 [place] (Rec: 07/26/21 16:55 [place] [id number]) Nutrition Notes 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 Current Diet Cardiac/Consistent Carbohydrates Diet (since D ). Labs/Tests 07/26: BUN 42, Crea 2.2, Glu 62, Ca 8.1. Pertinent Medications 07/26: Insulin, others nutritionally unremarkable. Height 5 ft 2 in Weight 63.9 kg [place] Body Weight (kg) 50.00 BMI 25.7 Intake Prior to Admission Good Weight change and time frame Pt denies having loss body weight [employer]. Weight Status Overweight Subjective/Other Information RD consult for Skin risk assessment. No reports available on Pt's PO intake of meals at the time . Pt shows an area of rash on left arm noted at admission, other no signs of concern for skin risk at the time, according to Physical Assessment History notes. Pt has missing teeth, according to Physical Assessment History notes. Percent of energy/protein needs met: Prescribed Cardiac/Consistent Carbohydrates Diet provides for energy/protein needs (1, 977 Kcal/86 g) during LOS. Burn Absent Trauma Absent GI Symptoms None Food Allergy No Skin Integrity/Comment L-Arm rash. Minimum of two criteria No #1 Nutrition Diagnosis No nutrition diagnosis at this time Is patient on ventilator? No Is Patient Ambulatory and/or Out of Bed Yes REE-([place]-ambulatory/OOB) [ 1536.925 [id number]] Kcal/Kg value to use for calculation 20 Approximate Energy Requirements Using 1278 kcal/Kg Calculation Used for Recommendations Kcal/kg Additional Notes Protein: 0.8-1 g/Kg; 51-64 g/ day. Fluids: 1 ml/Kcal, or as per MD. Nutrition Intervention Follow-Up By: 07/30/21 Additional Comments Continue monitoring food tolerance, %PO intake of meals , and BM.
[2021-07-29] MEDS: BUDESONIDE 0.5 MG/2 ML NEBU IH SCH ×2 (08:40→21:07)
[2021-07-29] MEDS: ARFORMOTEROL 15 MCG/2 ML NEBU IH SCH ×2 (08:40→21:06)
[2021-07-29] MEDS: INSULIN LISPRO 100 UNIT/ML SUB-Q SCH ×4 (08:58→21:26)
[2021-07-29] MEDS: clonazePAM 0.5 MG TAB PO SCH ×3 (08:59→21:25)
[2021-07-29] MEDS: POTASSIUM CHLORIDE ER 20 MEQ TAB PO SCH ×2 (08:59→13:53)
[2021-07-29] MEDS: MORPHINE 2 MG/1 ML INJ IV PRN ×3 (09:00→19:33)
[2021-07-29] MEDS ORDERED: CALCIUM GLUCONATE 1,000 MG/NS 100 ML PREMIX IV ONE (09:00)
[2021-07-29] MEDS: carvediloL 3.125 MG TAB PO SCH ×2 (09:01→21:25)
[2021-07-29] MEDS: DULoxetine 30 MG CAP PO SCH ×2 (09:01→21:25)
[2021-07-29] MEDS: ASPIRIN 81 MG TAB CHEW PO SCH (09:01)
[2021-07-29] MEDS: INSULIN GLARGINE 100 UNITS/ML SUB-Q SCH (09:02)
[2021-07-29] MEDS: CALCIUM CARBONATE 500 MG TAB CHEW PO SCH ×2 (10:50→21:26)
--- NOTE | 2021-07-29 12:09 | Progress Note ---
Assessment and Plan Impression: * Acute kidney disease on Stage III chronic kidney disease --Baseline SCr 1.7-1.9mg/dL * Acute encephalopathy * Chest pain * Possible ICD discharge * Rhabdomyolysis * Recent fall * Hypoglycemia * HFrEF * Chronic hypoxic respiratory failure - 3L NC oxygen at baseline * COPD * Type II DM * Hypertension Plan: * Creatinine improved to 1.5->0.9, 2.5 at peak * Monitor volume status closely, maintain euvolemia as able * Note hypokalemia, acidosis, hypocalcemia- strange as previously WNL with no obvious etiologies, may be lab error. Ok to replete, will recheck BMP this afternoon * Note home medications to include spironolactone 50mg and Lasix 40mg. Both currently held, can restart MRA if needed, advised to take Lasix prn only for now as outpatient * CK trending down; UA at admission w/ sm blood but no RBC c/w myoglobin * Cardiology recommendations noted * Avoid potential nephrotoxins * Dose medications for renal function * Strict I/O * Note plans discharge planning in progress. Stable from a renal standpoint. Will arrange outpatient nephrology follow up Subjective Date of service: 07/29/21 Principal diagnosis: HFrEF, AMS Interval history: Patient resting in bed this AM Objective - Exam Narrative Exam: General appearance: well-developed, well-nourished EENT: ATNC Respiratory: Present: Clear to Auscultation Cardiology: regular, S1S2 Gastrointestinal: normal, no tenderness, no distended Integumentary: no rash, warm and dry Neurologic: alert and oriented x3 Psychiatric: cooperative - Vital Signs Vital signs: Vital Signs - 12hr 07/29/21 07/29/21 07/29/21 04:08 07:27 09:01 Temperature 98.3 F 97.7 F Pulse Rate 74 89 Respiratory 18 18 Rate Blood Pressure 138/94 125/84 125/54 O2 Sat by Pulse 96 97 Oximetry - Lab 07/25/21 06:30 07/29/21 04:46 Most recent lab results Calcium 5.6 mg/dL (8.4-10.2) L* D 07/29/21 04:46 Magnesium 1.30 mg/dL (1.7-2.3) L 07/29/21 04:46 Medications & Allergies - Medications Allergies/Adverse Reactions: Allergies divalproex sodium [From Depakote] Allergy (Verified 07/18/21 12:58) Anaphylaxis heparin Allergy (Verified 07/18/21 12:58) Swelling lowers WBC's Iodinated Contrast Media [Iodinated Contrast Media - IV Dye] Allergy (Verified 07/18/21 12:58) Anaphylaxis ketorolac tromethamine [From Toradol] Allergy (Verified 07/18/21 12:58) Angioedema ondansetron HCl [From Zofran (as hydrochloride)] Allergy (Verified 07/18/21 12:58) Itching Penicillins Allergy (Verified 07/18/21 12:58) Anaphylaxis sulfamethoxazole [From Bactrim] Allergy (Verified 07/18/21 12:58) Unknown trimethoprim [From Bactrim] Allergy (Verified 07/18/21 12:58) Unknown Home Medications: Home Medications Medication Instructions Recorded Confirmed Last Taken Type Albuterol Sulfate [Ventolin HFA] 2 puff IH Q4H PRN 10/03/14 07/25/21 1 Day Ago History ~07/18/21 DULoxetine [Cymbalta] 60 mg PO BID 12/12/14 07/25/21 1 Day Ago History ~07/18/21 traZODone [Desyrel] 100 mg PO QHS 12/12/14 07/25/21 2 Days Ago History ~01/20/21 clonazePAM [KlonoPIN] 1 mg PO TID 01/05/15 07/25/21 1 Day Ago History ~07/18/21 Insulin Aspart (Nf) [NovoLOG 7 - 12 units SQ AC 05/26/17 07/25/21 1 Day Ago History Flexpen] ~07/18/21 Gabapentin 600 mg PO TID 01/22/21 07/25/21 1 Day Ago History ~07/18/21 Aspirin [Aspirin BABY CHEW TAB] 81 mg PO QDAY #30 tab.chew 01/27/21 07/25/21 1 Day Ago Rx ~07/18/21 AtorvaSTATin [Lipitor] 40 mg PO QHS #30 tablet 01/27/21 07/25/21 1 Day Ago Rx ~07/18/21 Furosemide [Lasix TAB] 40 mg PO QDAY PRN #30 02/04/21 07/25/21 2 Days Ago Rx ~07/17/21 carvediloL [Coreg] 3.125 mg PO BID #60 tablet 06/27/21 07/25/21 1 Day Ago Rx ~07/18/21 Budesonide/Formoterol Fumarate 10.2 gm IH DAILY PRN 07/19/21 07/25/21 Unknown History [Symbicort 80-4.5 Mcg Inhaler] Fluticasone/Salmeterol [Advair 1 puff IH BID 07/19/21 07/25/21 1 Day Ago History Diskus 250-50 mcg] ~07/18/21 Insulin Detemir (Nf) [Levemir 14 units SUB-Q QAM 07/19/21 07/19/21 1 Day Ago History Flextouch (Nf)] ~07/18/21 Tiotropium [place] [Spiriva] 18 mcg IH DAILY 07/19/21 07/25/21 1 Day Ago History ~07/18/21 Insulin Glargine [Lantus VIAL] 10 units SUB-Q QAM units 07/27/21 Unknown Rx Active Medications: Generic Name Dose Route Start Last Admin Trade Name Freq PRN Reason Stop Dose Admin Acetaminophen 650 mg 07/25/21 01:15 Acetaminophen 325 Mg Tab PO Q4H PRN Pain MILD(1-3)/Fever >100.5/HARPER Albuterol 2 mg 07/27/21 10:07 Albuterol 2.5 Mg/3 Ml Nebu IH Q4H PRN Shortness Of Breath Arformoterol Tartrate 15 mcg 07/27/21 20:00 07/29/21 08:40 Arformoterol 15 Mcg/2 Ml Nebu IH Not Given Q12HRT [facility] [place] Aspirin 81 mg 07/26/21 10:00 07/29/21 09:01 Aspirin 81 Mg Tab Chew PO 81 mg QDAY ASHKAN Administration Atorvastatin Calcium 40 mg 07/25/21 22:00 07/28/21 22:57 Atorvastatin 40 Mg Tab PO 40 mg QHS ASHKAN Administration Budesonide 1 mg 07/27/21 20:00 07/29/21 08:40 Budesonide 0.5 Mg/2 Ml Nebu IH Not Given Q12HRT ASHKAN Calcium Carbonate/Glycine 1,000 mg 07/29/21 10:00 07/29/21 10:50 Calcium Carbonate 500 Mg Tab Chew PO 1,000 mg BID ASHKAN Administration Carvedilol 3.125 mg 07/27/21 22:00 07/29/21 09:01 Carvedilol 3.125 Mg Tab PO 3.125 mg BID ASHKAN Administration Clonazepam 1 mg 07/28/21 20:00 07/29/21 08:59 Clonazepam 0.5 Mg Tab PO 1 mg TID ASHKAN Administration Dextrose 0 ml 07/25/21 01:40 07/25/21 10:24 Dextrose 10% *Hypoglycemia IV 15 ml DIRECT PRN Administration Hypoglycemia Protocol Duloxetine HCl 60 mg 07/28/21 22:00 07/29/21 09:01 Duloxetine 30 Mg Cap PO 60 mg BID ASHKAN Administration Gabapentin 100 mg 07/28/21 22:00 07/29/21 06:03 Gabapentin 100 Mg Cap PO 100 mg Q8HR ASHKAN Administration Insulin Glargine 10 units 07/28/21 10:00 07/29/21 09:02 Insulin Glargine 100 Units/Ml SUB-Q 10 units QAM ASHKAN Administration Insulin Human Lispro 0 unit 07/25/21 07:30 07/29/21 08:58 Insulin Lispro 100 Unit/Ml SUB-Q 2 unit ACHS ASHKAN Administration Protocol Magnesium Hydroxide 30 ml 07/25/21 01:15 Magnesium Hydroxide (Mom) Oral Liqd Udc PO Q4H PRN Constipation Metoclopramide HCl 5 mg 07/25/21 02:00 Metoclopramide 10 Mg/2 Ml Inj IV Q8H PRN Nausea And Vomiting Morphine Sulfate 2 mg 07/25/21 01:15 07/29/21 09:00 Morphine 2 Mg/1 Ml Inj IV 2 mg Q4H PRN Administration Pain, Moderate (4-6) Morphine Sulfate 4 mg 07/25/21 01:15 07/29/21 03:02 Morphine 4 Mg/1 Ml Inj IV 4 mg Q4H PRN Administration Pain , Severe (7-10) Morphine Sulfate 2 mg 07/25/21 01:15 Morphine 4 Mg/1 Ml Inj IV Q5MIN PRN Chest Pain unrelieved by NTG Potassium Chloride 40 meq 07/29/21 09:00 07/29/21 08:59 Potassium Chloride Er 20 Meq Tab PO 07/29/21 13:01 40 meq Q4H ASHKAN Administration Sodium Chloride 10 ml 07/25/21 10:00 07/29/21 09:02 Sodium Chloride 0.9% 10 Ml Flush Syringe IV 10 ml BID ASHKAN Administration Sodium Chloride 10 ml 07/25/21 01:15 07/26/21 11:24 Sodium Chloride 0.9% 10 Ml Flush Syringe IV 10 ml PRN PRN Administration LINE FLUSH Tiotropium [place] 1 puff 07/28/21 10:00 07/29/21 01:54 Tiotropium 18 Mcg Cap Inhalation IH Not Given DAILY [facility] Tramadol HCl 50 mg 07/25/21 01:15 07/26/21 17:44 Tramadol 50 Mg Tab PO 50 mg Q6H PRN Administration Pain, Moderate (4-6)
--- NOTE | 2021-07-29 12:39 | Progress Note ---
Assessment and Plan Patient is a 55 y/o female with pmhx of HFrEF(15-20%) with BIV ICD, CKD, COPD on home oxygen, DM, h/o of CVA, presented to the ED with a complaint AMS, lethargy, and decrease in mobility AMS Acute on chronic HFrEF Nonischemic cardiomyopathy S/P BiV ICD Acute on chronic respiratory failure DOUGLAS on CKD-nephrology following Hypoglycemia Hypertension History of CVA Diabetes [facility] 2014- normal coronary arteries Lexiscan MPI Stress 02/14/2020- negative for stress induced ischemia. EF 38% Echo 01/22/2021- EF 15-20%, LV mildly dilated, severe global hypokinesis, Transmitral doppler flow pattern suggest restrictive physiology, right ventricle is hypokinetic, left atrium mildly dilated Outpatient medications: Aspirin, Aldactone 50 mg p.o. daily, hydralazine 25 mg p.o. twice daily, Lipitor 40 mg p.o. nightly, Coreg 25 mg p.o. twice daily Plan: Pt takes Lasix 40mg PRN at home. Continue Coreg 3.125mg BID. No ACEI/ARB/ARNI due to renal fxn. Cardiac status is currently stable. Recent ICD interrogation revealed low battery / [employer]. Pt was scheduled for outpatient evaluation on 07/30/2021 and will subsequently be set up for generator exchange as an outpatient. Due to soft BP will hold outpatient antihypertensive regimen Per documentation patient awaiting discharge to facility Cardiac status otherwise stable Patient in conjunction with Dr. Walton who agrees with this plan of care - Patient Problems (1) Biventricular automatic implantable cardioverter defibrillator in situ Current Visit: No Status: Chronic (2) COPD (chronic obstructive pulmonary disease) Current Visit: No Status: Chronic (3) Nonischemic cardiomyopathy Current Visit: No Status: Chronic (4) AICD (automatic cardioverter/defibrillator) present Current Visit: Yes Status: Chronic (5) GERD (gastroesophageal reflux disease) Current Visit: No Status: Acute (6) Biventricular implantable cardioverter-defibrillator (ICD) in situ Current Visit: No Status: Chronic (7) Acute on chronic HFrEF (heart failure with reduced ejection fraction) Current Visit: No Status: Acute (8) H/O: CVA (cerebrovascular accident) Current Visit: No Status: Chronic (9) DM2 (diabetes mellitus, type 2) Current Visit: No Status: Chronic (10) Acute kidney injury superimposed on CKD Current Visit: Yes Status: Acute (11) Chronic respiratory failure Current Visit: No Status: Acute (12) Debility Current Visit: No Status: Acute (13) Atypical chest pain Current Visit: No Status: Acute (14) NICM (nonischemic cardiomyopathy) Current Visit: No Status: Chronic Subjective Date of service: 07/29/21 Principal diagnosis: HFrEF, AMS Interval history: Patient resting in bed in no acute distress Patient paced rhythm on monitor with no events Objective Vital Signs Temp Pulse Pulse Pulse Resp Resp BP 07/29/21 09:01 125/54 07/29/21 07:27 97.7 F 89 18 125/84 07/29/21 04:08 98.3 F 74 18 138/94 07/29/21 00:00 82 07/28/21 22:57 82 129/82 07/28/21 22:00 85 07/28/21 20:49 82 18 07/28/21 19:57 98.2 F 75 17 129/82 07/28/21 16:50 97.8 F 84 133/90 07/28/21 16:00 77 BP Pulse Ox 07/29/21 09:01 07/29/21 07:27 97 07/29/21 04:08 96 07/29/21 00:00 07/28/21 22:57 07/28/21 22:00 97 07/28/21 20:49 07/28/21 19:57 129/82 94 07/28/21 16:50 95 07/28/21 16:00 - Physical Examination General: No Apparent Distress HEENT: Positive: EOMI, Normocephaly Neck: Positive: neck supple, trachea midline. Negative: JVD/HJR Cardiac: Positive: Reg Rate and Rhythm Lungs: Positive: Normal Breath Sounds Neuro: Positive: Grossly Intact Abdomen: Positive: Soft Skin: Negative: Rash Musculoskeletal: No Pain Extremities: Present: warm. Absent: edema - Labs and Meds Comprehensive Metabolic Panel 07/29/21 Range/Units 04:46 Sodium 144 (137-145) mmol/L Potassium 2.6 L* D (3.6-5.0) mmol/L Chloride 119.4 H (98-107) mmol/L Carbon Dioxide 18 L (22-30) mmol/L BUN 13 (7-17) mg/dL Creatinine 0.9 (0.6-1.2) mg/dL Glucose 141 H (65-100) mg/dL Calcium 5.6 L* D (8.4-10.2) mg/dL - Imaging and Cardiology EKG: report reviewed, image reviewed Echo: report reviewed (01/2021) Cardiac cath: report reviewed (2014 - normal coronaries) - Telemetry EKG Rhythm: Paced Pacemaker: ventricular pacing w/capt
[2021-07-29 17:38] LABS: Calcium 8.8 mg/dL (8.4-10.2)
[2021-07-29 19:24] LABS: Calcium 8.7 mg/dL (8.4-10.2)
[2021-07-30] MEDS: MORPHINE 4 MG/1 ML INJ IV PRN ×2 (00:05→04:15)
[2021-07-30] MEDS: GABAPENTIN 100 MG CAP PO SCH ×2 (05:15→13:44)
[2021-07-30 05:24] LABS: Calcium 8.8 mg/dL (8.4-10.2)
[2021-07-30] MEDS: ARFORMOTEROL 15 MCG/2 ML NEBU IH SCH (08:05)
[2021-07-30] MEDS: BUDESONIDE 0.5 MG/2 ML NEBU IH SCH (08:05)
[2021-07-30 08:12] VITALS: BP 119/79
[2021-07-30] MEDS: clonazePAM 0.5 MG TAB PO SCH ×2 (09:00→13:44)
[2021-07-30] MEDS: DULoxetine 30 MG CAP PO SCH (09:05)
[2021-07-30] MEDS: INSULIN LISPRO 100 UNIT/ML SUB-Q SCH ×2 (09:05→12:47)
[2021-07-30] MEDS: INSULIN GLARGINE 100 UNITS/ML SUB-Q SCH (09:05)
[2021-07-30] MEDS: carvediloL 3.125 MG TAB PO SCH (09:05)
[2021-07-30] MEDS: ASPIRIN 81 MG TAB CHEW PO SCH (09:06)
[2021-07-30] MEDS: CALCIUM CARBONATE 500 MG TAB CHEW PO SCH (09:06)
[2021-07-30] MEDS: MORPHINE 2 MG/1 ML INJ IV PRN ×2 (09:07→13:46)
--- NOTE | 2021-07-30 10:25 | Electrocardiograph Report ---
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
--- NOTE | 2021-07-30 11:57 | Progress Note ---
Assessment and Plan Assessment and plan: --Severe hypokalemia; resolved -Hyperkalemia-; resolved --Severe hypocalcemia; calcium 5.6 Replenished, calcium levels normal range --Chest pain; Symptoms improved, Cardiology evaluated, Continue medical management per cardiology --[facility] 2015normal coronaries Stress test 02/14/2020negative for stress-induced ischemia. EF 38% Echocardiogram 1EF 15 to 20% -- Chronic systolic CHF: Will monitor input and output and also monitor daily weight. 2D echo showed EF 15 to 20% which is further declined than her prior echo Now off diuretics due to declining renal function Cardiology following --COPD with ongoing tobacco abuse Continue nebulizer breathing treatment, assess for home O2 requirement -- Rhabdomyolysis, CPK trended down Patient placed on IV fluid. We monitor creatinine kinase. -- AICD (automatic cardioverter/defibrillator) present Cardiology evaluated, recently interrogated in office low battery Cardiology planning replacement of battery during the next visit 07/30/2021 -- Acute kidney injury superimposed on CKD/resolved Avoid nephrotoxins, plenty of oral fluids, nephrology following -- DM2 (diabetes mellitus, type 2) Patient on sliding scale insulin. We will monitor Accu-Cheks closely. --Hypertension; well controlled Continue current antihypertensives --DVT prophylaxis subcutaneous heparin. -- Full code status --Discharge planning; per case management CM processing SNF placement follow COVID-19 test Follow family decision/paperwork Discharge and transfer to SNF We will closely monitor patient and adjust management as needed Brief history and hospital course: 55 y/o female with pmhx of HFrEF(15-20%) with BIV ICD, CKD, COPD on home oxygen, DM, h/o of CVA, presented to the ED with a complaint AMS, lethargy, and decrease in mobility. Of note patient was recently discharged on 07/21/2021 for acute exacerbation of COPD. She is found to have elevated BUN, elevated creatinine, negative troponin and chest x-ray shows no acute cardiopulmonary disease. Troponins negative x1. Renal function back to baseline normal level, will replenish potassium and calcium, follow electrolytes DC planning, SNF placement History Interval history: I have seen and examined the patient at the bedside Patient's chart and medications reviewed Patient feels better no new complaints Vital signs Hospitalist Physical - Constitutional Vitals: Temp Pulse Resp BP Pulse Ox 97.4 F L 80 18 119/79 95 07/30/21 07:50 07/30/21 08:00 07/30/21 07:50 07/30/21 07:50 07/30/21 07:50 General appearance: Present: no acute distress, well-nourished HEART Score - HEART Score EKG: Non-specific Age: 45-65 Risk factors: > 3 risk factors or hx of atherosclerotic disease Troponin: Troponin T < 0.010 ng/mL (0.00-0.029) 07/24/21 23:04 Troponin: < normal limit Results - Labs CBC & Chem 7: 07/25/21 06:30 07/30/21 04:00 Labs: Laboratory Last Values WBC 7.5 K/mm3 (4.5-11.0) 07/25/21 06:30 RBC 4.05 M/mm3 (3.65-5.03) 07/25/21 06:30 Hgb 11.3 gm/dl (10.1-14.3) 07/25/21 06:30 Hct 35.6 % (30.3-42.9) 07/25/21 06:30 MCV 88 fl (79-97) 07/25/21 06:30 MCH 28 pg (28-32) 07/25/21 06:30 MCHC 32 % (30-34) 07/25/21 06:30 RDW 14.7 % (13.2-15.2) 07/25/21 06:30 Plt Count 192 K/mm3 (140-440) 07/25/21 06:30 Lymph % (Auto) 31.4 % (13.4-35.0) 07/25/21 06:30 Bowman % (Auto) 10.2 % (0.0-7.3) H 07/25/21 06:30 Eos % (Auto) 3.5 % (0.0-4.3) 07/25/21 06:30 Baso % (Auto) 0.2 % (0.0-1.8) 07/25/21 06:30 Lymph # (Auto) 2.4 K/mm3 (1.2-5.4) 07/25/21 06:30 Bowman # (Auto) 0.8 K/mm3 (0.0-0.8) 07/25/21 06:30 Eos # (Auto) 0.3 K/mm3 (0.0-0.4) 07/25/21 06:30 Baso # (Auto) 0.0 K/mm3 (0.0-0.1) 07/25/21 06:30 Add Manual Diff Complete 07/24/21 23:04 Total Counted 100 07/24/21 23:04 Seg Neutrophils % 54.7 % (40.0-70.0) 07/25/21 06:30 Seg Neuts % (Manual) 59.0 % (40.0-70.0) 07/24/21 23:04 Band Neutrophils % 0 % 07/24/21 23:04 Lymphocytes % (Manual) 28.0 % (13.4-35.0) 07/24/21 23:04 Reactive Lymphs % (Man) 0 % 07/24/21 23:04 Monocytes % (Manual) 7.0 % (0.0-7.3) 07/24/21 23:04 Eosinophils % (Manual) 6.0 % (0.0-4.3) H 07/24/21 23:04 Basophils % (Manual) 0 % (0.0-1.8) 07/24/21 23:04 Metamyelocytes % 0 % 07/24/21 23:04 Myelocytes % 0 % 07/24/21 23:04 Promyelocytes % 0 % 07/24/21 23:04 Blast Cells % 0 % 07/24/21 23:04 Nucleated RBC % Not Reportable 07/24/21 23:04 Seg Neutrophils # 4.1 K/mm3 (1.8-7.7) 07/25/21 06:30 Seg Neutrophils # Man 5.1 K/mm3 (1.8-7.7) 07/24/21 23:04 Band Neutrophils # 0.0 K/mm3 07/24/21 23:04 Lymphocytes # (Manual) 2.4 K/mm3 (1.2-5.4) 07/24/21 23:04 Abs React Lymphs (Man) 0.0 K/mm3 07/24/21 23:04 Monocytes # (Manual) 0.6 K/mm3 (0.0-0.8) 07/24/21 23:04 Eosinophils # (Manual) 0.5 K/mm3 (0.0-0.4) H 07/24/21 23:04 Basophils # (Manual) 0.0 K/mm3 (0.0-0.1) 07/24/21 23:04 Metamyelocytes # 0.0 K/mm3 07/24/21 23:04 Myelocytes # 0.0 K/mm3 07/24/21 23:04 Promyelocytes # 0.0 K/mm3 07/24/21 23:04 Blast Cells # 0.0 K/mm3 07/24/21 23:04 WBC Morphology Not Reportable 07/24/21 23:04 Hypersegmented Neuts Not Reportable 07/24/21 23:04 Hyposegmented Neuts Not Reportable 07/24/21 23:04 Hypogranular Neuts Not Reportable 07/24/21 23:04 Smudge Cells Not Reportable 07/24/21 23:04 Toxic Granulation Not Reportable 07/24/21 23:04 Toxic Vacuolation Not Reportable 07/24/21 23:04 Dohle Bodies Not Reportable 07/24/21 23:04 Pelger-Huet Anomaly Not Reportable 07/24/21 23:04 Marianna Rods Not Reportable 07/24/21 23:04 Platelet Estimate Consistent w auto 07/24/21 23:04 Clumped Platelets Not Reportable 07/24/21 23:04 Plt Clumps, EDTA Not Reportable 07/24/21 23:04 Large Platelets Not Reportable 07/24/21 23:04 Giant Platelets Not Reportable 07/24/21 23:04 Platelet Satelliting Not Reportable 07/24/21 23:04 Plt Morphology Comment Not Reportable 07/24/21 23:04 RBC Morphology Not Reportable 07/24/21 23:04 Dimorphic RBCs Not Reportable 07/24/21 23:04 Polychromasia Not Reportable 07/24/21 23:04 Hypochromasia Not Reportable 07/24/21 23:04 Poikilocytosis 1+ 07/24/21 23:04 Anisocytosis 1+ 07/24/21 23:04 Microcytosis Not Reportable 07/24/21 23:04 Macrocytosis Not Reportable 07/24/21 23:04 Spherocytes Not Reportable 07/24/21 23:04 Pappenheimer Bodies Not Reportable 07/24/21 23:04 Sickle Cells Not Reportable 07/24/21 23:04 Target Cells Not Reportable 07/24/21 23:04 Tear Drop Cells Few 07/24/21 23:04 Ovalocytes Few 07/24/21 23:04 Helmet Cells Not Reportable 07/24/21 23:04 [place] Bodies Not Reportable 07/24/21 23:04 [place] Rings Not Reportable 07/24/21 23:04 Mayra Cells Not Reportable 07/24/21 23:04 Bite Cells Not Reportable 07/24/21 23:04 Crenated Cell Not Reportable 07/24/21 23:04 Elliptocytes Few 07/24/21 23:04 Acanthocytes (Spur) Not Reportable 07/24/21 23:04 Rouleaux Not Reportable 07/24/21 23:04 Hemoglobin C Crystals Not Reportable 07/24/21 23:04 Schistocytes Not Reportable 07/24/21 23:04 Malaria parasites Not Reportable 07/24/21 23:04 Dilip Bodies Not Reportable 07/24/21 23:04 Hem Pathologist Commnt No 07/24/21 23:04 PT 13.4 Sec. (12.2-14.9) 07/24/21 23:04 INR 0.92 (0.87-1.13) 07/24/21 23:04 Sodium 140 mmol/L (137-145) 07/30/21 04:00 Potassium 4.9 mmol/L (3.6-5.0) 07/30/21 04:00 Chloride 107.8 mmol/L (98-107) H 07/30/21 04:00 Carbon Dioxide 23 mmol/L (22-30) 07/30/21 04:00 Anion Gap 14 mmol/L 07/30/21 04:00 BUN 21 mg/dL (7-17) H 07/30/21 04:00 Creatinine 1.7 mg/dL (0.6-1.2) H 07/30/21 04:00 Estimated GFR 38 ml/min 07/30/21 04:00 BUN/Creatinine Ratio 12 % 07/30/21 04:00 Glucose 216 mg/dL (65-100) H 07/30/21 04:00 POC Glucose 252 mg/dL (70-105) H 07/30/21 11:11 Lactic Acid 0.60 mmol/L (0.7-2.0) L 07/24/21 23:04 Calcium 8.8 mg/dL (8.4-10.2) 07/30/21 04:00 Magnesium 1.90 mg/dL (1.7-2.3) 07/30/21 04:00 Total Bilirubin 0.30 mg/dL (0.1-1.2) 07/24/21 23:04 AST 26 units/L (5-40) 07/24/21 23:04 ALT 28 units/L (7-56) 07/24/21 23:04 Alkaline Phosphatase 144 units/L (35-129) H 07/24/21 23:04 Total Creatine Kinase 364 units/L (30-135) H 07/26/21 15:25 Troponin T < 0.010 ng/mL (0.00-0.029) 07/24/21 23:04 NT-Pro-B Natriuret Pep 4096 pg/mL (0-900) H 07/24/21 23:04 Total Protein 6.3 g/dL (6.3-8.2) 07/24/21 23:04 Albumin 3.8 g/dL (3.9-5) L 07/24/21 23:04 Albumin/Globulin Ratio 1.5 % 07/24/21 23:04 Urine Color Straw (Yellow) 07/24/21 23:15 Urine Turbidity Clear (Clear) 07/24/21 23:15 Urine pH 5.0 (5.0-7.0) 07/24/21 23:15 Ur Specific [place] 1.008 (1.003-1.030) 07/24/21 23:15 Urine Protein <15 mg/dl mg/dL (Negative) 07/24/21 23:15 Urine Glucose (UA) 50 mg/dL (Negative) 07/24/21 23:15 Urine Ketones Neg mg/dL (Negative) 07/24/21 23:15 Urine Blood Sm (Negative) 07/24/21 23:15 Urine Nitrite Neg (Negative) 07/24/21 23:15 Urine Bilirubin Neg (Negative) 07/24/21 23:15 Urine Urobilinogen < 2.0 mg/dL (<2.0) 07/24/21 23:15 Ur Leukocyte Esterase Neg (Negative) 07/24/21 23:15 Urine WBC (Auto) < 1.0 /HPF (0.0-6.0) 07/24/21 23:15 Urine RBC (Auto) < 1.0 /HPF (0.0-6.0) 07/24/21 23:15 U Epithel Cells (Auto) < 1.0 /HPF (0-13.0) 07/24/21 23:15 Urine Mucus Few /HPF 07/24/21 23:15 Salicylates 0.4 mg/dL (2.8-20.0) L 07/24/21 23:04 Urine Opiates Screen Negative 07/24/21 23:15 Urine Methadone Screen Negative 07/24/21 23:15 Acetaminophen 5.0 ug/mL (10.0-30.0) L 07/24/21 23:04 Ur Barbiturates Screen Negative 07/24/21 23:15 Ur Phencyclidine Scrn Negative 07/24/21 23:15 Ur Amphetamines Screen Negative 07/24/21 23:15 U Benzodiazepines Scrn Negative 07/24/21 23:15 Urine Cocaine Screen Negative 07/24/21 23:15 U Marijuana (THC) Screen Negative 07/24/21 23:15 Drugs of Abuse Note Disclamer 07/24/21 23:15 Plasma/Serum Alcohol < 0.01 % (0-0.07) 07/24/21 23:04 Torres/IV: Voiding Method Toilet Active Medications - Current Medications Current Medications: Generic Name Dose Route Start Last Admin Trade Name Freq PRN Reason Stop Dose Admin Acetaminophen 650 mg 07/25/21 01:15 Acetaminophen 325 Mg Tab PO Q4H PRN Pain MILD(1-3)/Fever >100.5/HARPER Albuterol 2 mg 07/27/21 10:07 Albuterol 2.5 Mg/3 Ml Nebu IH Q4H PRN Shortness Of Breath Arformoterol Tartrate 15 mcg 07/27/21 20:00 07/30/21 08:05 Arformoterol 15 Mcg/2 Ml Nebu IH Not Given Q12HRT ASHKAN Aspirin 81 mg 07/26/21 10:00 07/30/21 09:06 Aspirin 81 Mg Tab Chew PO 81 mg QDAY ASHKAN Administration Atorvastatin Calcium 40 mg 07/25/21 22:00 07/29/21 21:26 Atorvastatin 40 Mg Tab PO 40 mg QHS ASHKAN Administration Budesonide 1 mg 07/27/21 20:00 07/30/21 08:05 Budesonide 0.5 Mg/2 Ml Nebu IH Not Given Q12HRT [facility]1983 Calcium Carbonate/Glycine 1,000 mg 07/29/21 10:00 07/30/21 09:06 Calcium Carbonate 500 Mg Tab Chew PO 1,000 mg BID ASHKAN Administration Carvedilol 3.125 mg 07/27/21 22:00 07/30/21 09:05 Carvedilol 3.125 Mg Tab PO 3.125 mg BID ASHKAN Administration Clonazepam 1 mg 07/28/21 20:00 07/30/21 09:00 Clonazepam 0.5 Mg Tab PO 1 mg TID ASHKAN Administration Dextrose 0 ml 07/25/21 01:40 07/25/21 10:24 Dextrose 10% *Hypoglycemia IV 15 ml DIRECT PRN Administration Hypoglycemia Protocol Duloxetine HCl 60 mg 07/28/21 22:00 07/30/21 09:05 Duloxetine 30 Mg Cap PO 60 mg BID ASHKAN Administration Gabapentin 100 mg 07/28/21 22:00 07/30/21 05:15 Gabapentin 100 Mg Cap PO 100 mg Q8HR ASHKAN Administration Insulin Glargine 10 units 07/28/21 10:00 07/30/21 09:05 Insulin Glargine 100 Units/Ml SUB-Q 10 units QAM ASHKAN Administration Insulin Human Lispro 0 unit 07/25/21 07:30 07/30/21 09:05 Insulin Lispro 100 Unit/Ml SUB-Q 2 unit ACHS ASHKAN Administration Protocol Magnesium Hydroxide 30 ml 07/25/21 01:15 Magnesium Hydroxide (Mom) Oral Liqd Udc PO Q4H PRN Constipation Metoclopramide HCl 5 mg 07/25/21 02:00 Metoclopramide 10 Mg/2 Ml Inj IV Q8H PRN Nausea And Vomiting Morphine Sulfate 2 mg 07/25/21 01:15 07/30/21 09:07 Morphine 2 Mg/1 Ml Inj IV 2 mg Q4H PRN Administration Pain, Moderate (4-6) Morphine Sulfate 4 mg 07/25/21 01:15 07/30/21 04:15 Morphine 4 Mg/1 Ml Inj IV 4 mg Q4H PRN Administration Pain , Severe (7-10) Morphine Sulfate 2 mg 07/25/21 01:15 Morphine 4 Mg/1 Ml Inj IV Q5MIN PRN Chest Pain unrelieved by NTG Sodium Chloride 10 ml 07/25/21 10:00 07/30/21 09:06 Sodium Chloride 0.9% 10 Ml Flush Syringe IV 10 ml BID ASHKAN Administration Sodium Chloride 10 ml 07/25/21 01:15 07/26/21 11:24 Sodium Chloride 0.9% 10 Ml Flush Syringe IV 10 ml PRN PRN Administration LINE FLUSH Tiotropium Camilla 1 puff 07/28/21 10:00 07/29/21 13:52 Tiotropium 18 Mcg Cap Inhalation IH Not Given DAILY ASHKAN Tramadol HCl 50 mg 07/25/21 01:15 07/26/21 17:44 Tramadol 50 Mg Tab PO 50 mg Q6H PRN Administration Pain, Moderate (4-6) Nutrition/Malnutrition Assess - Dietary Evaluation Nutrition/Malnutrition Findings: Nutrition Notes Start: 07/25/21 09:54 Freq: Status: Active Protocol: Document 07/26/21 16:34 L[place]ON (Rec: 07/26/21 16:55 L[place]ON [id number]) Nutrition Notes 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 Current Diet Cardiac/Consistent Carbohydrates Diet (since D ). Labs/Tests 07/26: BUN 42, Crea 2.2, Glu 62, Ca 8.1. Pertinent Medications 07/26: Insulin, others nutritionally unremarkable. 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 Weight Status Overweight Subjective/Other Information RD consult for Skin risk assessment. No reports available on Pt's PO intake of meals at the time . Pt shows an area of rash on left arm noted at admission, other no signs of concern for skin risk at the time, according to Physical Assessment History notes. Pt has missing teeth, according to Physical Assessment History notes. Percent of energy/protein needs met: Prescribed Cardiac/Consistent Carbohydrates Diet provides for energy/protein needs (1, 977 Kcal/86 g) during LOS. Burn Absent Trauma Absent GI Symptoms None Food Allergy No Skin Integrity/Comment L-Arm rash. Minimum of two criteria No #1 Nutrition Diagnosis No nutrition diagnosis at this time Is patient on ventilator? No Is Patient Ambulatory and/or Out of Bed Yes REE-([place] Jeor-ambulatory/OOB) [ 1536.925 [id number]] Kcal/Kg value to use for calculation 20 Approximate Energy Requirements Using 1278 kcal/Kg Calculation Used for Recommendations Kcal/kg Additional Notes Protein: 0.8-1 g/Kg; 51-64 g/ day. Fluids: 1 ml/Kcal, or as per MD. Nutrition Intervention Follow-Up By: 07/30/21 Additional Comments Continue monitoring food tolerance, %PO intake of meals , and BM.
--- NOTE | 2021-07-30 12:07 | Progress Note ---
Assessment and Plan Patient is a 55 y/o female with pmhx of HFrEF(15-20%) with BIV ICD, CKD, COPD on home oxygen, DM, h/o of CVA, presented to the ED with a complaint AMS, lethargy, and decrease in mobility AMS Acute on chronic HFrEF Nonischemic cardiomyopathy S/P BiV ICD Acute on chronic respiratory failure DOUGLAS on CKD-nephrology following Hypoglycemia Hypertension History of CVA Diabetes [facility] 2014- normal coronary arteries Lexiscan MPI Stress 02/14/2020- negative for stress induced ischemia. EF 38% Echo 01/22/2021- EF 15-20%, LV mildly dilated, severe global hypokinesis, Transmitral doppler flow pattern suggest restrictive physiology, right ventricle is hypokinetic, left atrium mildly dilated Outpatient medications: Aspirin, Aldactone 50 mg p.o. daily, hydralazine 25 mg p.o. twice daily, Lipitor 40 mg p.o. nightly, Coreg 25 mg p.o. twice daily Plan: Pt takes Lasix 40mg PRN at home. Continue Coreg 3.125mg BID,asa, lipitor. No ACEI/ARB/ARNI due to renal fxn. Cardiac status is currently stable. 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 Pt was scheduled for outpatient evaluation on 07/30/2021 and will subsequently be set up for generator exchange as an outpatient. Due to soft BP will hold outpatient antihypertensive regimen Per documentation patient awaiting discharge to facility Cardiac status otherwise stable. Will see as needed Patient in conjunction with Dr. Walton who agrees with this plan of care - Patient Problems (1) Biventricular automatic implantable cardioverter defibrillator in situ Current Visit: No Status: Chronic (2) COPD (chronic obstructive pulmonary disease) Current Visit: No Status: Chronic (3) Nonischemic cardiomyopathy Current Visit: No Status: Chronic (4) AICD (automatic cardioverter/defibrillator) present Current Visit: Yes Status: Chronic (5) GERD (gastroesophageal reflux disease) Current Visit: No Status: Acute (6) Biventricular implantable cardioverter-defibrillator (ICD) in situ Current Visit: No Status: Chronic (7) Acute on chronic HFrEF (heart failure with reduced ejection fraction) Current Visit: No Status: Acute (8) H/O: CVA (cerebrovascular accident) Current Visit: No Status: Chronic (9) DM2 (diabetes mellitus, type 2) Current Visit: No Status: Chronic (10) Acute kidney injury superimposed on CKD Current Visit: Yes Status: Acute (11) Chronic respiratory failure Current Visit: No Status: Acute (12) Debility Current Visit: No Status: Acute (13) Atypical chest pain Current Visit: No Status: Acute (14) NICM (nonischemic cardiomyopathy) Current Visit: No Status: Chronic Subjective Date of service: 07/30/21 Principal diagnosis: HFrEF, AMS Interval history: Patient resting in bed in no acute distress Patient paced rhythm on monitor with no events Objective Vital Signs Temp Pulse Pulse Resp BP Pulse Ox 07/30/21 08:00 80 07/30/21 07:50 97.4 F L 73 18 119/79 95 07/29/21 22:00 76 18 96 07/29/21 21:25 76 108/80 07/29/21 20:32 98.1 F 77 18 109/66 96 07/29/21 16:08 98.3 F 76 18 108/80 99 07/29/21 16:00 78 - Physical Examination General: No Apparent Distress HEENT: Positive: EOMI, Normocephaly Neck: Positive: neck supple, trachea midline. Negative: JVD/HJR Cardiac: Positive: Reg Rate and Rhythm Lungs: Positive: Normal Breath Sounds Neuro: Positive: Grossly Intact Abdomen: Positive: Soft Skin: Negative: Rash Musculoskeletal: No Pain Extremities: Present: warm. Absent: edema - Labs and Meds Comprehensive Metabolic Panel 07/29/21 07/29/21 07/30/21 Range/Units 13:00 18:36 04:00 Sodium 142 141 140 (137-145) mmol/L Potassium 5.5 H D 5.0 4.9 (3.6-5.0) mmol/L Chloride 110.6 H 108.6 H 107.8 H (98-107) mmol/L Carbon Dioxide 22 23 23 (22-30) mmol/L BUN 16 17 21 H (7-17) mg/dL Creatinine 1.6 H D 1.8 H 1.7 H (0.6-1.2) mg/dL Glucose 75 162 H 216 H (65-100) mg/dL Calcium 8.8 D 8.7 8.8 (8.4-10.2) mg/dL - Imaging and Cardiology EKG: report reviewed, image reviewed Echo: report reviewed (01/2021) Cardiac cath: report reviewed (2014 - normal coronaries) - Telemetry EKG Rhythm: Paced Pacemaker: ventricular pacing w/capt
--- NOTE | 2021-07-30 12:49 | Discharge Summary ---
Providers - Providers Date of Admission: 07/25/21 01:15 Attending physician: DREAD WALLACE 07/25/21 Consult to Cardiac Rehabilitation [CONS] Routine Reason For Exam: Phase I 07/25/21 01:15 Consult to Cardiology [CONS] Routine Consulting Provider: EJ DOMINGUEZ Reason For Exam: CHEST PAIN Consult to Dietitian/Nutrition [CONS] Routine Physician Instructions: Reason For Exam: Reason for Consult: Diet education Consult to Physician [CONS] Routine Comment: Consulting Provider: MITCHEL HOFFMAN Physician Instructions: Reason For Exam: ACUTE ON CHRONIC RENAL FAILURE 07/25/21 08:46 Physical Therapy Evaluation and Treat [CONS] Urgent Comment: Reason For Exam: PT to eval and treat 07/25/21 08:47 Occupational Therapy Evaluate and Treat [CONS] Urgent Comment: Reason For Exam: OT to eval and treat Primary care physician: FOREPART ROUNDER Hospitalization Condition: Stable Hospital course: 55 y/o female with pmhx of HFrEF(15-20%) with BIV ICD, CKD, COPD on home oxygen, DM, h/o of CVA, presented to the ED with a complaint AMS, lethargy, and decrease in mobility. Of note patient was recently discharged on 07/21/2021 for acute exacerbation of COPD. She is found to have elevated BUN, elevated creatinine, negative troponin and chest x-ray shows no acute cardiopulmonary disease. Troponins negative x1. Patient currently receiving fluids due to DOUGLAS. Assessment and plan: --Acute Chest pain Patient has known history of coronary artery disease. Patient admitted and placed on telemetry. follow serial cardiac enzymes. Patient placed on aspirin, sublingual nitroglycerin and IV morphine as needed for chest pain. Medical management by cardiology [facility] 2014normal coronaries Stress test 02/14/2020negative for stress-induced ischemia. EF 38% Echocardiogram 1EF 15 to 20% -- Chronic systolic CHF: Will monitor input and output and also monitor daily weight. 2D echo showed EF 15 to 20% which is further declined than her prior echo Now off diuretics due to declining renal function Cardiology following --COPD with ongoing tobacco abuse Continue nebulizer breathing treatment, assess for home O2 requirement -- Rhabdomyolysis Patient placed on IV fluid. We monitor creatinine kinase. -- AICD (automatic cardioverter/defibrillator) present further evaluation by cardiology. -- Acute kidney injury superimposed on CKD We will continue patient on IV fluid and follow BMP, nephrology consulted. -- DM2 (diabetes mellitus, type 2) Patient on sliding scale insulin. We will monitor Accu-Cheks closely. --Hypertensionresume routine home medications and monitor vital signs closely. --DVT prophylaxis Patient placed on subcutaneous heparin. -- Full code status Disposition: Continue to monitor renal function, creatinine improving, nephrology following, medical management per cardiology. Possible discharge tomorrow to SNF. Discharge diagnosis: Hypokalemia resolved Hyperkalemia resolved Hypocalcemia resolved Atypical chest pain resolved Gastroesophageal reflux disease Chronic systolic congestive heart failure EF 15 to 20% COPD with exacerbation improved Ongoing tobacco use Rhabdomyolysis improved History of AICD Acute on chronic kidney disease Disposition: HOME HEALTH CARE SERVICE Final Discharge Diagnosis (Prints w/discharge instructions): Hypokalemia resolved. Hyperkalemia resolved. Hypocalcemia resolved. Atypical chest pain resolved. Gastroesophageal reflux disease. Chronic systolic congestive heart failure EF 15 to 20%. COPD with exacerbation improved. Ongoing tobacco use. Rhabdomyolysis improved. History of AICD. Acute on chronic kidney disease Time spent for discharge: 40 min Core Measure Documentation - Palliative Care Palliative Care/ Comfort Measures: Not Applicable - Core Measures Any of the following diagnoses?: none Exam - Constitutional Vitals: Temp Pulse Resp BP Pulse Ox 97.4 F L 80 18 119/79 97 07/30/21 07:50 07/30/21 11:30 07/30/21 11:30 07/30/21 07:50 07/30/21 11:30 General appearance: Present: no acute distress, well-nourished - EENT Eyes: Present: PERRL, EOM intact - Neck Neck: Present: supple, normal ROM - Respiratory Respiratory effort: normal Plan Activity: advance as tolerated, fall precautions Diet: diabetic, other (Cardiac diet as tolerated) Additional Instructions: Patient was hypoxemic at the time of admission requiring 2 to 3 L of supplemental nasal cannula oxygen. However patient has been saturating well on room air for the last 4 days. Patient already has home oxygen 2 to 3 L via nasal cannula, patient uses as needed. Advised to continue home O2 as needed. 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 If you have worsening symptoms contact MD or go to the nearest emergency room as needed Follow up with: PRIMARY CARE, [Primary Care Provider] - 3-5 Days TREY DOMINGUEZ MD [Staff Physician] - 7 Days NIYA AMBRIZ MD [Staff Physician] - 7 Days
[2021-07-30] MEDS: TIOTROPIUM 18 MCG CAP INHALATION IH SCH (14:11)
--- NOTE | 2021-07-30 16:22 | Progress Note ---
Assessment and Plan Impression: * Acute kidney disease on Stage III chronic kidney disease --Baseline SCr 1.7-1.9mg/dL * Acute encephalopathy * Chest pain * Possible ICD discharge * Rhabdomyolysis * Recent fall * Hypoglycemia * HFrEF * Chronic hypoxic respiratory failure - 3L NC oxygen at baseline * COPD * Type II DM * Hypertension Plan: * Creatinine improved/stable to 1.7, 2.5 at peak * Monitor volume status closely, maintain euvolemia as able * Note home medications to include spironolactone 50mg and Lasix 40mg. Both currently held, can restart MRA if needed, advised to take Lasix prn only for now as outpatient, BP is soft * CK trending down; UA at admission w/ sm blood but no RBC c/w myoglobin * Cardiology recommendations noted * Avoid potential nephrotoxins * Dose medications for renal function * Strict I/O * Note plans discharge planning in progress. Stable from a renal standpoint. Will arrange outpatient nephrology follow up Subjective Date of service: 07/30/21 Principal diagnosis: HFrEF, AMS Interval history: Patient resting in bed this AM Objective - Exam Narrative Exam: General appearance: well-developed, well-nourished EENT: ATNC Respiratory: Present: Clear to Auscultation Cardiology: regular, S1S2 Gastrointestinal: normal, no tenderness, no distended Integumentary: no rash, warm and dry Neurologic: alert and oriented x3 Psychiatric: cooperative - Vital Signs Vital signs: Vital Signs - 12hr 07/30/21 07/30/21 07/30/21 07:50 08:00 11:30 Temperature 97.4 F L Pulse Rate 73 80 Pulse Rate [ 80 From Monitor] Respiratory 18 18 Rate Blood Pressure 119/79 O2 Sat by Pulse 95 97 Oximetry - Lab 07/25/21 06:30 07/30/21 04:00 Most recent lab results Calcium 8.8 mg/dL (8.4-10.2) 07/30/21 04:00 Magnesium 1.90 mg/dL (1.7-2.3) 07/30/21 04:00 Medications & Allergies - Medications Allergies/Adverse Reactions: Allergies divalproex sodium [From Depakote] Allergy (Verified 07/18/21 12:58) Anaphylaxis heparin Allergy (Verified 07/18/21 12:58) Swelling lowers WBC's Iodinated Contrast Media [Iodinated Contrast Media - IV Dye] Allergy (Verified 07/18/21 12:58) Anaphylaxis ketorolac tromethamine [From Toradol] Allergy (Verified 07/18/21 12:58) Angioedema ondansetron HCl [From Zofran (as hydrochloride)] Allergy (Verified 07/18/21 12:58) Itching Penicillins Allergy (Verified 07/18/21 12:58) Anaphylaxis sulfamethoxazole [From Bactrim] Allergy (Verified 07/18/21 12:58) Unknown trimethoprim [From Bactrim] Allergy (Verified 07/18/21 12:58) Unknown Home Medications: Home Medications Medication Instructions Recorded Confirmed Last Taken Type Albuterol Sulfate [Ventolin HFA] 2 puff IH Q4H PRN 10/03/14 07/25/21 1 Day Ago History ~07/18/21 DULoxetine [Cymbalta] 60 mg PO BID 12/12/14 07/25/21 1 Day Ago History ~07/18/21 traZODone [Desyrel] 100 mg PO QHS 12/12/14 07/25/21 2 Days Ago History ~01/20/21 clonazePAM [KlonoPIN] 1 mg PO TID 01/05/15 07/25/21 1 Day Ago History ~07/18/21 Insulin Aspart (Nf) [NovoLOG 7 - 12 units SQ AC 05/26/17 07/25/21 1 Day Ago History Flexpen] ~07/18/21 Gabapentin 600 mg PO TID 01/22/21 07/25/21 1 Day Ago History ~07/18/21 Aspirin [Aspirin BABY CHEW TAB] 81 mg PO QDAY #30 tab.chew 01/27/21 07/25/21 1 Day Ago Rx ~07/18/21 AtorvaSTATin [Lipitor] 40 mg PO QHS #30 tablet 01/27/21 07/25/21 1 Day Ago Rx ~07/18/21 Furosemide [Lasix TAB] 40 mg PO QDAY PRN #30 02/04/21 07/25/21 2 Days Ago Rx ~07/17/21 carvediloL [Coreg] 3.125 mg PO BID #60 tablet 06/27/21 07/25/21 1 Day Ago Rx ~07/18/21 Budesonide/Formoterol Fumarate 10.2 gm IH DAILY PRN 07/19/21 07/25/21 Unknown History [Symbicort 80-4.5 Mcg Inhaler] Fluticasone/Salmeterol [Advair 1 puff IH BID 07/19/21 07/25/21 1 Day Ago History Diskus 250-50 mcg] ~07/18/21 Insulin Detemir (Nf) [Levemir 14 units SUB-Q QAM 07/19/21 07/19/21 1 Day Ago History Flextouch (Nf)] ~07/18/21 Tiotropium [place] [Spiriva] 18 mcg IH DAILY 07/19/21 07/25/21 1 Day Ago History ~07/18/21 Insulin Glargine [Lantus VIAL] 10 units SUB-Q QAM units 07/27/21 Unknown Rx Active Medications: Generic Name Dose Route Start Last Admin Trade Name Freq PRN Reason Stop Dose Admin Acetaminophen 650 mg 07/25/21 01:15 Acetaminophen 325 Mg Tab PO Q4H PRN Pain MILD(1-3)/Fever >100.5/HARPER Albuterol 2 mg 07/27/21 10:07 Albuterol 2.5 Mg/3 Ml Nebu IH Q4H PRN Shortness Of Breath Arformoterol Tartrate 15 mcg 07/27/21 20:00 07/30/21 08:05 Arformoterol 15 Mcg/2 Ml Nebu IH Not Given Q12HRT ASHKAN Aspirin 81 mg 07/26/21 10:00 07/30/21 09:06 Aspirin 81 Mg Tab Chew PO 81 mg QDAY ASHKAN Administration Atorvastatin Calcium 40 mg 07/25/21 22:00 07/29/21 21:26 Atorvastatin 40 Mg Tab PO 40 mg QHS ASHKAN Administration Budesonide 1 mg 07/27/21 20:00 07/30/21 08:05 Budesonide 0.5 Mg/2 Ml Nebu IH Not Given Q12HRT ASHKAN Calcium Carbonate/Glycine 1,000 mg 07/29/21 10:00 07/30/21 09:06 Calcium Carbonate 500 Mg Tab Chew PO 1,000 mg BID ASHKAN Administration Carvedilol 3.125 mg 07/27/21 22:00 07/30/21 09:05 Carvedilol 3.125 Mg Tab PO 3.125 mg BID ASHKAN Administration Clonazepam 1 mg 07/28/21 20:00 07/30/21 13:44 Clonazepam 0.5 Mg Tab PO 1 mg TID ASHKAN Administration Dextrose 0 ml 07/25/21 01:40 07/25/21 10:24 Dextrose 10% *Hypoglycemia IV 15 ml DIRECT PRN Administration Hypoglycemia Protocol Duloxetine HCl 60 mg 07/28/21 22:00 07/30/21 09:05 Duloxetine 30 Mg Cap PO 60 mg BID ASHKAN Administration Gabapentin 100 mg 07/28/21 22:00 07/30/21 13:44 Gabapentin 100 Mg Cap PO 100 mg Q8HR ASHKAN Administration Insulin Glargine 10 units 07/28/21 10:00 07/30/21 09:05 Insulin Glargine 100 Units/Ml SUB-Q 10 units QAM ASHKAN Administration Insulin Human Lispro 0 unit 07/25/21 07:30 07/30/21 12:47 Insulin Lispro 100 Unit/Ml SUB-Q 4 unit ACHS ASHKAN Administration Protocol Magnesium Hydroxide 30 ml 07/25/21 01:15 Magnesium Hydroxide (Mom) Oral Liqd Udc PO Q4H PRN Constipation Metoclopramide HCl 5 mg 07/25/21 02:00 Metoclopramide 10 Mg/2 Ml Inj IV Q8H PRN Nausea And Vomiting Morphine Sulfate 2 mg 07/25/21 01:15 07/30/21 13:46 Morphine 2 Mg/1 Ml Inj IV 2 mg Q4H PRN Administration Pain, Moderate (4-6) Morphine Sulfate 4 mg 07/25/21 01:15 07/30/21 04:15 Morphine 4 Mg/1 Ml Inj IV 4 mg Q4H PRN Administration Pain , Severe (7-10) Morphine Sulfate 2 mg 07/25/21 01:15 Morphine 4 Mg/1 Ml Inj IV Q5MIN PRN Chest Pain unrelieved by NTG Sodium Chloride 10 ml 07/25/21 10:00 07/30/21 09:06 Sodium Chloride 0.9% 10 Ml Flush Syringe IV 10 ml BID ASHKAN Administration Sodium Chloride 10 ml 07/25/21 01:15 07/26/21 11:24 Sodium Chloride 0.9% 10 Ml Flush Syringe IV 10 ml PRN PRN Administration LINE FLUSH Tiotropium [place] 1 puff 07/28/21 10:00 07/30/21 14:11 Tiotropium 18 Mcg Cap Inhalation IH Not Given DAILY [facility] Tramadol HCl 50 mg 07/25/21 01:15 07/26/21 17:44 Tramadol 50 Mg Tab PO 50 mg Q6H PRN Administration Pain, Moderate (4-6)
--- NOTE | 2021-07-30 17:10 | Electrocardiograph Report ---
[facility] Test Date: 2021-07-26 Test Time: 07:43:22 Pat Name: GISELLA HERRERA Department: Room: A452 1 Gender: F Statement Clerk: JENNIFER : 1965 Requested By: CRYSTAL WHITTINGTON Order Number: [id number] Reading MD: Grayson Whelan Measurements Intervals [place] Rate: 90 P: 55 AK: 107 QRS: -74 QRSD: 129 T: 85 QT: 404 QTc: 494 Interpretive Statements Atrial-sensed ventricular-paced rhythm Compared to ECG 07/25/2021 07:41:45 No significant changes Electronically Signed On 07-30-2021 17:09:57 EST by Grayson Whelan
== END 2021-07-30 17:10 | disposition home health service (06) | DRG 682 ==
LOC: ED 22:00 → 4A 07-25 01:15
PROVIDERS: ADMIT Internal Medicine Geriatric Medicine; ATTEND Internal Medicine
DX: N17.9 Acute kidney failure, unspecified (principal); I50.23 Acute on chronic systolic (congestive) heart failure; J96.21 Acute and chronic respiratory failure with hypoxia; I13.0 Hypertensive heart and chronic kidney disease with heart failure and stage 1 through stage 4 chronic kidney disease, or unspecified chronic kidney disease; M62.82 Rhabdomyolysis; G93.40 Encephalopathy, unspecified; J44.1 Chronic obstructive pulmonary disease with (acute) exacerbation; I42.8 Other cardiomyopathies; R74.8 Abnormal levels of other serum enzymes; E11.22 Type 2 diabetes mellitus with diabetic chronic kidney disease; E83.51 Hypocalcemia; E11.649 Type 2 diabetes mellitus with hypoglycemia without coma; K21.9 Gastro-esophageal reflux disease without esophagitis; N18.30 Chronic kidney disease, stage 3 unspecified; Z20.822 Contact with and (suspected) exposure to COVID-19; I25.2 Old myocardial infarction; M19.90 Unspecified osteoarthritis, unspecified site; E87.6 Hypokalemia; E87.5 Hyperkalemia; F17.200 Nicotine dependence, unspecified, uncomplicated; I25.10 Atherosclerotic heart disease of native coronary artery without angina pectoris; Z86.73 Personal history of transient ischemic attack (TIA), and cerebral infarction without residual deficits; Z79.4 Long term (current) use of insulin; Z90.5 Acquired absence of kidney; Z79.82 Long term (current) use of aspirin; Z90.49 Acquired absence of other specified parts of digestive tract; Z94.89 Other transplanted organ and tissue status; Z88.0 Allergy status to penicillin; Z88.8 Allergy status to other drugs, medicaments and biological substances; Z91.041 Radiographic dye allergy status; Z95.810 Presence of automatic (implantable) cardiac defibrillator
CPT/HCPCS: 36415; 71045; 80048; 80053; 80307; 80320; 81001; 82140; 82550; 82962; 83735; 83880; 84484; 85025; 85610; 93005; 93010; 94640; 94760; G0378; J3490; Q0162; Q9967; G0480; J0610; J1642; J1815; J2270; J7030; J7040; J7042; U0003